=== PATIENT | male | born 1950 | race Caucasian/White ===

== ENCOUNTER 2016-05-30 04:03 | Emergency (ER) | payer MEDICARE, MEDICAID ==
--- NOTE | 2016-05-30 05:46 | ER Document Report ---
ED General - General Chief Complaint: Fall Injury Stated Complaint: FALL/HEAD PAIN Notes: Patient is a 65-year-old male who presents ER frequently. He presents because he is trying to change his shower curtain and fell. He has poor balance at baseline. He does head. He says he has severe headaches and siblings head. Denies any neck pain. He denies any pain anywhere else in his body. He is unsure if he had loss of consciousness when he hit his head. He remembers most the fall. He says he thinks he is not on blood thinners anymore but is not sure.. He has no other complaints at this time. TRAVEL OUTSIDE OF THE [place] IN LAST 30 DAYS: No - Related Data Allergies/Adverse Reactions: aspirin [Aspirin] Adverse Reaction (Mild, Verified 05/04/16 21:22) "Hurts stomach" Past Medical History - Social History Smoking Status: Never Smoker Frequency of alcohol use: None Drug Abuse: None Family History: Reviewed & Not Pertinent, CAD, Hypertension - Past Medical History Cardiac Medical History: Reports: Hx Congestive Heart Failure, Hx Coronary Artery Disease, Hx Heart Attack - stents, Hx Hypercholesterolemia, Hx Hypertension Pulmonary Medical History: Reports: Hx Bronchitis, Hx Pneumonia Neurological Medical History: Denies: Hx Cerebrovascular Accident Endocrine Medical History: Reports: Hx Diabetes Mellitus Type 2 Renal/ Medical History: Reports: Hx Benign Prostatic Hyperplasia, Hx Kidney Stones GI Medical History: Reports: Hx Gastritis, Hx Gastroesophageal Reflux Disease, Hx Ulcer Musculoskeltal Medical History: Reports Hx Arthritis Psychiatric Medical History: Reports: Hx Anxiety, Hx Dementia, Hx Depression Traumatic Medical History: Reports: Hx Fractures, Hx Traumatic Brain Injury Past Surgical History: Reports: Hx Appendectomy, Hx Bowel Surgery - 17 inches removed due to necrosis, Hx Cardiac Catheterization, Hx Cardiac Surgery - cath, stent placement, Hx Coronary Stent, Hx Orthopedic Surgery - right wrist, right hip - Immunizations Immunizations up to date: Yes Hx Diphtheria, Pertussis, Tetanus Vaccination: Yes Hx Pneumococcal Vaccination: 11/28/11 Review of Systems - Review of Systems Notes: My Normal Review Basic REVIEW OF SYSTEMS: CONSTITUTIONAL : Denies fever, chills, or sweats. Denies recent illness. CARDIOVASCULAR: Denies chest pain. RESPIRATORY: Denies cough, cold, or chest congestion. Denies shortness of breath, difficulty breathing, or wheezing. MUSCULOSKELETAL: Denies neck or back pain or joint pain or swelling. SKIN: Denies rash or skin lesions. NEUROLOGICAL: Headache ALL OTHER SYSTEMS REVIEWED AND NEGATIVE. Physical Exam - Vital signs Vitals: Temp Pulse Resp BP Pulse Ox 97.7 F 93 16 125/74 96 05/30/16 04:12 05/30/16 04:12 05/30/16 04:12 05/30/16 04:12 05/30/16 04:12 - Notes Notes: General Appearance: Well nourished, alert, cooperative, no acute distress, no obvious discomfort. Vitals: reviewed, See vital signs table. Head: no swelling or tenderness to the head Eyes: PERRL, EOMI, Conjuctiva clear Mouth: No decreasd moisture Neck: Supple, no neck tenderness, No thyromegaly. No obvious step-offs or deformities. Back: No tenderness to palpation of thoracic or lumbar spine. No step-offs or deformities. Lungs: No wheezing, No rales, No rhonci, No accessory muscle use, good air exchange bilaterally. Heart: Normal rate, Regular rythm, No murmur, no rub Abdomen: Normal BS, soft, No rigidity, No abdominal tenderness, No guarding, no rebound, no abdominal masses, no organomegaly Extremities: strength 5/5 in all extremities, good pulses in all extremities, no swelling or tenderness in the extremities, no edema. Skin: warm, dry, appropriate color, no rash Neuro: speech clear, oriented x 3, normal affect, responds appropriately to questions. cranial nerves II through XII are intact. Distal sensation intact. Patient moves EXTREMITIES without difficulty. Course - Vital Signs Vital signs: Temp Pulse Resp BP Pulse Ox 97.7 F 93 16 125/74 96 05/30/16 04:12 05/30/16 04:12 05/30/16 04:12 05/30/16 04:12 05/30/16 04:12 - Transfer of Care Notes: 05/30/16 05:[address] scan was negative. CT scan was obtained patient was complaining of a bad headache after hitting his head and is unsure if he is on blood thinners or not. Also patient is unsure if he had lost consciousness. CT scan is negative. Remainder of patient's exam is normal. Patient is discharged home. I informed him that extremities poor that he ask for help before performing tasks that require good balance as the patient has poor balance at baseline. Patient agrees with plan will be discharged home. Patient agrees to return to the ER immediately if has worsening headache, vomiting, or feels unwell. Patient's headache is currently gone. Dictation of this chart was performed using voice recognition software; therefore, there may be some unintended grammatical errors. Discharge - Discharge Clinical Impression: Minor head injury Qualifiers: Encounter type: initial encounter Qualified Code(s): S00.90XA - Unspecified superficial injury of unspecified part of head, initial encounter Condition: Good Disposition: HOME, SELF-CARE Additional Instructions: Please return to ER immediately if you have severe headache, vomiting, or feel unwell. Please wait for assistance before doing things such as changing a shower curtain or other tasks that require good balance
[2016-05-30 08:00] VITALS: BP 149/79
== END 2016-05-30 07:24 | disposition home or self-care (01) ==
LOC: ER 04:03
DX: S09.90XA Unspecified injury of head, initial encounter (principal); W18.30XA Fall on same level, unspecified, initial encounter; Y92.002 Bathroom of unspecified non-institutional (private) residence as the place of occurrence of the external cause; I50.9 Heart failure, unspecified; I25.10 Atherosclerotic heart disease of native coronary artery without angina pectoris; I10 Essential (primary) hypertension; E11.9 Type 2 diabetes mellitus without complications; Z88.6 Allergy status to analgesic agent; Z87.442 Personal history of urinary calculi; I25.2 Old myocardial infarction
CPT/HCPCS: 70450; 99284

== ENCOUNTER 2016-06-07 10:58 | Emergency (ER) | payer MEDICARE, MEDICAID ==
--- NOTE | 2016-06-07 11:17 | ER Document Report ---
ED General - General Chief Complaint: Rash Stated Complaint: WEAKNESS Time seen by provider: 11:00 Mode of Arrival: Medic Information source: Patient Notes: Patient presents from [facility] with report by personnel there of altered mental status at 8:30 this morning. EMS personnel reported that he did not know the year. The patient at this time says he has no complaints and doesn't know why he is here. He reports at baseline he ambulates some mainly uses a wheelchair and says that has not changed recently and denies any recent fall. Review of records shows that he was seen earlier this month with a fall and had a head CT that was negative. On detailed questioning the patient does say that he has some red spots on his legs and that one of them in particular on the left thigh is hurting but he doesn't home how long they have been there. He denies fever, chills, nausea, vomiting, cough, shortness of breath. He says he' s had good appetite recently. Physical Exam: General: Alert, appears well. HEENT: Normocephalic. Atraumatic. PERRLA. Extraocular movements intact. Oropharynx clear. Neck: Supple. Non-tender. No JVD Respiratory: No respiratory distress. Clear and equal breath sounds bilaterally. Cardiovascular: Regular rate and rhythm. PMI not displaced Abdominal: Normal Inspection. Soft, non-tender. No distension. Normal Bowel Sounds. exam is normal male testes ongoing no masses or hernias. He has bright erythema in between the thighs and scrotum bilaterally with a few satellite lesions suggesting Sonya. Back: Non-tender. No deformity or step off. Extremities: Moves all four extremities. Upper extremities: Normal inspection. Non-tender. Normal color. Normal ROM. Normal temperature. Lower extremities: Normal inspection. Non-tender. No edema. Normal color. Normal ROM. Normal temperature. Neurological: Speech clear mentation normal answers questions appropriately. Biometry Teacher strength 4-5 and equal both upper extremity motor function 4-5 equal both lower extremities. Patient is oriented 3 Psychological: Normal affect. Normal Mood. Skin: Warm. Dry. Patient has multiple erythematous papules over her lower abdomen and thighs bilaterally consistent with a folliculitis. There is a 1 x 1 cm area of bright erythema to the lower right thigh medially more consistent with a cellulitis but there is no crepitance or fluctuance or expressible purulence. There is a 2 x 2 centimeter area of erythema to the left thigh medially and inferiorly with no crepitance or fluctuance. This area is mildly tender and has an eschar in the middle proximal 5 mm across.. TRAVEL OUTSIDE OF THE [place] IN LAST 30 DAYS: No - Related Data Allergies/Adverse Reactions: aspirin [Aspirin] Adverse Reaction (Mild, Verified 05/04/16 21:22) "Hurts stomach" Past Medical History - Social History Smoking Status: Former Smoker Family History: Reviewed & Not Pertinent, CAD, Hypertension - Past Medical History Cardiac Medical History: Reports: Hx Congestive Heart Failure, Hx Coronary Artery Disease, Hx Heart Attack - stents, Hx Hypercholesterolemia, Hx Hypertension Pulmonary Medical History: Reports: Hx Bronchitis, Hx Pneumonia Neurological Medical History: Denies: Hx Cerebrovascular Accident Endocrine Medical History: Reports: Hx Diabetes Mellitus Type 2 Renal/ Medical History: Reports: Hx Benign Prostatic Hyperplasia, Hx Kidney Stones GI Medical History: Reports: Hx Gastritis, Hx Gastroesophageal Reflux Disease, Hx Ulcer Musculoskeltal Medical History: Reports Hx Arthritis Psychiatric Medical History: Reports: Hx Anxiety, Hx Dementia, Hx Depression Traumatic Medical History: Reports: Hx Fractures, Hx Traumatic Brain Injury Past Surgical History: Reports: Hx Appendectomy, Hx Bowel Surgery - 17 inches removed due to necrosis, Hx Cardiac Catheterization, Hx Cardiac Surgery - cath, stent placement, Hx Coronary Stent, Hx Orthopedic Surgery - right wrist, right hip - Immunizations Immunizations up to date: Yes Hx Diphtheria, Pertussis, Tetanus Vaccination: Yes Hx Pneumococcal Vaccination: 11/28/11 Review of Systems - Review of Systems Constitutional: denies: Chills, Fever EENT: denies: Ear pain, Throat pain Cardiovascular: denies: Chest pain, Syncope, Dizziness, Lightheaded Respiratory: denies: Cough, Short of breath Gastrointestinal: denies: Abdominal pain, Diarrhea, Nausea, Vomiting Genitourinary: denies: Burning, Dysuria Musculoskeletal: denies: Back pain Skin: Rash Hematologic/Lymphatic: denies: Swollen glands Neurological/Psychological: Weakness - Baseline. denies: Numbness Physical Exam - Vital signs Vitals: Temp 97.9 F 06/07/16 11:05 Course - Re-evaluation Re-evalutation: 06/07/16 12:36 As the patient had a temperature 97.8 and is not tachycardic hypotensive or hypoxic had no specific complaints on arrival and no physical findings except for mild cellulitis rather than pursuing septic workup of chosen to keep the patient here for observation to ensure that he did not have any altered mental status such as that reported by staff at his residence or new symptoms. The patient has eaten lunch without difficulty and remained afebrile with a normal glucose and normal vital signs. I believe we can safely treat the patient with oral antibiotics for cellulitis and have him follow with his physician next week. He also be placed on Lotrimin cream for candidal infection in groin. He will be in an observed setting and should he show signs of failing outpatient therapy can certainly return for reevaluation - Vital Signs Vital signs: Temp Pulse Resp BP Pulse Ox 97.9 F 12 95 06/07/16 11:05 06/07/16 11:14 06/07/16 11:14 Discharge - Discharge Clinical Impression: Cellulitis Qualifiers: Site of cellulitis: extremity Site of cellulitis of extremity: lower extremity Laterality: unspecified laterality Qualified Code(s): L03.119 - Cellulitis of unspecified part of limb Condition: Stable Disposition: HOME-ASSISTED LIVING Additional Instructions: Cellulitis You have an infection of your skin and underlying soft tissues called cellulitis. This is due to bacteria, which can enter through any break in the skin, or even through an irritated hair follicle. Untreated, cellulitis will usually worsen. Antibiotics are required. Usually, warm packs or warm soaks, and elevation of the infected area are recommended. You should start getting better within 24 to 36 hours. Most infections respond quickly to the right medication. Follow-up care is important, however, to check for abscess (boil) formation, unsuspected foreign body, or resistant infection. If you develop fever, chills, or if the area of infection is becoming rapidly more swollen or painful, call the doctor at once. Prescriptions: Cephalexin Monohydrate [Keflex 500 mg Capsule] 500 mg PO QID #40 capsule Sulfamethoxazole/Trimethoprim [Bactrim Ds Tablet] 1 each PO BID #20 tablet Referrals: LARRY DEVINE PA-C [NO LOCAL MD] - Follow up in 1 week
[2016-06-07 14:08] VITALS: BP 133/87
== END 2016-06-07 14:15 | disposition home health service (06) ==
LOC: ER 10:58
DX: L03.119 Cellulitis of unspecified part of limb (principal); R53.1 Weakness; R41.82 Altered mental status, unspecified; I50.9 Heart failure, unspecified; I25.10 Atherosclerotic heart disease of native coronary artery without angina pectoris; E78.00 Pure hypercholesterolemia, unspecified; I10 Essential (primary) hypertension; E11.9 Type 2 diabetes mellitus without complications; Z87.442 Personal history of urinary calculi; Z88.6 Allergy status to analgesic agent; I25.2 Old myocardial infarction
CPT/HCPCS: 82962; 99284

== ENCOUNTER 2016-06-10 01:23 | Emergency (ER) | payer MEDICARE, MEDICAID ==
[2016-06-10 02:20] VITALS: BP 147/81
[2016-06-10 02:23] LABS: ABSOLUTE EOSINOPHILS # (AUTO) 0.2 10^3/uL (0.0-0.6); ABSOLUTE LYMPHOCYTES (AUTO) 1.2 10^3/uL (0.5-4.7); ABSOLUTE MONOCYTES (AUTO) 0.4 10^3/uL (0.1-1.4); ABSOLUTE NEUT (AUTO) 3.1 10^3/uL (1.7-8.2); BASOPHILS % (AUTO) 0.5 % (0-2); EOSINOPHILS % (AUTO) 4.7 % (0-6); HEMATOCRIT 35.9 % (37.9-51.0); HGB HCT DIFFERENCE 0.1; LYMPHOCYTES % (AUTO) 24.4 % (13-45); MEAN CORPUSCULAR HEMOGLOBIN 27.9 pg (27.0-33.4); MEAN CORPUSCULAR HGB CONC 33.5 g/dL (32.0-36.0); MEAN CORPUSCULAR VOLUME 83 fl (80-97); MONOCYTES % (AUTO) 7.4 % (3-13); RED BLOOD COUNT 4.31 10^6/uL (4.35-5.55); RED CELL DISTRIBUTION WIDTH 14.7 % (11.5-14.0); WHITE BLOOD COUNT 4.9 10^3/uL (4.0-10.5)
[2016-06-10 02:40] LABS: ALANINE AMINOTRANSFERASE 20 U/L (21-72); ALKALINE PHOSPHATASE 189 U/L (38-126); ANION GAP 10 (5-19); ASPARTATE AMINO TRANSFERASE 16 U/L (17-59); BILIRUBIN,TOTAL 0.2 mg/dL (0.2-1.3); BLOOD UREA NITROGEN 18 mg/dL (7-20); CALCIUM 9.2 mg/dL (8.4-10.2); CARBON DIOXIDE 30 mmol/L (22-30); CHLORIDE 99 mmol/L (98-107); GLUCOSE 146 mg/dL (75-110); POTASSIUM 3.9 mmol/L (3.6-5.0); TOTAL PROTEIN 5.8 g/dL (6.3-8.2)
[2016-06-10] MEDS ORDERED: DOXYCYCLINE HYCLATE 100 MG TABLET PO ONE (03:02)
--- NOTE | 2016-06-10 03:11 | ER Document Report ---
ED Fall - General Time seen by provider: 03:05 Mode of Arrival: Medic Information source: Patient TRAVEL OUTSIDE OF THE [place] IN LAST 30 DAYS: No - HPI Occurred: This evening [facility] Context: Slipped, Fell from standing Associated symptoms: denies: Lost consciousness Location of injury/pain: Head <ZOYA MANUEL - Last Filed: 06/10/16 05:38> - General TRAVEL OUTSIDE OF THE [place] IN LAST 30 DAYS: No <PAUL GONZALEZ - Last Filed: 06/10/16 05:47> - General Chief Complaint: Fall Stated Complaint: FALL,HEAD PAIN Notes: Patient is a 65 year old male presenting to the emergency department complaining of a fall. Patient resides at [facility] and denies taking any blood thinners. Patient states he falls a lot and that he was in the bathroom when he fell tonight. Patient was turning around to dry his hands when he ended up on the floor. Patient complains of some head pain and also has an infected area to the left leg. Patient did not lose consciousness or abdominal pain. Patient is allergic to aspirin. (ZOYA MANUEL) - Related data Allergies/Adverse Reactions: aspirin [Aspirin] Adverse Reaction (Mild, Verified 06/10/16 02:18) "Hurts stomach" Past Medical History - General Information source: Patient - Social History Smoking Status: Unknown if Ever Smoked Family History: None, CAD, Hypertension - Past Medical History Cardiac Medical History: Reports: Hx Congestive Heart Failure, Hx Coronary Artery Disease, Hx Heart Attack, Hx Hypercholesterolemia, Hx Hypertension Pulmonary Medical History: Reports: Hx Bronchitis, Hx Pneumonia Endocrine Medical History: Reports: Hx Diabetes Mellitus Type 2 Renal/ Medical History: Reports: Hx Benign Prostatic Hyperplasia, Hx Kidney Stones GI Medical History: Reports: Hx Gastritis, Hx Gastroesophageal Reflux Disease, Hx Ulcer Musculoskeltal Medical History: Reports Hx Arthritis Psychiatric Medical History: Reports: Hx Anxiety, Hx Dementia, Hx Depression Traumatic Medical History: Reports: Hx Fractures, Hx Traumatic Brain Injury Past Surgical History: Reports: Hx Appendectomy, Hx Bowel Surgery, Hx Cardiac Catheterization, Hx Cardiac Surgery, Hx Coronary Stent, Hx Orthopedic Surgery - Immunizations Immunizations up to date: Yes Hx Diphtheria, Pertussis, Tetanus Vaccination: Yes <ZOYA MANUEL - Last Filed: 06/10/16 05:38> - Social History Family History: Reviewed & Not Pertinent, CAD, Hypertension - Past Medical History Cardiac Medical History: Reports: Hx Congestive Heart Failure, Hx Coronary Artery Disease, Hx Heart Attack - stents, Hx Hypercholesterolemia, Hx Hypertension Pulmonary Medical History: Reports: Hx Bronchitis, Hx Pneumonia Neurological Medical History: Denies: Hx Cerebrovascular Accident Endocrine Medical History: Reports: Hx Diabetes Mellitus Type 2 Renal/ Medical History: Reports: Hx Benign Prostatic Hyperplasia, Hx Kidney Stones GI Medical History: Reports: Hx Gastritis, Hx Gastroesophageal Reflux Disease, Hx Ulcer Musculoskeltal Medical History: Reports Hx Arthritis Psychiatric Medical History: Reports: Hx Anxiety, Hx Dementia, Hx Depression Traumatic Medical History: Reports: Hx Fractures, Hx Traumatic Brain Injury Past Surgical History: Reports: Hx Appendectomy, Hx Bowel Surgery - 17 inches removed due to necrosis, Hx Cardiac Catheterization, Hx Cardiac Surgery - cath, stent placement, Hx Coronary Stent, Hx Orthopedic Surgery - right wrist, right hip - Immunizations Immunizations up to date: Yes Hx Diphtheria, Pertussis, Tetanus Vaccination: Yes Hx Pneumococcal Vaccination: 11/28/11 <PAUL GONZALEZ - Last Filed: 06/10/16 05:47> Review of Systems - Review of Systems Constitutional: No symptoms reported EENT: See HPI Cardiovascular: No symptoms reported Respiratory: No symptoms reported Gastrointestinal: No symptoms reported Genitourinary: No symptoms reported Male Genitourinary: No symptoms reported Musculoskeletal: No symptoms reported Skin: No symptoms reported Hematologic/Lymphatic: No symptoms reported Neurological/Psychological: No symptoms reported -: Yes All other systems reviewed and negative <ZOYA MANUEL - Last Filed: 06/10/16 05:38> Physical Exam - Vital signs Interpretation: Normal - General General appearance: Appears well, Alert - HEENT Head: Normocephalic, Atraumatic Eyes: Normal Pupils: PERRL - Respiratory Respiratory status: No respiratory distress Chest status: Nontender Breath sounds: Normal Chest palpation: Normal - Cardiovascular Rhythm: Regular Murmur: No - Abdominal Inspection: Other - Midline incision that is well-healed. Distension: No distension Bowel sounds: Normal Tenderness: Nontender - Back Back: Normal - Extremities General upper extremity: Normal inspection, Normal ROM, Normal strength General lower extremity: Normal ROM, Normal strength, Other - Patient with areas of excoriation to his bilateral lower extremities. 2+ pulses dorsalis pedis bilaterally. Patient has an area on his upper left thigh where he has scratched and has a wound. Area is also indurated with some surrounding erythema <PAUL GONZALEZ - Last Filed: 06/10/16 05:47> - Vital signs Vitals: Temp 97.8 F 06/10/16 01:35 (ZOYA MANUEL) (PAUL GONZALEZ) Course - Laboratory Result Diagrams: 06/10/16 02:10 06/10/16 02:10 <ZOYA MANUEL - Last Filed: 06/10/16 05:38> - Laboratory Result Diagrams: 06/10/16 02:10 06/10/16 02:10 - Diagnostic Test Radiology reviewed: Image reviewed, Reports reviewed <PAUL GONZALEZ - Last Filed: 06/10/16 05:47> - Re-evaluation Re-evalutation: 06/10/16 05:46 Patient no acute findings on head CT. Patient does appear to have the beginnings of a cellulitis on his left lower extremity. He'll be started on doxycycline here and given a prescription. No injuries from fall this evening have been found. (PAUL GONZALEZ) - Vital Signs Vital signs: Temp Pulse Resp BP Pulse Ox 97.6 F 21 H 147/81 H 90 L 06/10/16 03:45 06/10/16 03:00 06/10/16 02:01 06/10/16 03:00 (ZOYA MANUEL) (PAUL GONZALEZ) - Laboratory Laboratory results interpreted by me: 06/10/16 06/10/16 02:10 02:10 RBC 4.31 L Hgb 12.0 L Hct 35.9 L RDW 14.7 H Glucose 146 H AST 16 L ALT 20 L Alkaline Phosphatase 189 H Total Protein 5.8 L Albumin 3.0 L (ZOYA MANUEL) (PAUL GONZALEZ) Discharge <ZOYA MANUEL - Last Filed: 06/10/16 05:38> <PAUL GONZALEZ - Last Filed: 06/10/16 05:47> - Discharge Clinical Impression: Head injury Qualifiers: Encounter type: initial encounter Qualified Code(s): S09.90XA - Unspecified injury of head, initial encounter Cellulitis Qualifiers: Site of cellulitis: extremity Site of cellulitis of extremity: lower extremity Laterality: left Qualified Code(s): L03.116 - Cellulitis of left lower limb Condition: Stable Disposition: HOME, SELF-CARE Instructions: Head Injury Precautions ([facility]), Cellulitis ([facility]) Prescriptions: Doxycycline Hyclate 100 mg PO BID #30 capsule Scribe Attestation: 06/10/16 05:47 I personally performed the services described in the documentation, reviewed and edited the documentation which was dictated to the scribe in my presence, and it accurately records my words and actions. (PAUL GONZALEZ) Scribe Documentation <ZOYA MANUEL - Last Filed: 06/10/16 05:38> <PAUL GONZALEZ - Last Filed: 06/10/16 05:47> - Scribe Written by Scribe:: Dr. Gonzalez (ZOYA MANUEL)
== END 2016-06-10 04:38 | disposition home or self-care (01) ==
LOC: ER 01:23
DX: S09.90XA Unspecified injury of head, initial encounter (principal); L03.116 Cellulitis of left lower limb; R51 Headache; W19.XXXA Unspecified fall, initial encounter; I50.9 Heart failure, unspecified; I25.10 Atherosclerotic heart disease of native coronary artery without angina pectoris; I25.2 Old myocardial infarction; E78.00 Pure hypercholesterolemia, unspecified; I10 Essential (primary) hypertension
CPT/HCPCS: 99285; 36415; 85025; 80053; 70450; A9270

== ENCOUNTER 2016-06-14 10:20 | Emergency (ER) | payer MEDICARE, MEDICAID ==
[2016-06-14 11:13] LABS: ABSOLUTE EOSINOPHILS # (AUTO) 0.2 10^3/uL (0.0-0.6); ABSOLUTE LYMPHOCYTES (AUTO) 1.5 10^3/uL (0.5-4.7); ABSOLUTE MONOCYTES (AUTO) 0.4 10^3/uL (0.1-1.4); ABSOLUTE NEUT (AUTO) 3.6 10^3/uL (1.7-8.2); BASOPHILS % (AUTO) 0.4 % (0-2); EOSINOPHILS % (AUTO) 2.8 % (0-6); HEMATOCRIT 38.3 % (37.9-51.0); HEMOGLOBIN 12.5 g/dL (13.5-17.0); HGB HCT DIFFERENCE -0.8; LYMPHOCYTES % (AUTO) 26.9 % (13-45); MEAN CORPUSCULAR HGB CONC 32.8 g/dL (32.0-36.0); MEAN CORPUSCULAR VOLUME 85 fl (80-97); MONOCYTES % (AUTO) 6.8 % (3-13); RED BLOOD COUNT 4.49 10^6/uL (4.35-5.55); RED CELL DISTRIBUTION WIDTH 15.5 % (11.5-14.0); SEGMENTED NEUTROPHILS % (AUTO) 63.1 % (42-78); WHITE BLOOD COUNT 5.6 10^3/uL (4.0-10.5)
[2016-06-14 11:26] LABS: ALANINE AMINOTRANSFERASE 29 U/L (21-72); ALBUMIN 3.4 g/dL (3.5-5.0); ALKALINE PHOSPHATASE 182 U/L (38-126); ANION GAP 13 (5-19); ASPARTATE AMINO TRANSFERASE 22 U/L (17-59); BILIRUBIN,TOTAL 0.3 mg/dL (0.2-1.3); BLOOD UREA NITROGEN 18 mg/dL (7-20); CALCIUM 9.2 mg/dL (8.4-10.2); CARBON DIOXIDE 26 mmol/L (22-30); CHLORIDE 100 mmol/L (98-107); CREATININE RESULT 0.97 mg/dL (0.52-1.25); GLUCOSE 109 mg/dL (75-110); POTASSIUM 4.5 mmol/L (3.6-5.0); SODIUM 138.9 mmol/L (137-145); TOTAL PROTEIN 6.3 g/dL (6.3-8.2)
--- NOTE | 2016-06-14 11:44 | ER Document Report ---
ED General - General Chief Complaint: Hip Pain Stated Complaint: FALL HIP PAIN Mode of Arrival: Medic Information source: Patient, [facility] Records Notes: 65-year-old gentleman who presents here multiple times a month for complaints of falls presents with complaints of left hip pain. Patient notes that he may have fallen yet again. Patient has never actually been seen to fall on his previous visits always noted to be lying down. She gets tired and does not wish to stay at the current care facility that he is at. Patient denies any other injuries at this time TRAVEL OUTSIDE OF THE [place] IN LAST 30 DAYS: No - HPI Onset: Just prior to arrival Onset/Duration: Sudden Quality of pain: Achy Severity: Mild Pain Level: 1 Associated symptoms: Other Exacerbated by: Movement Relieved by: Denies Similar symptoms previously: Yes Recently seen / treated by doctor: Yes - Related Data Allergies/Adverse Reactions: aspirin [Aspirin] Adverse Reaction (Mild, Verified 06/10/16 02:18) "Hurts stomach" Past Medical History - Social History Smoking Status: Never Smoker Cigarette use (# per day): No Chew tobacco use (# tins/day): No Smoking Education Provided: No Frequency of alcohol use: None Drug Abuse: None Family History: Reviewed & Not Pertinent, CAD, Hypertension Patient has suicidal ideation: No Patient has homicidal ideation: No - Past Medical History Cardiac Medical History: Reports: Hx Congestive Heart Failure, Hx Coronary Artery Disease, Hx Heart Attack - stents, Hx Hypercholesterolemia, Hx Hypertension Pulmonary Medical History: Reports: Hx Bronchitis, Hx Pneumonia Neurological Medical History: Denies: Hx Cerebrovascular Accident Endocrine Medical History: Reports: Hx Diabetes Mellitus Type 2 Renal/ Medical History: Reports: Hx Benign Prostatic Hyperplasia, Hx Kidney Stones. Denies: Hx Peritoneal Dialysis GI Medical History: Reports: Hx Gastritis, Hx Gastroesophageal Reflux Disease, Hx Ulcer Musculoskeltal Medical History: Reports Hx Arthritis Psychiatric Medical History: Reports: Hx Anxiety, Hx Dementia, Hx Depression Traumatic Medical History: Reports: Hx Fractures, Hx Traumatic Brain Injury Past Surgical History: Reports: Hx Appendectomy, Hx Bowel Surgery - 17 inches removed due to necrosis, Hx Cardiac Catheterization, Hx Cardiac Surgery - cath, stent placement, Hx Coronary Stent, Hx Orthopedic Surgery - right wrist, right hip - Immunizations Immunizations up to date: Yes Hx Diphtheria, Pertussis, Tetanus Vaccination: Yes Hx Pneumococcal Vaccination: 11/28/11 Review of Systems - Review of Systems Notes: REVIEW OF SYSTEMS: CONSTITUTIONAL : Denies fever, chills, or sweats. Denies recent illness. EENT: Denies eye, ear, throat, or mouth pain or symptoms. Denies nasal or sinus congestion or discharge. Denies throat, tongue, or mouth swelling or difficulty swallowing. CARDIOVASCULAR: Denies chest pain. Denies palpitations or racing or irregular heart beat. Denies ankle edema. RESPIRATORY: Denies cough, cold, or chest congestion. Denies shortness of breath, difficulty breathing, or wheezing. GASTROINTESTINAL: Denies abdominal pain or distention. Denies nausea, vomiting , or diarrhea. Denies blood in vomitus, stools, or per rectum. Denies black, tarry stools. Denies constipation. GENITOURINARY: Denies difficulty urinating, painful urination, burning, frequency, blood in urine, or discharge. MUSCULOSKELETAL: Admits to hip pain SKIN: Denies rash, lesions or sores. HEMATOLOGIC : Denies easy bruising or bleeding. LYMPHATIC: Denies swollen, enlarged glands. NEUROLOGICAL: Denies confusion or altered mental status. Denies passing out or loss of consciousness. Denies dizziness or lightheadedness. Denies headache. Denies weakness or paralysis or loss of use of either side. Denies problems with gait or speech. Denies sensory loss, numbness, or tingling. Denies seizures. PSYCHIATRIC: Denies anxiety or stress. Denies depression, suicidal ideation, or homicidal ideation. ALL OTHER SYSTEMS REVIEWED AND NEGATIVE. Dictation was performed using [employer] voice recognition software PHYSICAL EXAMINATION: GENERAL: Well-appearing, well-nourished and in no acute distress. HEAD: Atraumatic, normocephalic. EYES: Pupils equal round and reactive to light, extraocular movements intact, sclera anicteric, conjunctiva are normal. ENT: Nares patent, oropharynx clear without exudates. Moist mucous membranes. NECK: Normal range of motion, supple without lymphadenopathy LUNGS: Breath sounds clear to auscultation bilaterally and equal. No wheezes rales or rhonchi. HEART: Regular rate and rhythm without murmurs ABDOMEN: Soft, nontender, nondistended abdomen. No guarding, no rebound. No masses appreciated. Musculoskeletal: Normal range of motion, no pitting or edema. No cyanosis. NEUROLOGICAL: Cranial nerves grossly intact. Normal speech, normal gait. Normal sensory, motor exams PSYCH: Normal mood, normal affect. SKIN: Warm, Dry, normal turgor, no rashes or lesions noted. Physical Exam - Vital signs Vitals: Temp Pulse Resp BP Pulse Ox 97.7 F 74 16 132/77 H 93 06/14/16 10:29 06/14/16 10:29 06/14/16 10:29 06/14/16 10:29 06/14/16 10:29 Course - Re-evaluation Re-evalutation: 06/14/16 11:43 pt noted to have ambulated to the bathroom with no diffiucilty 06/14/16 12:20 Referring x-ray results, appears patient has already put on his shoes and is prepared to go home 06/14/16 13:43 X-ray notes no acute abnormality, patient will be discharged home After performing a Medical Screening Examination, I estimate there is LOW risk for INTRACRANIAL HEMORRHAGE, UNSTABLE SPINE FRACTURE, CENTRAL CORD SYNDROME, CAUDA EQUINA, THORACIC AORTIC DISSECTION, PNEUMOTHORAX, PERFORATED BOWEL, RUPTURED ABDOMINAL AORTIC ANEURYSM, ACUTE TENDON RUPTURE, COMPARTMENT SYNDROME, or OPEN FRACTURE, thus I consider the discharge disposition reasonable. Also, there is no evidence or peritonitis, sepsis, or toxicity. The patient and I have discussed the diagnosis and risks, and we agree with discharging home to follow-up with their primary doctor with the understanding that symptoms and presentations can change. We also discussed returning to the Emergency Department immediately if new or worsening symptoms occur. We have discussed the symptoms which are most concerning (e.g., bloody stool, fever, changing or worsening pain, vomiting) that necessitate immediate return. - Vital Signs Vital signs: Temp Pulse Resp BP Pulse Ox 97.7 F 74 16 132/77 H 93 06/14/16 10:29 06/14/16 10:29 06/14/16 10:29 06/14/16 10:29 06/14/16 10:29 - Laboratory Result Diagrams: 06/14/16 10:40 06/14/16 10:40 Laboratory results interpreted by me: 06/14/16 06/14/16 10:40 10:40 Hgb 12.5 L RDW 15.5 H Alkaline Phosphatase 182 H Albumin 3.4 L - Diagnostic Test Radiology reviewed: Image reviewed, Reports reviewed Discharge - Discharge Clinical Impression: Left hip pain Fall Qualifiers: Encounter type: initial encounter Qualified Code(s): W19.XXXA - Unspecified fall, initial encounter Disposition: HOME, SELF-CARE Additional Instructions: Follow up with your physician tomorrow for further care or return to the ED IMMEDIATELY if symptoms worsen or new concerns occur
[2016-06-14 14:20] VITALS: BP 119/72
== END 2016-06-14 14:15 ==
LOC: ER 10:20
DX: M25.552 Pain in left hip (principal); W19.XXXA Unspecified fall, initial encounter; I25.10 Atherosclerotic heart disease of native coronary artery without angina pectoris; I25.2 Old myocardial infarction; I10 Essential (primary) hypertension; E11.9 Type 2 diabetes mellitus without complications; Z98.61 Coronary angioplasty status
CPT/HCPCS: 36415; 80053; 85025; 99283

== ENCOUNTER 2016-06-23 01:38 | Emergency (ER) | payer MEDICARE, MEDICAID ==
--- NOTE | 2016-06-23 02:18 | ER Document Report ---
ED General - General Mode of Arrival: Medic Information source: Patient TRAVEL OUTSIDE OF THE [place] IN LAST 30 DAYS: No - HPI Patient complains to provider of: Hypoglycemia Onset: Just prior to arrival Associated symptoms: Other - see above <CHARLES OLIVAS - Last Filed: 06/23/16 03:40> <LISAPAUL ANN - Last Filed: 06/23/16 03:54> - General Chief Complaint: Low Blood Sugar Stated Complaint: BLOOD SUGAR PROBLEMS Notes: 65 year old male with history of type II diabetes presents to the ED via EMS complaining of hypoglycemia that started earlier this afternoon. Patient is a resident of [facility] and sat up beside his bed and felt dizzy. Patient began to experience a headache so he called one of the nurses over. Patient states that the nurse didn't help him so he called 911. Patient states that he has been having intermittent headache, nausea, and chest pain for the past few days. Patient states that he has had these symptoms in the past, but not for a long time. Patient is also complaining of some abdominal pain, but states that it might be due to his hunger. Patient had a normal bowel movement yesterday. Patient is also complaining of an itchy sensation to the left foot. (CHARLES OLIVAS) - Related Data Allergies/Adverse Reactions: aspirin [Aspirin] Adverse Reaction (Mild, Verified 06/23/16 02:07) "Hurts stomach" Past Medical History - General Information source: Patient - Social History Smoking Status: Unknown if Ever Smoked Family History: Reviewed & Not Pertinent, CAD, Hypertension - Past Medical History Cardiac Medical History: Reports: Hx Congestive Heart Failure, Hx Coronary Artery Disease, Hx Heart Attack - stents, Hx Hypercholesterolemia, Hx Hypertension Pulmonary Medical History: Reports: Hx Bronchitis, Hx Pneumonia Neurological Medical History: Endocrine Medical History: Reports: Hx Diabetes Mellitus Type 2 Renal/ Medical History: Reports: Hx Benign Prostatic Hyperplasia, Hx Kidney Stones GI Medical History: Reports: Hx Gastritis, Hx Gastroesophageal Reflux Disease, Hx Ulcer Musculoskeltal Medical History: Reports Hx Arthritis Psychiatric Medical History: Reports: Hx Anxiety, Hx Dementia, Hx Depression Traumatic Medical History: Reports: Hx Fractures, Hx Traumatic Brain Injury Past Surgical History: Reports: Hx Appendectomy, Hx Bowel Surgery - 17 inches removed due to necrosis, Hx Cardiac Catheterization, Hx Cardiac Surgery - cath, stent placement, Hx Coronary Stent, Hx Orthopedic Surgery - right wrist, right hip - Immunizations Immunizations up to date: Yes Hx Diphtheria, Pertussis, Tetanus Vaccination: Yes Hx Pneumococcal Vaccination: 11/28/11 <CHARLES OLIVAS - Last Filed: 06/23/16 03:40> Review of Systems - Review of Systems Constitutional: No symptoms reported EENT: No symptoms reported Cardiovascular: See HPI, Chest pain Respiratory: No symptoms reported Gastrointestinal: See HPI, Abdominal pain, Nausea. denies: Diarrhea, Vomiting Genitourinary: No symptoms reported Male Genitourinary: No symptoms reported Musculoskeletal: No symptoms reported Skin: See HPI, Rash - left foot Hematologic/Lymphatic: No symptoms reported Neurological/Psychological: See HPI, Headaches -: Yes All other systems reviewed and negative <CHARLES OLIVAS - Last Filed: 06/23/16 03:40> Physical Exam - General General appearance: Alert In distress: None - HEENT Head: Normocephalic, Atraumatic Eyes: Normal Extraocular movements intact: Yes Pupils: PERRL - Respiratory Respiratory status: No respiratory distress Breath sounds: Normal - Cardiovascular Rhythm: Regular Heart sounds: Normal auscultation - Abdominal Inspection: Other - healed midline incision Distension: No distension Tenderness: Nontender - Back Back: Normal - Extremities General upper extremity: Normal inspection, Normal ROM General lower extremity: Normal inspection, Normal ROM - Neurological Neuro grossly intact: Yes Cognition: Normal - at baseline Orientation: AAOx4 [place] Coma Scale Eye Opening: Spontaneous Jakub Coma Scale Verbal: Oriented Jakub Coma Scale Motor: Obeys Commands [place] Coma Scale Total: 15 Speech: Normal - Psychological Associated symptoms: Normal affect, Normal mood - Skin Skin Temperature: Warm Skin Moisture: Dry Skin Color: Normal Skin irregularity: Rash - to the distal left foot with no sign of induration, erythema, or fluctuance <CHARLES OLIVAS - Last Filed: 06/23/16 03:40> Course - Laboratory Result Diagrams: 06/23/16 01:50 06/23/16 01:50 <CHARLES OLIVAS - Last Filed: 06/23/16 03:40> - Laboratory Result Diagrams: 06/23/16 01:50 06/23/16 01:50 <PAUL GONZALEZ - Last Filed: 06/23/16 03:54> - Re-evaluation Re-evalutation: 06/23/16 03:35 Patient feels better. No acute findings on blood work or urine or chest x-ray. Patient states that he is comfortable going back to his residence. Stable for discharge home. (PAUL GONZALEZ) - Vital Signs Vital signs: Temp Pulse Resp BP Pulse Ox 97.8 F 12 149/96 H 93 06/23/16 02:02 06/23/16 02:01 06/23/16 02:01 06/23/16 02:01 (CHARLES OLIVAS) (PAUL GONZALEZ) - Laboratory Laboratory results interpreted by me: 06/23/16 06/23/16 06/23/16 01:50 01:50 02:30 Hgb 12.7 L RDW 15.4 H Glucose 115 H AST 16 L Alkaline Phosphatase 143 H Total Protein 6.1 L Albumin 3.2 L Ur Leukocyte Esterase TRACE H (PAUL GONZALEZ) Discharge <CHARLES OLIVAS - Last Filed: 06/23/16 03:40> <PAUL GONZALEZ - Last Filed: 06/23/16 03:54> - Discharge Clinical Impression: Hypoglycemia Condition: Stable Disposition: HOME, SELF-CARE Instructions: Hypoglycemia ([facility]), Hypoglycemia Diet ([facility]) Referrals: SHAHEED ROBERTSON MD [Primary Care Provider] - Follow up as needed Scribe Attestation: 06/23/16 03:36 I personally performed the services described in the documentation, reviewed and edited the documentation which was dictated to the scribe in my presence, and it accurately records my words and actions. (PAUL GONZALEZ) Scribe Documentation - Scribe Written by Scribe:: Kendra Hill, 06/23/2016 3:25 acting as scribe for :: Lisa <CHARLES OLIVAS - Last Filed: 06/23/16 03:40>
[2016-06-23 02:27] LABS: ABSOLUTE EOSINOPHILS # (AUTO) 0.1 10^3/uL (0.0-0.6); ABSOLUTE LYMPHOCYTES (AUTO) 1.3 10^3/uL (0.5-4.7); ABSOLUTE MONOCYTES (AUTO) 0.5 10^3/uL (0.1-1.4); ABSOLUTE NEUT (AUTO) 3.8 10^3/uL (1.7-8.2); BASOPHILS % (AUTO) 0.4 % (0-2); HEMATOCRIT 39.5 % (37.9-51.0); HEMOGLOBIN 12.7 g/dL (13.5-17.0); HGB HCT DIFFERENCE -1.4; LYMPHOCYTES % (AUTO) 22.1 % (13-45); MEAN CORPUSCULAR HEMOGLOBIN 27.6 pg (27.0-33.4); MEAN CORPUSCULAR HGB CONC 32.1 g/dL (32.0-36.0); MEAN CORPUSCULAR VOLUME 86 fl (80-97); MONOCYTES % (AUTO) 9.4 % (3-13); RED BLOOD COUNT 4.59 10^6/uL (4.35-5.55); RED CELL DISTRIBUTION WIDTH 15.4 % (11.5-14.0); SEGMENTED NEUTROPHILS % (AUTO) 66.1 % (42-78); WHITE BLOOD COUNT 5.8 10^3/uL (4.0-10.5)
[2016-06-23 02:29] LABS: PROTHROMBIN TIME 13.1 SEC (11.4-15.4)
[2016-06-23 02:32] LABS: ALANINE AMINOTRANSFERASE 26 U/L (21-72); ALBUMIN 3.2 g/dL (3.5-5.0); ALKALINE PHOSPHATASE 143 U/L (38-126); ANION GAP 11 (5-19); ASPARTATE AMINO TRANSFERASE 16 U/L (17-59); BILIRUBIN,TOTAL 0.3 mg/dL (0.2-1.3); BLOOD UREA NITROGEN 19 mg/dL (7-20); CALCIUM 9.3 mg/dL (8.4-10.2); CARBON DIOXIDE 26 mmol/L (22-30); CHLORIDE 102 mmol/L (98-107); CREATININE RESULT 1.01 mg/dL (0.52-1.25); GLUCOSE 115 mg/dL (75-110); SODIUM 139.3 mmol/L (137-145); TOTAL PROTEIN 6.1 g/dL (6.3-8.2)
[2016-06-23 02:47] LABS: APPEARANCE,URINE CLEAR; BILIRUBIN,URINE NEGATIVE (NEGATIVE); GLUCOSE, URINE NEGATIVE (NEGATIVE); KETONES,URINE NEGATIVE (NEGATIVE); LEUKOCYTE ESTERASE,URINE TRACE (NEGATIVE); NITRITE,URINE NEGATIVE (NEGATIVE); PROTEIN,URINE NEGATIVE (NEGATIVE); URINE SPECIFIC GRAVITY 1.008; UROBILINOGEN,URINE NEGATIVE mg/dL (<2.0)
[2016-06-23 05:22] VITALS: BP 164/97
== END 2016-06-23 05:22 | disposition home or self-care (01) ==
LOC: ER 01:38
DX: E11.649 Type 2 diabetes mellitus with hypoglycemia without coma (principal); R51 Headache; R11.0 Nausea; R07.9 Chest pain, unspecified; R10.9 Unspecified abdominal pain; R21 Rash and other nonspecific skin eruption; L29.8 Other pruritus; I25.10 Atherosclerotic heart disease of native coronary artery without angina pectoris; I25.2 Old myocardial infarction; I10 Essential (primary) hypertension; Z87.19 Personal history of other diseases of the digestive system; Z90.49 Acquired absence of other specified parts of digestive tract; Z98.61 Coronary angioplasty status
CPT/HCPCS: 36415; 71010; 80053; 81001; 82962; 83605; 85025; 85610; 99285

== ENCOUNTER 2016-07-03 23:32 | Emergency (ER) | payer MEDICARE, MEDICAID ==
[2016-07-04] MEDS ORDERED: CEPHALEXIN 500 MG CAPSULE PO ONE (00:42)
[2016-07-04] MEDS ORDERED: ACETAMINOPHEN 325 MG TABLET PO ONE (00:43)
--- NOTE | 2016-07-04 00:50 | ER Document Report ---
ED Extremity Problem, Lower - General Chief Complaint: Foot Pain Stated Complaint: LEFT FOOT PAIN Time seen by provider: 00:45 Mode of Arrival: Medic Information source: Patient, [facility] Personnel Notes: 65-year-old male presents to ED for pain in his left fifth toe. States sometime yesterday he stubbed his toe and now the little toe and foot are sore and bruising with dried blood nail bed patient is a diabetic with a history of heart attack. He has had a heart catheter with stents in the past TRAVEL OUTSIDE OF THE [place] IN LAST 30 DAYS: No - HPI Patient complains to provider of: Injury, Pain, Swelling Location: 5th Toe Occurred: Yesterday Where: [facility] Onset/Duration: Gradual Quality of pain: Achy Severity: Moderate Pain Level: 3 Context: Other - Stubbed his toe Recent injury: Yes Associated symptoms: Painful ambulation Exacerbated by: Movement, Walking Relieved by: Nothing - Related Data Allergies/Adverse Reactions: aspirin [Aspirin] Adverse Reaction (Mild, Verified 06/23/16 02:07) "Hurts stomach" Past Medical History - General Information source: Patient, [facility] Personnel - Social History Smoking Status: Never Smoker Cigarette use (# per day): No Chew tobacco use (# tins/day): No Smoking Education Provided: No Frequency of alcohol use: None Drug Abuse: None Lives with: [facility] Family History: CAD, Hypertension - Past Medical History Cardiac Medical History: Reports: Hx Congestive Heart Failure, Hx Coronary Artery Disease, Hx Heart Attack - stents, Hx Hypercholesterolemia, Hx Hypertension Pulmonary Medical History: Reports: Hx Bronchitis, Hx Pneumonia EENT Medical History: Reports: None Neurological Medical History: Reports: None Endocrine Medical History: Reports: Hx Diabetes Mellitus Type 2 Renal/ Medical History: Reports: Hx Benign Prostatic Hyperplasia, Hx Kidney Stones Malignancy Medical History: Reports None GI Medical History: Reports: Hx Gastritis, Hx Gastroesophageal Reflux Disease, Hx Ulcer Musculoskeltal Medical History: Reports Hx Arthritis, Reports Hx Musculoskeletal Deformity, Reports Hx Musculoskeletal Trauma Skin Medical History: Reports None Psychiatric Medical History: Reports: Hx Anxiety, Hx Dementia, Hx Depression Traumatic Medical History: Reports: Hx Fractures, Hx Traumatic Brain Injury Infectious Medical History: Reports: None Past Surgical History: Reports: Hx Abdominal Surgery - History: Had 18 inches of his colon removed, Hx Appendectomy, Hx Bowel Surgery - 17 inches removed due to necrosis, Hx Cardiac Catheterization, Hx Cardiac Surgery - cath, stent placement, Hx Coronary Stent, Hx Orthopedic Surgery - right wrist, right hip - Immunizations Immunizations up to date: Yes Hx Diphtheria, Pertussis, Tetanus Vaccination: Yes Hx Pneumococcal Vaccination: 11/28/11 Review of Systems - Review of Systems Constitutional: No symptoms reported EENT: No symptoms reported Cardiovascular: No symptoms reported Respiratory: No symptoms reported Gastrointestinal: No symptoms reported Genitourinary: No symptoms reported Male Genitourinary: No symptoms reported Musculoskeletal: Other - Pain and swelling to the fifth toe on left foot Skin: Other - Dry blood around the nail of the fifth toe on the left foot minimal swelling and ecchymosis to the toe. Hematologic/Lymphatic: No symptoms reported Neurological/Psychological: No symptoms reported -: Yes All other systems reviewed and negative Physical Exam - Vital signs Vitals: Temp Pulse Resp BP Pulse Ox 99 F 78 16 133/79 H 96 07/03/16 23:43 07/03/16 23:43 07/03/16 23:43 07/03/16 23:43 07/03/16 23:43 Interpretation: Normal - General General appearance: Appears well, Alert - HEENT Head: Normocephalic, Atraumatic Eyes: Normal Pupils: PERRL - Respiratory Respiratory status: No respiratory distress Chest status: Nontender Breath sounds: Normal Chest palpation: Normal - Cardiovascular Rhythm: Regular Heart sounds: Normal auscultation Murmur: No - Abdominal Inspection: Normal Distension: No distension Bowel sounds: Normal Tenderness: Nontender Organomegaly: No organomegaly - Back Back: Normal, Nontender - Extremities General upper extremity: Normal inspection, Nontender, Normal color, Normal ROM , Normal temperature General lower extremity: Normal color, Normal ROM, Normal temperature, Normal weight bearing. No: Sam's sign Foot: Tender - Fifth toe left foot, Ecchymosis - Fifth toe left foot, Nail injury, No evidence of FB. No: Normal, Nontender, Abrasion, Deformity, Edema, Instability, Laceration, Metatarsal compress. pain, Navicular tenderness, Puncture wound, Unable to bear weight, Tender 5th metatarsal, Other - Neurological Neuro grossly intact: Yes Cognition: Normal Orientation: AAOx4 [place] Coma Scale Eye Opening: Spontaneous Jakub Coma Scale Verbal: Oriented [place] Coma Scale Motor: Obeys Commands [place] Coma Scale Total: 15 Speech: Normal Motor strength normal: LUE, RUE, LLE, RLE Sensory: Normal - Psychological Associated symptoms: Normal affect, Normal mood - Skin Skin Temperature: Warm Skin Moisture: Dry Skin Color: Normal, Ecchymosis Location of irregularity: Extremities - Dry blood around the nail of the fifth toe on the left foot mineral bruising and swelling to the stone Irregularity with: Swelling, Tenderness Course - Re-evaluation Re-evalutation: 07/04/16 02:32 Discussed x-ray results with patient. Patient has broken his fifth toe on his left foot. Toe will be gila taped to the next toe after being cleaned with some soap and water and bacitracin applied. Patient was treated in ER with Keflex and will be discharged home with a prescription for Keflex due to him having diabetes with a small cut on his foot. - Vital Signs Vital signs: Temp Pulse Resp BP Pulse Ox 98.6 F 73 16 147/80 H 96 07/04/16 03:02 07/04/16 03:02 07/04/16 03:02 07/04/16 03:02 07/04/16 03:02 - Laboratory Laboratory results interpreted by me: 07/04/16 00:46 POC Glucose 279 H - Diagnostic Test Radiology reviewed: Image reviewed, Reports reviewed Discharge - Discharge Clinical Impression: Fracture of fifth toe, left, closed, small abrasion and fifth toe Condition: Stable Disposition: HOME-SNF (ED ONLY) Additional Instructions: Fractured Toe You have fractured your toe. Although this fracture doesn't need a cast or splint, emergency evaluation was needed to assess the straightness of the bones and joints. Reduction ("setting") is necessary for toe fractures which are crooked or twisted. A toe fracture will heal in about three weeks. Usually, the fractured toe is taped to the next toe. The second toe acts as a moving splint to protect the broken one. Ice and elevation help during the first 48 hours. You may need crutches at first if walking is painful. When you begin walking, be careful NOT to do things that hurt. If weight bearing is not comfortable within a few days, you may require a special shoe, walking boot, or cast. Call the doctor or return at once if severe swelling, severe pain, or numbness develop in the toe, or if you suspect you may have re-injured it. Acetaminophen Acetaminophen may be taken for pain relief or fever control. It's much safer than aspirin, offering a wider range of "safe" dosages. It is safe during . Some brand names are Tylenol, Panadol, Datril, Anacin 3, Tempra, and Liquiprin. Acetaminophen can be repeated every four hours. The following are maximum recommended dosages: WEIGHT Dose Drops Elixir Chewable( 80mg) (LBS.) drprs=droppers tsp=teaspoon 6 40 mg .4 ml (1/2) 6-11 80 mg .8 ml (full) 1/2 tsp 1 tab 12-16 120 mg 1 1/2 drprs 3/4 tsp 1 1/2 tabs 17-23 160 mg 2 drprs 1 tsp 2 tabs 24-30 240 mg 3 drprs 1 1/2 tsp 3 tabs 30-35 320 mg 2 tsp 4 tabs 36-41 360 mg 2 1/4 tsp 4 1 /2 tabs 42-47 400 mg 2 1/2 tsp 5 tabs 48-53 480 mg 3 tsp 6 tabs 54-59 520 mg 3 1/4 tsp 6 1 /2 tabs 60-64 560 mg 3 1/2 tsp 7 tabs 65-70 600 mg 3 3/4 tsp 7 1 /2 tabs 71-76 640 mg 4 tsp 8 tabs 77-82 720 mg 4 1/2 tsp 9 tabs 83-88 800 mg 5 tsp 10 tabs >89 pounds or adults 650 mg to 900 mg Acetaminophen can be repeated every four hours. Maximum daily dose not to exceed 4000 mg. These maximum recommended dosages are slightly higher than the dosages written on the product container, but these dosages are very safe and well below the toxic dosage for acetaminophen. Gila Taping Your toes have been taped together -- called "gila taping." The good toe can act as a moving splint to protect the injured toe. You will probably need to keep the tape in place (replacing it when needed) for about three weeks. A firm shoe over the injured toes is usually a good idea. As a general rule, you shouldn't do anything which causes pain to your taped toes. Taping isn't absolute protection, so match your activity to your degree of healing. If you ever suspect that you have re-injured the toe, return for re-examination. Keep the tape dry. Constant wetness harms the skin. Some cotton between the toes may help if perspiration is a problem. Replace the tape as needed when it becomes loose, weak, or dirty. Replace the tape daily if you are sweating. If the toes swell, discolor, or become numb, loosen the tape. Return here if there are problems. SOAP CLEANSING: Gently wash the wound daily using a mild soap (like Ivory, Phisoderm, Neutrogena). Use warm water, rubbing gently until all debris, ooze, and crusting have been washed from the wound. Allow to dry briefly (about 10 minutes) after cleaning. Repeat this cleansing at least three times a day for the first two days and then once or twice a day. ANTIBIOTIC OINTMENT PROTECTION: Your wounds are such that dressing them is not practical or optional. After cleansing, you should apply a thin coating of antibiotic ointment ( Bacitracin, not Neosporin) to the wounds at least three times daily. This lessens infection risk, and may decrease the amount of scarring. Use a q-tip or dull butter knife, not your finger, to apply this ointment. Any debris or ooze which builds up in the ointment should be gently rubbed off with a sterile gauze pad. Harder crusting may need to be gently scrubbed off with a clean wash cloth with soap and warm water, perhaps applying a warm, wet wash cloth to the wound for ten minutes first. Development of redness, severe itching, or blistering may mean allergy to the ointment. See the doctor. FOLLOW-UP CARE: If you have been referred to a physician for follow-up care, call the physician s office for an appointment as you were instructed or within the next two days. If you experience worsening or a significant change in your symptoms, notify the physician immediately or return to the Emergency Department at any time for re-evaluation. Prescriptions: Cephalexin Monohydrate [Keflex 500 mg Capsule] 500 mg PO QID #20 capsule Forms: Elevated Blood Pressure Referrals: AMANDA GUZMÁN MD [ACTIVE STAFF] - Follow up as needed
[2016-07-04 03:07] VITALS: BP 147/80
== END 2016-07-04 03:08 ==
LOC: ER 23:32
DX: S92.512A Displaced fracture of proximal phalanx of left lesser toe(s), initial encounter for closed fracture (principal); W22.8XXA Striking against or struck by other objects, initial encounter; Y92.129 Unspecified place in nursing home as the place of occurrence of the external cause; E11.9 Type 2 diabetes mellitus without complications; I25.10 Atherosclerotic heart disease of native coronary artery without angina pectoris; I25.2 Old myocardial infarction; I10 Essential (primary) hypertension; Z98.61 Coronary angioplasty status
CPT/HCPCS: 99284; 82962; 73630; A9270 ×2

== ENCOUNTER 2016-07-04 22:56 | Emergency (ER) | payer MEDICARE, MEDICAID ==
--- NOTE | 2016-07-04 23:39 | ER Document Report ---
ED Fall - General Stated Complaint: POSSIBLE SYNCOPE Time seen by provider: 23:39 Mode of Arrival: Stretcher Information source: Patient TRAVEL OUTSIDE OF THE [place] IN LAST 30 DAYS: No - HPI Patient complains to provider of: fall, possible syncope, chest wall pain Occurred: Just prior to arrival Where: [facility]irement Context: Fell from sitting Associated symptoms: None Location of injury/pain: Chest Quality of pain: Achy Severity: Mild Pain Level: 2 Notes: Patient is a 65-year-old male who presents to the emergency room from local half-way for complaints of fall from his wheelchair, states he slipped out, denies any injury but complains of chest wall pain, and states he possibly passed out during the fall, patient denies a headache, no vision changes, no nausea or vomiting, he denies a head injury, patient has been seen in this emergency room on several occasions recently for similar symptoms - Related data Allergies/Adverse Reactions: aspirin [Aspirin] Adverse Reaction (Mild, Verified 06/23/16 02:07) "Hurts stomach" Past Medical History - General Information source: Patient - Social History Smoking Status: Unknown if Ever Smoked Family History: CAD, Hypertension - Past Medical History Cardiac Medical History: Reports: Hx Congestive Heart Failure, Hx Coronary Artery Disease, Hx Heart Attack - stents, Hx Hypercholesterolemia, Hx Hypertension Pulmonary Medical History: Reports: Hx Bronchitis, Hx Pneumonia Neurological Medical History: Endocrine Medical History: Reports: Hx Diabetes Mellitus Type 2 Renal/ Medical History: Reports: Hx Benign Prostatic Hyperplasia, Hx Kidney Stones GI Medical History: Reports: Hx Gastritis, Hx Gastroesophageal Reflux Disease, Hx Ulcer Musculoskeltal Medical History: Reports Hx Arthritis, Reports Hx Musculoskeletal Deformity, Reports Hx Musculoskeletal Trauma Psychiatric Medical History: Reports: Hx Anxiety, Hx Dementia, Hx Depression Traumatic Medical History: Reports: Hx Fractures, Hx Traumatic Brain Injury Past Surgical History: Reports: Hx Abdominal Surgery - History: Had 18 inches of his colon removed, Hx Appendectomy, Hx Bowel Surgery - 17 inches removed due to necrosis, Hx Cardiac Catheterization, Hx Cardiac Surgery - cath, stent placement, Hx Coronary Stent, Hx Orthopedic Surgery - right wrist, right hip - Immunizations Immunizations up to date: Yes Hx Diphtheria, Pertussis, Tetanus Vaccination: Yes Hx Pneumococcal Vaccination: 11/28/11 Review of Systems - Review of Systems Constitutional: No symptoms reported EENT: No symptoms reported Cardiovascular: See HPI Respiratory: No symptoms reported Gastrointestinal: No symptoms reported Genitourinary: No symptoms reported Male Genitourinary: No symptoms reported Musculoskeletal: No symptoms reported Skin: No symptoms reported Hematologic/Lymphatic: No symptoms reported Neurological/Psychological: No symptoms reported -: Yes All other systems reviewed and negative Physical Exam - Vital signs Vitals: Temp Pulse Resp BP Pulse Ox 97.9 F 88 15 150/81 H 94 07/04/16 23:28 07/04/16 23:28 07/04/16 23:28 07/04/16 23:28 07/04/16 23:28 Interpretation: Normal - General General appearance: Appears well, Alert - HEENT Head: Normocephalic, Atraumatic Eyes: Normal Pupils: PERRL - Respiratory Respiratory status: No respiratory distress Chest status: Tender - Tenderness to palpate in left anterior chest wall Breath sounds: Normal Chest palpation: Normal - Cardiovascular Rhythm: Regular Heart sounds: Normal auscultation Murmur: No - Abdominal Inspection: Normal Distension: No distension Bowel sounds: Normal Tenderness: Nontender Organomegaly: No organomegaly - Back Back: Normal, Nontender - Extremities General upper extremity: Normal inspection, Nontender, Normal color, Normal ROM , Normal temperature General lower extremity: Normal inspection, Nontender, Normal color, Normal ROM , Normal temperature, Normal weight bearing. No: Sam's sign - Neurological Neuro grossly intact: Yes Cognition: Normal Orientation: AAOx4 Jakub Coma Scale Eye Opening: Spontaneous Jakub Coma Scale Verbal: Oriented Jakub Coma Scale Motor: Obeys Commands Jakub Coma Scale Total: 15 Speech: Normal Motor strength normal: LUE, RUE, LLE, RLE Sensory: Normal - Psychological Associated symptoms: Normal affect, Normal mood - Skin Skin Temperature: Warm Skin Moisture: Dry Skin Color: Normal Course - Re-evaluation Re-evalutation: 07/05/16 03:09 Lab and imaging findings fairly unremarkable, on physical exam patient has tenderness to palpate in the left anterior chest wall, he is able to move all extremities and bear weight without difficulty, denies pain or injury elsewhere , patient was discharged with instructions for follow-up and advised to return if symptoms worsen, patient acknowledges understanding and agreement with this plan - Vital Signs Vital signs: Temp Pulse Resp BP Pulse Ox 97.9 F 81 16 155/70 H 97 07/04/16 23:28 07/05/16 02:29 07/05/16 02:29 07/05/16 02:29 07/05/16 02:29 - Laboratory Result Diagrams: 07/05/16 00:01 07/05/16 00:01 Laboratory results interpreted by me: 07/05/16 07/05/16 07/05/16 00:01 00:01 00:01 Hgb 12.4 L Hct 37.1 L RDW 15.2 H Glucose 287 H AST 15 L Alkaline Phosphatase 157 H Creatine Kinase 50 L Urine Glucose (UA) >=500 H Ur Leukocyte Esterase LARGE H - Diagnostic Test Radiology reviewed: Image reviewed, Reports reviewed - EKG Interpretation by Me EKG shows normal: Sinus rhythm Rate: Normal Rhythm: NSR Discharge - Discharge Clinical Impression: Chest wall pain Fall Qualifiers: Encounter type: initial encounter Qualified Code(s): W19.XXXA - Unspecified fall, initial encounter Syncope Qualifiers: Syncope type: unspecified Qualified Code(s): R55 - Syncope and collapse Condition: Stable Disposition: HOME, SELF-CARE Instructions: Chest Wall Pain ([facility]), Urinary Tract Infection ([facility]), Syncopal Episode ([facility]) Additional Instructions: Follow up with your primary care provider in one to 2 days. Return to the emergency room immediately if symptoms worsen or any additional concerns. Prescriptions: Ciprofloxacin HCl [Cipro 500 mg Tablet] 500 mg PO BID #20 tablet
[2016-07-05 00:12] LABS: ABSOLUTE EOSINOPHILS # (AUTO) 0.2 10^3/uL (0.0-0.6); ABSOLUTE LYMPHOCYTES (AUTO) 1.3 10^3/uL (0.5-4.7); ABSOLUTE MONOCYTES (AUTO) 0.5 10^3/uL (0.1-1.4); BASOPHILS % (AUTO) 0.3 % (0-2); EOSINOPHILS % (AUTO) 2.9 % (0-6); HEMATOCRIT 37.1 % (37.9-51.0); HEMOGLOBIN 12.4 g/dL (13.5-17.0); HGB HCT DIFFERENCE 0.1; LYMPHOCYTES % (AUTO) 19.1 % (13-45); MEAN CORPUSCULAR HEMOGLOBIN 28.3 pg (27.0-33.4); MEAN CORPUSCULAR HGB CONC 33.4 g/dL (32.0-36.0); MEAN CORPUSCULAR VOLUME 85 fl (80-97); MONOCYTES % (AUTO) 6.5 % (3-13); RED BLOOD COUNT 4.38 10^6/uL (4.35-5.55); RED CELL DISTRIBUTION WIDTH 15.2 % (11.5-14.0); SEGMENTED NEUTROPHILS % (AUTO) 71.2 % (42-78)
[2016-07-05 00:19] LABS: APPEARANCE,URINE CLOUDY; BILIRUBIN,URINE NEGATIVE (NEGATIVE); GLUCOSE, URINE >=500 mg/dL (NEGATIVE); KETONES,URINE NEGATIVE (NEGATIVE); LEUKOCYTE ESTERASE,URINE LARGE (NEGATIVE); NITRITE,URINE NEGATIVE (NEGATIVE); PROTEIN,URINE NEGATIVE (NEGATIVE); URINE SPECIFIC GRAVITY 1.016; UROBILINOGEN,URINE NEGATIVE mg/dL (<2.0)
[2016-07-05 00:33] LABS: ALANINE AMINOTRANSFERASE 22 U/L (21-72); ALBUMIN 3.5 g/dL (3.5-5.0); ALKALINE PHOSPHATASE 157 U/L (38-126); ANION GAP 9 (5-19); ASPARTATE AMINO TRANSFERASE 15 U/L (17-59); BILIRUBIN,TOTAL 0.4 mg/dL (0.2-1.3); BLOOD UREA NITROGEN 15 mg/dL (7-20); CALCIUM 9.5 mg/dL (8.4-10.2); CARBON DIOXIDE 30 mmol/L (22-30); CHLORIDE 101 mmol/L (98-107); CREATINE KINASE 50 U/L (55-170); CREATININE RESULT 1.04 mg/dL (0.52-1.25); GLUCOSE 287 mg/dL (75-110); POTASSIUM 4.2 mmol/L (3.6-5.0); TOTAL PROTEIN 6.4 g/dL (6.3-8.2)
[2016-07-05 00:45] LABS: CREATINE KINASE MB 1.62 ng/mL (<4.55)
[2016-07-05 00:46] LABS: TROPONIN I < 0.012 ng/mL
[2016-07-05] MEDS ORDERED: CIPROFLOXACIN HCL 500 MG TABLET PO ONE (00:49)
[2016-07-05 02:33] VITALS: BP 155/70
--- NOTE | 2016-07-05 08:21 | EKG REPORT ---
SEVERITY:- BORDERLINE ECG - SINUS RHYTHM BORDERLINE LEFT AXIS DEVIATION NONSPECIFIC LATERAL ST-T INVERSIONS. : Confirmed by: Haroon Erickson MD 05-Jul-2016 08:20:27
== END 2016-07-05 02:38 | disposition home or self-care (01) ==
LOC: ER 22:56
DX: R07.89 Other chest pain (principal); R55 Syncope and collapse; W05.0XXA Fall from non-moving wheelchair, initial encounter; Y92.129 Unspecified place in nursing home as the place of occurrence of the external cause; I50.9 Heart failure, unspecified; I25.10 Atherosclerotic heart disease of native coronary artery without angina pectoris; E78.00 Pure hypercholesterolemia, unspecified; I11.0 Hypertensive heart disease with heart failure; E11.9 Type 2 diabetes mellitus without complications; Z87.442 Personal history of urinary calculi; Z88.6 Allergy status to analgesic agent; I25.2 Old myocardial infarction
CPT/HCPCS: 93005; 99285; 36415; 82553; 82550; 85025; 80053; 81001; 84484; 93010; A9270

== ENCOUNTER 2016-07-07 00:56 | Emergency (ER) | payer MEDICARE, MEDICAID ==
--- NOTE | 2016-07-07 03:46 | ER Document Report ---
ED Fall - General Chief Complaint: Fall Stated Complaint: FALL/NECK PAIN Time seen by provider: 03:46 Mode of Arrival: Medic Information source: Emergency Med Personnel TRAVEL OUTSIDE OF THE [place] IN LAST 30 DAYS: No - HPI Patient complains to provider of: fall Occurred: Just prior to arrival Where: Care Home Context: Slipped Associated symptoms: None Location of injury/pain: Head, Hip, Neck Quality of pain: Achy Severity: Mild Pain Level: 2 Prehospital interventions: C-collar Notes: Patient is a 65-year-old male sent from local longterm for slip and fall from his wheelchair onto the floor, this is patient's eighth visit this year for similar complaints, today he complains of a head injury with head pain, neck pain and left hip pain, he is moving all extremities without difficulty, denies loss of consciousness - Related data Allergies/Adverse Reactions: aspirin [Aspirin] Adverse Reaction (Mild, Verified 06/23/16 02:07) "Hurts stomach" Past Medical History - General Information source: Patient - Social History Smoking Status: Unknown if Ever Smoked Chew tobacco use (# tins/day): No Frequency of alcohol use: None Drug Abuse: None Family History: CAD, Hypertension Patient has suicidal ideation: No Patient has homicidal ideation: No - Past Medical History Cardiac Medical History: Reports: Hx Congestive Heart Failure, Hx Coronary Artery Disease, Hx Heart Attack - stents, Hx Hypercholesterolemia, Hx Hypertension Pulmonary Medical History: Reports: Hx Bronchitis, Hx Pneumonia Neurological Medical History: Endocrine Medical History: Reports: Hx Diabetes Mellitus Type 2 Renal/ Medical History: Reports: Hx Benign Prostatic Hyperplasia, Hx Kidney Stones. Denies: Hx Peritoneal Dialysis GI Medical History: Reports: Hx Gastritis, Hx Gastroesophageal Reflux Disease, Hx Ulcer Musculoskeltal Medical History: Reports Hx Arthritis, Reports Hx Musculoskeletal Deformity, Reports Hx Musculoskeletal Trauma Psychiatric Medical History: Reports: Hx Anxiety, Hx Dementia, Hx Depression Traumatic Medical History: Reports: Hx Fractures, Hx Traumatic Brain Injury Past Surgical History: Reports: Hx Abdominal Surgery - History: Had 18 inches of his colon removed, Hx Appendectomy, Hx Bowel Surgery - 17 inches removed due to necrosis, Hx Cardiac Catheterization, Hx Cardiac Surgery - cath, stent placement, Hx Coronary Stent, Hx Orthopedic Surgery - right wrist, right hip - Immunizations Immunizations up to date: Yes Hx Diphtheria, Pertussis, Tetanus Vaccination: Yes Hx Pneumococcal Vaccination: 11/28/11 Review of Systems - Review of Systems Constitutional: No symptoms reported EENT: No symptoms reported Cardiovascular: No symptoms reported Respiratory: No symptoms reported Gastrointestinal: No symptoms reported Genitourinary: No symptoms reported Male Genitourinary: No symptoms reported Musculoskeletal: See HPI Skin: No symptoms reported Hematologic/Lymphatic: No symptoms reported Neurological/Psychological: No symptoms reported -: Yes All other systems reviewed and negative Physical Exam - Vital signs Vitals: Temp Pulse Resp BP Pulse Ox 97.8 F 78 16 159/89 H 96 07/07/16 01:12 07/07/16 01:12 07/07/16 01:12 07/07/16 01:12 07/07/16 01:12 Interpretation: Normal - General General appearance: Appears well, Alert - HEENT Head: Normocephalic, Atraumatic Eyes: Normal Pupils: PERRL - Respiratory Respiratory status: No respiratory distress Chest status: Nontender Breath sounds: Normal Chest palpation: Normal - Cardiovascular Rhythm: Regular Heart sounds: Normal auscultation Murmur: No - Abdominal Inspection: Normal Distension: No distension Bowel sounds: Normal Tenderness: Nontender Organomegaly: No organomegaly - Back Back: Normal, Nontender - Extremities General upper extremity: Normal inspection, Nontender, Normal color, Normal ROM , Normal temperature General lower extremity: Normal inspection, Nontender, Normal color, Normal ROM , Normal temperature, Normal weight bearing. No: Sam's sign - Neurological Neuro grossly intact: Yes Cognition: Normal Orientation: AAOx4 Leakey Coma Scale Eye Opening: Spontaneous Leakey Coma Scale Verbal: Oriented Jakub Coma Scale Motor: Obeys Commands Jakub Coma Scale Total: 15 Speech: Normal Motor strength normal: LUE, RUE, LLE, RLE Sensory: Normal - Psychological Associated symptoms: Normal affect, Normal mood - Skin Skin Temperature: Warm Skin Moisture: Dry Skin Color: Normal Course - Re-evaluation Re-evalutation: 07/07/16 05:23 Patient keeps trying to get out of the stretcher, he is a fall risk, being seen in the emergency room once again today for a fall and I'm worried that he will once again fall, therefore soft limb restraints have been initiated 07/07/16 06:26 Patient is resting comfortably, he is much less restless now that he was able to urinate, imaging findings are unremarkable and patient will be discharged back to the longterm with instructions for follow-up - Vital Signs Vital signs: Temp Pulse Resp BP Pulse Ox 97.4 F 78 20 176/98 H 95 07/07/16 06:03 07/07/16 06:03 07/07/16 06:03 07/07/16 06:03 07/07/16 06:03 - Diagnostic Test Radiology reviewed: Image reviewed, Reports reviewed Discharge - Discharge Clinical Impression: Fall Qualifiers: Encounter type: initial encounter Qualified Code(s): W19.XXXA - Unspecified fall, initial encounter Contusion, hip Qualifiers: Encounter type: initial encounter Laterality: left Qualified Code(s): S70.02XA - Contusion of left hip, initial encounter Head injury Qualifiers: Encounter type: initial encounter Qualified Code(s): S09.90XA - Unspecified injury of head, initial encounter Condition: Stable Disposition: HOME, SELF-CARE Instructions: Head Injury Precautions ([facility]), Contusion ([facility]), Ice Packs ([facility]) Additional Instructions: Follow up with your primary care provider in one to 2 days. Return to the emergency room immediately if symptoms worsen or any additional concerns.
[2016-07-07 08:51] VITALS: BP 172/93
== END 2016-07-07 08:50 | disposition home or self-care (01) ==
LOC: ER 00:56
DX: S70.02XA Contusion of left hip, initial encounter (principal); S09.90XA Unspecified injury of head, initial encounter; W05.0XXA Fall from non-moving wheelchair, initial encounter; Y93.89 Activity, other specified; Y92.129 Unspecified place in nursing home as the place of occurrence of the external cause; R51 Headache; M54.2 Cervicalgia; M25.552 Pain in left hip; I25.10 Atherosclerotic heart disease of native coronary artery without angina pectoris; I25.2 Old myocardial infarction; I10 Essential (primary) hypertension; E11.9 Type 2 diabetes mellitus without complications; Z87.820 Personal history of traumatic brain injury; Z98.61 Coronary angioplasty status
CPT/HCPCS: 70450; 72125; 99285

== ENCOUNTER 2016-07-14 00:33 | Emergency (ER) | payer MEDICARE, MEDICAID ==
[2016-07-14] MEDS ORDERED: PROPOFOL INJ 200 MG/20 ML VIAL IV ONE (01:34)
--- NOTE | 2016-07-14 01:34 | ER Document Report ---
ED General - General Chief Complaint: Fall Stated Complaint: FALL Information source: Emergency Med Personnel Cannot obtain history due to: Dementia Notes: Patient presents with pain to the right wrist and forehead after a fall. [facility] worsening right wrist pain. Patient is unable to provide any meaningful history. TRAVEL OUTSIDE OF THE [place] IN LAST 30 DAYS: No - Related Data Allergies/Adverse Reactions: aspirin [Aspirin] Adverse Reaction (Mild, Verified 06/23/16 02:07) "Hurts stomach" Past Medical History - General Information source: Emergency Med Personnel Cannot obtain history due to: Dementia - Social History Smoking Status: Unknown if Ever Smoked Frequency of alcohol use: None Drug Abuse: None Lives with: Residential Family History: CAD, Hypertension - Past Medical History Cardiac Medical History: Reports: Hx Congestive Heart Failure, Hx Coronary Artery Disease, Hx Heart Attack - stents, Hx Hypercholesterolemia, Hx Hypertension Pulmonary Medical History: Reports: Hx Bronchitis, Hx Pneumonia Neurological Medical History: Endocrine Medical History: Reports: Hx Diabetes Mellitus Type 2 Renal/ Medical History: Reports: Hx Benign Prostatic Hyperplasia, Hx Kidney Stones. Denies: Hx Peritoneal Dialysis GI Medical History: Reports: Hx Gastritis, Hx Gastroesophageal Reflux Disease, Hx Ulcer Musculoskeltal Medical History: Reports Hx Arthritis, Reports Hx Musculoskeletal Deformity, Reports Hx Musculoskeletal Trauma Psychiatric Medical History: Reports: Hx Anxiety, Hx Dementia, Hx Depression Traumatic Medical History: Reports: Hx Fractures, Hx Traumatic Brain Injury Past Surgical History: Reports: Hx Abdominal Surgery - History: Had 18 inches of his colon removed, Hx Appendectomy, Hx Bowel Surgery - 17 inches removed due to necrosis, Hx Cardiac Catheterization, Hx Cardiac Surgery - cath, stent placement, Hx Coronary Stent, Hx Orthopedic Surgery - right wrist, right hip - Immunizations Immunizations up to date: Yes Hx Diphtheria, Pertussis, Tetanus Vaccination: Yes Hx Pneumococcal Vaccination: 11/28/11 Review of Systems - Review of Systems Notes: Constitutional: Negative for fever. Eyes: Negative for visual changes. ENT: Negative for facial injury Cardiovascular: Negative for chest injury. Respiratory: Negative for shortness of breath. Gastrointestinal: Negative for abdominal injury. Genitourinary: Negative for genital injury Musculoskeletal: Negative for back injury. Positive for right wrist deformity and severe right wrist pain Skin: Negative for laceration/abrasions. Neurological: Positive for head injury. Physical Exam - Vital signs Vitals: Temp Pulse Resp BP Pulse Ox 97.5 F 78 18 160/85 H 97 07/14/16 00:41 07/14/16 00:41 07/14/16 00:41 07/14/16 00:41 07/14/16 00:41 Interpretation: Hypertensive Notes: PHYSICAL EXAMINATION: GENERAL: Well-appearing, no acute distress. HEAD: Bruising of the right forehead, normocephalic. EYES: Pupils equal round and reactive to light, extraocular movements intact, sclera anicteric, conjunctiva are normal. ENT: nares patent, no oral pharyngeal trauma. No hemotympanum, no Castillo's sign , no raccoon eyes. NECK: No midline cervical spine tenderness. Patient able to move their head to 45 bilaterally without any discomfort. LUNGS: Breath sounds clear to auscultation bilaterally and equal. No wheezes rales or rhonchi. HEART: Regular rate and rhythm without murmurs. CHEST WALL: No ecchymosis over the chest wall. ABDOMEN: Soft, nontender, normoactive bowel sounds. No guarding, no rebound. No seatbelt sign. EXTREMITIES: There is swelling and an obvious deformity of the right wrist. Otherwise, normal ROM throughout. BACK: No midline spinal tenderness, step-offs, or deformities. NEUROLOGICAL: Face symmetric. Tongue protrudes midline. Extraocular motions intact. Pupils are 2 mm and equally reactive. Normal speech 5 out of 5 strength in both the distal and proximal upper and lower extremities bilaterally. Sensation is grossly intact throughout. PSYCH: Demented, oriented to himself only SKIN: Warm, Dry, normal turgor, no rashes or lesions noted. Course - Re-evaluation Re-evalutation: 07/14/16 01:33 Presentation of a well appearing elderly patient in no acute distress, vitals within normal limits after a mechanical mechanical fall. Patient and staff at the facility deny a syncopal episode as the cause for today's fall. No focal neurologic deficits on exam, no evidence of basilar skull fracture on exam without evidence of hemotympanum, raccoon eyes, or periauricular hematoma. No papilledema. Patient is not on anticoagulation. GCS is 15. No loss of consciousness. No episodes of vomiting. However, based on patient's age and demented status, a CT of the head has been obtained which is negative for any acute intracranial bleed.. Likewise, patient was unable to be clinically cleared due to age by [place] cervical spine criteria. A CT of the cervical spine was also obtained and likewise is negative for any acute fracture. No indication for further imaging of the cervical spine. Patient did have swelling and pain of the right wrist so an xray was obtained. Although patient is known to have chronic distal radius fracture, he did have significant pain to the affected area and there was obvious swelling that appeared to be an acute injury. The x-ray was noted to be chronic changes although his clinical presentation is more consistent with a likely refracture of the distal radius. He did have significant pain on palpation of this area. Therefore, I elected to perform a procedural sedation and reduce what I suspect to be an acute worsening of the distal radius fracture. This was completed without difficulty. Post reduction x-ray does show a moderately improved alignment of the distal radius. Chest and abdominal exam are benign without any focal tenderness, shortness of breath, or bruising over the chest or abdominal wall. Patient has no flank tenderness. There is no obvious findings on trauma exam today and therefore no further imaging or evaluation will be obtained at this time. At this time will discharge with return precautions and follow-up recommendations. Orthopedic surgery follow-up has been recommended in the next 1 week. - Vital Signs Vital signs: Temp Pulse Resp BP Pulse Ox 97.5 F 80 22 H 175/106 H 100 07/14/16 00:41 07/14/16 02:13 07/14/16 02:34 07/14/16 02:34 07/14/16 02:34 - Diagnostic Test Radiology reviewed: Image reviewed, Reports reviewed Radiology results interpreted by me: 07/14/16 02:39 Right wrist: Acute on chronic distal radius fracture and ulnar shaft fracture Procedures - Conscious Sedation Conscious sedation Time started: 02:10 Time completed: 02:20 Indication: splint placement, reduction Prior complications: Procedural sedation Pt with a mild systemic disease.: P2. - ASA Classification. Airway Evaluation: Normal anatomy Mallampati Classification: Class 2 Used during procedure: Suction available, IV access obtained, Pulse ox on pt., nerve specialist on pt. Medications administered: Diprivan Reversal agents: None I personally performed/intraservice time: Sedation, Procedure, 30 min or less Complications: No - Immobilization Right Wrist Pre-Proc Neuro Vasc Exam: Normal Immobilizer type: Sugar tong Performed by: Provider assisted Post-Proc Neuro Vasc Exam: Normal Alignment checked and good: Yes - Joint Reduction/Fracture Care Right Wrist Time completed: 02:20 Consent obtained: Yes Conscious sedation: Yes Pre-procedure NV exam: Yes Fracture: Closed Manipulation comment: direct traction and hyperextension Post-procedure NV exam: Yes Post-reduction x-ray: Joint not reduced Reduction attempts: 2 Complications: No Notes: 07/14/16 02:44 X-rays show a likely old fractures although patient's degree of swelling and pain as well as an obvious deformity suggested a possible acute component to his known chronic fractures. Postreduction x-rays effectively unchanged. Discharge - Discharge Clinical Impression: Fall Qualifiers: Encounter type: initial encounter Qualified Code(s): W19.XXXA - Unspecified fall, initial encounter Head injury Qualifiers: Encounter type: initial encounter Qualified Code(s): S09.90XA - Unspecified injury of head, initial encounter Right wrist fracture Qualifiers: Encounter type: initial encounter Fracture type: closed Qualified Code(s): S62.101A - Fracture of unspecified carpal bone, right wrist, initial encounter for closed fracture Condition: Good Disposition: HOME, SELF-CARE Additional Instructions: The patient should follow-up with an orthopedic surgeon in the next 1 week as he does have chronic wrist fractures may also had an acute comminuted fracture tonight has been placed in a splint. The splint can come off once he is cleared by orthopedic surgery. CTs of the head and cervical spine are normal. Please seen the patient back for any new or worsening concerns including pain in the hand, redness, swelling, or any other symptoms that are worrisome to you.
[2016-07-14 04:29] VITALS: BP 165/86
== END 2016-07-14 04:20 | disposition home or self-care (01) ==
LOC: ER 00:33
PROC: 0PSMXZZ Reposition Right Carpal, External Approach (ICD-10-PCS; principal; 2016-07-14)
DX: S62.101A Fracture of unspecified carpal bone, right wrist, initial encounter for closed fracture (principal); S09.90XA Unspecified injury of head, initial encounter; M25.531 Pain in right wrist; W19.XXXA Unspecified fall, initial encounter; I50.9 Heart failure, unspecified; I25.10 Atherosclerotic heart disease of native coronary artery without angina pectoris; E78.00 Pure hypercholesterolemia, unspecified; I11.0 Hypertensive heart disease with heart failure; E11.9 Type 2 diabetes mellitus without complications; Z87.442 Personal history of urinary calculi; Z88.6 Allergy status to analgesic agent; Z87.820 Personal history of traumatic brain injury; I25.2 Old myocardial infarction
CPT/HCPCS: 99284; 73100; 73110; 70450; 72125; 25635; J2704

== ENCOUNTER 2016-07-19 15:23 | Emergency (ER) | payer MEDICARE, MEDICAID ==
--- NOTE | 2016-07-19 18:15 | ER Document Report ---
ED General - General Chief Complaint: Head Injury Stated Complaint: FALL Cannot obtain history due to: Dementia Notes: Patient is 65-year-old male history of dementia, [facility] in a [facility] presents after a fall today outside of [facility]. States that he tripped and fell hitting his head. Since that time he is a dull throbbing pain to the back of his head. Also complains of some mild neck discomfort that is worsened by range of motion with the neck. Patient has been seen repeatedly in the emergency department for the exact same presentation. He states that he is supposed to use a walker but does not. He has not seen his primary care doctor regarding today's concerns. Since the fall he has not had any vomiting, weakness, numbness, altered mental status. TRAVEL OUTSIDE OF THE [place] IN LAST 30 DAYS: No - Related Data Allergies/Adverse Reactions: aspirin [Aspirin] Adverse Reaction (Mild, Verified 06/23/16 02:07) "Hurts stomach" Past Medical History - General Information source: Patient - Social History Smoking Status: Never Smoker Frequency of alcohol use: None Drug Abuse: None Lives with: Shelter Family History: CAD, Hypertension - Past Medical History Cardiac Medical History: Reports: Hx Congestive Heart Failure, Hx Coronary Artery Disease, Hx Heart Attack - stents, Hx Hypercholesterolemia, Hx Hypertension Pulmonary Medical History: Reports: Hx Bronchitis, Hx Pneumonia Neurological Medical History: Endocrine Medical History: Reports: Hx Diabetes Mellitus Type 2 Renal/ Medical History: Reports: Hx Benign Prostatic Hyperplasia, Hx Kidney Stones. Denies: Hx Peritoneal Dialysis GI Medical History: Reports: Hx Gastritis, Hx Gastroesophageal Reflux Disease, Hx Ulcer Musculoskeltal Medical History: Reports Hx Arthritis, Reports Hx Musculoskeletal Deformity, Reports Hx Musculoskeletal Trauma Psychiatric Medical History: Reports: Hx Anxiety, Hx Dementia, Hx Depression Traumatic Medical History: Reports: Hx Fractures, Hx Traumatic Brain Injury Past Surgical History: Reports: Hx Abdominal Surgery - History: Had 18 inches of his colon removed, Hx Appendectomy, Hx Bowel Surgery - 17 inches removed due to necrosis, Hx Cardiac Catheterization, Hx Cardiac Surgery - cath, stent placement, Hx Coronary Stent, Hx Orthopedic Surgery - right wrist, right hip - Immunizations Immunizations up to date: Yes Hx Diphtheria, Pertussis, Tetanus Vaccination: Yes Hx Pneumococcal Vaccination: 11/28/11 Review of Systems - Review of Systems Notes: Constitutional: Negative for fever. Eyes: Negative for visual changes. ENT: Negative for facial injury Cardiovascular: Negative for chest injury. Respiratory: Negative for shortness of breath. Gastrointestinal: Negative for abdominal injury. Genitourinary: Negative for genital injury Musculoskeletal: Negative for back injury. Skin: Negative for laceration/abrasions. Neurological: Positive for head injury. Physical Exam - Vital signs Vitals: Pulse BP Pulse Ox 62 148/92 H 88 L 07/19/16 15:48 07/19/16 15:48 07/19/16 15:48 Interpretation: Normal Notes: PHYSICAL EXAMINATION: GENERAL: Well-appearing, no acute distress. HEAD: Atraumatic, normocephalic. EYES: Pupils equal round and reactive to light, extraocular movements intact, sclera anicteric, conjunctiva are normal. ENT: nares patent, no oral pharyngeal trauma. No hemotympanum, no Castillo's sign , no raccoon eyes. NECK: No midline cervical spine tenderness. Patient able to move their head to 45 bilaterally without any discomfort. LUNGS: Breath sounds clear to auscultation bilaterally and equal. No wheezes rales or rhonchi. HEART: Regular rate and rhythm without murmurs. CHEST WALL: No ecchymosis over the chest wall. ABDOMEN: Soft, nontender, normoactive bowel sounds. No guarding, no rebound. No abdominal bruising EXTREMITIES: Normal range of motion, no pitting or edema. No long bone deformities. BACK: No midline spinal tenderness, step-offs, or deformities. NEUROLOGICAL: Face symmetric. Tongue protrudes midline. Extraocular motions intact. Pupils are 2 mm and equally reactive. Normal speech, normal gait. 5 out of 5 strength in both the distal and proximal upper and lower extremities bilaterally. Sensation is grossly intact throughout. Finger to nose testing normal. Pronator drift normal. PSYCH: Normal mood, normal affect. SKIN: Warm, Dry, normal turgor, no rashes or lesions noted. Course - Re-evaluation Re-evalutation: 07/19/16 18:11 Please note that this patient has had 8 CTs of the head and/or cervical spine since the start 2016. This is a very unsafe level of radiation. The CT scans were ordered prior to my assessment of the patient. I believe that although he is unable to be clinically cleared, if we continue to CT him every time he presents for a fall he stands a very elevated risk for harm secondary to medical radiation. Presentation of a well appearing elderly patient in no acute distress, vitals within normal limits after a mechanical mechanical fall. Patient denies a syncopal episode as the cause for today's fall. No focal neurologic deficits on exam, no evidence of basilar skull fracture on exam without evidence of hemotympanum, raccoon eyes, or periauricular hematoma. No papilledema. Patient is not on anticoagulation. GCS is 15. No loss of consciousness. No episodes of vomiting. However, based on patient's age a CT of the head has been obtained which is negative for any acute intracranial bleed.. Likewise, patient was unable to be clinically cleared due to age by [place] cervical spine criteria. A CT of the cervical spine was also obtained and likewise is negative for any acute fracture. No indication for further imaging of the cervical spine. Patient has no focal deformities or limited range of motion in any joint space. Chest and abdominal exam are benign without any focal tenderness, shortness of breath, or bruising over the chest or abdominal wall. Patient has no flank tenderness. There is no obvious findings on trauma exam today and therefore no further imaging or evaluation will be obtained at this time. At this time will discharge with return precautions and follow-up recommendations. Verbal discharge instructions given a the bedside and opportunity for questions given. Medication warnings reviewed. Patient is in agreement with this plan and has verbalized understanding of return precautions and the need for primary care follow-up in the next 24-72 hours. - Vital Signs Vital signs: Temp Pulse Resp BP Pulse Ox 97.6 F 88 19 167/87 H 99 07/19/16 19:22 07/19/16 19:22 07/19/16 15:50 07/19/16 19:22 07/19/16 19:22 - Diagnostic Test Radiology reviewed: Image reviewed, Reports reviewed Discharge - Discharge Clinical Impression: Fall Qualifiers: Encounter type: initial encounter Qualified Code(s): W19.XXXA - Unspecified fall, initial encounter Condition: Good Disposition: HOME, SELF-CARE Additional Instructions: You have been seen in the Emergency Department (ED) today following a fall. You need to stop getting up and walking around on you own as you fallen required a visit to the emergency department 9 times this year. Your workup today did not reveal any injuries that require you to stay in the hospital. You can expect, though, to be stiff and sore for the next several days. You can take ibuprofen 600 mg every 6 hours as needed for pain. You can apply a hot pack or electric heating pad to the sore areas. You can also use topical "Aspercreme with lidocaine" to sore areas as needed. Please follow up with your primary care doctor as soon as possible regarding today's ED visit and your recent accident. Call your doctor or return to the ED if you develop a sudden or severe headache , confusion, slurred speech, facial droop, weakness or numbness in any arm or leg, extreme fatigue, vomiting more than two times, severe abdominal pain, or other symptoms that concern you.
[2016-07-19 19:24] VITALS: BP 167/87
== END 2016-07-19 19:24 | disposition home or self-care (01) ==
LOC: ER 15:23
DX: S09.90XA Unspecified injury of head, initial encounter (principal); W19.XXXA Unspecified fall, initial encounter; M54.2 Cervicalgia
CPT/HCPCS: 70450; 72125; 99285

== ENCOUNTER 2016-07-23 10:18 | Emergency (ER) | payer MEDICARE, MEDICAID ==
[2016-07-23 10:28] VITALS: BP 161/75
[2016-07-23] MEDS ORDERED: ACETAMINOPHEN 325 MG TABLET PO ONE (10:32)
--- NOTE | 2016-07-23 10:34 | ER Document Report ---
ED Medical Screen (RME) - General Stated Complaint: FALL/LEFT HAND PAIN, SWELLING Mode of Arrival: Wheelchair Information source: Patient Notes: Patient states that he fell one week ago while getting up to go to the bathroom. Patient states that he was seen after this initial fall. Patient reports that he did fall again 2 days ago. Patient complains of left hand pain. Patient denies any headache. Patient denies any chest pain. Patient states he was given a pain pill at his assisted living facility today. hx: Patient does report a history of hypertension and diabetes. I have greeted and performed a rapid initial assessment of this patient. A comprehensive ED assessment and evaluation of the patient, analysis of test results and completion of the medical decision making process will be conducted by additional ED providers. TRAVEL OUTSIDE OF THE [place] IN LAST 30 DAYS: No - Related Data Allergies/Adverse Reactions: No Known Allergies Allergy (Unverified 07/23/16 10:28) Past Medical History - Past Medical History Cardiac Medical History: Reports: Hx Congestive Heart Failure, Hx Coronary Artery Disease, Hx Heart Attack - stents, Hx Hypercholesterolemia, Hx Hypertension Pulmonary Medical History: Reports: Hx Bronchitis, Hx Pneumonia Neurological Medical History: Endocrine Medical History: Reports: Hx Diabetes Mellitus Type 2 Renal/ Medical History: Reports: Hx Benign Prostatic Hyperplasia, Hx Kidney Stones. Denies: Hx Peritoneal Dialysis GI Medical History: Reports: Hx Gastritis, Hx Gastroesophageal Reflux Disease, Hx Ulcer Musculoskeltal Medical History: Reports Hx Arthritis, Reports Hx Musculoskeletal Deformity, Reports Hx Musculoskeletal Trauma Psychiatric Medical History: Reports: Hx Anxiety, Hx Dementia, Hx Depression Traumatic Medical History: Reports: Hx Fractures, Hx Traumatic Brain Injury Past Surgical History: Reports: Hx Abdominal Surgery - History: Had 18 inches of his colon removed, Hx Appendectomy, Hx Bowel Surgery - 17 inches removed due to necrosis, Hx Cardiac Catheterization, Hx Cardiac Surgery - cath, stent placement, Hx Coronary Stent, Hx Orthopedic Surgery - right wrist, right hip - Immunizations Immunizations up to date: Yes Hx Diphtheria, Pertussis, Tetanus Vaccination: Yes Physical Exam - Vital signs Vitals: Temp Pulse Resp BP Pulse Ox 97.9 F 92 16 161/75 H 90 L 07/23/16 10:26 07/23/16 10:26 07/23/16 10:26 07/23/16 10:07/23/16 10:26 - Extremities General upper extremity: Tender - Left wrist pain with edema Course - Vital Signs Vital signs: Temp Pulse Resp BP Pulse Ox 97.9 F 92 16 161/75 H 90 L 07/23/16 10:07/23/16 10:07/23/16 10:07/23/16 10:07/23/16 10:26
[2016-07-23 11:11] LABS: ABSOLUTE EOSINOPHILS # (AUTO) 0.3 10^3/uL (0.0-0.6); ABSOLUTE LYMPHOCYTES (AUTO) 1.2 10^3/uL (0.5-4.7); ABSOLUTE MONOCYTES (AUTO) 0.4 10^3/uL (0.1-1.4); ABSOLUTE NEUT (AUTO) 3.8 10^3/uL (1.7-8.2); BASOPHILS % (AUTO) 0.3 % (0-2); EOSINOPHILS % (AUTO) 4.6 % (0-6); HEMATOCRIT 35.1 % (37.9-51.0); HEMOGLOBIN 11.8 g/dL (13.5-17.0); HGB HCT DIFFERENCE 0.3; LYMPHOCYTES % (AUTO) 20.8 % (13-45); MEAN CORPUSCULAR HEMOGLOBIN 28.7 pg (27.0-33.4); MEAN CORPUSCULAR HGB CONC 33.6 g/dL (32.0-36.0); MEAN CORPUSCULAR VOLUME 86 fl (80-97); MONOCYTES % (AUTO) 7.2 % (3-13); RED CELL DISTRIBUTION WIDTH 15.5 % (11.5-14.0); SEGMENTED NEUTROPHILS % (AUTO) 67.1 % (42-78); WHITE BLOOD COUNT 5.7 10^3/uL (4.0-10.5)
[2016-07-23 11:35] LABS: ALANINE AMINOTRANSFERASE 26 U/L (21-72); ALBUMIN 3.3 g/dL (3.5-5.0); ALKALINE PHOSPHATASE 213 U/L (38-126); ANION GAP 9 (5-19); ASPARTATE AMINO TRANSFERASE 19 U/L (17-59); BILIRUBIN,TOTAL 0.3 mg/dL (0.2-1.3); BLOOD UREA NITROGEN 24 mg/dL (7-20); CALCIUM 8.9 mg/dL (8.4-10.2); CARBON DIOXIDE 28 mmol/L (22-30); CHLORIDE 98 mmol/L (98-107); CREATINE KINASE 111 U/L (55-170); CREATININE RESULT 0.98 mg/dL (0.52-1.25); GLUCOSE 284 mg/dL (75-110); MAGNESIUM 1.6 mg/dL (1.6-2.3); POTASSIUM 4.3 mmol/L (3.6-5.0); SODIUM 135.3 mmol/L (137-145); TOTAL PROTEIN 6.1 g/dL (6.3-8.2)
[2016-07-23 11:45] LABS: CREATINE KINASE MB 1.96 ng/mL (<4.55); TROPONIN I < 0.012 ng/mL
--- NOTE | 2016-07-23 12:22 | ER Document Report ---
ED General - General Chief Complaint: Wrist Injury Stated Complaint: FALL/LEFT HAND PAIN, SWELLING Mode of Arrival: Wheelchair Information source: Patient, Emergency Med Personnel Notes: 65-year-old male history of dementia who lives at a care facility presents after a mechanical fall. Patient notes that he was in the bathroom in the dark tried to find the light and tripped, patient landed on his left arm. Admits to pain and swelling of the left forearm TRAVEL OUTSIDE OF THE [place] IN LAST 30 DAYS: No - HPI Onset: Just prior to arrival Onset/Duration: Sudden Quality of pain: Sharp Severity: Moderate Pain Level: 3 Associated symptoms: Body/muscle aches Exacerbated by: Movement Relieved by: Denies Similar symptoms previously: Yes Recently seen / treated by doctor: Yes - Related Data Allergies/Adverse Reactions: No Known Allergies Allergy (Unverified 07/23/16 10:28) Past Medical History - General Information source: Patient - Social History Smoking Status: Current Every Day Smoker Cigarette use (# per day): Yes Chew tobacco use (# tins/day): No Smoking Education Provided: No Frequency of alcohol use: None Lives with: Senior Living Family History: CAD, Hypertension Patient has suicidal ideation: No Patient has homicidal ideation: No - Past Medical History Cardiac Medical History: Reports: Hx Congestive Heart Failure, Hx Coronary Artery Disease, Hx Heart Attack - stents, Hx Hypercholesterolemia, Hx Hypertension Pulmonary Medical History: Reports: Hx Bronchitis, Hx Pneumonia Neurological Medical History: Endocrine Medical History: Reports: Hx Diabetes Mellitus Type 2 Renal/ Medical History: Reports: Hx Benign Prostatic Hyperplasia, Hx Kidney Stones. Denies: Hx Peritoneal Dialysis GI Medical History: Reports: Hx Gastritis, Hx Gastroesophageal Reflux Disease, Hx Ulcer Musculoskeltal Medical History: Reports Hx Arthritis, Reports Hx Musculoskeletal Deformity, Reports Hx Musculoskeletal Trauma Psychiatric Medical History: Reports: Hx Anxiety, Hx Dementia, Hx Depression Traumatic Medical History: Reports: Hx Fractures, Hx Traumatic Brain Injury Past Surgical History: Reports: Hx Abdominal Surgery - History: Had 18 inches of his colon removed, Hx Appendectomy, Hx Bowel Surgery - 17 inches removed due to necrosis, Hx Cardiac Catheterization, Hx Cardiac Surgery - cath, stent placement, Hx Coronary Stent, Hx Orthopedic Surgery - right wrist, right hip - Immunizations Immunizations up to date: Yes Hx Diphtheria, Pertussis, Tetanus Vaccination: Yes Hx Pneumococcal Vaccination: 11/28/11 Review of Systems - Review of Systems Notes: REVIEW OF SYSTEMS: CONSTITUTIONAL : Denies fever, chills, or sweats. Denies recent illness. EENT: Denies eye, ear, throat, or mouth pain or symptoms. Denies nasal or sinus congestion or discharge. Denies throat, tongue, or mouth swelling or difficulty swallowing. CARDIOVASCULAR: Denies chest pain. Denies palpitations or racing or irregular heart beat. Denies ankle edema. RESPIRATORY: Denies cough, cold, or chest congestion. Denies shortness of breath, difficulty breathing, or wheezing. GASTROINTESTINAL: Denies abdominal pain or distention. Denies nausea, vomiting , or diarrhea. Denies blood in vomitus, stools, or per rectum. Denies black, tarry stools. Denies constipation. GENITOURINARY: Denies difficulty urinating, painful urination, burning, frequency, blood in urine, or discharge. MUSCULOSKELETAL: Admits to left wrist pain from pain SKIN: Denies rash, lesions or sores. HEMATOLOGIC : Denies easy bruising or bleeding. LYMPHATIC: Denies swollen, enlarged glands. NEUROLOGICAL: Admits to weakness and fall PSYCHIATRIC: Denies anxiety or stress. Denies depression, suicidal ideation, or homicidal ideation. ALL OTHER SYSTEMS REVIEWED AND NEGATIVE. Dictation was performed using [employer] voice recognition software Physical Exam - Vital signs Vitals: Temp Pulse Resp BP Pulse Ox 97.9 F 92 16 161/75 H 90 L 07/23/16 10:26 07/23/16 10:26 07/23/16 10:26 07/23/16 10:26 07/23/16 10:26 Interpretation: Normal - General General appearance: Appears well, Alert - HEENT Head: Normocephalic, Atraumatic Eyes: Normal Pupils: PERRL - Respiratory Respiratory status: No respiratory distress Chest status: Nontender Breath sounds: Normal Chest palpation: Normal - Cardiovascular Rhythm: Regular Heart sounds: Normal auscultation Murmur: No - Abdominal Inspection: Normal Distension: No distension Bowel sounds: Normal Tenderness: Nontender Organomegaly: No organomegaly - Back Back: Normal, Nontender - Extremities General upper extremity: Normal inspection, Tender, Normal color, Normal ROM, Normal temperature General lower extremity: Normal inspection, Nontender, Normal color, Normal ROM , Normal temperature, Normal weight bearing. No: Sam's sign Forearm: Deformity - Left forearm - Neurological Neuro grossly intact: Yes Cognition: Normal Orientation: AAOx4 Jakub Coma Scale Eye Opening: Spontaneous Jakub Coma Scale Verbal: Oriented Jakub Coma Scale Motor: Obeys Commands Jakub Coma Scale Total: 15 Speech: Normal Motor strength normal: LUE, RUE, LLE, RLE Sensory: Normal - Psychological Associated symptoms: Normal affect, Normal mood - Skin Skin Temperature: Warm Skin Moisture: Dry Skin Color: Normal Course - Re-evaluation Re-evalutation: 07/23/16 13:15 65-year-old male who presents often due to falls today complains of left forearm pain x-rays consistent with an ulnar shaft fracture. Patient was splinted and will be discharged home to follow-up with orthopedics. Patient was given pain control on arrival After performing a Medical Screening Examination, I estimate there is LOW risk for INTRACRANIAL HEMORRHAGE, UNSTABLE SPINE FRACTURE, CENTRAL CORD SYNDROME, CAUDA EQUINA, THORACIC AORTIC DISSECTION, PNEUMOTHORAX, PERFORATED BOWEL, RUPTURED ABDOMINAL AORTIC ANEURYSM, ACUTE TENDON RUPTURE, COMPARTMENT SYNDROME, or OPEN FRACTURE, thus I consider the discharge disposition reasonable. Also, there is no evidence or peritonitis, sepsis, or toxicity. The patient and I have discussed the diagnosis and risks, and we agree with discharging home to follow-up with their primary doctor with the understanding that symptoms and presentations can change. We also discussed returning to the Emergency Department immediately if new or worsening symptoms occur. We have discussed the symptoms which are most concerning (e.g., bloody stool, fever, changing or worsening pain, vomiting) that necessitate immediate return. - Vital Signs Vital signs: Temp Pulse Resp BP Pulse Ox 97.9 F 92 16 161/75 H 90 L 07/23/16 10:26 07/23/16 10:26 07/23/16 10:26 07/23/16 10:26 07/23/16 10:26 - Laboratory Result Diagrams: 07/23/16 10:50 07/23/16 10:50 Laboratory results interpreted by me: 07/23/16 07/23/16 10:50 10:50 RBC 4.10 L Hgb 11.8 L Hct 35.1 L RDW 15.5 H Sodium 135.3 L BUN 24 H Glucose 284 H Alkaline Phosphatase 213 H Total Protein 6.1 L Albumin 3.3 L - Diagnostic Test Radiology reviewed: Image reviewed, Reports reviewed Discharge - Discharge Clinical Impression: Ulnar fracture Qualifiers: Encounter type: initial encounter Ulna location: shaft Fracture type: closed Fracture morphology: unspecified fracture morphology Laterality: left Qualified Code(s): S52.202A - Unspecified fracture of shaft of left ulna, initial encounter for closed fracture Fall Qualifiers: Encounter type: initial encounter Qualified Code(s): W19.XXXA - Unspecified fall, initial encounter Condition: Stable Disposition: HOME, SELF-CARE Instructions: Fractured Radius and Ulna ([facility]) Prescriptions: Oxycodone HCl/Acetaminophen [Percocet 5-325 mg Tablet] 1 - 2 tab PO Q4H PRN #15 tablet PRN Reason: Referrals: AMANDA GUZMÁN MD [ACTIVE STAFF] - Follow up in 1 week
--- NOTE | 2016-07-23 18:04 | EKG REPORT ---
SEVERITY:- OTHERWISE NORMAL ECG - SINUS RHYTHM BORDERLINE LEFT AXIS DEVIATION : Confirmed by: Eduarda Thomas MD 23-Jul-2016 18:03:21
== END 2016-07-23 13:21 | disposition home or self-care (01) ==
LOC: ER 10:18
PROC: 2W39X1Z Immobilization of Left Upper Extremity using Splint (ICD-10-PCS; principal; 2016-07-23)
DX: S52.692A Other fracture of lower end of left ulna, initial encounter for closed fracture (principal); W19.XXXA Unspecified fall, initial encounter; Y93.89 Activity, other specified; Y92.10 Unspecified residential institution as the place of occurrence of the external cause; M79.1 Myalgia; F17.210 Nicotine dependence, cigarettes, uncomplicated; I25.10 Atherosclerotic heart disease of native coronary artery without angina pectoris; I25.2 Old myocardial infarction; I10 Essential (primary) hypertension; E11.9 Type 2 diabetes mellitus without complications; Z98.61 Coronary angioplasty status
CPT/HCPCS: 93005; 99284; 36415; 82553; 82550; 83735; 85025; 80053; 84484; 71020; 73090; 73130; 93010; 29105; A9270

== ENCOUNTER 2016-09-05 00:10 | Emergency (ER) | payer MEDICARE, MEDICAID ==
--- NOTE | 2016-09-05 00:30 | ER Document Report ---
ED General - General Chief Complaint: Fall Stated Complaint: FALL/HEAD AND NECK PAIN Notes: Patient is a 65-year-old male who is well-known to the ER who comes here for light for falls. He does state the detention. 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 Patient says he was seen at 6 that she's unsteady and then lost his balance and fell backwards in the back of his head. He has pain in the back is had in his neck. He does take Plavix. He denies any other injuries. On examination I did no see has sunburn on his arms and legs. Patient says he was sitting outside and did not apply sunscreen. No other complaints at this time. No chest pain. No shortness of breath. No vomiting. He did not pass out. TRAVEL OUTSIDE OF THE [place] IN LAST 30 DAYS: No - Related Data Allergies/Adverse Reactions: No Known Allergies Allergy (Verified 09/05/16 01:08) Past Medical History - Social History Smoking Status: Unknown if Ever Smoked Frequency of alcohol use: None Drug Abuse: None Family History: CAD, Hypertension - Past Medical History Cardiac Medical History: Reports: Hx Congestive Heart Failure, Hx Coronary Artery Disease, Hx Heart Attack - stents, Hx Hypercholesterolemia, Hx Hypertension Pulmonary Medical History: Reports: Hx Bronchitis, Hx Pneumonia Neurological Medical History: Endocrine Medical History: Reports: Hx Diabetes Mellitus Type 2 Renal/ Medical History: Reports: Hx Benign Prostatic Hyperplasia, Hx Kidney Stones. Denies: Hx Peritoneal Dialysis GI Medical History: Reports: Hx Gastritis, Hx Gastroesophageal Reflux Disease, Hx Ulcer Musculoskeltal Medical History: Reports Hx Arthritis, Reports Hx Musculoskeletal Deformity, Reports Hx Musculoskeletal Trauma Psychiatric Medical History: Reports: Hx Anxiety, Hx Dementia, Hx Depression Traumatic Medical History: Reports: Hx Fractures, Hx Traumatic Brain Injury Past Surgical History: Reports: Hx Abdominal Surgery - History: Had 18 inches of his colon removed, Hx Appendectomy, Hx Bowel Surgery - 17 inches removed due to necrosis, Hx Cardiac Catheterization, Hx Cardiac Surgery - cath, stent placement, Hx Coronary Stent, Hx Orthopedic Surgery - right wrist, right hip - Immunizations Immunizations up to date: Yes Hx Diphtheria, Pertussis, Tetanus Vaccination: Yes Hx Pneumococcal Vaccination: 11/28/11 Review of Systems - Review of Systems Notes: My Normal Review Basic REVIEW OF SYSTEMS: CONSTITUTIONAL : Denies fever, chills, or sweats. Denies recent illness. RESPIRATORY: Denies cough, cold, or chest congestion. Denies shortness of breath, difficulty breathing, or wheezing. GASTROINTESTINAL: Denies abdominal pain. Denies nausea, vomiting, or diarrhea. Denies constipation. Last BM: : MUSCULOSKELETAL: Denies neck or back pain or joint pain or swelling. SKIN: Denies rash or skin lesions. HEMATOLOGIC : On Plavix. NEUROLOGICAL: Denies altered mental status or loss of consciousness. Has a headache. Denies weakness or paralysis or loss of use of either side. Denies problems with gait or speech. Denies sensory or motor loss.. ALL OTHER SYSTEMS REVIEWED AND NEGATIVE. Physical Exam - Vital signs Vitals: Temp Pulse Resp BP Pulse Ox 97.3 F 76 16 174/88 H 100 09/05/16 00:20 09/05/16 00:20 09/05/16 00:20 09/05/16 00:20 09/05/16 00:20 - Notes Notes: General Appearance: Well nourished, alert, cooperative, no acute distress, mild obvious discomfort. Well-appearing Vitals: reviewed, See vital signs table. Head: no swelling or tenderness to the head Eyes: PERRL, EOMI, Conjuctiva clear Mouth: No decreasd moisture Neck: Supple, moderate midline cervical spine tenderness palpation. Lungs: No wheezing, No rales, No rhonci, No accessory muscle use, good air exchange bilaterally. Heart: Normal rate, Regular rythm, No murmur, no rub Back: No midline thoracic or lumbar spine pain to palpation. Mild paraspinal musculature tenderness to palpation over low back. No step-offs or deformities. Abdomen: Normal BS, soft, No rigidity, No abdominal tenderness, No guarding, no rebound, no abdominal masses, no organomegaly Extremities: strength 5/5 in all extremities, good pulses in all extremities, no swelling or tenderness in the extremities, no edema. Skin: warm, dry, patient has first-degree sunburn to arms and legs. No blistering. Neuro: speech clear, oriented x 3, normal affect, responds appropriately to questions. Cranial nerves II through XII are intact. Distal sensation intact. Patient moves all extremities without difficulty. No focal neurologic deficits on exam. Course - Vital Signs Vital signs: Temp Pulse Resp BP Pulse Ox 97.3 F 76 16 174/88 H 100 09/05/16 00:20 09/05/16 00:20 09/05/16 00:20 09/05/16 00:20 09/05/16 00:20 - Transfer of Care Notes: 09/05/16 01:14 CT scans are negative. CT scans were obtained because the patient fell and hit his head and is on Plavix. He also had neck pain. All scans are negative. Patient will be discharged home. I encouraged him to stay out of the sun BECAUSE OF HIS SUNBURN. I ENCOURAGED him RETURN TO the ER IF HE HAS SEVERE HEADACHE, VOMITING, OR FEELS UNWELL. PATIENT AGREES WITH PLAN AND WILL BE DISCHARGED HOME. Dictation of this chart was performed using voice recognition software; therefore, there may be some unintended grammatical errors. Discharge - Discharge Clinical Impression: Ambulatory dysfunction, Burn from the sun Fall Qualifiers: Encounter type: initial encounter Qualified Code(s): W19.XXXA - Unspecified fall, initial encounter Minor head injury Qualifiers: Encounter type: initial encounter Qualified Code(s): S00.90XA - Unspecified superficial injury of unspecified part of head, initial encounter Condition: Good Disposition: HOME, SELF-CARE Additional Instructions: Head Injury Precautions At this point, there is no evidence that your head injury is serious. Observation is necessary, however. Take only clear liquids for the first few hours, unless told otherwise by the doctor. If no pain medication was prescribed, you may take acetaminophen according to the directions on the bottle. Do not take any medication that may alter your level of alertness (unless you've discussed it with the doctor first) . Limit activity for the first 24 hours. Bed rest is best. During the first 24 hours, check to see approximately every two to three hours that the patient is easily arousable, responds normally, and can perform common tasks such as walking without difficulty. Contact your doctor or go to the hospital if any of the following things occur: Persistent vomiting, difficulty in arousing the patient, worsening or continued headache, or failure to improve as expected. Head injuries can cause symptoms that persist for a few days or even a few weeks. Please stay out of the sun to help make sure you don't develop worsening sunburn. Please return to ER immediately if you have fevers, or blistering of your skin, severe headache, vomiting, or feel unwell. Please do not attempt to ambulate without assistance.
[2016-09-05 02:12] VITALS: BP 158/84
== END 2016-09-05 02:15 | disposition home or self-care (01) ==
LOC: ER 00:10
DX: S09.90XA Unspecified injury of head, initial encounter (principal); R51 Headache; M54.2 Cervicalgia; W19.XXXA Unspecified fall, initial encounter; Y93.89 Activity, other specified; R27.0 Ataxia, unspecified; L55.9 Sunburn, unspecified; I25.10 Atherosclerotic heart disease of native coronary artery without angina pectoris; I10 Essential (primary) hypertension; E11.9 Type 2 diabetes mellitus without complications; Z79.01 Long term (current) use of anticoagulants; Z98.61 Coronary angioplasty status; Z87.820 Personal history of traumatic brain injury
CPT/HCPCS: 99284; 70450; 72125; L0120

== ENCOUNTER 2016-09-17 23:53 | Emergency (ER) | payer MEDICARE, MEDICAID ==
[2016-09-18 00:07] VITALS: BP 124/72
--- NOTE | 2016-09-18 00:09 | ER Document Report ---
ED General - General Stated Complaint: FALL,HIP PAIN Notes: Patient is a 65-year-old male who has been to this emergency department 13 times this year for injuries related to falls. He again presents today after falling total of 5 times today getting up and trying to walk on his own. He arrives complaining of some dull, mild, constant, throbbing pain to his left thigh that admits that he has been able to walk since these falls. He denies hitting his head or neck. He has not had any vomiting, focal weakness, numbness , or altered mental status and any of these falls have occurred. He has not seen her primary doctor regarding today's concerns. He is unable to explain to me why he continues to get up and walk without assistance. TRAVEL OUTSIDE OF THE [place] IN LAST 30 DAYS: No - Related Data Allergies/Adverse Reactions: No Known Allergies Allergy (Verified 09/05/16 01:08) Past Medical History - General Information source: Patient - Social History Smoking Status: Never Smoker Frequency of alcohol use: None Drug Abuse: None Lives with: [facility] Family History: CAD, Hypertension - Past Medical History Cardiac Medical History: Reports: Hx Congestive Heart Failure, Hx Coronary Artery Disease, Hx Heart Attack - stents, Hx Hypercholesterolemia, Hx Hypertension Pulmonary Medical History: Reports: Hx Bronchitis, Hx Pneumonia Neurological Medical History: Endocrine Medical History: Reports: Hx Diabetes Mellitus Type 2 Renal/ Medical History: Reports: Hx Benign Prostatic Hyperplasia, Hx Kidney Stones. Denies: Hx Peritoneal Dialysis GI Medical History: Reports: Hx Gastritis, Hx Gastroesophageal Reflux Disease, Hx Ulcer Musculoskeltal Medical History: Reports Hx Arthritis, Reports Hx Musculoskeletal Deformity, Reports Hx Musculoskeletal Trauma Psychiatric Medical History: Reports: Hx Anxiety, Hx Dementia, Hx Depression Traumatic Medical History: Reports: Hx Fractures, Hx Traumatic Brain Injury Past Surgical History: Reports: Hx Abdominal Surgery - History: Had 18 inches of his colon removed, Hx Appendectomy, Hx Bowel Surgery - 17 inches removed due to necrosis, Hx Cardiac Catheterization, Hx Cardiac Surgery - cath, stent placement, Hx Coronary Stent, Hx Orthopedic Surgery - right wrist, right hip - Immunizations Immunizations up to date: Yes Hx Diphtheria, Pertussis, Tetanus Vaccination: Yes Hx Pneumococcal Vaccination: 11/28/11 Review of Systems - Review of Systems Notes: Constitutional: Negative for fever. Eyes: Negative for visual changes. ENT: Negative for facial injury Cardiovascular: Negative for chest injury. Respiratory: Negative for shortness of breath. Gastrointestinal: Negative for abdominal injury. Genitourinary: Negative for genital injury Musculoskeletal: Negative for back injury. Skin: Negative for laceration/abrasions. Neurological: Negative for head injury. Physical Exam - Vital signs Vitals: Temp Pulse Resp BP Pulse Ox 97.6 F 82 16 124/72 95 09/18/16 00:00 09/18/16 00:00 09/18/16 00:00 09/18/16 00:00 09/18/16 00:00 Interpretation: Normal Notes: PHYSICAL EXAMINATION: GENERAL: Well-appearing, no acute distress. HEAD: Atraumatic, normocephalic. EYES: Pupils equal round and reactive to light, extraocular movements intact, sclera anicteric, conjunctiva are normal. ENT: nares patent, no oral pharyngeal trauma. No hemotympanum, no Castillo's sign , no raccoon eyes. NECK: No midline cervical spine tenderness. Patient able to move their head to 45 bilaterally without any discomfort. LUNGS: Breath sounds clear to auscultation bilaterally and equal. No wheezes rales or rhonchi. HEART: Regular rate and rhythm without murmurs. CHEST WALL: No ecchymosis over the chest wall. ABDOMEN: Soft, nontender, normoactive bowel sounds. No guarding, no rebound. No abdominal bruising EXTREMITIES: Normal range of motion, no pitting or edema. No long bone deformities. BACK: No midline spinal tenderness, step-offs, or deformities. NEUROLOGICAL: Face symmetric. Tongue protrudes midline. Extraocular motions intact. Pupils are 2 mm and equally reactive. Normal gait. 5 out of 5 strength in both the distal and proximal upper and lower extremities bilaterally. Sensation is grossly intact throughout. Finger to nose testing normal. Pronator drift normal. PSYCH: Normal mood, normal affect. SKIN: Warm, Dry, normal turgor, no rashes or lesions noted. Course - Re-evaluation Re-evalutation: 09/18/16 00:05 Presentation of a well appearing elderly patient in no acute distress, vitals within normal limits after a mechanical mechanical fall. Patient denies a syncopal episode as the cause for today's fall. No focal neurologic deficits on exam, no evidence of basilar skull fracture on exam without evidence of hemotympanum, raccoon eyes, or periauricular hematoma. No papilledema. Patient is not on anticoagulation. GCS is 15. No loss of consciousness. No episodes of vomiting. However, patient is 65 so cannot be truly exclude a Sandoval cervical spine or Sandoval head CT criteria. However, patient has had 22 CT scans of his head and cervical spine in the past 16 months. Patient is falling nearly every day because he refuses to contact staff at his facility prior to getting up and walking. I believe the risks of ongoing imaging at this rate far outweigh the likelihood of him having an acute cervical spine fracture or intracranial bleed based on his exam and history today. I have reviewed this at length with the patient and informed him that we are placing her at a significantly elevated risk for medical imaging induced malignancy. I encouraged patient providers to likewise be judicious in the use of further advanced diagnostic imaging. He has no deformity to any extremity. No chest or abdominal wall tenderness or bruising. Will be discharged back to his facility with instructions to not get up at any point without staff assistance or use a wheelchair at all times. - Vital Signs Vital signs: Temp Pulse Resp BP Pulse Ox 97.6 F 82 16 124/72 95 09/18/16 00:00 09/18/16 00:00 09/18/16 00:00 09/18/16 00:00 09/18/16 00:00 Discharge - Discharge Clinical Impression: Fall Qualifiers: Encounter type: initial encounter Qualified Code(s): W19.XXXA - Unspecified fall, initial encounter Condition: Good Disposition: HOME, SELF-CARE Additional Instructions: You have been seen in the Emergency Department (ED) today following a fall. Your workup today did not reveal any injuries that require you to stay in the hospital. You can expect, though, to be stiff and sore for the next several days. You can take ibuprofen 600 mg every 6 hours as needed for pain. You can apply a hot pack or electric heating pad to the sore areas. You can also use topical "Aspercreme with lidocaine" to sore areas as needed. Please be aware that this patient has had over 20 CT scans done in the past 16 months due to frequent falls. This is a very unsafe rate of imaging and needs to stop. Please be very cautious with this patient as it appears he has significant difficulty asking for help to get up. Today is his 13th visit this year.
== END 2016-09-18 01:42 | disposition home or self-care (01) ==
LOC: ER 23:53
DX: M79.652 Pain in left thigh (principal); W18.30XA Fall on same level, unspecified, initial encounter; Z91.81 History of falling; I50.9 Heart failure, unspecified; I11.0 Hypertensive heart disease with heart failure; I25.10 Atherosclerotic heart disease of native coronary artery without angina pectoris; E78.00 Pure hypercholesterolemia, unspecified; E11.9 Type 2 diabetes mellitus without complications; K21.9 Gastro-esophageal reflux disease without esophagitis; Z87.442 Personal history of urinary calculi
CPT/HCPCS: 99284

== ENCOUNTER 2016-09-30 00:35 | Inpatient (IN) | payer MEDICARE, MEDICAID ==
[2016-09-30] MEDS ORDERED: ASPIRIN 81 MG TABLET, CHEWABLE PO ONE (00:49)
[2016-09-30 01:32] LABS: ABSOLUTE EOSINOPHILS # (AUTO) 0.2 10^3/uL (0.0-0.6); ABSOLUTE LYMPHOCYTES (AUTO) 1.4 10^3/uL (0.5-4.7); ABSOLUTE MONOCYTES (AUTO) 0.5 10^3/uL (0.1-1.4); ABSOLUTE NEUT (AUTO) 2.9 10^3/uL (1.7-8.2); BASOPHILS % (AUTO) 0.7 % (0-2); EOSINOPHILS % (AUTO) 3.3 % (0-6); HEMATOCRIT 33.4 % (37.9-51.0); HEMOGLOBIN 11.5 g/dL (13.5-17.0); HGB HCT DIFFERENCE 1.1; LYMPHOCYTES % (AUTO) 28.5 % (13-45); MEAN CORPUSCULAR HEMOGLOBIN 28.4 pg (27.0-33.4); MEAN CORPUSCULAR HGB CONC 34.4 g/dL (32.0-36.0); MEAN CORPUSCULAR VOLUME 83 fl (80-97); MONOCYTES % (AUTO) 9.9 % (3-13); RED BLOOD COUNT 4.04 10^6/uL (4.35-5.55); RED CELL DISTRIBUTION WIDTH 14.8 % (11.5-14.0); SEGMENTED NEUTROPHILS % (AUTO) 57.6 % (42-78)
--- NOTE | 2016-09-30 01:33 | ER Document Report ---
ED General - General Chief Complaint: Chest Pain Stated Complaint: CHEST PAIN Mode of Arrival: Medic Information source: Patient, Emergency Med Personnel, H Records Notes: This is a 65 year old male who lives at [facility] who presents with left sided chest discomfort this evening, radiating to L shoulder and associated with shortness of breath and nausea. He received 2 SL NTG at [facility] and 1 SL NTG enroute per EMS and states that this has improved his pain. TRAVEL OUTSIDE OF THE [place] IN LAST 30 DAYS: No - Related Data Allergies/Adverse Reactions: aspirin Allergy (Verified 09/30/16 03:47) Home Medications: Current Home Medications Acetaminophen [Tylenol 325 mg Tablet] 650 mg PO Q6HP PRN 09/30/16 [History] Alprazolam [Xanax] 1 mg PO BID 09/30/16 [History] Bupropion HCl [Wellbutrin Xl 300mg 24hr Tablet] 300 mg PO DAILY 09/30/16 [ History] Clopidogrel Bisulfate [Plavix 75 mg Tablet] 75 mg PO DAILY 09/30/16 [History] Dexlansoprazole [Dexilant 30 mg Capsule] 30 mg PO DAILY 09/30/16 [History] Divalproex Sodium [Depakote Sprinkle 125 mg Capsule] 125 mg PO QHS 09/30/16 [ History] Duloxetine HCl [Cymbalta 20 mg Capsule.dr] 40 mg PO DAILY 09/30/16 [History] Gabapentin [Neurontin 400 mg Capsule] 400 mg PO BID 09/30/16 [History] Guaifenesin [Robitussin Syrup 200 mg/10 ml Ud Cup] 10 ml PO Q6HP PRN 09/30/16 [ History] Hydralazine HCl [Apresoline 50 mg Tablet] 50 mg PO Q8HP PRN 09/30/16 [History] Hydrocodone/Acetaminophen [Castleton 5-325 mg Tablet] 1 tab PO Q4HP PRN 09/30/16 [ History] Insulin Aspart [Novolog Insulin (Aspart) 100 unit/mL] 0 units SQ .PERSLIDINGSCALE 09/30/16 [History] Insulin Glargine,Hum.rec.anlog [Lantus Insulin 100 Unit/1 ml 10 ml] 40 units SQ QHS 09/30/16 [History] Loperamide HCl [Imodium 2 mg Capsule] 2 mg PO .ASDIR PRN 09/30/16 [History] Losartan Potassium [Cozaar 50 mg Tablet] 50 mg PO DAILY 09/30/16 [History] Magnesium Hydroxide [Milk of Magnesia] 30 ml PO Q6 09/30/16 [History] Melatonin/Pyridoxine [Melatonin 3 mg Tablet] 1 tab PO QHS 09/30/16 [History] Metformin HCl [Glucophage XR 500 mg Tablet] 500 mg PO DAILY 09/30/16 [History] Metoprolol Succinate [Toprol Xl 50 mg Tab.sr] 50 mg PO DAILY 09/30/16 [History] Mintox 30 ml PO .ASDIR PRN 09/30/16 [History] Neomycin Wei/Bacitrac Zn/Poly [Triple Antibiotic Ointment] 1 applic TOP .ASDIR PRN 09/30/16 [History] Nitroglycerin [Nitrostat 0.4 mg (1/150 Gr) Tabs 25/Bottle] 0.4 mg SL Q5MP PRN [History] Tolterodine Tartrate [Detrol LA] 2 mg PO QAM 09/30/16 [History] Tramadol HCl [Ultram 50 mg Tablet] 50 mg PO BIDP PRN 09/30/16 [History] Triamcinolone Acetonide [Aristocort 0.1% Cream] 1 applic TOP BID 09/30/16 [ History] Zolpidem Tartrate [Ambien] 10 mg PO QHS 09/30/16 [History] Past Medical History - General Information source: Patient, [facility] Records - Social History Smoking Status: Unknown if Ever Smoked Family History: CAD, Hypertension - Past Medical History Cardiac Medical History: Reports: Hx Congestive Heart Failure, Hx Coronary Artery Disease, Hx Heart Attack - stents, Hx Hypercholesterolemia, Hx Hypertension Pulmonary Medical History: Reports: Hx Bronchitis, Hx Pneumonia Neurological Medical History: Endocrine Medical History: Reports: Hx Diabetes Mellitus Type 2 Renal/ Medical History: Reports: Hx Benign Prostatic Hyperplasia, Hx Kidney Stones. Denies: Hx Peritoneal Dialysis GI Medical History: Reports: Hx Gastritis, Hx Gastroesophageal Reflux Disease, Hx Ulcer Musculoskeltal Medical History: Reports Hx Arthritis, Reports Hx Musculoskeletal Deformity, Reports Hx Musculoskeletal Trauma Psychiatric Medical History: Reports: Hx Anxiety, Hx Dementia, Hx Depression Traumatic Medical History: Reports: Hx Fractures, Hx Traumatic Brain Injury Past Surgical History: Reports: Hx Abdominal Surgery - History: Had 18 inches of his colon removed, Hx Appendectomy, Hx Bowel Surgery - 17 inches removed due to necrosis, Hx Cardiac Catheterization, Hx Cardiac Surgery - cath, stent placement, Hx Coronary Stent, Hx Orthopedic Surgery - right wrist, right hip - Immunizations Immunizations up to date: Yes Hx Diphtheria, Pertussis, Tetanus Vaccination: Yes Hx Pneumococcal Vaccination: 11/28/11 Review of Systems - Review of Systems Constitutional: No symptoms reported. denies: Chills, Fever EENT: No symptoms reported Cardiovascular: See HPI Respiratory: No symptoms reported Gastrointestinal: No symptoms reported Genitourinary: No symptoms reported Musculoskeletal: No symptoms reported Skin: No symptoms reported Neurological/Psychological: No symptoms reported Physical Exam - Vital signs Vitals: Pulse Ox 98 09/30/16 00:49 - Notes Notes: PHYSICAL EXAMINATION: GENERAL: Well-appearing, well-nourished and in no acute distress. Pleasant and conversant HEAD: Atraumatic, normocephalic. EYES: Pupils equal round and reactive to light, extraocular movements intact, sclera anicteric, conjunctiva are normal. ENT: nares patent, oropharynx clear without exudates. Moist mucous membranes. NECK: Normal range of motion, supple without lymphadenopathy LUNGS: Breath sounds clear to auscultation bilaterally and equal. No wheezes rales or rhonchi. HEART: Regular rate and rhythm without murmurs ABDOMEN: Soft, nontender, normoactive bowel sounds. No guarding, no rebound. No masses appreciated. EXTREMITIES: Normal range of motion NEUROLOGICAL: Cranial nerves grossly intact. No gross focal motor or sensory deficits appreciated. PSYCH: Normal mood, normal affect. Course - Re-evaluation Re-evalutation: 09/30/16 03:01 Patient is reassessed. He is noted to be sleeping comfortably. When I awaken him he states that he is feeling much better. Given his multiple cardiac risk factors and the fact that his last stress test was over a year ago, will admit to observation for cardiac rule out and stress test. Discussed with Dr. Lucia. Patient is agreeable and comfortable with this plan. - Vital Signs Vital signs: Temp Pulse Resp BP Pulse Ox 98.0 F 77 16 145/76 H 97 10/01/16 03:12 10/01/16 03:12 10/01/16 03:12 10/01/16 03:12 10/01/16 03:12 - Laboratory Result Diagrams: 09/30/16 01:14 09/30/16 01:14 Laboratory results interpreted by me: 09/30/16 09/30/16 09/30/16 01:14 01:14 05:07 RBC 4.04 L Hgb 11.5 L Hct 33.4 L RDW 14.8 H BUN 23 H Glucose 211 H POC Glucose AST 14 L Alkaline Phosphatase 151 H Creatine Kinase 52 L Total Protein 6.1 L Albumin 3.3 L Triglycerides 304 H VLDL Cholesterol 60.8 H HDL Cholesterol 25 L 09/30/16 06:57 RBC Hgb Hct RDW BUN Glucose POC Glucose 297 H AST Alkaline Phosphatase Creatine Kinase Total Protein Albumin Triglycerides VLDL Cholesterol HDL Cholesterol - Diagnostic Test Radiology reviewed: Reports reviewed - CXR: no acute cardiopulmonary process - EKG Interpretation by Me EKG shows normal: Sinus rhythm Rate: Normal Rhythm: NSR When compared to previous EKG there are: No significant change Additional EKG results interpreted by me: 09/30/16 03:04 EKG at 0053 demonstrates normal sinus rhythm with a rate of 76. There is a PVC noted. No ST segment elevation or depression. Discharge - Discharge Clinical Impression: Chest pain Qualifiers: Chest pain type: unspecified Qualified Code(s): R07.9 - Chest pain, unspecified Type 2 diabetes mellitus with hyperglycemia Qualifiers: Diabetes mellitus snf insulin use: unspecified snf insulin use status Qualified Code(s): E11.65 - Type 2 diabetes mellitus with hyperglycemia Condition: Stable Disposition: ADMITTED OBSERVATION Admitting Provider: Hospitalist - Dr. Lucia Unit Admitted: Telemetry
[2016-09-30 01:42] LABS: ALANINE AMINOTRANSFERASE 25 U/L (21-72); ALBUMIN 3.3 g/dL (3.5-5.0); ALKALINE PHOSPHATASE 151 U/L (38-126); ANION GAP 11 (5-19); ASPARTATE AMINO TRANSFERASE 14 U/L (17-59); BILIRUBIN,DIRECT 0.3 mg/dL (0.0-0.4); BILIRUBIN,TOTAL 0.4 mg/dL (0.2-1.3); BLOOD UREA NITROGEN 23 mg/dL (7-20); CALCIUM 9.4 mg/dL (8.4-10.2); CARBON DIOXIDE 26 mmol/L (22-30); CHLORIDE 106 mmol/L (98-107); CREATINE KINASE 52 U/L (55-170); CREATININE RESULT 1.17 mg/dL (0.52-1.25); GLUCOSE 211 mg/dL (75-110); POTASSIUM 4.2 mmol/L (3.6-5.0); PROTHROMBIN TIME 13.2 SEC (11.4-15.4); SODIUM 143.1 mmol/L (137-145); TOTAL PROTEIN 6.1 g/dL (6.3-8.2)
[2016-09-30 01:55] LABS: CREATINE KINASE MB 1.82 ng/mL (<4.55)
[2016-09-30 01:56] LABS: TROPONIN I < 0.012 ng/mL
[2016-09-30] MEDS ORDERED: NITROGLYCERIN 2% OINTMENT 1 GM PACKET TP ONE (02:59)
[2016-09-30] MEDS ORDERED: GLUCAGON,HUMAN RECOMB 1 MG INJ IM PRN (05:54)
[2016-09-30] MEDS ORDERED: DEXTROSE 40% GEL 15 GM TUBE PO PRN ×2 (05:54)
[2016-09-30] MEDS ORDERED: DEXTROSE 50%-WATER 25 GM/50 ML DISP.SYRIN IV PRN ×2 (05:54)
[2016-09-30] MEDS ORDERED: ACETAMINOPHEN 325 MG TABLET PO PRN ×2 (05:54→09:15)
[2016-09-30] MEDS ORDERED: VANCOMYCIN HCL 0 MG in DEXTROSE 5%-WATER 250 ML IV NR (06:00)
[2016-09-30 06:19] LABS: ADD ON TESTING BLD IN LAB ACKNOWLEDGE
[2016-09-30 06:29] LABS: Direct HDL 25 mg/dL (>40); TRIGLYCERIDES 304 mg/dL (<150)
[2016-09-30 06:39] LABS: DIRECT LDL 66 mg/dL (<100)
[2016-09-30 06:40] LABS: VLDL CHOLESTEROL 60.8 mg/dL (10-31)
[2016-09-30] MEDS: CEFAZOLIN 1 GM/D5W RTU 1 GM/50 ML RTUPB IV SCH ×3 (06:48→21:29)
[2016-09-30] MEDS ORDERED: VANCOMYCIN HCL INJ 1000 MG VIAL IV ONE (07:00)
[2016-09-30] MEDS ORDERED: NITROGLYCERIN 0.4 MG/TAB 25 TAB/BOTTLE SL PRN (08:24)
[2016-09-30] MEDS ORDERED: MAGNESIUM HYDROXIDE SUSP 30 ML UDCUP PO PRN (08:24)
--- NOTE | 2016-09-30 08:27 | EKG REPORT ---
SEVERITY:- ABNORMAL ECG - SINUS RHYTHM VENTRICULAR PREMATURE COMPLEX NONSPECIFIC ST-T CHANGES LATERAL LEADS : Confirmed by: Haroon Erickson MD 30-Sep-2016 08:27:17
--- NOTE | 2016-09-30 08:43 | PDOC H&P ---
History of Present Illness Admission Date/PCP: 09/30/16 03:17 Marjorie Chahal Patient complains of: chest pain History of Present Illness: RADHA BORGES is a 65 year old insulin-dependent diabetic male, with underlying known coronary artery disease, having undergone stent implant 1 in 2012 at [facility], who presents to the emergency room for evaluation of above complaint. Patient has been discussed with emergency room physician who evaluated the patient. Describes the onset of moderate intensity left-sided pressure discomfort, radiating to his left shoulder, with associated shortness of breath, sweating, and nausea. Onset of pain at rest. Increased discomfort with stress. Has had a number of prior such episodes of pain. No cough, vomiting, fever or chills. Currently resting quietly, chest pain-free.. Admitted to our service 09/23/2014, with admission diagnoses including right hip fracture, status post fall. History and physical has been reviewed. Laboratory results are listed in [facility] and are reviewed. X-ray summary results are listed below, with full report(s) reviewed. . EKG reviewed. Social history/personal habits: Single. Resident of [facility]. No use of tobacco or illicit drugs. No current use of alcohol, but previous history of alcohol abuse. Allergies/adverse reactions are listed in [employer] and are reviewed. Home medications Home medications initially autopopulated into [employer] may not accurately reflect patient's true medications, dosages, and/or frequencies. exhibit technician to reconcile medications. Unfortunately, patient uncertain of medications/dosages/frequencies. REVIEW OF SYSTEMS: Constitutional: No fever or chills. Eyes: Wears glasses. ENT: No swallowing problems or complaints. Partial hearing loss., Left ear. Pulmonary: See history and present illness. Cardiovascular: See history and present illness. Gastrointestinal: See history and present illness. Skin: Occasional fungal skin rash, including current rash on the instep of each foot, which itches on occasion. Hematologic: Easy bruising. Neurologic: Nonambulatory for "some time now." Musculoskeletal: Joint pain from arthritis. Psychiatric: Mild depression; denies suicidal or homicidal ideation. Endocrine: No current complaints, including polyuria. Genitourinary: No current complaints, including dysuria. PHYSICAL EXAMINATION: 5 feet 7 inches tall. 110.9 kg. BMI 38.3 kg/m.Temperature 97.4. Blood pressure 144/75. Pulse 72 and regular. Respirations are 19 and unlabored. 98 percent saturation on room air. Obese somewhat chronically ill-appearing male who appears a bit older than his stated age. Slightly fatigued. Otherwise, pleasant awake alert and cooperative. Mildly anxious, without agitation. Skin is warm and dry. No subcutaneous nodules palpated. Has dark pink, combination macular and punctate rash on the instep of each foot. No vesicles. No weeping. No evidence of secondary infection. Dry. ENT: Hearing grossly normal to normal conversation. Tongue midline on protrusion pink and slightly tacky. Eyes: No scleral icterus. Pupils equal and reactive to light at 4 mm. [place] conjunctivae. Neck is supple and nontender to gentle active range of motion and palpation. Midline trachea. No palpable thyroid nodule mass enlargement or tenderness. Lymphatic: No palpable cervical or clavicular nodes. Neck and lymphatic exams limited by patient body habitus. Psychiatric: Reasonable insight into acute and chronic medical issues. Oriented to time location and why here. Lungs: Auscultation reveals clear and equal breath sounds bilaterally. No use of accessory respiratory muscles. Cardiovascular: Heart regular rate and rhythm, without gallop murmur or rub. No carotid or abdominal aortic bruits. Mild bilateral symmetric slightly pitting calf, ankle and pedal edema. Faintly palpable dorsalis pedis pulses. Abdomen: soft, obese, nontender with positive bowel sounds. Unable to adequately evaluate abdomen for masses or organomegaly due to body habitus. Compression of upper abdomen and sternum both seem to reproduce previously noted chest discomfort. Extremities: Feet are warm and dry. No calf tenderness to compression. Gentle manipulation of lower extremities fails to reveal any obvious evidence of injury or instability to knees hips or ankles, although range of motion is restricted symmetrically bilaterally, likely due to his chronic nonambulatory status. Small area of slight erythema, warmth, and tenderness on the mid anterior aspect of his left cha. No crepitus fluctuance or expressible discharge. Neurologic: Moves upper extremities grossly normally. Patellar reflexes absent. Absent Babinski. Light touch minimal at his feet, a chronic finding according to patient.. Scant bilateral symmetric movement of feet on attempted dorsiflexion or plantar flexion. A chronic condition, according to patient.. Past Medical History Cardiac Medical History: Reports: Congestive Heart Failure - Diastolic, Coronary Artery Disease - Stent 2012, [facility]., Myocardial Infarction, Hyperlipidema, Hypertension Denies: DVT, Pulmonary Embolism Pulmonary Medical History: Reports: Bronchitis, Pneumonia, Sleep Apnea - History of; patient not on CPAP. Denies: Asthma, Chronic Obstructive Pulmonary Disease (COPD) EENT Medical History: Reports: Eyes - Glasses, Ears - Partial hearing loss, left ear Neurological Medical History: Reports: Seizures - Distant history posttraumatic. Never on antiepileptic. No recurrence. Endocrine Medical History: Reports: Diabetes Mellitus Type 1 Denies: Diabetes Mellitus Type 2, Hyperthyroidism, Hypothyroidism Renal/ Medical History: Reports: Other - Occasional urinary tract infection. GI Medical History: Reports: Gastroesophageal Reflux Disease Denies: Cirrhosis, Hepatitis, Peptic Ulcer Disease Musculoskeltal Medical History: Reports: Arthritis Skin Medical History: Reports: Other - Occasional fungal skin rash Psychiatric Medical History: Reports: Alcohol Dependency - History of alcohol abuse., Dementia, Depression Denies: General Anxiety Disorder, Substance Abuse, Tobacco Dependency Traumatic Medical History: Reports: Traumatic Brain Injury Hematology: Reports: Anemia, Other - Easy bruising Denies: Bleeding Tendencies Infectious Medical History: Denies: Hepatitis B, Hepatitis C Past Surgical History Past Surgical History: Reports: Appendectomy, Cardiac Catheterization, Coronary Stent, Orthopedic Surgery - right wrist, right hip Social History Information Source: Patient, Emergency Med Personnel, [facility] Records Lives with: Care Home Smoking Status: Unknown if Ever Smoked Frequency of Alcohol Use: None - History of alcohol abuse. Hx Recreational Drug Use: No Drugs: None Hx Prescription Drug Abuse: No - Advance Directive Resuscitation Status: Full Code Surrogate healthcare decision maker:: Uncertain at this point in time. Family History Family History: CAD, CVA, Hypertension Parental Family History Reviewed: Yes - mother of stroke; father of myocardial infarction. Children Family History Reviewed: NA Sibling(s) Family History Reviewed.: Yes - Brother diabetic and with heart trouble. Medication/Allergy Home Medications: Acetaminophen [Tylenol] 325 mg PO Q6H PRN 10/17/14 Amlodipine Besylate [Norvasc 10 mg Tablet] 10 mg PO DAILY 10/17/14 Bupropion HCl [Wellbutrin] 100 mg PO DAILY 10/17/14 Clopidogrel Bisulfate [Plavix 75 mg Tablet] 75 mg PO DAILY 10/17/14 Duloxetine HCl [Cymbalta] 30 mg PO Q12H 10/17/14 Escitalopram Oxalate [Lexapro] 20 mg PO QHS 10/17/14 Ferrous Sulfate [Iron Supplement] 325 ng PO BID 10/17/14 Gabapentin [Neurontin 400 mg Capsule] 100 mg PO Q8H 10/17/14 Hydralazine HCl 50 mg PO Q8H 10/17/14 Insulin Aspart [Novolog Flexpen] 1 dose SQ ASDIR 10/17/14 Insulin Glargine,Hum.rec.anlog [Lantus Insulin 100 Unit/1 ml 10 ml] 20 units SQ QHS 10/17/14 Lorazepam [Ativan] 0.5 mg PO Q12H 10/17/14 Metoprolol Succinate [Toprol Xl 25 mg Tab.sr] 25 mg PO Q12H 10/17/14 Zolpidem Tartrate [Ambien 5 mg Tablet] 5 mg PO HSP PRN 10/17/14 Dexlansoprazole [Dexilant 30 mg Capsule] 30 mg PO DAILY #0 10/18/14 Oxycodone HCl/Acetaminophen [Percocet 5-325 mg Tablet] 1 tab PO Q6H 01/14/15 Cephalexin Monohydrate [Keflex 500 mg Capsule] 1 tab PO BID 01/23/15 Phenazopyridine HCl [Pyridium 200 mg Tablet] 1 tab PO TID 01/23/15 Acetaminophen [Tylenol 325 mg Tablet] 650 mg PO Q6HP PRN 09/30/16 Alprazolam [Xanax] 1 mg PO BID 09/30/16 Bupropion HCl [Wellbutrin Xl 300mg 24hr Tablet] 300 mg PO DAILY 09/30/16 Clopidogrel Bisulfate [Plavix 75 mg Tablet] 75 mg PO DAILY 09/30/16 Dexlansoprazole [Dexilant 30 mg Capsule] 30 mg PO DAILY 09/30/16 Divalproex Sodium [Depakote Sprinkle 125 mg Capsule] 125 mg PO QHS 09/30/16 Duloxetine HCl [Cymbalta 20 mg ] 40 mg PO DAILY 09/30/16 Gabapentin [Neurontin 400 mg Capsule] 400 mg PO BID 09/30/16 Guaifenesin [Robitussin Syrup 200 mg/10 ml Ud Cup] 10 ml PO Q6HP PRN 09/30/16 Hydralazine HCl [Apresoline 50 mg Tablet] 50 mg PO Q8HP PRN 09/30/16 Hydrocodone/Acetaminophen [[place] 5-325 mg Tablet] 1 tab PO Q4HP PRN 09/30/16 Insulin Aspart [Novolog Insulin (Aspart) 100 unit/mL] 0 units SQ .PERSLIDINGSCALE 09/30/16 Insulin Glargine,Hum.rec.anlog [Lantus Insulin 100 Unit/1 ml 10 ml] 40 units SQ QHS 09/30/16 Loperamide HCl [Imodium 2 mg Capsule] 2 mg PO .ASDIR PRN 09/30/16 Losartan Potassium [Cozaar 50 mg Tablet] 50 mg PO DAILY 09/30/16 Magnesium Hydroxide [Milk of Magnesia] 30 ml PO Q6 09/30/16 Melatonin/Pyridoxine [Melatonin 3 mg Tablet] 1 tab PO QHS 09/30/16 Metformin HCl [Glucophage XR 500 mg Tablet] 500 mg PO DAILY 09/30/16 Metoprolol Succinate [Toprol Xl 50 mg Tab.sr] 50 mg PO DAILY 09/30/16 Mintox 30 ml PO .ASDIR PRN 09/30/16 Neomycin Wei/Bacitrac Zn/Poly [Triple Antibiotic Ointment] 1 applic TOP .ASDIR PRN 09/30/16 Nitroglycerin [Nitrostat 0.4 mg (1/150 Gr) Tabs 25/Bottle] 0.4 mg SL Q5MP PRN Tolterodine Tartrate [Detrol LA] 2 mg PO QAM 09/30/16 Tramadol HCl [Ultram 50 mg Tablet] 50 mg PO BIDP PRN 09/30/16 Triamcinolone Acetonide [Aristocort 0.1% Cream] 1 applic TOP BID 09/30/16 Zolpidem Tartrate [Ambien] 10 mg PO QHS 09/30/16 Allergies/Adverse Reactions: aspirin Allergy (Verified 09/30/16 03:47) Physical Exam Vital Signs: Temp Pulse Resp BP Pulse Ox 98.4 F 72 12 132/75 H 92 09/30/16 00:59 09/30/16 05:32 09/30/16 04:31 09/30/16 04:31 09/30/16 04:31 Intake & Output 09/29/16 09/30/16 10/01/16 00:59 00:59 00:59 Weight 108.4 kg Results Impressions: Chest X-Ray 09/30/16 00:49 IMPRESSION: NO ACUTE RADIOGRAPHIC FINDING IN THE CHEST. Assessment & Plan - Diagnosis (1) Rash Is this a current diagnosis for this admission?: YesPlan: Topical nystatin twice a day to affected areas. (2) Cellulitis of left leg Is this a current diagnosis for this admission?: YesPlan: Ancef and intravenous vancomycin. Pharmacy to assist with dosing. (3) Stented coronary artery Is this a current diagnosis for this admission?: Yes (4) IDDM (insulin dependent diabetes mellitus) Is this a current diagnosis for this admission?: YesPlan: Diabetic cardiac diet. Accu-Cheks with appropriate sliding scale coverage.Resume home medications as appropriate once these have been determined and reviewed. (5) Hypertension Qualifiers: Hypertension type: essential hypertension Qualified Code(s): I10 - Essential (primary) hypertension Is this a current diagnosis for this admission?: YesPlan: Resume home medications as appropriate once these have been determined and reviewed. (6) Precordial chest pain Is this a current diagnosis for this admission?: YesPlan: Likely musculoskeletal in origin, given physical findings, but with known coronary artery disease, Patient will be placed in observation bed under chest pain protocol. Patient understands to notify staff should chest pain recur. Serial troponin's . Repeat EKG. lipid panel. Knee high SCDs for DVT prophylaxis. Along with subcutaneous Lovenox . Impression and plans were discussed with patient, who concurs. Time spent in evaluation and management of patient: 64 minutes
[2016-09-30] MEDS ORDERED: FLUCONAZOLE 100 MG TABLET PO ONE (08:44)
[2016-09-30] MEDS ORDERED: IVERMECTIN 3 MG TABLET PO SCH (08:45)
[2016-09-30] MEDS ORDERED: ALPRAZOLAM 0.5 MG TABLET PO PRN (09:30)
[2016-09-30] MEDS: ENOXAPARIN SODIUM INJ 40 MG/0.4 ML DISP.SYRIN SUBCUT SCH (09:36)
[2016-09-30] MEDS: NYSTATIN CREAM 15 GM TP SCH ×2 (09:37→17:20)
[2016-09-30] MEDS ORDERED: HYDROCODONE/ACETAMINOPHEN 5-325 MG TABLET PO PRN (09:45)
[2016-09-30] MEDS ORDERED: METOPROLOL SUCCINATE 25 MG TAB.SR.24H PO SCH (10:00)
[2016-09-30] MEDS ORDERED: TOLTERODINE TARTRATE 1 MG TABLET PO SCH (10:00)
[2016-09-30] MEDS ORDERED: CLOPIDOGREL BISULFATE 75 MG TABLET PO SCH (10:00)
[2016-09-30] MEDS ORDERED: LOSARTAN POTASSIUM 50 MG TABLET PO SCH (10:00)
[2016-09-30] MEDS ORDERED: DULOXETINE HCL 20 MG CAPSULE.DR PO SCH (10:00)
[2016-09-30] MEDS: GABAPENTIN 400 MG CAPSULE PO SCH ×2 (10:45→17:18)
[2016-09-30] MEDS: METFORMIN HCL 500 MG TABLET PO SCH (10:46)
[2016-09-30] MEDS ORDERED: LACTOBACILLUS ACIDOPHILUS 250 MG TAB PO ONE (11:30)
[2016-09-30] MEDS: INSULIN LISPRO 100 UNIT/ML 3 ML VIAL SUBCUT PRN ×2 (12:40→21:29)
--- NOTE | 2016-09-30 14:25 | PDOC PROGRESS REPORT ---
Subjective Progress Note for:: 09/30/16 Subjective:: The patient was seen earlier today on rounds. The patient has had multiple bowel movements this morning. She has multiple areas throughout his body of bumps. Yeast appearing areas as well as bedbugs versus scabies. The patient denies any nausea, vomiting, shortness of breath, dizziness, chest pain, heart palpitations, fevers, or chills. The patient has remained afebrile. Blood pressures have been in a good range. When prompted the patient voices no other concerns at this time. Review of systems: The rest of the review of systems is negative. Physical Exam Vital Signs: Temp Pulse Resp BP Pulse Ox 97.4 F 67 16 154/78 H 99 09/30/16 08:11 09/30/16 08:11 09/30/16 08:11 09/30/16 08:11 09/30/16 08:11 General appearance: PRESENT: no acute distress, cooperative, well-developed, well-nourished Head exam: PRESENT: atraumatic, normocephalic Eye exam: PRESENT: conjunctiva pink, EOMI, PERRLA. ABSENT: scleral icterus Ear exam: PRESENT: normal external ear exam Mouth exam: PRESENT: moist, tongue midline Neck exam: ABSENT: carotid bruit, JVD, lymphadenopathy, thyromegaly Respiratory exam: PRESENT: clear to auscultation hattie, symmetrical, unlabored. ABSENT: rales, rhonchi, tachypnea, wheezes Cardiovascular exam: PRESENT: RRR. ABSENT: diastolic murmur, rubs, systolic murmur Pulses: PRESENT: normal dorsalis pedis pul Vascular exam: PRESENT: normal capillary refill GI/Abdominal exam: PRESENT: normal bowel sounds, soft. ABSENT: distended, guarding, mass, organolmegaly, rebound, tenderness Rectal exam: PRESENT: deferred Extremities exam: PRESENT: full ROM. ABSENT: calf tenderness, clubbing, pedal edema Neurological exam: PRESENT: alert, awake, oriented to person, oriented to place , oriented to time, oriented to situation, CN II-XII grossly intact. ABSENT: motor sensory deficit Psychiatric exam: PRESENT: appropriate affect, normal mood. ABSENT: homicidal ideation, suicidal ideation Skin exam: PRESENT: dry, erythema, intact, mottled, pallor, petechiae, warm. ABSENT: cyanosis, rash Results Laboratory Results: 09/30/16 11:00 Stool for White Cells NO WBCs SEEN 09/30/16 11:41 Troponin I < 0.012 Labs- Last Values WBC 5.0 10^3/uL (4.0-10.5) 09/30/16 01:14 RBC 4.04 10^6/uL (4.35-5.55) L 09/30/16 01:14 Hgb 11.5 g/dL (13.5-17.0) L 09/30/16 01:14 Hct 33.4 % (37.9-51.0) L 09/30/16 01:14 MCV 83 fl (80-97) 09/30/16 01:14 MCH 28.4 pg (27.0-33.4) 09/30/16 01:14 MCHC 34.4 g/dL (32.0-36.0) 09/30/16 01:14 RDW 14.8 % (11.5-14.0) H 09/30/16 01:14 Plt Count 220 10^3/uL (150-450) 09/30/16 01:14 Seg Neutrophils % 57.6 % (42-78) 09/30/16 01:14 Lymphocytes % 28.5 % (13-45) 09/30/16 01:14 Monocytes % 9.9 % (3-13) 09/30/16 01:14 Eosinophils % 3.3 % (0-6) 09/30/16 01:14 Basophils % 0.7 % (0-2) 09/30/16 01:14 Absolute Neutrophils 2.9 10^3/uL (1.7-8.2) 09/30/16 01:14 Absolute Lymphocytes 1.4 10^3/uL (0.5-4.7) 09/30/16 01:14 Absolute Monocytes 0.5 10^3/uL (0.1-1.4) 09/30/16 01:14 Absolute Eosinophils 0.2 10^3/uL (0.0-0.6) 09/30/16 01:14 Absolute Basophils 0.0 10^3/uL (0.0-0.2) 09/30/16 01:14 PT 13.2 SEC (11.4-15.4) 09/30/16 01:14 INR 0.97 09/30/16 01:14 Sodium 143.1 mmol/L (137-145) 09/30/16 01:14 Potassium 4.2 mmol/L (3.6-5.0) 09/30/16 01:14 Chloride 106 mmol/L (98-107) 09/30/16 01:14 Carbon Dioxide 26 mmol/L (22-30) 09/30/16 01:14 Anion Gap 11 (5-19) 09/30/16 01:14 BUN 23 mg/dL (7-20) H 09/30/16 01:14 Creatinine 1.17 mg/dL (0.52-1.25) 09/30/16 01:14 Est GFR ( Amer) > 60 (>60) 09/30/16 01:14 Est GFR (Non-Af Amer) > 60 (>60) 09/30/16 01:14 Glucose 211 mg/dL (75-110) H 09/30/16 01:14 POC Glucose 248 mg/dL (70-110) H 09/30/16 12:38 Calcium 9.4 mg/dL (8.4-10.2) 09/30/16 01:14 Total Bilirubin 0.4 mg/dL (0.2-1.3) 09/30/16 01:14 Direct Bilirubin 0.3 mg/dL (0.0-0.4) 09/30/16 01:14 Indirect Bilirubin Not Reportable 09/30/16 01:14 Neonat Total Bilirubin Not Reportable 09/30/16 01:14 AST 14 U/L (17-59) L 09/30/16 01:14 ALT 25 U/L (21-72) 09/30/16 01:14 Alkaline Phosphatase 151 U/L (38-126) H 09/30/16 01:14 Creatine Kinase 52 U/L (55-170) L 09/30/16 01:14 CK-MB (CK-2) 1.82 ng/mL (<4.55) 09/30/16 01:14 Troponin I < 0.012 ng/mL 09/30/16 11:41 Total Protein 6.1 g/dL (6.3-8.2) L 09/30/16 01:14 Albumin 3.3 g/dL (3.5-5.0) L 09/30/16 01:14 Triglycerides 304 mg/dL (<150) H 09/30/16 05:07 Cholesterol 143.80 mg/dL (0-200) 09/30/16 05:07 LDL Cholesterol Direct 66 mg/dL (<100) 09/30/16 05:07 VLDL Cholesterol 60.8 mg/dL (10-31) H 09/30/16 05:07 HDL Cholesterol 25 mg/dL (>40) L 09/30/16 05:07 Stool for White Cells NO WBCs SEEN 09/30/16 11:00 C. difficile Tox (PCR) NEGATIVE (NEGATIVE) 09/30/16 11:00 Impressions: Chest X-Ray 09/30/16 00:49 IMPRESSION: NO ACUTE RADIOGRAPHIC FINDING IN THE CHEST. Assessment & Plan - Diagnosis (1) Cellulitis of left leg Is this a current diagnosis for this admission?: YesPlan: The patient has areas of redness, irritation and drainage at multiple locations. Most likely secondary cellulitis from insect bites and/or scabies. Continue IV antibiotics given the diffuseness of this and follow. Will treat with ivermectin given suspicion for scabies. Will also treat areas of the with oral dosage. (2) Diarrhea Qualifiers: Diarrhea type: unspecified type Qualified Code(s): R19.7 - Diarrhea , unspecified Is this a current diagnosis for this admission?: YesPlan: Will obtain stool studies and add probiotic therapy. (3) Stented coronary artery Is this a current diagnosis for this admission?: YesPlan: Will continue home medications. (4) Anxiety and depression Is this a current diagnosis for this admission?: Yes (5) BPH (benign prostatic hyperplasia) Qualifiers: Prostatic enlargement morphology: unspecified morphology Lower urinary tract symptom presence: presence of symptoms unspecified Qualified Code(s ): N40.0 - Benign prostatic hyperplasia without lower urinary tract symptoms Is this a current diagnosis for this admission?: YesPlan: Will continue home medications. (6) CAD (coronary artery disease) Qualifiers: Coronary Disease-Associated Artery/Lesion type: [place] artery [place] vs. transplanted heart: [place] heart Associated angina: without angina Qualified Code(s): I25.10 - Atherosclerotic heart disease of [place] coronary artery without angina pectoris Is this a current diagnosis for this admission?: YesPlan: Will continue home medications. (7) Hypertension Qualifiers: Hypertension type: essential hypertension Qualified Code(s): I10 - Essential (primary) hypertension Is this a current diagnosis for this admission?: YesPlan: Will continue home medications. (8) Diabetes mellitus type 2 in obese Is this a current diagnosis for this admission?: YesPlan: Will continue sliding scale coverage and resume the patient's home medications. (9) Personal history of traumatic brain injury Is this a current diagnosis for this admission?: Yes (10) Chest pain Qualifiers: Chest pain type: unspecified Qualified Code(s): R07.9 - Chest pain, unspecified Is this a current diagnosis for this admission?: YesPlan: serial cardiac enzymes were obtained which were nonsuggestive. The patient's EKG revealed no acute changes and the patient had no events on residential monitor. Patient had no further replication of symptoms. - Time Time Spent with patient: on this visit including assessment, plan, physical examination, family meeting, and specialty collaboration, and patient education is 60 minutes. Time Spent with patient: 35 or more minutes Medications reviewed and adjusted accordingly: Yes Anticipated discharge: [facility] Within: within 48 hours
[2016-09-30] MEDS: BUPROPION HCL 100 MG TABLET PO SCH ×2 (14:31→21:29)
[2016-09-30] MEDS ORDERED: ONDANSETRON 4 MG TAB.RAPDIS PO PRN (15:39)
[2016-09-30] MEDS: LACTOBACILLUS ACIDOPHILUS 250 MG TAB PO SCH (17:18)
[2016-09-30] MEDS ORDERED: (PENDING PHARMACY ID) (Melatonin/Pyridoxine [Melatonin 3 Mg Tablet] 1 EACH) PO SCH (22:00)
[2016-09-30] MEDS ORDERED: INSULIN GLARGINE,HUM.REC.ANLOG 1,000 UNIT/10 ML UNIT SUBCUT SCH (22:00)
[2016-09-30] MEDS ORDERED: DIVALPROEX SODIUM 125 MG CAP.SPRINK PO SCH (22:00)
[2016-10-01] MEDS ORDERED: ENALAPRILAT DIHYDRATE INJ/PF 1.25 MG/1 ML SDV IV PRN (02:07)
[2016-10-01] MEDS ORDERED: ENALAPRILAT DIHYDRATE INJ/PF 1.25 MG/1 ML SDV IV ONE (03:03)
[2016-10-01] MEDS: BUPROPION HCL 100 MG TABLET PO SCH ×3 (05:42→21:32)
[2016-10-01] MEDS: CEFAZOLIN 1 GM/D5W RTU 1 GM/50 ML RTUPB IV SCH ×3 (05:44→23:15)
[2016-10-01] MEDS ORDERED: LANSOPRAZOLE 30 MG TAB.RAP.DR PO SCH (06:00)
[2016-10-01 06:16] LABS: HEMATOCRIT 38.1 % (37.9-51.0); HEMOGLOBIN 12.5 g/dL (13.5-17.0); HGB HCT DIFFERENCE -0.6; MEAN CORPUSCULAR HGB CONC 32.9 g/dL (32.0-36.0); MEAN CORPUSCULAR VOLUME 82 fl (80-97); RED BLOOD COUNT 4.64 10^6/uL (4.35-5.55); WHITE BLOOD COUNT 4.5 10^3/uL (4.0-10.5)
[2016-10-01 06:31] LABS: ANION GAP 10 (5-19); BLOOD UREA NITROGEN 18 mg/dL (7-20); CALCIUM 9.2 mg/dL (8.4-10.2); CARBON DIOXIDE 29 mmol/L (22-30); CHLORIDE 104 mmol/L (98-107); CREATININE RESULT 1.02 mg/dL (0.52-1.25); GLUCOSE 114 mg/dL (75-110); MAGNESIUM 1.7 mg/dL (1.6-2.3); POTASSIUM 3.9 mmol/L (3.6-5.0); SODIUM 142.5 mmol/L (137-145)
--- NOTE | 2016-10-01 08:14 | EKG REPORT ---
SEVERITY:- ABNORMAL ECG - SINUS RHYTHM LEFT VENTRICULAR HYPERTROPHY : Confirmed by: Haroon Erickson MD 01-Oct-2016 08:13:19
[2016-10-01] MEDS ORDERED: HYDROCODONE/ACETAMINOPHEN 5-325 MG TABLET PO PRN (08:52)
[2016-10-01] MEDS ORDERED: NITROGLYCERIN 0.4 MG/TAB 25 TAB/BOTTLE SL PRN (08:52)
[2016-10-01] MEDS ORDERED: TRAMADOL HCL 50 MG TABLET PO PRN (08:52)
[2016-10-01] MEDS ORDERED: HYDRALAZINE HCL 50 MG TABLET PO PRN (08:52)
[2016-10-01] MEDS ORDERED: (PENDING PHARMACY ID) (Metformin Hcl [Glucophage Xr 500 Mg Tablet] 500 MG) PO SCH (10:00)
[2016-10-01] MEDS ORDERED: (PENDING PHARMACY ID) (Dexlansoprazole [Dexilant 30 Mg Capsule] 30 MG) PO SCH (10:00)
[2016-10-01] MEDS: TOLTERODINE TARTRATE 1 MG TABLET PO SCH ×2 (10:14→21:32)
[2016-10-01] MEDS: GABAPENTIN 400 MG CAPSULE PO SCH ×2 (10:15→18:42)
[2016-10-01] MEDS: LOSARTAN POTASSIUM 50 MG TABLET PO SCH (10:15)
[2016-10-01] MEDS: METFORMIN HCL 500 MG TABLET PO SCH ×2 (10:15→18:41)
[2016-10-01] MEDS: ALPRAZOLAM 0.5 MG TABLET PO SCH ×2 (10:15→21:32)
[2016-10-01] MEDS: METOPROLOL SUCCINATE 50 MG TAB.SR.24H PO SCH (10:15)
[2016-10-01] MEDS: CLOPIDOGREL BISULFATE 75 MG TABLET PO SCH (10:15)
[2016-10-01] MEDS: LACTOBACILLUS ACIDOPHILUS 250 MG TAB PO SCH ×2 (10:15→18:42)
[2016-10-01] MEDS: ENOXAPARIN SODIUM INJ 40 MG/0.4 ML DISP.SYRIN SUBCUT SCH (10:16)
[2016-10-01] MEDS ORDERED: LANSOPRAZOLE 30 MG TAB.RAP.DR PO ONE (10:30)
[2016-10-01] MEDS: DULOXETINE HCL 20 MG CAPSULE.DR PO SCH (10:50)
[2016-10-01] MEDS: NYSTATIN CREAM 15 GM TP SCH (10:50)
--- NOTE | 2016-10-01 10:51 | PDOC PROGRESS REPORT ---
Subjective Progress Note for:: 10/01/16 Subjective:: The patient was seen earlier today on rounds. The patient has had multiple bowel movements this morning. She has multiple areas throughout his body of bumps. Apparently the patient had been given a course of antibiotics prior to admission. Yeast appearing areas as well as bedbugs versus scabies. The patient denies any nausea, vomiting, shortness of breath, dizziness, chest pain , heart palpitations, fevers, or chills. The patient has remained afebrile. Blood pressures have been in a good range. When prompted the patient voices no other concerns at this time. Review of systems: The rest of the review of systems is negative. Physical Exam Vital Signs: Temp Pulse Resp BP Pulse Ox 98.0 F 77 16 145/76 H 97 10/01/16 03:12 10/01/16 03:12 10/01/16 03:12 10/01/16 03:12 10/01/16 03:12 Intake & Output 09/29/16 09/30/16 10/01/16 23:59 23:59 23:59 Intake Total 1065 285 Output Total 250 100 Balance 815 185 General appearance: PRESENT: no acute distress, cooperative, well-developed, well-nourished Head exam: PRESENT: atraumatic, normocephalic Eye exam: PRESENT: conjunctiva pink, EOMI, PERRLA. ABSENT: scleral icterus Ear exam: PRESENT: normal external ear exam Mouth exam: PRESENT: moist, tongue midline Neck exam: ABSENT: carotid bruit, JVD, lymphadenopathy, thyromegaly Respiratory exam: PRESENT: clear to auscultation hattie, symmetrical, unlabored. ABSENT: rales, rhonchi, tachypnea, wheezes Cardiovascular exam: PRESENT: RRR. ABSENT: diastolic murmur, rubs, systolic murmur Pulses: PRESENT: normal dorsalis pedis pul Vascular exam: PRESENT: normal capillary refill GI/Abdominal exam: PRESENT: normal bowel sounds, soft. ABSENT: distended, guarding, mass, organolmegaly, rebound, tenderness Rectal exam: PRESENT: deferred Extremities exam: PRESENT: full ROM. ABSENT: calf tenderness, clubbing, pedal edema Neurological exam: PRESENT: alert, awake, oriented to person, oriented to place , oriented to time, oriented to situation, CN II-XII grossly intact. ABSENT: motor sensory deficit Psychiatric exam: PRESENT: appropriate affect, normal mood. ABSENT: homicidal ideation, suicidal ideation Skin exam: PRESENT: dry, erythema, intact, mottled, pallor, petechiae, warm. ABSENT: cyanosis, rash Results Laboratory Results: 10/01/16 05:52 10/01/16 05:52 09/30/16 10/01/16 10/01/16 11:00 05:52 05:52 WBC 4.5 RBC 4.64 Hgb 12.5 L Hct 38.1 MCV 82 MCH 27.0 MCHC 32.9 RDW 15.0 H Plt Count 230 Sodium 142.5 Potassium 3.9 Chloride 104 Carbon Dioxide 29 Anion Gap 10 BUN 18 Creatinine 1.02 Est GFR ( Amer) > 60 Est GFR (Non-Af Amer) > 60 Glucose 114 H Calcium 9.2 Magnesium 1.7 Stool for White Cells NO WBCs SEEN 09/30/16 11:41 Troponin I < 0.012 Impressions: Chest X-Ray 09/30/16 00:49 IMPRESSION: NO ACUTE RADIOGRAPHIC FINDING IN THE CHEST. Assessment & Plan - Diagnosis (1) Cellulitis of left leg Is this a current diagnosis for this admission?: YesPlan: The patient has areas of redness, erythema as noted in is physical examination, irritation and drainage at multiple locations. Most likely secondary cellulitis from insect bites and/or scabies. Continue IV antibiotics given the diffuseness of this and follow. Will treat with ivermectin given suspicion for scabies. Will also treat areas of the with oral dosage. Patient has failed outpatient management of this. (2) Diarrhea Qualifiers: Diarrhea type: unspecified type Qualified Code(s): R19.7 - Diarrhea , unspecified Is this a current diagnosis for this admission?: YesPlan: Total studies have been unremarkable. Will continue probiotic therapy. (3) Stented coronary artery Is this a current diagnosis for this admission?: YesPlan: Will continue home medications. (4) Anxiety and depression Is this a current diagnosis for this admission?: Yes (5) BPH (benign prostatic hyperplasia) Qualifiers: Prostatic enlargement morphology: unspecified morphology Lower urinary tract symptom presence: presence of symptoms unspecified Qualified Code(s ): N40.0 - Benign prostatic hyperplasia without lower urinary tract symptoms Is this a current diagnosis for this admission?: YesPlan: Will continue home medications. (6) CAD (coronary artery disease) Qualifiers: Coronary Disease-Associated Artery/Lesion type: [place] artery [place] vs. transplanted heart: [place] heart Associated angina: without angina Qualified Code(s): I25.10 - Atherosclerotic heart disease of [place] coronary artery without angina pectoris Is this a current diagnosis for this admission?: YesPlan: Will continue home medications. (7) Hypertension Qualifiers: Hypertension type: essential hypertension Qualified Code(s): I10 - Essential (primary) hypertension Is this a current diagnosis for this admission?: YesPlan: Will continue home medications. (8) Diabetes mellitus type 2 in obese Is this a current diagnosis for this admission?: YesPlan: Will continue sliding scale coverage and resume the patient's home medications. (9) Personal history of traumatic brain injury Is this a current diagnosis for this admission?: Yes (10) Chest pain Qualifiers: Chest pain type: unspecified Qualified Code(s): R07.9 - Chest pain, unspecified Is this a current diagnosis for this admission?: YesPlan: serial cardiac enzymes were obtained which were nonsuggestive. The patient's EKG revealed no acute changes and the patient had no events on teletypesetter monitor. Patient had no further replication of symptoms. - Time Time Spent with patient: 25-34 minutes Medications reviewed and adjusted accordingly: Yes Anticipated discharge: Home Within: within 24 hours, within 48 hours
[2016-10-01] MEDS ORDERED: HYDROCORTISONE 1% CREAM 28.35 GM TP PRN (11:02)
[2016-10-01] MEDS: MAGNESIUM HYDROXIDE SUSP 30 ML UDCUP PO PRN ×3 (15:05→23:32)
[2016-10-01] MEDS: DIVALPROEX SODIUM 125 MG CAP.SPRINK PO SCH (21:33)
[2016-10-01] MEDS: INSULIN LISPRO 100 UNIT/ML 3 ML VIAL SUBCUT PRN (21:33)
[2016-10-01] MEDS ORDERED: INSULIN GLARGINE,HUM.REC.ANLOG 1,000 UNIT/10 ML UNIT SUBCUT SCH (22:00)
[2016-10-01] MEDS: ACETAMINOPHEN 325 MG TABLET PO PRN (23:41)
[2016-10-02] MEDS: CEFAZOLIN 1 GM/D5W RTU 1 GM/50 ML RTUPB IV SCH ×3 (07:14→23:03)
[2016-10-02] MEDS: LANSOPRAZOLE 30 MG TAB.RAP.DR PO SCH (07:14)
[2016-10-02] MEDS ORDERED: (PENDING PHARMACY ID) (Tolterodine Tartrate [Detrol La] 2 MG) PO SCH (08:00)
[2016-10-02] MEDS: METFORMIN HCL 500 MG TABLET PO SCH ×2 (08:31→17:19)
[2016-10-02] MEDS: MAGNESIUM HYDROXIDE SUSP 30 ML UDCUP PO PRN ×4 (08:31→23:15)
[2016-10-02] MEDS: CLOPIDOGREL BISULFATE 75 MG TABLET PO SCH (09:25)
[2016-10-02] MEDS: LACTOBACILLUS ACIDOPHILUS 250 MG TAB PO SCH ×2 (09:25→17:20)
[2016-10-02] MEDS: LOSARTAN POTASSIUM 50 MG TABLET PO SCH (09:25)
[2016-10-02] MEDS: BUPROPION HCL 100 MG TABLET PO SCH ×2 (09:26→23:03)
[2016-10-02] MEDS: ENOXAPARIN SODIUM INJ 40 MG/0.4 ML DISP.SYRIN SUBCUT SCH (09:27)
[2016-10-02] MEDS: GABAPENTIN 400 MG CAPSULE PO SCH ×2 (09:27→17:19)
[2016-10-02] MEDS: TOLTERODINE TARTRATE 1 MG TABLET PO SCH ×2 (09:27→23:02)
[2016-10-02] MEDS: ALPRAZOLAM 0.5 MG TABLET PO SCH ×2 (09:27→23:02)
[2016-10-02] MEDS: METOPROLOL SUCCINATE 50 MG TAB.SR.24H PO SCH (09:27)
[2016-10-02] MEDS: DULOXETINE HCL 20 MG CAPSULE.DR PO SCH (10:49)
[2016-10-02] MEDS: HYDRALAZINE HCL 50 MG TABLET PO SCH ×2 (15:02→23:02)
--- NOTE | 2016-10-02 15:21 | PDOC PROGRESS REPORT ---
Subjective Progress Note for:: 10/02/16 Subjective:: The patient was seen earlier today on rounds. The patient's diarrhea has resolved. Multiple areas throughout the body have improved. Yeast appearing areas as well as bedbugs versus scabies. The patient denies any nausea, vomiting, shortness of breath, dizziness, chest pain, heart palpitations, fevers , or chills. The patient has remained afebrile. Blood pressures have been in a good range. When prompted the patient voices no other concerns at this time. Review of systems: The rest of the review of systems is negative. Physical Exam Vital Signs: Temp Pulse Resp BP Pulse Ox 97.7 F 67 20 150/94 H 100 10/02/16 13:52 10/02/16 13:52 10/02/16 13:52 10/02/16 13:52 10/02/16 13:52 Intake & Output 09/30/16 10/01/16 10/02/16 23:59 23:59 23:59 Intake Total 1065 1095 30 Output Total 250 900 Balance 815 195 30 General appearance: PRESENT: no acute distress, cooperative, well-developed, well-nourished Head exam: PRESENT: atraumatic, normocephalic Eye exam: PRESENT: conjunctiva pink, EOMI, PERRLA. ABSENT: scleral icterus Ear exam: PRESENT: normal external ear exam Mouth exam: PRESENT: moist, tongue midline Neck exam: ABSENT: carotid bruit, JVD, lymphadenopathy, thyromegaly Respiratory exam: PRESENT: clear to auscultation hattie, symmetrical, unlabored. ABSENT: rales, rhonchi, tachypnea, wheezes Cardiovascular exam: PRESENT: RRR. ABSENT: diastolic murmur, rubs, systolic murmur Pulses: PRESENT: normal dorsalis pedis pul Vascular exam: PRESENT: normal capillary refill GI/Abdominal exam: PRESENT: normal bowel sounds, soft. ABSENT: distended, guarding, mass, organolmegaly, rebound, tenderness Rectal exam: PRESENT: deferred Extremities exam: PRESENT: full ROM. ABSENT: calf tenderness, clubbing, pedal edema Neurological exam: PRESENT: alert, awake, oriented to person, oriented to place , oriented to time, oriented to situation, CN II-XII grossly intact. ABSENT: motor sensory deficit Psychiatric exam: PRESENT: appropriate affect, normal mood. ABSENT: homicidal ideation, suicidal ideation Skin exam: PRESENT: dry, erythema, intact, mottled, pallor, petechiae, warm. ABSENT: cyanosis, rash Results Laboratory Results: 10/01/16 05:52 10/01/16 05:52 09/30/16 11:41 Troponin I < 0.012 Impressions: Chest X-Ray 09/30/16 00:49 IMPRESSION: NO ACUTE RADIOGRAPHIC FINDING IN THE CHEST. Assessment & Plan - Diagnosis (1) Cellulitis of left leg Is this a current diagnosis for this admission?: YesPlan: The patient has areas of redness, erythema as noted in is physical examination, irritation and drainage at multiple locations. Most likely secondary cellulitis from insect bites and/or scabies. Continue IV antibiotics given the diffuseness of this and follow. Appears improved. Will treat with ivermectin given suspicion for scabies. Will also treat areas of the with oral dosage. Patient has failed outpatient management of this. (2) Diarrhea Qualifiers: Diarrhea type: unspecified type Qualified Code(s): R19.7 - Diarrhea , unspecified Is this a current diagnosis for this admission?: YesPlan: Total studies have been unremarkable. Will continue probiotic therapy. (3) Stented coronary artery Is this a current diagnosis for this admission?: YesPlan: Will continue home medications. (4) Anxiety and depression Is this a current diagnosis for this admission?: Yes (5) BPH (benign prostatic hyperplasia) Qualifiers: Prostatic enlargement morphology: unspecified morphology Lower urinary tract symptom presence: presence of symptoms unspecified Qualified Code(s ): N40.0 - Benign prostatic hyperplasia without lower urinary tract symptoms Is this a current diagnosis for this admission?: YesPlan: Will continue home medications. (6) CAD (coronary artery disease) Qualifiers: Coronary Disease-Associated Artery/Lesion type: [place] artery [place] vs. transplanted heart: [place] heart Associated angina: without angina Qualified Code(s): I25.10 - Atherosclerotic heart disease of [place] coronary artery without angina pectoris Is this a current diagnosis for this admission?: YesPlan: Will continue home medications. (7) Hypertension Qualifiers: Hypertension type: essential hypertension Qualified Code(s): I10 - Essential (primary) hypertension Is this a current diagnosis for this admission?: YesPlan: Will continue home medications. (8) Diabetes mellitus type 2 in obese Is this a current diagnosis for this admission?: YesPlan: Will continue sliding scale coverage and resume the patient's home medications. (9) Personal history of traumatic brain injury Is this a current diagnosis for this admission?: Yes (10) Chest pain Qualifiers: Chest pain type: unspecified Qualified Code(s): R07.9 - Chest pain, unspecified Is this a current diagnosis for this admission?: YesPlan: serial cardiac enzymes were obtained which were nonsuggestive. The patient's EKG revealed no acute changes and the patient had no events on lunchroom monitor. Patient had no further replication of symptoms. - Time Time Spent with patient: 25-34 minutes Medications reviewed and adjusted accordingly: Yes Anticipated discharge: Other Within: within 24 hours
[2016-10-02] MEDS: ACETAMINOPHEN 325 MG TABLET PO PRN (19:39)
[2016-10-02] MEDS ORDERED: INSULIN GLARGINE,HUM.REC.ANLOG 1,000 UNIT/10 ML UNIT SUBCUT ONE (22:38)
[2016-10-02] MEDS: INSULIN GLARGINE,HUM.REC.ANLOG 300 UNIT/3 ML INSULN.PEN SUBCUT SCH (22:55)
[2016-10-02] MEDS: DIVALPROEX SODIUM 125 MG CAP.SPRINK PO SCH (23:03)
[2016-10-02] MEDS: INSULIN LISPRO 100 UNIT/ML 3 ML VIAL SUBCUT PRN (23:03)
[2016-10-03] MEDS: MAGNESIUM HYDROXIDE SUSP 30 ML UDCUP PO PRN ×3 (06:30→17:01)
[2016-10-03] MEDS: CEFAZOLIN 1 GM/D5W RTU 1 GM/50 ML RTUPB IV SCH (06:30)
[2016-10-03] MEDS: HYDRALAZINE HCL 50 MG TABLET PO SCH ×3 (06:30→21:28)
[2016-10-03] MEDS: LANSOPRAZOLE 30 MG TAB.RAP.DR PO SCH (06:30)
[2016-10-03] MEDS: METFORMIN HCL 500 MG TABLET PO SCH ×2 (07:24→17:00)
[2016-10-03] MEDS: METOPROLOL SUCCINATE 50 MG TAB.SR.24H PO SCH (09:40)
[2016-10-03] MEDS: DULOXETINE HCL 20 MG CAPSULE.DR PO SCH (09:41)
[2016-10-03] MEDS: TOLTERODINE TARTRATE 1 MG TABLET PO SCH ×2 (09:41→21:28)
[2016-10-03] MEDS: BUPROPION HCL 100 MG TABLET PO SCH ×2 (09:41→21:28)
[2016-10-03] MEDS: LOSARTAN POTASSIUM 50 MG TABLET PO SCH (09:41)
[2016-10-03] MEDS: LACTOBACILLUS ACIDOPHILUS 250 MG TAB PO SCH ×2 (09:41→17:00)
[2016-10-03] MEDS: CLOPIDOGREL BISULFATE 75 MG TABLET PO SCH (09:41)
[2016-10-03] MEDS: ENOXAPARIN SODIUM INJ 40 MG/0.4 ML DISP.SYRIN SUBCUT SCH (09:42)
[2016-10-03] MEDS: GABAPENTIN 400 MG CAPSULE PO SCH ×2 (09:42→17:00)
[2016-10-03] MEDS: ALPRAZOLAM 0.5 MG TABLET PO SCH ×2 (09:42→21:28)
[2016-10-03] MEDS ORDERED: FUROSEMIDE INJ/PF 40 MG/4 ML SDV IV ONE (10:00)
[2016-10-03] MEDS: INSULIN LISPRO 100 UNIT/ML 3 ML VIAL SUBCUT PRN ×3 (12:38→21:29)
[2016-10-03] MEDS: CEPHALEXIN 500 MG CAPSULE PO SCH ×2 (13:07→21:28)
--- NOTE | 2016-10-03 13:23 | PDOC PROGRESS REPORT ---
Subjective Progress Note for:: 10/03/16 Subjective:: The patient was seen earlier today on rounds. The patient's diarrhea has resolved. Multiple areas throughout the body have improved. Yeast appearing areas as well as bedbugs versus scabies. The patient denies any nausea, vomiting, shortness of breath, dizziness, chest pain, heart palpitations, fevers , or chills. The patient has remained afebrile. Blood pressures have been in a good range. When prompted the patient voices no other concerns at this time. Review of systems: The rest of the review of systems is negative. Discussed CODE STATUS with the patient has elected to proceed with DNR/DNI. Physical Exam Vital Signs: Temp Pulse Resp BP Pulse Ox 98.4 F 79 16 165/85 H 92 10/03/16 12:08 10/03/16 12:08 10/03/16 12:08 10/03/16 12:08 10/03/16 12:08 Intake & Output 10/01/16 10/02/16 10/03/16 23:59 23:59 23:59 Intake Total 1095 870 390 Output Total 900 750 400 Balance 195 120 -10 General appearance: PRESENT: no acute distress, cooperative, well-developed, well-nourished Head exam: PRESENT: atraumatic, normocephalic Eye exam: PRESENT: conjunctiva pink, EOMI, PERRLA. ABSENT: scleral icterus Ear exam: PRESENT: normal external ear exam Mouth exam: PRESENT: moist, tongue midline Neck exam: ABSENT: carotid bruit, JVD, lymphadenopathy, thyromegaly Respiratory exam: PRESENT: clear to auscultation hattie, symmetrical, unlabored. ABSENT: rales, rhonchi, tachypnea, wheezes Cardiovascular exam: PRESENT: RRR. ABSENT: diastolic murmur, rubs, systolic murmur Pulses: PRESENT: normal dorsalis pedis pul Vascular exam: PRESENT: normal capillary refill GI/Abdominal exam: PRESENT: normal bowel sounds, soft. ABSENT: distended, guarding, mass, organolmegaly, rebound, tenderness Rectal exam: PRESENT: deferred Extremities exam: PRESENT: full ROM. ABSENT: calf tenderness, clubbing, pedal edema Neurological exam: PRESENT: alert, awake, oriented to person, oriented to place , oriented to time, oriented to situation, CN II-XII grossly intact. ABSENT: motor sensory deficit Psychiatric exam: PRESENT: appropriate affect, normal mood. ABSENT: homicidal ideation, suicidal ideation Skin exam: PRESENT: dry, erythema, intact, mottled, pallor, petechiae, warm. ABSENT: cyanosis, rash Results Laboratory Results: 10/01/16 05:52 10/01/16 05:52 09/30/16 11:00 Stool - Stool - Final 09/30/16 11:00 Stool - Stool Stool Culture - Final NO SALMONELLA, SHIGELLA, CAMPYLOBACTER, OR E.COLI 0157 RECOVERED. NEGATIVE FOR SHIGA TOXINS 1&2. 09/30/16 11:41 Troponin I < 0.012 Impressions: Chest X-Ray 09/30/16 00:49 IMPRESSION: NO ACUTE RADIOGRAPHIC FINDING IN THE CHEST. Assessment & Plan - Diagnosis (1) Cellulitis of left leg Is this a current diagnosis for this admission?: YesPlan: The patient has areas of redness, erythema as noted in is physical examination, irritation and drainage at multiple locations. Most likely secondary cellulitis from insect bites and/or scabies. Appears improved. Will treat with ivermectin given suspicion for scabies. Will also treat areas of the with oral dosage. Patient has failed outpatient management of this. (2) Diarrhea Qualifiers: Diarrhea type: unspecified type Qualified Code(s): R19.7 - Diarrhea , unspecified Is this a current diagnosis for this admission?: YesPlan: Total studies have been unremarkable. Will continue probiotic therapy. (3) Stented coronary artery Is this a current diagnosis for this admission?: YesPlan: Will continue home medications. (4) Anxiety and depression Is this a current diagnosis for this admission?: Yes (5) BPH (benign prostatic hyperplasia) Qualifiers: Prostatic enlargement morphology: unspecified morphology Lower urinary tract symptom presence: presence of symptoms unspecified Qualified Code(s ): N40.0 - Benign prostatic hyperplasia without lower urinary tract symptoms Is this a current diagnosis for this admission?: YesPlan: Will continue home medications. (6) CAD (coronary artery disease) Qualifiers: Coronary Disease-Associated Artery/Lesion type: [place] artery [place] vs. transplanted heart: [place] heart Associated angina: without angina Qualified Code(s): I25.10 - Atherosclerotic heart disease of [place] coronary artery without angina pectoris Is this a current diagnosis for this admission?: YesPlan: Will continue home medications. (7) Hypertension Qualifiers: Hypertension type: essential hypertension Qualified Code(s): I10 - Essential (primary) hypertension Is this a current diagnosis for this admission?: YesPlan: Will continue home medications. Schedule hydralazine versus when necessary (8) Diabetes mellitus type 2 in obese Is this a current diagnosis for this admission?: YesPlan: Will continue sliding scale coverage and resume the patient's home medications. (9) Personal history of traumatic brain injury Is this a current diagnosis for this admission?: Yes (10) Chest pain Qualifiers: Chest pain type: unspecified Qualified Code(s): R07.9 - Chest pain, unspecified Is this a current diagnosis for this admission?: YesPlan: serial cardiac enzymes were obtained which were nonsuggestive. The patient's EKG revealed no acute changes and the patient had no events on station operator. Patient had no further replication of symptoms. - Time Time Spent with patient: 25-34 minutes Medications reviewed and adjusted accordingly: Yes Anticipated discharge: SNF Within: within 24 hours, when bed available Disposition: The patient is a DO NOT RESUSCITATE DO NOT INTUBATE. Pending patient's symptomatology and diagnostic findings will reevaluate as needed.
[2016-10-03] MEDS ORDERED: MAG HYDROX/AL HYDROX/SIMETH SUSP 30 ML UDCUP PO PRN (16:39)
[2016-10-03] MEDS ORDERED: INSULIN GLARGINE,HUM.REC.ANLOG 1,000 UNIT/10 ML UNIT SUBCUT ONE (21:12)
[2016-10-03] MEDS: INSULIN GLARGINE,HUM.REC.ANLOG 300 UNIT/3 ML INSULN.PEN SUBCUT SCH (21:20)
[2016-10-03] MEDS: DIVALPROEX SODIUM 125 MG CAP.SPRINK PO SCH (21:28)
[2016-10-04] MEDS: MAGNESIUM HYDROXIDE SUSP 30 ML UDCUP PO PRN ×4 (00:34→17:47)
[2016-10-04 05:37] LABS: HEMOGLOBIN 12.2 g/dL (13.5-17.0); HGB HCT DIFFERENCE 0.6; MEAN CORPUSCULAR HEMOGLOBIN 27.3 pg (27.0-33.4); MEAN CORPUSCULAR HGB CONC 33.8 g/dL (32.0-36.0); MEAN CORPUSCULAR VOLUME 81 fl (80-97); RED BLOOD COUNT 4.46 10^6/uL (4.35-5.55); RED CELL DISTRIBUTION WIDTH 14.6 % (11.5-14.0); WHITE BLOOD COUNT 4.7 10^3/uL (4.0-10.5)
[2016-10-04] MEDS: CEPHALEXIN 500 MG CAPSULE PO SCH ×2 (05:48→13:29)
[2016-10-04] MEDS: LANSOPRAZOLE 30 MG TAB.RAP.DR PO SCH (05:49)
[2016-10-04] MEDS: HYDRALAZINE HCL 50 MG TABLET PO SCH (05:49)
[2016-10-04 05:56] LABS: ANION GAP 11 (5-19); BLOOD UREA NITROGEN 23 mg/dL (7-20); CALCIUM 9.4 mg/dL (8.4-10.2); CARBON DIOXIDE 28 mmol/L (22-30); CHLORIDE 98 mmol/L (98-107); CREATININE RESULT 1.12 mg/dL (0.52-1.25); GLUCOSE 194 mg/dL (75-110); MAGNESIUM 2.3 mg/dL (1.6-2.3); SODIUM 136.5 mmol/L (137-145)
[2016-10-04] MEDS: METFORMIN HCL 500 MG TABLET PO SCH ×2 (07:33→17:50)
--- NOTE | 2016-10-04 07:51 | PDOC TRANSFER SUMMARY ---
General - Admit/Disc Date/PCP Admission Date/Primary Care Provider: 09/30/16 08:44 Marcos Lacy Discharge Date: 10/04/16 - Discharge Diagnosis (1) Cellulitis of left leg Is this a current diagnosis for this admission?: YesSummary: Secondary to bed bug and/or possible scabies. Much improved. (2) Diarrhea Is this a current diagnosis for this admission?: YesSummary: Resolved (3) Anxiety and depression Is this a current diagnosis for this admission?: Yes (4) BPH (benign prostatic hyperplasia) Is this a current diagnosis for this admission?: Yes (5) CAD (coronary artery disease) Is this a current diagnosis for this admission?: Yes (6) Hypertension Is this a current diagnosis for this admission?: Yes (7) Diabetes mellitus type 2 in obese Is this a current diagnosis for this admission?: Yes (8) Personal history of traumatic brain injury Is this a current diagnosis for this admission?: Yes (9) Chest pain Is this a current diagnosis for this admission?: YesSummary: Resolved (10) Stented coronary artery Is this a current diagnosis for this admission?: Yes - Additional Information Resuscitation Status: Do Not Resuscitate - Portable DO NOT RESUSCITATE DO NOT INTUBATE Discharge Diet: As Tolerated, Diabetic Discharge Activity: Activity As Tolerated, Supervised Activity Home Medications: Acetaminophen [Tylenol] 325 mg PO Q6H PRN 10/17/14 Amlodipine Besylate [Norvasc 10 mg Tablet] 10 mg PO DAILY 10/17/14 Bupropion HCl [Wellbutrin] 100 mg PO DAILY 10/17/14 Clopidogrel Bisulfate [Plavix 75 mg Tablet] 75 mg PO DAILY 10/17/14 Duloxetine HCl [Cymbalta] 30 mg PO Q12H 10/17/14 Escitalopram Oxalate [Lexapro] 20 mg PO QHS 10/17/14 Ferrous Sulfate [Iron Supplement] 325 ng PO BID 10/17/14 Gabapentin [Neurontin 400 mg Capsule] 100 mg PO Q8H 10/17/14 Hydralazine HCl 50 mg PO Q8H 10/17/14 Insulin Aspart [Novolog Flexpen] 1 dose SQ ASDIR 10/17/14 Insulin Glargine,Hum.rec.anlog [Lantus Insulin 100 Unit/1 ml 10 ml] 20 units SQ QHS 10/17/14 Lorazepam [Ativan] 0.5 mg PO Q12H 10/17/14 Metoprolol Succinate [Toprol Xl 25 mg Tab.sr] 25 mg PO Q12H 10/17/14 Zolpidem Tartrate [Ambien 5 mg Tablet] 5 mg PO HSP PRN 10/17/14 Dexlansoprazole [Dexilant 30 mg Capsule] 30 mg PO DAILY #0 10/18/14 Oxycodone HCl/Acetaminophen [Percocet 5-325 mg Tablet] 1 tab PO Q6H 01/14/15 Cephalexin Monohydrate [Keflex 500 mg Capsule] 1 tab PO BID 01/23/15 Phenazopyridine HCl [Pyridium 200 mg Tablet] 1 tab PO TID 01/23/15 Acetaminophen [Tylenol 325 mg Tablet] 650 mg PO Q6HP PRN 09/30/16 Bupropion HCl [Wellbutrin Xl 300mg 24hr Tablet] 300 mg PO DAILY 09/30/16 Clopidogrel Bisulfate [Plavix 75 mg Tablet] 75 mg PO DAILY 09/30/16 Dexlansoprazole [Dexilant 30 mg Capsule] 30 mg PO DAILY 09/30/16 Divalproex Sodium [Depakote Sprinkle 125 mg Capsule] 125 mg PO QHS 09/30/16 Duloxetine HCl [Cymbalta 20 mg ] 40 mg PO DAILY 09/30/16 Gabapentin [Neurontin 400 mg Capsule] 400 mg PO BID 09/30/16 Guaifenesin [Robitussin Syrup 200 mg/10 ml Ud Cup] 10 ml PO Q6HP PRN 09/30/16 Insulin Aspart [Novolog Insulin (Aspart) 100 unit/mL] 0 units SQ .PERSLIDINGSCALE 09/30/16 Insulin Glargine,Hum.rec.anlog [Lantus Insulin 100 Unit/1 ml 10 ml] 40 units SQ QHS 09/30/16 Losartan Potassium [Cozaar 50 mg Tablet] 50 mg PO DAILY 09/30/16 Melatonin/Pyridoxine [Melatonin 3 mg Tablet] 1 tab PO QHS 09/30/16 Metformin HCl [Glucophage XR 500 mg Tablet] 500 mg PO DAILY 09/30/16 Metoprolol Succinate [Toprol Xl 50 mg Tab.sr] 50 mg PO DAILY 09/30/16 Mintox 30 ml PO .ASDIR PRN 09/30/16 Nitroglycerin [Nitrostat 0.4 mg (1/150 Gr) Tabs 25/Bottle] 0.4 mg SL Q5MP PRN Tolterodine Tartrate [Detrol LA] 2 mg PO QAM 09/30/16 Tramadol HCl [Ultram 50 mg Tablet] 50 mg PO BIDP PRN 09/30/16 Zolpidem Tartrate [Ambien] 10 mg PO QHS 09/30/16 Alprazolam [Xanax] 1 mg PO BID #10 tablet 10/04/16 Bifidobacterium Infantis [Align 4 mg Capsule] 1 cap PO BID #60 cap 10/04/16 Cephalexin Monohydrate [Keflex 500 mg Capsule] 500 mg PO Q8 #15 capsule Hydralazine HCl [Apresoline 50 mg Tablet] 100 mg PO Q8 tablet 10/04/16 Hydrocodone/Acetaminophen [[place] 5-325 mg Tablet] 1 tab PO Q4HP PRN #10 tablet 10/04/16 Ivermectin [Stromectol 3 mg Tablet] 21 mg PO Q14D #7 tablet 10/04/16 Magnesium Hydroxide [Milk of Magnesia] 30 ml PO Q6HP PRN #0 10/04/16 Nystatin [Mycostatin Cream 15 gm] 1 applic TP BID #1 tube 10/04/16 Additional Information: One time dose of IVERMECTIN on 10/14/16 History of Present Illness Admission Date/PCP: 09/30/16 08:44 Patient complains of: Chest pain History of Present Illness: RADHA BORGES is a 65 year old very pleasant male with a past medical history of insulin-dependent diabetes mellitus, with underlying known coronary artery disease, having undergone stent implant 1 in 2012 at [facility], who presents to the emergency room for evaluation of chest pain. . Describes the onset of moderate intensity left-sided pressure discomfort, radiating to his left shoulder, with associated shortness of breath, sweating, and nausea. Onset of pain at rest. Increased discomfort with stress. Has had a number of prior such episodes of pain. No cough, vomiting, fever or chills. The patient also noted at this area of cellulitis of his bilateral feet as well as areas of what he describes as bug bites on his back and legs. With areas of diffuse red with erythema. Patient has failed outpatient treatment for this. The patient was referred to the hospitalist remission and management. Hospital Course Hospital Course: The patient was observed in a continues telemetry unit, serial cardiac enzymes were obtained which were nonsuggestive. The patient's EKG revealed no acute changes and the patient had no events on python consultant. Patient had no further replication of chest pain symptoms. The patient's numerous areas of bug bites secondary cellulitis were treated with IV antibiotic therapy as well as chlorhexidine washes. The patient was treated for scabies prophylactically given the raised nature of these areas. Do have a high suspicion for bedbug bites as the patient states that the symptoms and bites occur only at night. The patient also appears to have attentional fungal infection of his feet. Patient has gotten relief of this with nystatin ointment. The patient also has difficult to control hypertension which is known to him. During the patient's stay his when necessary hydralazine was switched to scheduled given that the patient is very sensitive to rebounding. The patient was also noted to have diarrhea. Stool studies have been obtained all of which have been unremarkable. Ovum parasite is still pending. However this has resolved nicely with probiotic therapy and yogurt. Physical Exam Vital Signs: Temp Pulse Resp BP Pulse Ox 97.3 F 67 20 187/89 H 100 10/04/16 04:06 10/04/16 04:06 10/04/16 04:06 10/04/16 04:06 10/04/16 04:06 Intake & Output 10/02/16 10/03/16 10/04/16 23:59 23:59 23:59 Intake Total 870 1460 610 Output Total 750 800 300 Balance 120 660 310 General appearance: PRESENT: no acute distress, cooperative, well-developed, well-nourished Head exam: PRESENT: atraumatic, normocephalic Eye exam: PRESENT: conjunctiva pink, EOMI, PERRLA. ABSENT: scleral icterus Ear exam: PRESENT: normal external ear exam Mouth exam: PRESENT: moist, tongue midline Neck exam: ABSENT: carotid bruit, JVD, lymphadenopathy, thyromegaly Respiratory exam: PRESENT: clear to auscultation hattie, symmetrical, unlabored. ABSENT: rales, rhonchi, tachypnea, wheezes Cardiovascular exam: PRESENT: RRR. ABSENT: diastolic murmur, rubs, systolic murmur Pulses: PRESENT: normal dorsalis pedis pul Vascular exam: PRESENT: normal capillary refill GI/Abdominal exam: PRESENT: normal bowel sounds, soft. ABSENT: distended, guarding, mass, organolmegaly, rebound, tenderness Rectal exam: PRESENT: deferred Extremities exam: PRESENT: full ROM. ABSENT: calf tenderness, clubbing, pedal edema Neurological exam: PRESENT: alert, awake, oriented to person, oriented to place , oriented to time, oriented to situation, CN II-XII grossly intact. ABSENT: motor sensory deficit Psychiatric exam: PRESENT: appropriate affect, normal mood. ABSENT: homicidal ideation, suicidal ideation Skin exam: PRESENT: dry, erythema, intact, mottled, pallor, petechiae, warm but overall much improved. ABSENT: cyanosis, rash Results Laboratory Results: Labs- Last Values WBC 4.7 10^3/uL (4.0-10.5) 10/04/16 05:12 RBC 4.46 10^6/uL (4.35-5.55) 10/04/16 05:12 Hgb 12.2 g/dL (13.5-17.0) L 10/04/16 05:12 Hct 36.0 % (37.9-51.0) L 10/04/16 05:12 MCV 81 fl (80-97) 10/04/16 05:12 MCH 27.3 pg (27.0-33.4) 10/04/16 05:12 MCHC 33.8 g/dL (32.0-36.0) 10/04/16 05:12 RDW 14.6 % (11.5-14.0) H 10/04/16 05:12 Plt Count 217 10^3/uL (150-450) 10/04/16 05:12 Seg Neutrophils % 57.6 % (42-78) 09/30/16 01:14 Lymphocytes % 28.5 % (13-45) 09/30/16 01:14 Monocytes % 9.9 % (3-13) 09/30/16 01:14 Eosinophils % 3.3 % (0-6) 09/30/16 01:14 Basophils % 0.7 % (0-2) 09/30/16 01:14 Absolute Neutrophils 2.9 10^3/uL (1.7-8.2) 09/30/16 01:14 Absolute Lymphocytes 1.4 10^3/uL (0.5-4.7) 09/30/16 01:14 Absolute Monocytes 0.5 10^3/uL (0.1-1.4) 09/30/16 01:14 Absolute Eosinophils 0.2 10^3/uL (0.0-0.6) 09/30/16 01:14 Absolute Basophils 0.0 10^3/uL (0.0-0.2) 09/30/16 01:14 PT 13.2 SEC (11.4-15.4) 09/30/16 01:14 INR 0.97 09/30/16 01:14 Sodium 136.5 mmol/L (137-145) L 10/04/16 05:12 Potassium 4.0 mmol/L (3.6-5.0) 10/04/16 05:12 Chloride 98 mmol/L (98-107) 10/04/16 05:12 Carbon Dioxide 28 mmol/L (22-30) 10/04/16 05:12 Anion Gap 11 (5-19) 10/04/16 05:12 BUN 23 mg/dL (7-20) H 10/04/16 05:12 Creatinine 1.12 mg/dL (0.52-1.25) 10/04/16 05:12 Est GFR ( Amer) > 60 (>60) 10/04/16 05:12 Est GFR (Non-Af Amer) > 60 (>60) 10/04/16 05:12 Glucose 194 mg/dL (75-110) H 10/04/16 05:12 POC Glucose 139 mg/dL (70-110) H 10/04/16 07:04 Calcium 9.4 mg/dL (8.4-10.2) 10/04/16 05:12 Magnesium 2.3 mg/dL (1.6-2.3) 10/04/16 05:12 Total Bilirubin 0.4 mg/dL (0.2-1.3) 09/30/16 01:14 Direct Bilirubin 0.3 mg/dL (0.0-0.4) 09/30/16 01:14 Indirect Bilirubin Not Reportable 09/30/16 01:14 Neonat Total Bilirubin Not Reportable 09/30/16 01:14 AST 14 U/L (17-59) L 09/30/16 01:14 ALT 25 U/L (21-72) 09/30/16 01:14 Alkaline Phosphatase 151 U/L (38-126) H 09/30/16 01:14 Creatine Kinase 52 U/L (55-170) L 09/30/16 01:14 CK-MB (CK-2) 1.82 ng/mL (<4.55) 09/30/16 01:14 Troponin I < 0.012 ng/mL 09/30/16 11:41 Total Protein 6.1 g/dL (6.3-8.2) L 09/30/16 01:14 Albumin 3.3 g/dL (3.5-5.0) L 09/30/16 01:14 Triglycerides 304 mg/dL (<150) H 09/30/16 05:07 Cholesterol 143.80 mg/dL (0-200) 09/30/16 05:07 LDL Cholesterol Direct 66 mg/dL (<100) 09/30/16 05:07 VLDL Cholesterol 60.8 mg/dL (10-31) H 09/30/16 05:07 HDL Cholesterol 25 mg/dL (>40) L 09/30/16 05:07 Stool for White Cells NO WBCs SEEN 09/30/16 11:00 C. difficile Tox (PCR) NEGATIVE (NEGATIVE) 09/30/16 11:00 09/30/16 11:00 Ova and Parasite Concentrate Exam - Pending Stool - Stool 09/30/16 11:00 - Final Stool - Stool Stool Culture - Final NO SALMONELLA, SHIGELLA, CAMPYLOBACTER, OR E.COLI 0157 RECOVERED. NEGATIVE FOR SHIGA TOXINS 1&2. Impressions: Chest X-Ray 09/30/16 00:49 IMPRESSION: NO ACUTE RADIOGRAPHIC FINDING IN THE CHEST. Transfer Plan - Disposition Transfer Plan: The patient in follow-up primary care provider within one week hospital follow- up. - Time Spent with Patient Time spent with patient: Greater than 30 Minutes Qualifiers PATEINT BEING DISCHARGED WITH ANY OF THE FOLLOWING DIAGNOSIS?: No
[2016-10-04] MEDS ORDERED: HYDRALAZINE HCL 50 MG TABLET PO ONE (08:00)
[2016-10-04 09:23] VITALS: BP 161/82
[2016-10-04] MEDS: ENOXAPARIN SODIUM INJ 40 MG/0.4 ML DISP.SYRIN SUBCUT SCH (10:20)
[2016-10-04] MEDS: LACTOBACILLUS ACIDOPHILUS 250 MG TAB PO SCH ×2 (10:21→17:48)
[2016-10-04] MEDS: METOPROLOL SUCCINATE 50 MG TAB.SR.24H PO SCH (10:21)
[2016-10-04] MEDS: TOLTERODINE TARTRATE 1 MG TABLET PO SCH (10:22)
[2016-10-04] MEDS: LOSARTAN POTASSIUM 50 MG TABLET PO SCH (10:22)
[2016-10-04] MEDS: BUPROPION HCL 100 MG TABLET PO SCH (10:22)
[2016-10-04] MEDS: GABAPENTIN 400 MG CAPSULE PO SCH ×2 (10:22→17:48)
[2016-10-04] MEDS: DULOXETINE HCL 20 MG CAPSULE.DR PO SCH (10:23)
[2016-10-04] MEDS: CLOPIDOGREL BISULFATE 75 MG TABLET PO SCH (10:23)
[2016-10-04] MEDS: ALPRAZOLAM 0.5 MG TABLET PO SCH (10:23)
[2016-10-04] MEDS ORDERED: HYDRALAZINE HCL 50 MG TABLET PO SCH (14:00)
[2016-10-04] MEDS: INSULIN LISPRO 100 UNIT/ML 3 ML VIAL SUBCUT PRN (17:50)
[2016-10-04] MEDS ORDERED: BUPROPION HCL 75 MG TABLET PO SCH (22:00)
== END 2016-10-04 17:50 | DRG 603 ==
LOC: ER 00:35 → EH 03:17 → UNDOADMOB 03:17 → 4S 05:28 → EH 05:28 → 4S 05:56 → EH 05:56 → OBSVTOIN 08:44
PROVIDERS: ADMIT Family Medicine; ATTEND Family Medicine
DX: L03.116 Cellulitis of left lower limb (principal); I50.32 Chronic diastolic (congestive) heart failure; L03.115 Cellulitis of right lower limb; L08.9 Local infection of the skin and subcutaneous tissue, unspecified; I25.10 Atherosclerotic heart disease of native coronary artery without angina pectoris; B86 Scabies; B35.3 Tinea pedis; W57.XXXA Bitten or stung by nonvenomous insect and other nonvenomous arthropods, initial encounter; R07.89 Other chest pain; N40.0 Benign prostatic hyperplasia without lower urinary tract symptoms; F41.9 Anxiety disorder, unspecified; I11.0 Hypertensive heart disease with heart failure; F32.9 Major depressive disorder, single episode, unspecified; R19.7 Diarrhea, unspecified; E11.9 Type 2 diabetes mellitus without complications; Z66 Do not resuscitate; E78.5 Hyperlipidemia, unspecified; Z87.820 Personal history of traumatic brain injury; Z95.5 Presence of coronary angioplasty implant and graft; E66.9 Obesity, unspecified; Z68.38 Body mass index [BMI] 38.0-38.9, adult; Z88.6 Allergy status to analgesic agent; Z79.4 Long term (current) use of insulin; Z79.899 Other long term (current) drug therapy; Z90.49 Acquired absence of other specified parts of digestive tract; Z82.49 Family history of ischemic heart disease and other diseases of the circulatory system
CPT/HCPCS: 36415; 71010; 80048; 80053; 80061; 80076; 80164; 82306; 82550; 82553; 82607; 82962; 83036; 83735; 84484; 85025; 85027; 85610; 87045; 87177; 87205; 87493; 89055; 93005; 93010; 99285; G0378; J0690; J1650; J1815; J1940; J3490; S0119

== ENCOUNTER 2017-03-06 01:20 | Emergency (ER) | payer MEDICARE, MEDICAID ==
[2017-03-06] MEDS ORDERED: NITROGLYCERIN 0.4 MG/TAB 25 TAB/BOTTLE SL PRN (02:39)
[2017-03-06 02:50] LABS: ABSOLUTE EOSINOPHILS # (AUTO) 0.1 10^3/uL (0.0-0.6); ABSOLUTE LYMPHOCYTES (AUTO) 1.8 10^3/uL (0.5-4.7); ABSOLUTE MONOCYTES (AUTO) 0.4 10^3/uL (0.1-1.4); ABSOLUTE NEUT (AUTO) 2.7 10^3/uL (1.7-8.2); BASOPHILS % (AUTO) 0.6 % (0-2); EOSINOPHILS % (AUTO) 2.3 % (0-6); HEMATOCRIT 35.3 % (37.9-51.0); HEMOGLOBIN 11.7 g/dL (13.5-17.0); HGB HCT DIFFERENCE -0.2; LYMPHOCYTES % (AUTO) 35.3 % (13-45); MEAN CORPUSCULAR HEMOGLOBIN 26.8 pg (27.0-33.4); MEAN CORPUSCULAR HGB CONC 33.1 g/dL (32.0-36.0); MEAN CORPUSCULAR VOLUME 81 fl (80-97); MONOCYTES % (AUTO) 8.7 % (3-13); RED BLOOD COUNT 4.37 10^6/uL (4.35-5.55); RED CELL DISTRIBUTION WIDTH 15.6 % (11.5-14.0); SEGMENTED NEUTROPHILS % (AUTO) 53.1 % (42-78); WHITE BLOOD COUNT 5.1 10^3/uL (4.0-10.5)
[2017-03-06 02:55] LABS: ANION GAP 11 (5-19); BLOOD UREA NITROGEN 18 mg/dL (7-20); CALCIUM 9.4 mg/dL (8.4-10.2); CARBON DIOXIDE 28 mmol/L (22-30); CHLORIDE 101 mmol/L (98-107); CREATINE KINASE 69 U/L (55-170); CREATININE RESULT 1.05 mg/dL (0.52-1.25); GLUCOSE 219 mg/dL (75-110); POTASSIUM 4.2 mmol/L (3.6-5.0)
[2017-03-06 03:07] LABS: CREATINE KINASE MB 1.44 ng/mL (<4.55)
[2017-03-06 03:08] LABS: TROPONIN I < 0.012 ng/mL
--- NOTE | 2017-03-06 04:11 | ER Document Report ---
ED General - General Chief Complaint: Chest Pain Stated Complaint: CHEST PAIN Time Seen by Provider: 03/06/17 01:34 Notes: Patient is a 66-year-old male with a past medical history of coronary artery disease, hypertension, hyperlipidemia, who presents with 3 days of pain over the left chest wall. He describes it as a stabbing, constant, throbbing pain. Touching area worsens the pain. He states he received Maalox at the group home and this may have improved the pain. He has a history of chronic chest wall pain to this region. He denies any associated diaphoresis, nausea, vomiting or shortness of breath. Denies any focal abdominal pain. TRAVEL OUTSIDE OF THE [place] IN LAST 30 DAYS: No - Related Data Allergies/Adverse Reactions: aspirin Allergy (Verified 09/30/16 03:47) Past Medical History - General Information source: Patient - Social History Smoking Status: Former Smoker Chew tobacco use (# tins/day): No Frequency of alcohol use: None Drug Abuse: None Lives with: Spouse/Significant other Family History: CAD, Hypertension - Past Medical History Cardiac Medical History: Reports: Hx Congestive Heart Failure, Hx Coronary Artery Disease, Hx Heart Attack - stents, Hx Hypercholesterolemia, Hx Hypertension Denies: Hx DVT, Hx Pulmonary Embolism Pulmonary Medical History: Reports: Hx Bronchitis, Hx Pneumonia, Hx Sleep Apnea - History of; patient not on CPAP. Neurological Medical History: Endocrine Medical History: Reports: Hx Diabetes Mellitus Type 2. Denies: Hx Hyperthyroidism, Hx Hypothyroidism Renal/ Medical History: Reports: Hx Benign Prostatic Hyperplasia, Hx Kidney Stones. Denies: Hx Peritoneal Dialysis GI Medical History: Reports: Hx Gastritis, Hx Gastroesophageal Reflux Disease, Hx Ulcer. Denies: Hx Cirrhosis, Hx Hepatitis Musculoskeltal Medical History: Reports Hx Arthritis, Reports Hx Musculoskeletal Deformity, Reports Hx Musculoskeletal Trauma Psychiatric Medical History: Reports: Hx Anxiety, Hx Dementia, Hx Depression Traumatic Medical History: Reports: Hx Fractures, Hx Traumatic Brain Injury Infectious Medical History: Denies: Hx Hepatitis Past Surgical History: Reports: Hx Abdominal Surgery - History: Had 18 inches of his colon removed, Hx Appendectomy, Hx Bowel Surgery - 17 inches removed due to necrosis, Hx Cardiac Catheterization, Hx Cardiac Surgery - cath, stent placement, Hx Coronary Stent, Hx Orthopedic Surgery - right wrist, right hip - Immunizations Immunizations up to date: Yes Hx Diphtheria, Pertussis, Tetanus Vaccination: Yes Hx Pneumococcal Vaccination: 11/28/11 Review of Systems - Review of Systems Notes: Constitutional: Negative for fever. HENT: Negative for sore throat. Eyes: Negative for visual changes. Cardiovascular: Positive for chest pain. Respiratory: Negative for shortness of breath. Gastrointestinal: Negative for abdominal pain, vomiting or diarrhea. Genitourinary: Negative for dysuria. Musculoskeletal: Negative for back pain. Skin: Negative for rash. Neurological: Negative for headaches, weakness or numbness. 10 point ROS negative except as marked above and in HPI. Physical Exam - Vital signs Vitals: Resp Pulse Ox 14 93 03/06/17 01:36 03/06/17 01:36 Interpretation: Normal Notes: PHYSICAL EXAMINATION: GENERAL: Well-appearing, well-nourished and in no acute distress. HEAD: Atraumatic, normocephalic. EYES: Pupils equal round and reactive to light, extraocular movements intact, sclera anicteric, conjunctiva are normal. ENT: nares patent, oropharynx clear without exudates. Moist mucous membranes. NECK: Normal range of motion, supple without lymphadenopathy LUNGS: Breath sounds clear to auscultation bilaterally and equal. No wheezes rales or rhonchi. HEART: Regular rate and rhythm without murmurs Chest wall: Reproduction of pain on palpation of the left lower chest wall ABDOMEN: Soft, nontender, normoactive bowel sounds. No guarding, no rebound. No masses appreciated. EXTREMITIES: Normal range of motion, no pitting or edema. No cyanosis. NEUROLOGICAL: No focal neurological deficits. Moves all extremities spontaneously and on command. PSYCH: Normal mood, normal affect. SKIN: Warm, Dry, normal turgor, no rashes or lesions noted. Course - Re-evaluation Re-evalutation: 03/06/17 04:07 Patient presents with left-sided chest pain that is been present for the past 3 days, unchanged at this time. It is reproducible on examination with palpation of the left lower chest. The patient is been seen in the emergency department on several prior occasions for similar complaint with reassuring evaluations at those times. He is pain-free at the time of my assessment. No clinical history to suggest an acute pulmonary embolus or aortic dissection. EKG without any ischemic changes. Initial troponin is normal. Will repeat a delta troponin if this remains normal plan for discharge home as I do not at this time suspect an acute pulmonary embolus, aortic dissection, ACS, spontaneous pneumothorax, or esophageal perforation. 03/06/17 05:20 Second troponin remains normal. Patient remains chest pain-free. At this time will discharge with return precautions and follow-up recommendations. Verbal discharge instructions given a the bedside and opportunity for questions given. Medication warnings reviewed. Patient is in agreement with this plan and has verbalized understanding of return precautions and the need for primary care follow-up in the next 24-72 hours. - Vital Signs Vital signs: Temp Pulse Resp BP Pulse Ox 97.3 F 66 13 167/94 H 96 03/06/17 01:56 03/06/17 01:56 03/06/17 04:01 03/06/17 04:01 03/06/17 04:01 - Laboratory Result Diagrams: 03/06/17 01:40 03/06/17 01:40 Laboratory results interpreted by me: 03/06/17 03/06/17 01:40 01:40 Hgb 11.7 L Hct 35.3 L MCH 26.8 L RDW 15.6 H Glucose 219 H - Diagnostic Test Radiology reviewed: Image reviewed - EKG Interpretation by Me Additional EKG results interpreted by me: 03/06/17 04:08 Sinus rhythm. Rate 66. No ST elevations or depressions. QTC is 445. Discharge - Discharge Clinical Impression: Chest pain Qualifiers: Chest pain type: unspecified Qualified Code(s): R07.9 - Chest pain, unspecified Condition: Good Disposition: HOME, SELF-CARE Additional Instructions: You were seen today for chest pain. The exact cause of your pain is unclear. However, based on your cardiac enzyme testing, chest x-ray, and EKG it does not appear that it is from an immediately life-threatening cause at this time. Although your testing here is normal is critical that you follow-up with your primary care physician for continued evaluation of this chest pain and possible stress testing. I recommended you see your physician within the next 24-48 hours to be evaluated for consideration of a stress test. Please return to emergency department immediately if you have worsening of your chest pain, shortness of breath, vomiting, become unable to exert yourself due to pain or difficulty breathing, you pass out, or have any pain that radiates into your arms, jaw, or back. Please also return if you have any additional symptoms that are concerning to you.
--- NOTE | 2017-03-06 04:55 | RADIOLOGY REPORT (SQ) ---
EXAM DESCRIPTION: CHEST SINGLE VIEW CLINICAL HISTORY: 66 years, Male, chest pain COMPARISON: None. NUMBER OF VIEWS: 1 TECHNIQUE: Routine radiographic technique. LIMITATIONS: No hilar or mediastinal lymphadenopathy on this single view. Bones are grossly normal. None. FINDINGS: Cardiac size and pulmonary vasculature are normal. Lungs are clear. No pleural effusions or pneumothorax. No hilar or mediastinal lymphadenopathy on this single view. Bones are grossly normal. IMPRESSION: Normal portable AP chest radiograph. 2010 [employer]- All Rights Reserved
[2017-03-06 06:07] VITALS: BP 141/87
--- NOTE | 2017-03-07 06:26 | EKG REPORT ---
SEVERITY:- OTHERWISE NORMAL ECG - SINUS RHYTHM BORDERLINE LEFT AXIS DEVIATION : Confirmed by: Eduarda Thomas MD 07-Mar-2017 06:25:29
== END 2017-03-06 06:21 | disposition home or self-care (01) ==
LOC: ER 01:20
DX: R07.9 Chest pain, unspecified (principal); I25.10 Atherosclerotic heart disease of native coronary artery without angina pectoris; I50.9 Heart failure, unspecified; E78.00 Pure hypercholesterolemia, unspecified; I11.0 Hypertensive heart disease with heart failure; Z88.6 Allergy status to analgesic agent; E11.9 Type 2 diabetes mellitus without complications; Z87.891 Personal history of nicotine dependence; I25.2 Old myocardial infarction
CPT/HCPCS: 36415; 71010; 80048; 82550; 82553; 84484; 85025; 93005; 93010; 99285

== ENCOUNTER 2017-05-26 17:54 | Emergency (ER) | payer MEDICARE, MEDICAID ==
--- NOTE | 2017-05-26 18:43 | RADIOLOGY REPORT (SQ) ---
EXAM DESCRIPTION: CT HEAD WITHOUT COMPLETED DATE/TIME: 05/26/2017 6:30 pm REASON FOR STUDY: GARCIA syncope r/o SAH COMPARISON: August 2016 TECHNIQUE: Axial images acquired through the brain without intravenous contrast. Images reviewed wi th bone, brain and subdural windows. Images stored on PACS. All CT scanners at this facility use dose modulation, iterative reconstruction, and/or weight based d osing when appropriate to reduce radiation dose to as low as reasonably achievable (ALARA). [facility]: Dose Right [facility]: CareDose [facility]: Dose Right [facility]: Teradose 4D [facility]: [employer] RADIATION DOSE: CT Rad equipment meets quality standard of care and radiation dose reduction techniq ues were employed. CTDIvol: 64.6 mGy. DLP: 1163 mGy-cm. mGy. LIMITATIONS: None. FINDINGS: VENTRICLES: Prominent. CEREBRUM: No masses. No hemorrhage. No midline shift. Areas of low density in the white matter mos t likely due to chronic micro-vascular ischemic change. No evidence for acute infarction. CEREBELLUM: No masses. No hemorrhage. No alteration of density. No evidence for acute infarction. EXTRAAXIAL SPACES: Mild age-related involutional change. No fluid collections. No masses. ORBITS AND GLOBE: No intra- or extraconal masses. Normal contour of globe without masses. CALVARIUM: No fracture. PARANASAL SINUSES: Mucosal thickening is identified in the right maxillary antra and a couple of the ethmoidal air cells. SOFT TISSUES: No mass or hematoma. OTHER: No other significant finding. IMPRESSION: MILD CHRONIC CHANGES OF ATROPHY AND MICROVASCULAR ISCHEMIA. NO ACUTE PROCESS. EVIDENCE OF ACUTE STROKE: NO. TECHNICAL DOCUMENTATION: JOB ID: [id number] Quality ID # [id number]: Final reports with documentation of one or more dose reduction techniques (e.g., Au tomated exposure control, adjustment of the mA and/or kV according to patient size, use of iterative reconstruction technique) 2010 [employer]- All Rights Reserved
--- NOTE | 2017-05-26 19:01 | ER Document Report ---
ED General - General Chief Complaint: Syncope Stated Complaint: SYNCOPE Time Seen by Provider: 05/26/17 18:11 Notes: Patient is a 66-year-old male who presents after an episode of syncope shortly prior to arrival. Patient is a poor historian but states that apparently he was sitting in his wheelchair when he passed out. He states that he developed a headache prior to passing out. He states he has had episodes very similar to this presentation "many times" and did not want to come to the hospital today but the staff "made him". He denies any ongoing headache at time of my assessment. He denies any weakness, numbness, shortness of breath or feelings of ongoing lightheadedness. He states that he has chronic chest wall pain that is been present at least since 2012 and is unchanged currently. Nothing improves or worsens his symptoms. TRAVEL OUTSIDE OF THE [place] IN LAST 30 DAYS: No - Related Data Allergies/Adverse Reactions: aspirin Allergy (Verified 05/26/17 18:26) Past Medical History - General Information source: Patient - Social History Smoking Status: Never Smoker Frequency of alcohol use: None Drug Abuse: None Lives with: [facility] Family History: CAD, Hypertension - Past Medical History Cardiac Medical History: Reports: Hx Congestive Heart Failure, Hx Coronary Artery Disease, Hx Heart Attack - stents, Hx Hypercholesterolemia, Hx Hypertension Denies: Hx DVT, Hx Pulmonary Embolism Pulmonary Medical History: Reports: Hx Bronchitis, Hx Pneumonia, Hx Sleep Apnea - History of; patient not on CPAP. Neurological Medical History: Endocrine Medical History: Reports: Hx Diabetes Mellitus Type 2. Denies: Hx Hyperthyroidism, Hx Hypothyroidism Renal/ Medical History: Reports: Hx Benign Prostatic Hyperplasia, Hx Kidney Stones. Denies: Hx Peritoneal Dialysis GI Medical History: Reports: Hx Gastritis, Hx Gastroesophageal Reflux Disease, Hx Ulcer. Denies: Hx Cirrhosis, Hx Hepatitis Musculoskeltal Medical History: Reports Hx Arthritis, Reports Hx Musculoskeletal Deformity, Reports Hx Musculoskeletal Trauma Psychiatric Medical History: Reports: Hx Anxiety, Hx Dementia, Hx Depression Traumatic Medical History: Reports: Hx Fractures, Hx Traumatic Brain Injury Infectious Medical History: Denies: Hx Hepatitis Past Surgical History: Reports: Hx Abdominal Surgery - History: Had 18 inches of his colon removed, Hx Appendectomy, Hx Bowel Surgery - 17 inches removed due to necrosis, Hx Cardiac Catheterization, Hx Cardiac Surgery - cath, stent placement, Hx Coronary Stent, Hx Orthopedic Surgery - right wrist, right hip - Immunizations Immunizations up to date: Yes Hx Diphtheria, Pertussis, Tetanus Vaccination: Yes Hx Pneumococcal Vaccination: 11/28/11 Review of Systems - Review of Systems Notes: Constitutional: Negative for fever. HENT: Negative for sore throat. Eyes: Negative for visual changes. Cardiovascular: Negative for chest pain. Respiratory: Negative for shortness of breath. Gastrointestinal: Negative for abdominal pain, vomiting or diarrhea. Genitourinary: Negative for dysuria. Musculoskeletal: Positive for chronic chest wall discomfort Skin: Negative for rash. Neurological: positive for headache now resolved 10 point ROS negative except as marked above and in HPI. Physical Exam - Vital signs Vitals: Temp Pulse Resp BP Pulse Ox 98.1 F 82 14 142/83 H 95 05/26/17 18:10 05/26/17 18:10 05/26/17 18:10 05/26/17 18:10 05/26/17 18:10 Interpretation: Normal Notes: PHYSICAL EXAMINATION: GENERAL: Well-appearing, well-nourished and in no acute distress. HEAD: Atraumatic, normocephalic. EYES: Pupils equal round and reactive to light, extraocular movements intact, sclera anicteric, conjunctiva are normal. ENT: nares patent, oropharynx clear without exudates. Moist mucous membranes. NECK: Normal range of motion, supple without lymphadenopathy LUNGS: Breath sounds clear to auscultation bilaterally and equal. No wheezes rales or rhonchi. HEART: Regular rate and rhythm without murmurs ABDOMEN: Soft, nontender, normoactive bowel sounds. No guarding, no rebound. No masses appreciated. EXTREMITIES: Normal range of motion, no pitting or edema. No cyanosis. NEUROLOGICAL: No focal neurological deficits. Moves all extremities spontaneously and on command. PSYCH: Normal mood, normal affect. SKIN: Warm, Dry, normal turgor, no rashes or lesions noted. Course - Re-evaluation Re-evalutation: 05/26/17 19:00 Presentation of syncope of unclear etiology. Patient is a very poor historian but states that he believes he developed a headache prior to the episode of syncope. A CT of the head does not show any evidence evidence of acute intracranial bleed and patient reports "had this many times before and I did not even want to come today but they made me". Patient normotensive, alert, without focal neurologic deficits at time of arrival. Denies syncope was during exertion. No preceding symptoms of palpitations, chest pain, or shortness of breath. Patient does have a comment that he has a history of chronic left- sided chest discomfort that has been present for the past 5 years at a minimum and is unchanged currently. Patient asymptomatic at time of arrival. EKG is without evidence of HCOM, right heart strain, ST changes to suggest ischemia, prolong QTc, delta wave, epsilon wave, or Brugada syndrome. Patient denies any family history of sudden cardiac , personal history of of structural heart disease. Patient denies any symptoms to suggest an acute PE, AR, TAD, SAH, seizure, or acute GI bleed as the etiology of their syncope today. On exam, no murmurs to suggest critical aortic stenosis as possible etiology. Based on overall clinical history, exam findings, vitals, and patients appearance, I feel it is safe for patient to be discharged home at this time with close outpatient follow-up and strict return precautions. Patient is in agreement with this plan, has verbalized indications for return to ED, and questions have been answered. - Vital Signs Vital signs: Temp Pulse Resp BP Pulse Ox 98.1 F 82 15 142/83 H 99 05/26/17 18:10 05/26/17 18:10 05/26/17 18:48 05/26/17 18:10 05/26/17 18:48 - Laboratory Result Diagrams: 05/26/17 19:00 05/26/17 19:00 Laboratory results interpreted by me: 05/26/17 05/26/17 19:00 19:00 Hgb 11.8 L Hct 36.4 L MCH 26.0 L RDW 15.6 H Carbon Dioxide 31 H Glucose 119 H - Diagnostic Test Radiology reviewed: Image reviewed, Reports reviewed Radiology results interpreted by me: 05/26/17 19:59 CT head: No acute intracranial bleed - EKG Interpretation by Me Additional EKG results interpreted by me: 05/26/17 20:00 Normal sinus rhythm. Rate 77. No ST elevations or depressions. QTC is 444. Discharge - Discharge Clinical Impression: Chronic chest pain Syncope Qualifiers: Syncope type: unspecified Qualified Code(s): R55 - Syncope and collapse Condition: Good Disposition: HOME, SELF-CARE Additional Instructions: You were seen today after an episode of passing out. Your EKG here is normal. At this time, we do not feel that your episode of passing out was from any life- threatening cause. Please drink plenty of fluids over the next several days. Return to emergency department if you have any further episodes of syncope, headache, weakness, numbness, chest pain, or shortness of breath. Please follow up closely with your primary care physician.
[2017-05-26 19:26] LABS: ABSOLUTE EOSINOPHILS # (AUTO) 0.1 10^3/uL (0.0-0.6); ABSOLUTE LYMPHOCYTES (AUTO) 1.3 10^3/uL (0.5-4.7); ABSOLUTE MONOCYTES (AUTO) 0.4 10^3/uL (0.1-1.4); ABSOLUTE NEUT (AUTO) 3.1 10^3/uL (1.7-8.2); BASOPHILS % (AUTO) 0.4 % (0-2); EOSINOPHILS % (AUTO) 1.7 % (0-6); HEMATOCRIT 36.4 % (37.9-51.0); HEMOGLOBIN 11.8 g/dL (13.5-17.0); MEAN CORPUSCULAR HGB CONC 32.3 g/dL (32.0-36.0); MEAN CORPUSCULAR VOLUME 81 fl (80-97); MONOCYTES % (AUTO) 8.3 % (3-13); PLATELET COUNT 269 10^3/uL (150-450); RED BLOOD COUNT 4.52 10^6/uL (4.35-5.55); RED CELL DISTRIBUTION WIDTH 15.6 % (11.5-14.0); SEGMENTED NEUTROPHILS % (AUTO) 63.6 % (42-78); TOTAL CELLS COUNTED % (AUTO) 100 %; WHITE BLOOD COUNT 4.9 10^3/uL (4.0-10.5)
[2017-05-26 19:36] LABS: ANION GAP 9 (5-19); BLOOD UREA NITROGEN 15 mg/dL (7-20); CALCIUM 9.9 mg/dL (8.4-10.2); CARBON DIOXIDE 31 mmol/L (22-30); CHLORIDE 99 mmol/L (98-107); GLUCOSE 119 mg/dL (75-110); POTASSIUM 4.6 mmol/L (3.6-5.0); SODIUM 139.1 mmol/L (137-145)
[2017-05-27 03:02] VITALS: BP 176/93
--- NOTE | 2017-05-29 12:42 | EKG REPORT ---
SEVERITY:- OTHERWISE NORMAL ECG - SINUS RHYTHM BORDERLINE LEFT AXIS DEVIATION : Confirmed by: Eduarda Thomas MD 29-May-2017 12:40:27
== END 2017-05-27 03:00 | disposition home or self-care (01) ==
LOC: ER 17:54
DX: R07.9 Chest pain, unspecified (principal); R55 Syncope and collapse; R51 Headache
CPT/HCPCS: 36415; 70450; 80048; 84484; 85025; 93005; 93010; 99284

== ENCOUNTER 2017-07-13 10:44 | Emergency (ER) | payer MEDICARE, MEDICAID ==
--- NOTE | 2017-07-13 11:47 | ER Document Report ---
ED General - General Chief Complaint: Fall Stated Complaint: FALL/BACK PAIN Time Seen by Provider: 07/13/17 11:34 Mode of Arrival: Medic Information source: Patient, Emergency Med Personnel, Outside Facility Records Notes: This is a 66-year-old man brought into the emergency room by EMS after a [facility]. The patient does have a complicated medical history including TBI with dementia, chronic back pain (wheelchair-bound), coronary artery disease (stent), insulin requiring diabetes, obstructive sleep apnea. The patient states that he was trying to make the bed and that he had the wheelchair behind him and as he got up to make the bed, the wheelchair was pushed further out and then he fell to the floor hitting his head. The patient denies loss of consciousness but he complains of pain to the right occipital scalp area. Patient denies any chest pain, shortness of breath or abdominal pain. Patient has chronic back pain, lower extremity arthritis. TRAVEL OUTSIDE OF THE [place] IN LAST 30 DAYS: No - HPI Onset: Just prior to arrival Onset/Duration: Sudden Quality of pain: Dull Severity: Mild Pain Level: 1 Associated symptoms: denies: Chest pain, Fever, Shortness of breath Exacerbated by: Denies Relieved by: Denies Similar symptoms previously: Yes Recently seen / treated by doctor: Yes - Related Data Allergies/Adverse Reactions: aspirin Allergy (Verified 07/13/17 10:46) Past Medical History - General Information source: Patient, Transfer Record, Outside Facility Records - Social History Smoking Status: Unknown if Ever Smoked Cigarette use (# per day): No Chew tobacco use (# tins/day): No Frequency of alcohol use: None Drug Abuse: None Lives with: [facility] Family History: CAD, Hypertension Patient has suicidal ideation: No Patient has homicidal ideation: No - Past Medical History Cardiac Medical History: Reports: Hx Congestive Heart Failure, Hx Coronary Artery Disease, Hx Heart Attack - stents, Hx Hypercholesterolemia, Hx Hypertension Denies: Hx DVT, Hx Pulmonary Embolism Pulmonary Medical History: Reports: Hx Bronchitis, Hx Pneumonia, Hx Sleep Apnea - History of; patient not on CPAP. Neurological Medical History: Endocrine Medical History: Reports: Hx Diabetes Mellitus Type 2. Denies: Hx Hyperthyroidism, Hx Hypothyroidism Renal/ Medical History: Reports: Hx Benign Prostatic Hyperplasia, Hx Kidney Stones. Denies: Hx Peritoneal Dialysis GI Medical History: Reports: Hx Gastritis, Hx Gastroesophageal Reflux Disease, Hx Ulcer. Denies: Hx Cirrhosis, Hx Hepatitis Musculoskeltal Medical History: Reports Hx Arthritis, Reports Hx Musculoskeletal Deformity, Reports Hx Musculoskeletal Trauma Psychiatric Medical History: Reports: Hx Anxiety, Hx Dementia, Hx Depression - and anxiety Traumatic Medical History: Reports: Hx Fractures, Hx Traumatic Brain Injury Infectious Medical History: Denies: Hx Hepatitis Past Surgical History: Reports: Hx Abdominal Surgery - History: Had 18 inches of his colon removed, Hx Appendectomy, Hx Bowel Surgery - 17 inches removed due to necrosis, Hx Cardiac Catheterization, Hx Cardiac Surgery - cath, stent placement, Hx Coronary Stent, Hx Orthopedic Surgery - right wrist, right hip - Immunizations Immunizations up to date: Yes Hx Diphtheria, Pertussis, Tetanus Vaccination: Yes Hx Pneumococcal Vaccination: 11/28/11 Review of Systems - Review of Systems Notes: Review of systems: Constitutional: Denies fever, chills. EENT: Soft cervical collar in place. denies ear pain, sinus tenderness, throat pain, throat swelling. Cardiovascular: Denies chest pain, palpitations, dyspnea or edema. Respiratory: Denies wheezing, cough, hemoptysis. Abdomen: Denies abdominal pain, nausea, vomiting, diarrhea. Denies BRBPR or melena. Genitourinary: Denies dysuria, pyuria, hematuria, flank pain. Musculoskeletal: See H&P Neurologic: See H&P Skin: Denies rash, lesions. Physical Exam - Vital signs Vitals: Temp Pulse Resp BP Pulse Ox 98.8 F 88 18 167/75 H 96 07/13/17 10:52 07/13/17 10:52 07/13/17 10:52 07/13/17 10:52 07/13/17 10:52 Notes: Physical exam: GENERAL: 66-year-old man, alert, answering questions, knows he is in the emergency room, no acute distress. HEAD: Normocephalic. He does have tenderness over the right occipital scalp without any obvious lacerations, ecchymoses or swelling. EYES: Pupils equal round and reactive to light, extraocular movements intact, sclera anicteric, conjunctiva are normal. ENT: Cervical collar in place. Oropharynx clear without exudates. Moist mucous membranes. NECK: Cervical collar in place. LUNGS: Breath sounds clear to auscultation bilaterally and equal. No wheezes rales or rhonchi. HEART: Regular rate and rhythm without murmurs, rubs or gallops. ABDOMEN: Soft, normoactive bowel sounds. No tenderness to palpation. No guarding, no rebound. No masses appreciated. EXTREMITIES: Normal range of motion, no pitting or edema. No clubbing or cyanosis. NEUROLOGICAL: Cranial nerves II through XII grossly intact. Normal speech, moving all extremities. Patient is essentially wheelchair bound so gait was not assessed. Patient has good ironmolder bilaterally and has no lateralizing signs. PSYCH: See above. Patient has eyes open, answering questions, no distress SKIN: Warm, Dry, normal turgor, no rashes or lesions noted. Course - Vital Signs Vital signs: Temp Pulse Resp BP Pulse Ox 99.4 F 86 18 183/79 H 92 07/13/17 19:29 07/13/17 19:29 07/13/17 10:52 07/13/17 19:29 07/13/17 19:29 - Diagnostic Test Radiology reviewed: Image reviewed, Reports reviewed - CT of the head and cervical spine show no acute fractures. Pelvis is clear Discharge - Discharge Clinical Impression: Contusion head, Status post fall Condition: Stable Disposition: HOME, SELF-CARE Additional Instructions: Mr. Morales had CT of the head and cervical spine which look good. X-rays of the pelvis including the hips look good. Recommendations: Continue current medicines, Observe as he is a fall risk, Follow up with Dr. Jameson, Return to the emergency room for worsening pain, or any concerns that Mr. Morales is acting strangely.
--- NOTE | 2017-07-13 12:37 | RADIOLOGY REPORT (SQ) ---
EXAM DESCRIPTION: CT HEAD WITHOUT COMPLETED DATE/TIME: 07/13/2017 12:29 pm REASON FOR STUDY: fall, head injury COMPARISON: None. TECHNIQUE: Axial images acquired through the brain without intravenous contrast. Images reviewed wi th bone, brain and subdural windows. Images stored on PACS. All CT scanners at this facility use dose modulation, iterative reconstruction, and/or weight based d osing when appropriate to reduce radiation dose to as low as reasonably achievable (ALARA). [facility]: Dose Right [facility]: CareDose [facility]: Dose Right [facility]: Teradose 4D [facility]: Smart [employer] RADIATION DOSE: CT Rad equipment meets quality standard of care and radiation dose reduction techniq ues were employed. CTDIvol: 64.6 mGy. DLP: 1163 mGy-cm.mGy. LIMITATIONS: Motion. FINDINGS: VENTRICLES: Prominent. CEREBRUM: No masses. No hemorrhage. No midline shift. Areas of low density in the white matter mos t likely due to chronic micro-vascular ischemic change. No evidence for acute infarction. CEREBELLUM: No masses. No hemorrhage. No alteration of density. No evidence for acute infarction. EXTRAAXIAL SPACES: Age-related involutional change. No fluid collections. No masses. ORBITS AND GLOBE: No intra- or extraconal masses. Normal contour of globe without masses. CALVARIUM: No fracture. PARANASAL SINUSES: No fluid or mucosal thickening. SOFT TISSUES: No mass or hematoma. OTHER: No other significant finding. IMPRESSION: CHRONIC CHANGES OF ATROPHY AND MICROVASCULAR ISCHEMIA. NO ACUTE PROCESS. EVIDENCE OF ACUTE STROKE: NO. TECHNICAL DOCUMENTATION: JOB ID: [id number] Quality ID # [id number]: Final reports with documentation of one or more dose reduction techniques (e.g., Au tomated exposure control, adjustment of the mA and/or kV according to patient size, use of iterative reconstruction technique) 2010 [employer]- All Rights Reserved
--- NOTE | 2017-07-13 12:52 | RADIOLOGY REPORT (SQ) ---
EXAM DESCRIPTION: CT CERVICAL SPINE WITHOUT COMPLETED DATE/TIME: 07/13/2017 12:29 pm REASON FOR STUDY: fall, head injury COMPARISON: None. TECHNIQUE: Axial images acquired through the cervical spine without intravenous contrast. Images re viewed with lung, soft tissue and bone windows. Reconstructed coronal and sagittal MPR images review ed. Images stored on PACS. All CT scanners at this facility use dose modulation, iterative reconstruction, and/or weight based d osing when appropriate to reduce radiation dose to as low as reasonably achievable (ALARA). [facility]: Dose Right [facility]: CareDose [facility]: Dose Right [facility]: Teradose 4D [facility]: [employer] RADIATION DOSE: CT Rad equipment meets quality standard of care and radiation dose reduction techniq ues were employed. CTDIvol: 24.2 mGy. DLP: 496 mGy-cm. mGy. LIMITATIONS: None. FINDINGS: ALIGNMENT: Anatomic. MINERALIZATION: Normal. VERTEBRAL BODIES: No fractures or dislocation. DISCS: No significant disc disease. FACETS, LATERAL MASSES, POSTERIOR ELEMENTS: No fractures. No dislocation. No acute findings. HARDWARE: None in the spine. VISUALIZED RIBS: No fractures. LUNG APICES AND SOFT TISSUES: No significant or acute findings. OTHER: No other significant finding. IMPRESSION: NO ACUTE OR SIGNIFICANT FINDINGS IN THE CERVICAL SPINE. TECHNICAL DOCUMENTATION: JOB ID: [id number] Quality ID # 436: Final reports with documentation of one or more dose reduction techniques (e.g., Au tomated exposure control, adjustment of the mA and/or kV according to patient size, use of iterative reconstruction technique) 2010 [employer]- All Rights Reserved
--- NOTE | 2017-07-13 13:04 | RADIOLOGY REPORT (SQ) ---
EXAM DESCRIPTION: PELVIS AP COMPLETED DATE/TIME: 07/13/2017 12:46 pm REASON FOR STUDY: fall COMPARISON: 09/12/2014 NUMBER OF VIEWS: One view TECHNIQUE: AP Pelvis LIMITATIONS: None. FINDINGS: MINERALIZATION: Normal. HIPS: Orthopedic screws in the right femoral neck. No acute fracture. PELVIS AND SACRUM: No acute fracture or dislocation. No worrisome bone lesions. PUBIS AND ISCHIUM: No acute fracture. LOWER LUMBAR SPINE: No significant findings as visualized. SOFT TISSUES: No findings. OTHER: No other significant finding. IMPRESSION: No acute findings. TECHNICAL DOCUMENTATION: JOB ID: [id number]- All Rights Reserved
[2017-07-13 19:33] VITALS: BP 183/79
== END 2017-07-13 20:00 | disposition home or self-care (01) ==
LOC: ER 10:44
DX: S00.93XA Contusion of unspecified part of head, initial encounter (principal); M54.9 Dorsalgia, unspecified; W01.10XA Fall on same level from slipping, tripping and stumbling with subsequent striking against unspecified object, initial encounter; Y93.E9 Activity, other interior property and clothing maintenance; Y92.128 Other place in nursing home as the place of occurrence of the external cause; Z88.6 Allergy status to analgesic agent; I50.9 Heart failure, unspecified; I25.10 Atherosclerotic heart disease of native coronary artery without angina pectoris; E11.9 Type 2 diabetes mellitus without complications; I25.2 Old myocardial infarction
CPT/HCPCS: 99284; 72170; 70450; 72125; L0120

== ENCOUNTER → 2017-08-05 | Outpatient (CLI) | payer MEDICARE, MEDICAID ==
[2017-08-05 14:42] LABS: AMORPHOUS SEDIMENT,URINE TRACE /HPF; APPEARANCE,URINE CLOUDY; BILIRUBIN,URINE NEGATIVE (NEGATIVE); COLOR,URINE YELLOW; GLUCOSE, URINE >=500 mg/dL (NEGATIVE); KETONES,URINE NEGATIVE (NEGATIVE); LEUKOCYTE ESTERASE,URINE NEGATIVE (NEGATIVE); NITRITE,URINE NEGATIVE (NEGATIVE); PROTEIN,URINE NEGATIVE (NEGATIVE); URINE SPECIFIC GRAVITY 1.009; UROBILINOGEN,URINE NEGATIVE mg/dL (<2.0)
== END ==
LOC: PNR 11:48
PROVIDERS: ATTEND Internal Medicine
DX: N39.0 Urinary tract infection, site not specified (principal)
CPT/HCPCS: 81001; 87086; 87088; 87186

== ENCOUNTER 2017-10-13 12:50 | Emergency (ER) | payer MEDICARE, MEDICAID ==
--- NOTE | 2017-10-13 14:56 | RADIOLOGY REPORT (SQ) ---
EXAM DESCRIPTION: CHEST SINGLE VIEW COMPLETED DATE/TIME: 10/13/2017 2:43 pm REASON FOR STUDY: Unresponsive COMPARISON: February 2017 EXAM PARAMETERS: NUMBER OF VIEWS: One view. TECHNIQUE: Single frontal radiographic view of the chest acquired. RADIATION DOSE: NA LIMITATIONS: None. FINDINGS: LUNGS AND PLEURA: No opacities, masses or pneumothorax. No pleural effusion. MEDIASTINUM AND HILAR STRUCTURES: No masses. Contour normal. HEART AND VASCULAR STRUCTURES: Heart normal in size. Normal vasculature. BONES: No acute findings. HARDWARE: None in the chest. OTHER: No other significant finding. IMPRESSION: NO ACUTE RADIOGRAPHIC FINDING IN THE CHEST. TECHNICAL DOCUMENTATION: JOB ID: [id number] [employer]- All Rights Reserved Reading location - IP/workstation name: [email or web address]
--- NOTE | 2017-10-13 15:02 | RADIOLOGY REPORT (SQ) ---
EXAM DESCRIPTION: CT HEAD WITHOUT COMPLETED DATE/TIME: 10/13/2017 2:41 pm REASON FOR STUDY: Altered mental status and unresponsive. COMPARISON: [address] brain exams 05/30/2012, most recently 07/13/2017. MRI brain 11/23/2015 TECHNIQUE: Axial images acquired through the brain without intravenous contrast. Images reviewed wi th bone, brain and subdural windows. Additional sagittal and coronal reconstructions were generated. Images stored on PACS. All CT scanners at this facility use dose modulation, iterative reconstruction, and/or weight based d osing when appropriate to reduce radiation dose to as low as reasonably achievable (ALARA). [facility]: Dose Right [facility]: CareDose [facility]: Dose Right [facility]: Teradose 4D [facility]: [employer] RADIATION DOSE: CT Rad equipment meets quality standard of care and radiation dose reduction techniq ues were employed. CTDIvol: 53.2 mGy. DLP: 1097 mGy-cm. mGy. LIMITATIONS: None. FINDINGS: VENTRICLES: Normal size and contour. CEREBRUM: No masses. No hemorrhage. No midline shift. No evidence for acute infarction. Few scatte red areas of low density in the white matter most likely chronic small vessel ischemic changes. CEREBELLUM: No masses. No hemorrhage. No alteration of density. No evidence for acute infarction. EXTRAAXIAL SPACES: No fluid collections. No masses. ORBITS AND GLOBE: No intra- or extraconal masses. Normal contour of globe without masses. CALVARIUM: No fracture. PARANASAL SINUSES: No fluid or mucosal thickening. SOFT TISSUES: No mass or hematoma. OTHER: No other significant finding. IMPRESSION: No acute findings. Minimal age-appropriate white matter disease in the cerebral hemisph eres. EVIDENCE OF ACUTE STROKE: NO. COMMENT: Quality ID # 436: Final reports with documentation of one or more dose reduction techniques (e.g., Automated exposure control, adjustment of the mA and/or kV according to patient size, use of iterative reconstruction technique) TECHNICAL DOCUMENTATION: JOB ID: [id number]- All Rights Reserved Reading location - IP/workstation name: [email or web address]
[2017-10-13 15:14] LABS: ABSOLUTE EOSINOPHILS # (AUTO) 0.1 10^3/uL (0.0-0.6); ABSOLUTE LYMPHOCYTES (AUTO) 1.7 10^3/uL (0.5-4.7); ABSOLUTE MONOCYTES (AUTO) 0.4 10^3/uL (0.1-1.4); ABSOLUTE NEUT (AUTO) 2.6 10^3/uL (1.7-8.2); BASOPHILS % (AUTO) 0.7 % (0-2); EOSINOPHILS % (AUTO) 1.3 % (0-6); HEMATOCRIT 35.3 % (37.9-51.0); HEMOGLOBIN 11.3 g/dL (13.5-17.0); MEAN CORPUSCULAR HEMOGLOBIN 25.7 pg (27.0-33.4); MEAN CORPUSCULAR VOLUME 80 fl (80-97); MONOCYTES % (AUTO) 8.9 % (3-13); PLATELET COUNT 302 10^3/uL (150-450); RED CELL DISTRIBUTION WIDTH 16.9 % (11.5-14.0); SEGMENTED NEUTROPHILS % (AUTO) 54.1 % (42-78); TOTAL CELLS COUNTED % (AUTO) 100 %; WHITE BLOOD COUNT 4.7 10^3/uL (4.0-10.5)
[2017-10-13 15:28] LABS: ALANINE AMINOTRANSFERASE 28 U/L (21-72); ALBUMIN 3.8 g/dL (3.5-5.0); ALKALINE PHOSPHATASE 89 U/L (38-126); ANION GAP 11 (5-19); ASPARTATE AMINO TRANSFERASE 22 U/L (17-59); BILIRUBIN,DIRECT 0.2 mg/dL (0.0-0.4); BILIRUBIN,TOTAL 0.2 mg/dL (0.2-1.3); BLOOD UREA NITROGEN 20 mg/dL (7-20); CALCIUM 10.2 mg/dL (8.4-10.2); CARBON DIOXIDE 28 mmol/L (22-30); CHLORIDE 100 mmol/L (98-107); GLUCOSE 107 mg/dL (75-110); POTASSIUM 4.5 mmol/L (3.6-5.0); SODIUM 138.6 mmol/L (137-145); TOTAL PROTEIN 6.6 g/dL (6.3-8.2)
[2017-10-13 15:35] LABS: APPEARANCE,URINE CLEAR; BILIRUBIN,URINE NEGATIVE (NEGATIVE); COLOR,URINE YELLOW; GLUCOSE, URINE NEGATIVE (NEGATIVE); KETONES,URINE NEGATIVE (NEGATIVE); LEUKOCYTE ESTERASE,URINE NEGATIVE (NEGATIVE); NITRITE,URINE NEGATIVE (NEGATIVE); PROTEIN,URINE NEGATIVE (NEGATIVE); URINE SPECIFIC GRAVITY 1.006; UROBILINOGEN,URINE NEGATIVE mg/dL (<2.0)
[2017-10-13 17:19] VITALS: BP 159/80
--- NOTE | 2017-10-13 17:22 | ER Document Report ---
ED General - General Chief Complaint: Altered Mental Status Stated Complaint: ALTERED MENTAL STATUS Time Seen by Provider: 10/13/17 13:44 Notes: Patient was transferred here from his residence at a local senior living, [place] , where he has lived for the past year. He was sent here because he is unresponsive. Patient is laying very still on his stretcher and does not move or respond to voice command or painful, tactile stimulation. When his arm is lifted above his head and I let go, he keeps his arm above his head, not dropping it into his head. I ordered a workup on the patient including a Mack catheter and soon after this, the patient awakened and was talking normally. He says that he remembers eating lunch and he kept falling out of the chair. Patient was sent here with the note that he tends to enjoy the attention of being evaluated in the emergency department. Patient denies any headache. History is limited as this patient is a poor historian. He actually indicated that he would like to have his bladder catheterized. We got 700 mL of urine when he was catheterized. TRAVEL OUTSIDE OF THE [place] IN LAST 30 DAYS: No - Related Data Allergies/Adverse Reactions: aspirin Allergy (Verified 07/13/17 10:46) Past Medical History - Social History Smoking Status: Never Smoker Chew tobacco use (# tins/day): No Drug Abuse: None Family History: Reviewed & Not Pertinent, CAD, Hypertension Patient has suicidal ideation: No Patient has homicidal ideation: No - Past Medical History Cardiac Medical History: Reports: Hx Congestive Heart Failure, Hx Coronary Artery Disease - Stents placed, Hx Heart Attack - stents, Hx Hypercholesterolemia, Hx Hypertension Denies: Hx DVT, Hx Pulmonary Embolism Pulmonary Medical History: Reports: Hx Bronchitis, Hx Pneumonia, Hx Sleep Apnea - History of; patient not on CPAP. Neurological Medical History: Endocrine Medical History: Reports: Hx Diabetes Mellitus Type 2 Renal/ Medical History: Reports: Hx Benign Prostatic Hyperplasia, Hx Kidney Stones GI Medical History: Reports: Hx Gastritis, Hx Gastroesophageal Reflux Disease, Hx Ulcer Musculoskeltal Medical History: Reports Hx Arthritis, Reports Hx Musculoskeletal Deformity, Reports Hx Musculoskeletal Trauma Psychiatric Medical History: Reports: Hx Anxiety, Hx Bipolar Disorder, Hx Dementia, Hx Depression - and anxiety Traumatic Medical History: Reports: Hx Fractures, Hx Traumatic Brain Injury Past Surgical History: Reports: Hx Abdominal Surgery - History: Had 18 inches of his colon removed, Hx Appendectomy, Hx Bowel Surgery - 17 inches removed due to necrosis, Hx Cardiac Catheterization, Hx Cardiac Surgery - cath, stent placement, Hx Coronary Stent, Hx Orthopedic Surgery - right wrist, right hip - Immunizations Immunizations up to date: Yes Hx Diphtheria, Pertussis, Tetanus Vaccination: Yes Hx Pneumococcal Vaccination: 11/28/11 Review of Systems - Review of Systems -: Yes ROS unobtainable due to patient's medical condition - Patient is not following commands, nor answering questions Physical Exam - Vital signs Vitals: Temp Pulse Resp BP Pulse Ox 99.2 F 72 20 148/76 H 98 10/13/17 12:59 10/13/17 12:59 10/13/17 12:59 10/13/17 12:59 10/13/17 12:59 Interpretation: Normal - Notes Notes: PHYSICAL EXAMINATION: GENERAL: Well-appearing, in no acute distress. Patient appears to be asleep, but will not arouse or even move slightly any part of his body to vocal command or painful, tactile stimulation. HEAD: Atraumatic, normocephalic. EYES: Pupils equal round and reactive to light, but extraocular movements were not able to be checked because the patient does not cooperate, squinting his eyes very hard to keep from allowing them to be opened.. ENT: oropharynx clear without exudates. Moist mucous membranes. NECK: Normal range of motion, supple. No bruits heard. LUNGS: Breath sounds clear and equal bilaterally. HEART: Regular rate and rhythm without murmurs. ABDOMEN: Soft, nontender. No guarding or rebound. No masses. Midline vertical abdominal scar from umbilicus to suprapubic area, patient later informed me was due to removal of a part of his colon. BACK: No tenderness throughout entire back. EXTREMITIES: Normal range of motion without pain. NEUROLOGICAL: Upon initial presentation, patient is laying on the stretcher without moving. Does not withdraw from pain. When I lift his hand over his head and let go of his hand, his arm moves his hand away from hitting on his head. He does this with both arms. In fact, at times when I lift his hand above his head and the goal of his hand, he just holds it there while I go about finishing my exam elsewhere. Later, when patient decided to awaken and talk and answer questions, he followed commands and moves all 4 extremities without any difficulty. And, at that time, patient exhibited normal speech. Patient says he is unable to walk and has not been able to for a year or more. Says his legs just will not go and keep up with the rest of his body any falls. Normal sensory, motor, and reflex exams. Awake, alert, and oriented x3. No lateralizing neurologic signs or deficits. PSYCH: Normal mood, normal affect. SKIN: Warm, dry, no rashes. Course - Re-evaluation Re-evalutation: 10/13/17 17:33 Patient's labs have all returned normal. Patient's CT scan of his brain is his 25th such study in the past 5 years at this hospital. He also had an MRI of his brain done in the recent past. No acute abnormalities found. - Vital Signs Vital signs: Temp Pulse Resp BP Pulse Ox 97.3 F 70 20 159/80 H 99 10/13/17 17:23 10/13/17 17:23 10/13/17 17:23 10/13/17 17:23 10/13/17 17:23 - Laboratory Result Diagrams: 10/13/17 13:30 10/13/17 13:30 Laboratory results interpreted by me: 10/13/17 13:30 Hgb 11.3 L Hct 35.3 L MCH 25.7 L RDW 16.9 H - Diagnostic Test Radiology reviewed: Image reviewed, Reports reviewed - CT scan of the brain is without any acute findings and no evidence of stroke. - EKG Interpretation by [place] EKG shows normal: Sinus rhythm Rate: Normal Rhythm: NSR Additional EKG results interpreted by me: 10/13/17 17:43 EKG is essentially normal with no evidence of any acute changes. Discharge - Discharge Clinical Impression: Altered mental status Condition: Stable Disposition: HOME, SELF-CARE Additional Instructions: Altered Mental Status An altered mental status is a change in the normal functioning of the brain. This alteration of function can range from minor decreased brain function with some forgetfulness and confusion to complete loss of consciousness and coma. There are many possible causes of an altered mental status and include brain injuries such as trauma or strokes, problems with oxygen supply to the brain, fever and infections of the brain and/or elsewhere in the body, metabolic abnormalities such as low or high blood sugar, overdoses or excessive medication ingestion, and mental and psychiatric illnesses. Sometimes the altered mental status resolves and a definite cause is not determined. If a cause for your altered mental status was found, it has likely been corrected. Your evaluation has not shown any condition that requires that you be admitted to the hospital. It is believed that you are safe to leave and return to your home. If you have a return of your symptoms, you should return for re-evaluation. NORMAL EXAM AND WORKUP: At this time, your examination and workup show no significant abnormality. No significant abnormal physical findings were noted. All laboratory, EKG, and imaging (x-ray, CT scans, ultrasound) studies that were ordered show no significant abnormality. Although your examination and all studies that were ordered showed no significant abnormal finding, there are no examinations and no studies that are 100% accurate. There is always the possibility that some abnormality could exist and not be detected with physical examination or within the limits and capabilities of laboratory and other studies. You should return or follow up as you were instructed on your visit today for further evaluation if your symptoms do not resolve. FOLLOW-UP CARE: If you have been referred to a physician for follow-up care, call the physician s office for an appointment as you were instructed or within the next two days. If you experience worsening or a significant change in your symptoms, notify the physician immediately or return to the Emergency Department at any time for re-evaluation. Referrals: SHAHEED ROBERTSON MD [Primary Care Provider] - Follow up as needed
--- NOTE | 2017-10-13 19:27 | EKG REPORT ---
SEVERITY:- OTHERWISE NORMAL ECG - SINUS RHYTHM BORDERLINE LEFT AXIS DEVIATION : Confirmed by: Basil Sanders 13-Oct-2017 19:26:27
== END 2017-10-13 17:55 | disposition home or self-care (01) ==
LOC: ER 12:50
DX: R41.82 Altered mental status, unspecified (principal); I25.10 Atherosclerotic heart disease of native coronary artery without angina pectoris; I10 Essential (primary) hypertension; I25.2 Old myocardial infarction; E11.9 Type 2 diabetes mellitus without complications; Z88.6 Allergy status to analgesic agent
CPT/HCPCS: 36415; 51702; 70450; 71045; 80053; 81001; 85025; 93005; 93010; 99285

== ENCOUNTER 2017-12-10 09:00 | Emergency (ER) | payer MEDICARE, MEDICAID ==
[2017-12-10 09:53] LABS: ABSOLUTE EOSINOPHILS # (AUTO) 0.1 10^3/uL (0.0-0.6); ABSOLUTE LYMPHOCYTES (AUTO) 1.3 10^3/uL (0.5-4.7); ABSOLUTE MONOCYTES (AUTO) 0.4 10^3/uL (0.1-1.4); ABSOLUTE NEUT (AUTO) 2.4 10^3/uL (1.7-8.2); BASOPHILS % (AUTO) 0.6 % (0-2); EOSINOPHILS % (AUTO) 1.6 % (0-6); HEMOGLOBIN 11.8 g/dL (13.5-17.0); LYMPHOCYTES % (AUTO) 30.8 % (13-45); MEAN CORPUSCULAR HGB CONC 32.8 g/dL (32.0-36.0); MEAN CORPUSCULAR VOLUME 79 fl (80-97); PLATELET COUNT 318 10^3/uL (150-450); RED BLOOD COUNT 4.54 10^6/uL (4.35-5.55); RED CELL DISTRIBUTION WIDTH 16.6 % (11.5-14.0); TOTAL CELLS COUNTED % (AUTO) 100 %; WHITE BLOOD COUNT 4.2 10^3/uL (4.0-10.5)
[2017-12-10 09:58] LABS: ALANINE AMINOTRANSFERASE 22 U/L (21-72); ALKALINE PHOSPHATASE 106 U/L (38-126); ANION GAP 15 (5-19); ASPARTATE AMINO TRANSFERASE 21 U/L (17-59); BILIRUBIN,DIRECT 0.3 mg/dL (0.0-0.4); BILIRUBIN,TOTAL 0.4 mg/dL (0.2-1.3); BLOOD UREA NITROGEN 14 mg/dL (7-20); CALCIUM 9.8 mg/dL (8.4-10.2); CARBON DIOXIDE 28 mmol/L (22-30); CHLORIDE 100 mmol/L (98-107); GLUCOSE 182 mg/dL (75-110); POTASSIUM 4.4 mmol/L (3.6-5.0); SODIUM 143.2 mmol/L (137-145); TOTAL PROTEIN 7.2 g/dL (6.3-8.2)
[2017-12-10 09:59] LABS: ACETAMINOPHEN < 10 ug/mL (10-30); ALCOHOL < 10 mg/dL (NONE DETECTED); SALICYLATE < 1.0 mg/dL (2.0-20.0)
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
[2017-12-10 11:46] LABS: APPEARANCE,URINE CLEAR; BILIRUBIN,URINE NEGATIVE (NEGATIVE); COLOR,URINE YELLOW; GLUCOSE, URINE 50 mg/dL (NEGATIVE); KETONES,URINE NEGATIVE (NEGATIVE); LEUKOCYTE ESTERASE,URINE NEGATIVE (NEGATIVE); NITRITE,URINE NEGATIVE (NEGATIVE); PROTEIN,URINE NEGATIVE (NEGATIVE); URINE SPECIFIC GRAVITY 1.008; UROBILINOGEN,URINE NEGATIVE mg/dL (<2.0)
[2017-12-10 11:56] LABS: URINE AMPHETAMINES SCREEN NEGATIVE; URINE BARBITURATES SCREEN NEGATIVE; URINE BENZODIAZEPINES SCREEN NEGATIVE; URINE COCAINE SCREEN NEGATIVE; URINE MARIJUANA (THC) SCREEN NEGATIVE; URINE METHADONE SCREEN NEGATIVE; URINE PHENCYCLIDINE SCREEN NEGATIVE
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
[2017-12-10 14:12] VITALS: BP 138/72
--- NOTE | 2017-12-10 21:51 | EKG REPORT ---
SEVERITY:- BORDERLINE ECG - SINUS RHYTHM PROBABLE LEFT ATRIAL ABNORMALITY BORDERLINE LEFT AXIS DEVIATION : Confirmed by: Eduarda Thomas MD 10-Dec-2017 21:50:52
== END 2017-12-10 14:12 | disposition home or self-care (01) ==
LOC: ER 09:00
DX: F43.29 Adjustment disorder with other symptoms (principal); M25.50 Pain in unspecified joint; I25.10 Atherosclerotic heart disease of native coronary artery without angina pectoris; I25.2 Old myocardial infarction; I10 Essential (primary) hypertension; E11.9 Type 2 diabetes mellitus without complications; Z88.6 Allergy status to analgesic agent
CPT/HCPCS: 36415; 80053; 80307; 81001; 85025; 93005; 93010; 99285

== ENCOUNTER 2017-12-10 22:33 | Inpatient (IN) | payer MEDICARE, MEDICAID ==
--- NOTE | 2017-12-10 22:49 | ER Document Report ---
ED General - General Stated Complaint: CHEST PAIN Time Seen by Provider: 12/10/17 22:48 Notes: Patient is a 67-year-old male presents with complaint of chest pain. Chest pain is mostly substernal over the lower sternum. This is been ongoing yesterday. He has stent placed 2012. Denies any difficulty breathing. No recent fevers or infections. No recent trauma to his chest. TRAVEL OUTSIDE OF THE [place] IN LAST 30 DAYS: No - Related Data Allergies/Adverse Reactions: aspirin Allergy (Verified 12/10/17 23:52) Past Medical History - Social History Smoking Status: Unknown if Ever Smoked Frequency of alcohol use: None Drug Abuse: None Family History: Reviewed & Not Pertinent, CAD, Hypertension - Past Medical History Cardiac Medical History: Reports: Hx Congestive Heart Failure, Hx Coronary Artery Disease, Hx Heart Attack, Hx Hypercholesterolemia, Hx Hypertension Pulmonary Medical History: Reports: Hx Bronchitis, Hx Pneumonia, Hx Sleep Apnea - History of; patient not on CPAP. Neurological Medical History: Endocrine Medical History: Reports: Hx Diabetes Mellitus Type 2 Renal/ Medical History: Reports: Hx Benign Prostatic Hyperplasia, Hx Kidney Stones. Denies: Hx Peritoneal Dialysis GI Medical History: Reports: Hx Gastritis, Hx Gastroesophageal Reflux Disease, Hx Ulcer Musculoskeletal Medical History: Reports Hx Arthritis, Reports Hx Musculoskeletal Deformity, Reports Hx Musculoskeletal Trauma Psychiatric Medical History: Reports: Hx Anxiety, Hx Bipolar Disorder, Hx Dementia, Hx Depression Traumatic Medical History: Reports: Hx Fractures, Hx Traumatic Brain Injury Past Surgical History: Reports: Hx Abdominal Surgery - History: Had 18 inches of his colon removed, Hx Appendectomy, Hx Bowel Surgery - 17 inches removed due to necrosis, Hx Cardiac Catheterization, Hx Cardiac Surgery - cath, stent placement, Hx Coronary Stent, Hx Orthopedic Surgery - right wrist, right hip - Immunizations Immunizations up to date: Yes Hx Diphtheria, Pertussis, Tetanus Vaccination: Yes Hx Pneumococcal Vaccination: 11/28/11 Physical Exam - Vital signs Vitals: Temp Resp Pulse Ox 98 F 23 H 94 12/10/17 22:46 12/10/17 22:46 12/10/17 22:46 - Notes Notes: General Appearance: Well nourished, alert, cooperative, no acute distress, no obvious discomfort. Well-appearing. Vitals: reviewed, See vital signs table. Head: no swelling or tenderness to the head Eyes: PERRL, EOMI, Conjuctiva clear Mouth: No decreasd moisture Chest wall: Some reproducible pain to palpation over lower chest wall. Lungs: No wheezing, No rales, No rhonci, No accessory muscle use, good air exchange bilaterally. Heart: Normal rate, Regular rythm, No murmur, no rub Abdomen: Normal BS, soft, No rigidity, No abdominal tenderness, No guarding, no rebound, no abdominal masses, no organomegaly Extremities: strength 5/5 in all extremities, good pulses in all extremities, no swelling or tenderness in the extremities, no edema. Skin: warm, dry, appropriate color, no rash Neuro: speech clear, oriented x 3, normal affect, responds appropriately to questions. Course - Re-evaluation Re-evalutation: 12/11/17 00:25 Patient's chest pain is improved with nitro and aspirin given by the paramedics. Pain has a history of a stent 2013, chest pain today and no cardiac stress test in the last year; therefore, I referred for admission. Spoke with the hospitalist Dr. Smith, hospitalist, who said he would evaluate the patient and determine whether or not he wants to admit the patient or just do a repeat troponin and discharge back to [facility]. - Vital Signs Vital signs: Temp Pulse Resp BP Pulse Ox 98 F 15 142/77 H 97 12/10/17 22:46 12/10/17 23:01 12/10/17 23:01 12/10/17 23:01 - Laboratory Result Diagrams: 12/10/17 23:13 12/10/17 23:13 Laboratory results interpreted by me: 12/10/17 12/10/17 23:13 23:13 RBC 4.30 L Hgb 10.9 L Hct 33.7 L MCV 78 L MCH 25.4 L RDW 16.6 H Glucose 169 H - EKG Interpretation by Me Additional EKG results interpreted by me: 12/10/17 22:48 EKG is reviewed and interpreted by me. EKG shows sinus rhythm with a rate of [address] segment elevation or depression. No ischemic T-wave inversions. PA interval, QRS duration, QTc intervals are within normal range. No old EKG available at this time. Discharge - Discharge Referrals: SHAHEED ROBERTSON MD [Primary Care Provider] - Follow up as needed
[2017-12-10 23:26] LABS: ABSOLUTE LYMPHOCYTES (AUTO) 1.7 10^3/uL (0.5-4.7); ABSOLUTE MONOCYTES (AUTO) 0.6 10^3/uL (0.1-1.4); ABSOLUTE NEUT (AUTO) 3.9 10^3/uL (1.7-8.2); BASOPHILS % (AUTO) 0.4 % (0-2); EOSINOPHILS % (AUTO) 0.7 % (0-6); HEMATOCRIT 33.7 % (37.9-51.0); HEMOGLOBIN 10.9 g/dL (13.5-17.0); LYMPHOCYTES % (AUTO) 27.9 % (13-45); MEAN CORPUSCULAR HEMOGLOBIN 25.4 pg (27.0-33.4); MEAN CORPUSCULAR HGB CONC 32.4 g/dL (32.0-36.0); MEAN CORPUSCULAR VOLUME 78 fl (80-97); PLATELET COUNT 319 10^3/uL (150-450); RED CELL DISTRIBUTION WIDTH 16.6 % (11.5-14.0); TOTAL CELLS COUNTED % (AUTO) 100 %; WHITE BLOOD COUNT 6.2 10^3/uL (4.0-10.5)
[2017-12-10 23:50] LABS: ALANINE AMINOTRANSFERASE 23 U/L (21-72); ALBUMIN 3.6 g/dL (3.5-5.0); ALKALINE PHOSPHATASE 82 U/L (38-126); ANION GAP 13 (5-19); ASPARTATE AMINO TRANSFERASE 19 U/L (17-59); BILIRUBIN,DIRECT 0.3 mg/dL (0.0-0.4); BILIRUBIN,TOTAL 0.4 mg/dL (0.2-1.3); BLOOD UREA NITROGEN 17 mg/dL (7-20); CALCIUM 9.7 mg/dL (8.4-10.2); CARBON DIOXIDE 26 mmol/L (22-30); CHLORIDE 103 mmol/L (98-107); GLUCOSE 169 mg/dL (75-110); POTASSIUM 4.1 mmol/L (3.6-5.0); SODIUM 141.8 mmol/L (137-145); TOTAL PROTEIN 6.4 g/dL (6.3-8.2)
--- NOTE | 2017-12-11 00:30 | RADIOLOGY REPORT (SQ) ---
CXR- 1 VIEW Clinical history: 67-year-old male with chest pain. Comparison: 13 Oct 2017 Technique: 1 view of the chest submitted for review. Findings: The lungs are adequately expanded without evidence of infiltrate and/or effusion. The cardiac silhouette measures within normal. Pulmonary vascularity is unremarkable. Osseous structures are within normal limits for age. Impression: No plain film evidence for acute cardiopulmonary disease.
[2017-12-11] MEDS ORDERED: LACTULOSE SYRUP 20 GM/30 ML UDCUP PO ONE (00:54)
[2017-12-11] MEDS ORDERED: HALOPERIDOL LACTATE INJ 5 MG/1 ML VIAL IV PRN (00:54)
[2017-12-11] MEDS ORDERED: DEXTROSE 50%-WATER 25 GM/50 ML DISP.SYRIN IV PRN ×2 (00:55)
[2017-12-11] MEDS ORDERED: GLUCAGON,HUMAN RECOMB 1 MG INJ IM PRN (00:55)
[2017-12-11] MEDS ORDERED: MAG HYDROX/AL HYDROX/SIMETH SUSP 30 ML UDCUP PO PRN (00:55)
[2017-12-11] MEDS ORDERED: DEXTROSE 40% GEL 15 GM TUBE PO PRN ×2 (00:55)
[2017-12-11] MEDS ORDERED: MAGNESIUM HYDROXIDE SUSP 30 ML UDCUP PO PRN (04:52)
--- NOTE | 2017-12-11 05:00 | PDOC H&P ---
History of Present Illness Admission Date/PCP: 12/11/17 02:09 SHAHEED ROBERTSON Patient complains of: Chest pain History of Present Illness: RADHA BORGES is a 67 [facility] resident with a past medical history of traumatic brain injury, dementia, coronary artery disease, diabetes, chronic pain, depression, anxiety and chronic constipation. Patient presents with 6 hours of intermittent left-sided chest pain described as sharp, nonradiating, 3 out of 5 intensity, unable to identify alleviating or exacerbating factors. In fact the patient is an extremely poor and inconsistent historian. In the emergency room he has an unremarkable workup but given his risk factors is referred to the hospitalist for evaluation. Patient is unaware of his current medication regiment. Past Medical History Cardiac Medical History: Reports: Congestive Heart Failure, Coronary Artery Disease, Myocardial Infarction, Hyperlipidema, Hypertension Pulmonary Medical History: Reports: Bronchitis, Pneumonia, Sleep Apnea - History of; patient not on CPAP. Neurological Medical History: Endocrine Medical History: Reports: Diabetes Mellitus Type 2 Renal/ Medical History: GI Medical History: Reports: Gastroesophageal Reflux Disease Musculoskeltal Medical History: Reports: Arthritis Psychiatric Medical History: Reports: Bipolar Disorder, Dementia, Depression Traumatic Medical History: Reports: Traumatic Brain Injury Hematology: Reports: Anemia Denies: Bleeding Tendencies Past Surgical History Past Surgical History: Reports: Appendectomy, Cardiac Catheterization, Coronary Stent, Orthopedic Surgery - right wrist, right hip Social History Information Source: Emergency [facility] Personnel, [facility] Records Lives with: [facility] Smoking Status: Unknown if Ever Smoked Frequency of Alcohol Use: None - History of alcohol abuse. Hx Recreational Drug Use: No Drugs: None Hx Prescription Drug Abuse: Yes - Advance Directive Resuscitation Status: Full Code Family History Family History: Reviewed & Not Pertinent, CAD, Hypertension Parental Family History Reviewed: Yes - Unknown to patient Children Family History Reviewed: Yes - Unknown to patient Sibling(s) Family History Reviewed.: Yes - Unknown to patient Medication/Allergy Home Medications: Acetaminophen [Tylenol 325 mg Tablet] 650 mg PO Q6HP PRN 09/30/16 Bupropion HCl [Wellbutrin Xl 300mg 24hr Tablet] 300 mg PO DAILY 09/30/16 Clopidogrel Bisulfate [Plavix 75 mg Tablet] 75 mg PO DAILY 09/30/16 Dexlansoprazole [Dexilant 30 mg Capsule] 30 mg PO DAILY 09/30/16 Divalproex Sodium [Depakote Sprinkle 125 mg Capsule] 125 mg PO BID 09/30/16 Duloxetine HCl [Cymbalta 20 mg Capsule.dr] 40 mg PO DAILY 09/30/16 Gabapentin [Neurontin 400 mg Capsule] 400 mg PO BID 09/30/16 Insulin Aspart [Novolog Insulin (Aspart) 100 unit/mL] 0 units SQ .PERSLIDINGSCALE 09/30/16 Insulin Glargine,Hum.rec.anlog [Lantus Insulin 100 Unit/1 ml 10 ml] 55 units SQ QHS 09/30/16 Losartan Potassium [Cozaar 50 mg Tablet] 50 mg PO DAILY 09/30/16 Melatonin/Pyridoxine [Melatonin 3 mg Tablet] 3 mg PO QHS 09/30/16 Metformin HCl [Glucophage XR 500 mg Tablet] 1,000 mg PO BID 09/30/16 Metoprolol Succinate [Toprol Xl 50 mg Tab.sr] 50 mg PO DAILY 09/30/16 Nitroglycerin [Nitrostat 0.4 mg (1/150 Gr) Tabs 25/Bottle] 0.4 mg SL Q5MP PRN Tolterodine Tartrate [Detrol LA] 2 mg PO QAM 09/30/16 Hydralazine HCl [Apresoline 50 mg Tablet] 100 mg PO Q8 tablet 10/04/16 Magnesium Hydroxide [Milk of Magnesia] 30 ml PO Q6HP PRN #0 10/04/16 Alprazolam 1 mg PO BID PRN 12/11/17 Alprazolam [Xanax] 0.5 mg PO BID 12/11/17 Atorvastatin Calcium 20 mg PO HSP PRN 12/11/17 Bifidobacterium Infantis [Align 4 mg Capsule] 4 mg PO BID 12/11/17 Calcium Carbonate [Tums Chewable 500 mg Tab.chew] 500 mg PO BID 12/11/17 Guaifenesin [Robitussin Syrup 200 mg/10 ml Ud Cup] 10 ml PO Q6 PRN 12/11/17 Hydrocodone/Acetaminophen [Wheeler 5-325 mg Tablet] 1 tab PO Q6 12/11/17 Hydrocortisone [Hydrocortisone 0.5% Cream 28.35 gm] 1 applic TD PRN PRN Loratadine [Claritin] 10 mg PO DAILY 12/11/17 Allergies/Adverse Reactions: aspirin Allergy (Verified 12/10/17 23:52) Review of Systems ROS unobtainable: Due to mental status - Inconsistent historian felt unreliable Physical Exam Vital Signs: Temp Pulse Resp BP Pulse Ox 97.3 F 78 18 168/80 H 99 12/11/17 04:00 12/11/17 04:00 12/11/17 04:00 12/11/17 04:00 12/11/17 04:00 Intake & Output 12/09/17 12/10/17 12/11/17 11:59 11:59 11:59 Weight 107.8 kg General appearance: PRESENT: mild distress, obese, well-developed, well- nourished Head exam: PRESENT: atraumatic, normocephalic Eye exam: PRESENT: conjunctiva pink, EOMI, PERRLA. ABSENT: scleral icterus Ear exam: PRESENT: normal external ear exam Mouth exam: PRESENT: moist, tongue midline Neck exam: ABSENT: carotid bruit, JVD, lymphadenopathy, thyromegaly Respiratory exam: PRESENT: clear to auscultation hattie. ABSENT: rales, rhonchi, wheezes Cardiovascular exam: PRESENT: RRR. ABSENT: diastolic murmur, rubs, systolic murmur Pulses: PRESENT: normal dorsalis pedis pul, +1 pedal pulses bilateral Vascular exam: PRESENT: normal capillary refill GI/Abdominal exam: PRESENT: normal bowel sounds, soft. ABSENT: distended, guarding, mass, organolmegaly, rebound, tenderness Rectal exam: PRESENT: deferred Extremities exam: PRESENT: full ROM. ABSENT: calf tenderness, clubbing, pedal edema Neurological exam: PRESENT: alert, awake, oriented to person, oriented to place , oriented to time, oriented to situation, CN II-XII grossly intact. ABSENT: motor sensory deficit Psychiatric exam: PRESENT: appropriate affect, normal mood. ABSENT: homicidal ideation, suicidal ideation Skin exam: PRESENT: dry, intact, warm. ABSENT: cyanosis, rash Assessment & Plan - Diagnosis (1) Chest pain Is this a current diagnosis for this admission?: Yes Plan: Atypical chest pain though the patient's pain is atypical there are multiple risk factors for coronary artery disease and subsequently will observe and evaluation of acute coronary syndrome versus coronary artery disease with anginal equivalents. Cardiac monitoring blood pressure Q6 hours ,TSH, lipid profile, serial cardiac enzymes and cardiac stress test (2) Hyperglycemia due to type 2 diabetes mellitus Is this a current diagnosis for this admission?: Yes Plan: Home regiment with Humalog sliding scale (3) Anxiety and depression Is this a current diagnosis for this admission?: Yes Plan: Limit benzodiazepine continue SSRI, Haldol as needed (4) Hypertension Qualifiers: Is this a current diagnosis for this admission?: Yes Plan: Outpatient regiment with IV hydralazine as needed - Time Time Spent: 30 to 50 Minutes - Inpatient Certification Medical Necessity: Need Close Monitoring Due to Risk of Patient Decompensation
[2017-12-11 05:37] LABS: ANION GAP 12 (5-19); BLOOD UREA NITROGEN 19 mg/dL (7-20); CALCIUM 9.7 mg/dL (8.4-10.2); CARBON DIOXIDE 29 mmol/L (22-30); CHLORIDE 103 mmol/L (98-107); GLUCOSE 151 mg/dL (75-110); SODIUM 143.7 mmol/L (137-145); TRIGLYCERIDES 130 mg/dL (<150)
[2017-12-11 05:47] LABS: CREATINE KINASE MB 1.31 ng/mL (<4.55); DIRECT LDL 61 mg/dL (<100); TROPONIN I 0.018 ng/mL
[2017-12-11] MEDS: HEPARIN SOD (PORCINE) 5,000 UNIT/ML 1 ML SYRINGE SUBCUT SCH ×3 (06:55→21:22)
[2017-12-11] MEDS: HYDRALAZINE HCL 50 MG TABLET PO SCH ×3 (06:55→21:21)
--- NOTE | 2017-12-11 08:24 | EKG REPORT ---
SEVERITY:- BORDERLINE ECG - SINUS RHYTHM PROBABLE LEFT ATRIAL ABNORMALITY BORDERLINE LEFT AXIS DEVIATION : Confirmed by: Eduarda Thomas MD 11-Dec-2017 08:23:50
[2017-12-11] MEDS: NITROGLYCERIN 0.4 MG/TAB 25 TAB/BOTTLE SL PRN (09:55)
[2017-12-11] MEDS ORDERED: MORPHINE SULFATE 10 MG/ML INJ ONE (10:05)
[2017-12-11] MEDS: DIVALPROEX SODIUM 125 MG CAP.SPRINK PO SCH ×2 (10:41→17:16)
[2017-12-11] MEDS: CLOPIDOGREL BISULFATE 75 MG TABLET PO SCH (10:41)
[2017-12-11] MEDS: DOCUSATE SODIUM 100 MG CAPSULE PO SCH ×2 (10:41→17:16)
[2017-12-11] MEDS: METOPROLOL SUCCINATE 50 MG TAB.SR.24H PO SCH (10:42)
[2017-12-11] MEDS: DULOXETINE HCL 20 MG CAPSULE.DR PO SCH (10:42)
[2017-12-11] MEDS: LOSARTAN POTASSIUM 50 MG TABLET PO SCH (10:42)
[2017-12-11 12:10] LABS: CREATINE KINASE MB 1.34 ng/mL (<4.55)
[2017-12-11 12:14] LABS: TROPONIN I < 0.012 ng/mL
[2017-12-11 13:38] LABS: APPEARANCE,URINE CLEAR; BILIRUBIN,URINE NEGATIVE (NEGATIVE); COLOR,URINE YELLOW; GLUCOSE, URINE 150 mg/dL (NEGATIVE); KETONES,URINE NEGATIVE (NEGATIVE); LEUKOCYTE ESTERASE,URINE NEGATIVE (NEGATIVE); NITRITE,URINE NEGATIVE (NEGATIVE); PROTEIN,URINE NEGATIVE (NEGATIVE); URINE SPECIFIC GRAVITY 1.011; UROBILINOGEN,URINE NEGATIVE mg/dL (<2.0)
[2017-12-11] MEDS: ALPRAZOLAM 0.5 MG TABLET PO PRN ×2 (14:30→21:22)
[2017-12-11 17:48] LABS: CREATINE KINASE MB 1.41 ng/mL (<4.55)
[2017-12-11 17:58] LABS: TROPONIN I < 0.012 ng/mL
[2017-12-11] MEDS: ATORVASTATIN CALCIUM 20 MG TABLET PO SCH (21:22)
[2017-12-11] MEDS: INSULIN GLARGINE,HUM.REC.ANLOG 1,000 UNIT/10 ML UNIT SUBCUT SCH (21:22)
[2017-12-11] MEDS: INSULIN LISPRO 100 UNIT/ML 3 ML VIAL SUBCUT PRN (21:36)
[2017-12-11] MEDS ORDERED: INSULIN GLARGINE,HUM.REC.ANLOG 1,000 UNIT/10 ML UNIT SUBCUT SCH (22:00)
[2017-12-12] MEDS: HYDRALAZINE HCL INJ/PF 20 MG/1 ML SDV IV PRN (00:33)
[2017-12-12 05:03] LABS: ANION GAP 13 (5-19); BLOOD UREA NITROGEN 19 mg/dL (7-20); CALCIUM 9.8 mg/dL (8.4-10.2); CARBON DIOXIDE 28 mmol/L (22-30); CHLORIDE 104 mmol/L (98-107); CHOLESTEROL 128.22 mg/dL (0-200); CREATINE KINASE 83 U/L (55-170); GLUCOSE 64 mg/dL (75-110); POTASSIUM 3.9 mmol/L (3.6-5.0); SODIUM 144.8 mmol/L (137-145); TRIGLYCERIDES 145 mg/dL (<150)
[2017-12-12 05:14] LABS: DIRECT LDL 63 mg/dL (<100)
[2017-12-12] MEDS: HEPARIN SOD (PORCINE) 5,000 UNIT/ML 1 ML SYRINGE SUBCUT SCH (06:12)
[2017-12-12] MEDS: HYDRALAZINE HCL 50 MG TABLET PO SCH ×3 (06:12→21:02)
[2017-12-12] MEDS: NITROGLYCERIN 0.4 MG/TAB 25 TAB/BOTTLE SL PRN (07:57)
[2017-12-12] MEDS: ALPRAZOLAM 0.5 MG TABLET PO PRN ×2 (07:57→21:02)
[2017-12-12] MEDS ORDERED: (PENDING PHARMACY ID) (Alprazolam [Alprazolam] 1 MG) PO PRN (10:04)
[2017-12-12] MEDS: DOCUSATE SODIUM 100 MG CAPSULE PO SCH ×2 (10:18→17:25)
[2017-12-12] MEDS: CLOPIDOGREL BISULFATE 75 MG TABLET PO SCH (10:18)
[2017-12-12] MEDS: METOPROLOL SUCCINATE 50 MG TAB.SR.24H PO SCH (10:19)
[2017-12-12] MEDS: DULOXETINE HCL 20 MG CAPSULE.DR PO SCH (10:20)
[2017-12-12] MEDS: LOSARTAN POTASSIUM 50 MG TABLET PO SCH (10:20)
[2017-12-12] MEDS: DIVALPROEX SODIUM 125 MG CAP.SPRINK PO SCH ×2 (10:20→17:25)
[2017-12-12] MEDS ORDERED: NITROGLYCERIN/D5W 50 MG/250 ML RTUINJ IV PRN (12:27)
[2017-12-12] MEDS: INSULIN LISPRO 100 UNIT/ML 3 ML VIAL SUBCUT PRN ×2 (12:35→17:24)
[2017-12-12] MEDS ORDERED: ENOXAPARIN SODIUM INJ 100 MG/1 ML DISP.SYRIN SUBCUT ONE (13:30)
--- NOTE | 2017-12-12 14:43 | RADIOLOGY REPORT (SQ) ---
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 Images reviewed with lung, soft tissue and bone windows. Reconstructed coronal and sagittal MPR images reviewed. Additional 3 dimensional post-processing performed to develop Maximal Intensity Projection images (DE P). All images stored on PACS. All CT scanners at this facility use dose modulation, iterative reconstruction, and/or weight based d osing when appropriate to reduce radiation dose to as low as reasonably achievable (ALARA). [facility]: Dose Right [facility]: CareDose [facility]: Dose Right [facility]: Teradose 4D [facility]: [email or web address] CONTRAST TYPE AND DOSE: contrast/concentration: Isovue 370.00 mg/ml; Total Contrast Delivered: 70.0 ml; Total Saline Delivered: 109.0 ml Contrast bolus optimized for the pulmonary arteries and diagnostic for the aorta. RENAL FUNCTION: Creatinine 1.1 RADIATION DOSE: CT Rad equipment meets quality standard of care and radiation dose reduction techniq ues were employed. CTDIvol: 9.4 - 15.5 mGy. DLP: 606 mGy-cm. . LIMITATIONS: None. FINDINGS: LUNGS AND PLEURA: No masses, infiltrates, or pneumothorax. No pleural effusions or pleura l calcifications. AORTA AND GREAT VESSELS: No aneurysm. Contrast bolus not optimized for the aorta. HEART: No pericardial effusion. No significant coronary artery calcifications. PULMONARY ARTERIES: No emboli visualized in the main pulmonary arteries or the segmental branches. HILAR AND MEDIASTINAL STRUCTURES: No identified masses or abnormal nodes. Tiny hiatal hernia. Mild distal esophageal wall thickening. HARDWARE: None in the chest. UPPER ABDOMEN: No significant findings. Limited exam. THYROID AND OTHER SOFT TISSUES: No masses. No adenopathy. BONES: No acute or significant finding. 3D MIPS: Confirm above findings. OTHER: No other significant finding. IMPRESSION: NORMAL CTA OF THE CHEST. NO PULMONARY EMBOLI. NO THORACIC AORTIC DISSECTION SMALL HIATAL HERNIA WITH MILD DISTAL ESOPHAGEAL WALL THICKENING, COULD CORRELATE WITH REFLUX AND MORRISSEY ETT'S ESOPHAGUS. COMMENT: Quality ID # [id number]: Final reports with documentation of one or more dose reduction techniques (e.g., Automated exposure control, adjustment of the mA and/or kV according to patient size, use of iterative reconstruction technique) TECHNICAL DOCUMENTATION: JOB ID: [id number] [employer]- All Rights Reserved Reading location - IP/workstation name: [facility]
--- NOTE | 2017-12-12 16:18 | PDOC PROGRESS REPORT ---
Subjective Progress Note for:: 12/12/17 Subjective:: The patient is a 67-year-old male with a past medical history significant for TBI, dementia, coronary artery disease, diabetes, chronic pain, depression, anxiety, chronic constipation who is a long-term resident at [facility]; pt was admitted for intermittent atypical chest pain. The patient was seen on morning rounds. He was found resting in bed comfortably on room air. Unfortunately, his stress test was placed on hold again this morning secondary to active chest pain relieved by nitroglycerin. He reports that his chest pain was located in the epigastric region, nonradiating, not associated with additional symptoms, and described as sharp/ stabbing pain. He reports that the pain quickly abated following administration of sublingual nitroglycerin tab. Reason For Visit: CHEST PAIN,ANX DEPRESSION Physical Exam Vital Signs: Temp Pulse Resp BP Pulse Ox 98.7 F 75 13 177/79 H 96 12/12/17 14:48 12/12/17 14:48 12/12/17 14:48 12/12/17 14:48 12/12/17 14:48 Intake & Output 12/11/17 12/12/17 12/13/17 06:59 06:59 06:59 Intake Total 100 910 358 Output Total 1500 700 Balance 100 -590 -342 Weight 108.7 kg 105.6 kg General appearance: PRESENT: no acute distress, cooperative, obese, well- developed, well-nourished Head exam: PRESENT: atraumatic, normocephalic Eye exam: PRESENT: conjunctiva pink, EOMI, PERRLA. ABSENT: scleral icterus Ear exam: PRESENT: normal external ear exam Mouth exam: PRESENT: moist, tongue midline Neck exam: ABSENT: carotid bruit, JVD, lymphadenopathy, thyromegaly Respiratory exam: PRESENT: clear to auscultation hattie. ABSENT: rales, rhonchi, wheezes Cardiovascular exam: PRESENT: RRR. ABSENT: diastolic murmur, rubs, systolic murmur Pulses: PRESENT: normal dorsalis pedis pul Vascular exam: PRESENT: normal capillary refill GI/Abdominal exam: PRESENT: normal bowel sounds, soft. ABSENT: distended, guarding, mass, organolmegaly, rebound, tenderness Rectal exam: PRESENT: deferred Extremities exam: PRESENT: full ROM. ABSENT: calf tenderness, clubbing, pedal edema Neurological exam: PRESENT: alert, awake, oriented to person, oriented to place , oriented to time, oriented to situation, CN II-XII grossly intact, other - Slight speech delay/impediment; baseline per patient. ABSENT: motor sensory deficit Psychiatric exam: PRESENT: appropriate affect, normal mood. ABSENT: homicidal ideation, suicidal ideation Skin exam: PRESENT: dry, intact, warm. ABSENT: cyanosis, rash Results Laboratory Results: 12/12/17 04:10 12/12/17 04:10 Sodium 144.8 Potassium 3.9 Chloride 104 Carbon Dioxide 28 Anion Gap 13 BUN 19 Creatinine 1.11 Est GFR ( Amer) > 60 Est GFR (Non-Af Amer) > 60 Glucose 64 L Calcium 9.8 Triglycerides 145 Cholesterol 128.22 LDL Cholesterol Direct 63 VLDL Cholesterol 29.0 HDL Cholesterol 36 L 12/11/17 12/11/17 12/11/17 05:07 08:15 11:15 Creatine Kinase CK-MB (CK-2) 1.31 1.34 Troponin I 0.018 0.016 < 0.012 12/11/17 12/12/17 16:55 04:10 Creatine Kinase 83 CK-MB (CK-2) 1.41 Troponin I < 0.012 Impressions: Chest/Abdomen CTA 12/12/17 00:00 IMPRESSION: NORMAL CTA OF THE CHEST. NO PULMONARY EMBOLI. NO THORACIC AORTIC DISSECTION SMALL HIATAL HERNIA WITH MILD DISTAL ESOPHAGEAL WALL THICKENING, COULD CORRELATE WITH REFLUX AND PIZANO'S ESOPHAGUS. Assessment & Plan - Diagnosis (1) Chest pain Qualifiers: Chest pain type: unspecified Qualified Code(s): R07.9 - Chest pain, unspecified Is this a current diagnosis for this admission?: Yes Plan: Patient was admitted with atypical chest pain and multiple risk factors including obesity, hypertension, coronary artery disease with previous stenting. EKG demonstrates normal sinus rhythm without ST segment elevation or depression. Troponins negative 5 Lipid panel is acceptable. Chest x-ray benign. CTA of the chest revealed small hiatal hernia and mild distal esophageal wall thickening possibly related to esophagitis/Pizano's esophagus. Cardiology was consulted secondary to continued active chest pain relieved with sublingual nitroglycerin. He was upgraded to IMCU on continuous cardiac telemetry and placed on full dose Lovenox and heparin drip per cardiology's orders. Cardiology has consulted the cardiac catheterization team and he is tentatively scheduled for catheterization on Tuesday. N.p.o. after midnight on Tuesday into Tuesday morning in preparation of catheterization. Continue Plavix and statin therapy. Will ask GI to evaluate the patient for potential GI causes of epigastric chest pain; distal esophageal wall thickening noted on CTA. Understandably, endoscopy may be delayed secondary to planned cardiac catheterization. In the interim, patient is placed on Prevacid twice daily with Maalox as needed. (2) Diabetes mellitus type 2 in obese Is this a current diagnosis for this admission?: Yes Plan: The patient is placed on a consistent carb diet. Accu-Cheks before meals and at bedtime with Humalog for sliding scale coverage. Continue the patient's home dose Lantus 55 units subcu nightly. (3) GERD (gastroesophageal reflux disease) Is this a current diagnosis for this admission?: Yes Plan: Patient with a history of GERD; on Dexilant as outpatient. CTA revealed small hiatal hernia and mild distal esophageal wall thickening possibly related to esophagitis versus Pizano's esophagus. Will ask GI to evaluate the patient for potential GI causes of epigastric chest pain. Understandably, endoscopy may be delayed secondary to planned cardiac catheterization. In the interim, patient is placed on Prevacid twice daily with Maalox as needed. (4) Anxiety and depression Is this a current diagnosis for this admission?: Yes Plan: The patient's home medication regimen is continued; Welbutrin, Depakote, Cymbalta, and Xanax twice daily as needed. IV Haldol twice daily as needed for acute agitation. (5) CAD (coronary artery disease) Qualifiers: Coronary Disease-Associated Artery/Lesion type: [place] artery [place] vs. transplanted heart: [place] heart Associated angina: without angina Qualified Code(s): I25.10 - Atherosclerotic heart disease of [place] coronary artery without angina pectoris Is this a current diagnosis for this admission?: Yes Plan: Plan as above. (6) Hypertension Qualifiers: Hypertension type: essential hypertension Is this a current diagnosis for this admission?: Yes Plan: The patient's home medication regimen is continued; hydralazine 100 mg p.o. every 8 hours, losartan 50 mg daily, Toprol-XL 50 mg daily. IV hydralazine as needed for blood pressure control. Of note, the patient was placed on a nitroglycerin drip today for acute chest pain; will need to monitor blood pressure closely. (7) Chronic anemia Is this a current diagnosis for this admission?: Yes Plan: Patient was admitted with a hemoglobin of 10.9; baseline hemoglobin of 11. Likely chronic in nature when considering indices. No active bleeding. We will continue to monitor with daily CBC. - Time Time Spent with patient: 25-34 minutes Medications reviewed and adjusted accordingly: Yes - Inpatient Certification Based on my medical assessment, after consideration of the patient's comorbidities, presenting symptoms, or acuity I expect that the services needed warrant INPATIENT care.: Yes I certify that my determination is in accordance with my understanding of Medicare's requirements for reasonable and necessary INPATIENT services [42 CFR 412.3e].: Yes Medical Necessity: Need Close Monitoring Due to Risk of Patient Decompensation, Need for Nebulizer Therapy and Monitoring of Response, Need for Surgery - Cardiac catheterization scheduled for 12/14/17
[2017-12-12] MEDS: LANSOPRAZOLE 15 MG TAB.RAP.DR PO SCH (17:25)
--- NOTE | 2017-12-12 19:20 | XCELERA REPORT ---
[address] [address] Transthoracic Echocardiogram Report Name: RADHA BORGES Age: 67 yrs Gender: Male : 1950 Patient Status: Inpatient Patient Location: [address] [place], [place] [address] Study Date: 12/12/2017 02:42 PM Height: 67 in Weight: 232 lb BSA: 2.2 m2 Procedure: A two-dimensional transthoracic echocardiogram with color flow and Doppler was performed. Study Quality: Fair. Reason For Study: CP / CAD History: CP / CAD. Ordering Physician: DADA POSADAS Performed By: Tracy Whitlock Interpretation Summary The left ventricle is normal in size. There is normal left ventricular wall thickness. LV EF is > than 60% Left ventricular systolic function is normal. Doppler measurements suggest impaired left ventricular relaxation, which is associated with grade I/IV or mild diastolic dysfunction The left ventricular wall motion is normal. There is no thrombus. There is no ventricular septal defect visualized. The right ventricle is grossly normal size. The right atrium is normal. The left atrial size is normal. The interatrial septum is intact with no evidence for an atrial septal defect. There is no evidence of mitral valve prolapse. There is no mitral valve stenosis. There is no mitral regurgitation noted. There is no aortic valvular vegetation. There is no aortic valve stenosis There is Aortic Sclerosis without Aortic Stenosis. No aortic regurgitation is present. There is no tricuspid stenosis. There is a trace amount of tricuspid regurgitation Unable to calculate RVSP due to insufficient TR jet. The aortic root is normal size. There is no pericardial effusion. MMode/2D Measurements & Calculations RVDd: 3.5 cm LVIDd: 5.2 cm FS: 34.3 % Ao root diam: 3.3 cm IVSd: 1.0 cm LVIDs: 3.4 cm EDV(Teich): 128.4 ml LVPWd: 1.0 cm ESV(Teich): 47.6 ml Ao root area: 8.8 cm2 EF(Teich): 63.0 % Doppler Measurements & Calculations MV E max shad: MV dec slope: Ao V2 max: LV V1 max P.2 cm/sec 137.8 cm/sec 4.6 mmHg MV A max shad: 256.3 cm/sec2 Ao max PG: LV V1 max: 101.9 cm/sec MV dec time: 7.6 mmHg 107.6 cm/sec MV E/A: 0.73 0.29 sec PA V2 max: 83.7 cm/sec PA max P.8 mmHg Left Ventricle The left ventricle is normal in size. There is normal left ventricular wall thickness. LV EF is > than 60%. Left ventricular systolic function is normal. Doppler measurements suggest impaired left ventricular relaxation, which is associated with grade I/IV or mild diastolic dysfunction. The left ventricular wall motion is normal. There is no thrombus. There is no ventricular septal defect visualized. Right Ventricle The right ventricle is grossly normal size. Atria The right atrium is normal. The left atrial size is normal. The interatrial septum is intact with no evidence for an atrial septal defect. Mitral Valve There is no evidence of mitral valve prolapse. There is no vegetation seen on the mitral valve. There is no mitral valve stenosis. There is no mitral regurgitation noted. Aortic Valve There is no aortic valvular vegetation. There is no aortic valve stenosis. There is Aortic Sclerosis without Aortic Stenosis. No aortic regurgitation is present. Tricuspid Valve There is no tricuspid stenosis. There is a trace amount of tricuspid regurgitation. Unable to calculate RVSP due to insufficient TR jet. Pulmonic Valve There is no pulmonic valvular stenosis. There is no pulmonic valvular regurgitation. Great Vessels The aortic root is normal size. Effusions There is no pericardial effusion. : DADA POSADAS > Dada Posadas
--- NOTE | 2017-12-12 19:26 | EKG REPORT ---
SEVERITY:- OTHERWISE NORMAL ECG - SINUS RHYTHM BORDERLINE LEFT AXIS DEVIATION : Confirmed by: Basil Sanders 12-Dec-2017 19:24:16
[2017-12-12] MEDS: INSULIN GLARGINE,HUM.REC.ANLOG 1,000 UNIT/10 ML UNIT SUBCUT SCH (21:01)
[2017-12-12] MEDS: BUPROPION HCL 100 MG TABLET PO SCH (21:01)
[2017-12-12] MEDS: ENOXAPARIN SODIUM INJ 100 MG/1 ML DISP.SYRIN SUBCUT SCH (21:01)
[2017-12-12] MEDS: ATORVASTATIN CALCIUM 20 MG TABLET PO SCH (21:01)
[2017-12-13] MEDS ORDERED: ACETAMINOPHEN 325 MG TABLET ONE (00:56)
[2017-12-13] MEDS ORDERED: ACETAMINOPHEN 325 MG TABLET PO ONE (01:00)
[2017-12-13 02:09] LABS: APPEARANCE,URINE CLEAR; BILIRUBIN,URINE NEGATIVE (NEGATIVE); COLOR,URINE YELLOW; GLUCOSE, URINE 50 mg/dL (NEGATIVE); KETONES,URINE NEGATIVE (NEGATIVE); LEUKOCYTE ESTERASE,URINE NEGATIVE (NEGATIVE); NITRITE,URINE NEGATIVE (NEGATIVE); PROTEIN,URINE NEGATIVE (NEGATIVE); URINE SPECIFIC GRAVITY 1.034
[2017-12-13] MEDS ORDERED: TRAMADOL HCL 50 MG TABLET PO ONE (04:00)
[2017-12-13 05:05] LABS: HEMATOCRIT 32.7 % (37.9-51.0); HEMOGLOBIN 10.9 g/dL (13.5-17.0); MEAN CORPUSCULAR HEMOGLOBIN 26.1 pg (27.0-33.4); MEAN CORPUSCULAR HGB CONC 33.5 g/dL (32.0-36.0); MEAN CORPUSCULAR VOLUME 78 fl (80-97); PLATELET COUNT 297 10^3/uL (150-450); RED BLOOD COUNT 4.19 10^6/uL (4.35-5.55); RED CELL DISTRIBUTION WIDTH 16.2 % (11.5-14.0); WHITE BLOOD COUNT 6.7 10^3/uL (4.0-10.5)
[2017-12-13] MEDS: LANSOPRAZOLE 15 MG TAB.RAP.DR PO SCH (05:14)
[2017-12-13] MEDS: HYDRALAZINE HCL 50 MG TABLET PO SCH ×3 (05:14→21:32)
[2017-12-13 05:21] LABS: ANION GAP 13 (5-19); BLOOD UREA NITROGEN 23 mg/dL (7-20); CALCIUM 9.4 mg/dL (8.4-10.2); CARBON DIOXIDE 23 mmol/L (22-30); CHLORIDE 105 mmol/L (98-107); GLUCOSE 150 mg/dL (75-110); POTASSIUM 3.9 mmol/L (3.6-5.0); SODIUM 141.4 mmol/L (137-145)
[2017-12-13] MEDS ORDERED: LANSOPRAZOLE 30 MG TAB.RAP.DR PO SCH (06:00)
[2017-12-13] MEDS: ENOXAPARIN SODIUM INJ 100 MG/1 ML DISP.SYRIN SUBCUT SCH ×2 (09:02→21:31)
[2017-12-13] MEDS: INSULIN LISPRO 100 UNIT/ML 3 ML VIAL SUBCUT PRN ×3 (09:06→17:53)
[2017-12-13] MEDS: ACETAMINOPHEN 325 MG TABLET PO PRN ×2 (09:12→23:02)
[2017-12-13] MEDS: METOPROLOL SUCCINATE 50 MG TAB.SR.24H PO SCH (09:14)
[2017-12-13] MEDS: BUPROPION HCL 100 MG TABLET PO SCH ×2 (09:15→21:32)
[2017-12-13] MEDS: LOSARTAN POTASSIUM 50 MG TABLET PO SCH (09:16)
[2017-12-13] MEDS: CLOPIDOGREL BISULFATE 75 MG TABLET PO SCH (09:16)
[2017-12-13] MEDS: DOCUSATE SODIUM 100 MG CAPSULE PO SCH ×2 (09:16→17:53)
[2017-12-13] MEDS: DIVALPROEX SODIUM 125 MG CAP.SPRINK PO SCH ×2 (09:23→17:56)
[2017-12-13] MEDS: DULOXETINE HCL 20 MG CAPSULE.DR PO SCH (09:23)
[2017-12-13] MEDS: ALPRAZOLAM 0.5 MG TABLET PO PRN ×2 (09:25→21:31)
[2017-12-13] MEDS ORDERED: (PENDING PHARMACY ID) (Dexlansoprazole [Dexilant 30 Mg Capsule] 30 MG) PO SCH (10:00)
--- NOTE | 2017-12-13 10:07 | EKG REPORT ---
SEVERITY:- BORDERLINE ECG - SINUS RHYTHM BORDERLINE LEFT AXIS DEVIATION BORDERLINE T ABNORMALITIES, LATERAL LEADS : Confirmed by: Basil Sanders 13-Dec-2017 10:06:15
--- NOTE | 2017-12-13 10:21 | CONSULTATION REPORT E ---
Consultation Report NAME: RADHA BORGES : 1950 AGE: 67Y DATE: 12/12/2017 ROOM: 305 A TO: DADA POSADAS M.D. FROM: COLEMAN BARLOW M.D. Requesting Physician Patient was seen at 10:30 a.m. this morning. REASON FOR CONSULTATION: Recurrent bouts of chest pain consistent with angina. HISTORY: The patient is a 67-year-old male with a past medical history of traumatic brain injury, bipolar disorder, depression, and dementia (although he carries a diagnosis of dementia, patient is awake, alert, oriented x3 at present and answers questions appropriately. He is oriented to person and place and has a good understanding of his disease processes that he has and also can give a good history). He also has a history of coronary artery disease, diabetes mellitus, chronic pain, depression and anxiety, and history of chronic constipation. He was admitted with 6 hours of intermittent left-sided chest pain which he also claims 2 types of pain. One is sharp and nonradiating which comes and goes, and also there is heaviness/tightness in the left front of the chest which increases with exertion, and it lasts about 10 to 15 minutes. He has had some episodes at rest and also some episodes when he walks to the bathroom. This he states is relieved with nitroglycerin sublingually. He was supposed to have a stress test, and the stress test could not be done twice in view of the patient having chest pain at the time of him getting injections for the stress test. Clearly the patient does have symptoms suggestive of unstable angina although there are no major or acute EKG changes. He does have a history of coronary artery disease and in 2012 he states he had a myocardial infarction and subsequently had a stent placed in the mid LAD just beyond the origin of the first diagonal branch. He does have shortness of breath with chest pressure but not otherwise. He has no PND, orthopnea, palpitations, leg edema, dizziness, syncope, or near syncope. There is no history of TIA or CVA symptoms. There is no leg edema. PAST MEDICAL HISTORY: Positive for history of traumatic brain injury, history of bipolar disorder, and history of dementia, although he seems to be fairly lucid and understands his disease processes and the management plans. He has a history of hypertension, history of diabetes mellitus, history of myocardial infarction in the past. He has a history of drug-eluting stent in 2012 in the LAD just beyond the origin of the diagonal; hence, technically a mid LAD lesions. He subsequently had a cath in 2013 which showed that the stent was widely patent and there was mild coronary artery disease. He has a history of diabetes mellitus. There is no history of chronic kidney disease. There is no history of TIA or CVA. There is no history of thyroid disease. PAST SURGICAL HISTORY: Positive for appendectomy, cardiac catheterization, and coronary stent placement. He has had right hip surgery and surgery on his right wrist. ADVANCED DIRECTIVES: THE PATIENT IS A FULL CODE. He unfortunately said that he has only 1 younger brother who is alive but they do not get along and the patient does not want him to make the decision for him. In fact, he has no other person to make surrogate healthcare decisions for him in the event that he becomes incapable of making it. At present, in spite of his diagnosis of dementia, the patient seems to be quite cognizant and understands the risks and benefits of his code status. FAMILY HISTORY: Positive for coronary artery disease and hypertension. ALLERGIES: He is ALLERGIC TO ASPIRIN, and hence he is on Plavix. MEDICATIONS: Include: 1. Xanax 1 mg p.o. b.i.d. p.r.n. 2. He is on atorvastatin 20 mg p.o. at bedtime. 3. He is on Wellbutrin 150 mg p.o. every 12 hours. 4. He is on Plavix 75 mg p.o. daily. 5. He is on hypoglycemic precautions and glucose 40% gel 15 grams and 30 grams respectively p.o. 6. He is on Dextrose 50% 12.5 grams and 25 grams IV p.r.n. hypoglycemia. 7. He is on Glucagon 1 mg IM p.r.n. hypoglycemia. 8. He is on Lovenox 40 mg subcutaneously daily. 9. He is on Cymbalta 40 mg p.o. daily. 10. He is on Depakote 125 mg p.o. b.i.d. 11. He is on Colace 100 mg p.o. b.i.d. 12. He is on Adderall 7.5 mg IV every 12 hours p.r.n. 13. He is on hydralazine 10 mg IV every 6 hours p.r.n. 14. He is on hydralazine 100 mg p.o. every 8 hours. 15. He is on Lantus insulin 55 units subcutaneously at bedtime. 16. He is on Accu-Cheks before meals t.i.d. and at bedtime with sliding-scale insulin coverage. 17. He is on Prevacid 15 mg p.o. b.i.d. 18. He is on Cozaar 50 mg p.o. daily. 19. He is on Maalox Plus 30 mL p.o. every 4 hours p.r.n. 20. He is on magnesium hydroxide 30 mL p.o. every 6 hours p.r.n. 21. He is on metoprolol succinate (that is Toprol XL) 50 mg p.o. daily. REVIEW OF SYSTEMS: CONSTITUTIONAL: Denies any fevers, chills, or rigors. Denies any generalized fatigue or weakness. HEAD: History of traumatic brain injury. No dizziness. EYES: No history of amblyopia or diplopia. No history of amaurosis fugax. EARS: The patient is hard of hearing. There is no tinnitus. There is no recurrent ear infections. NOSE: There is no hay fever. There is no rhinitis. There is no nosebleed. MOUTH: No altered taste sensation. No ulcers in the mouth. No bleeding from the gums. THROAT: No odynophagia or dysphagia. No history of recurrent sore throats. SKIN: No pruritus. No yellowish discoloration of the skin. No psoriasis. No skin cancer. LUNGS: No history of asthma or COPD, although the patient in the past has had pneumonia and bronchitis. He does have sleep apnea but does not use CPAP. He has no history of pulmonary embolism. No history of pleuritic chest pain. Although he has chest pains, it is not pleuritic in nature. He has no hemoptysis. History of sleep apnea; does not use CPAP. CENTRAL NERVOUS SYSTEM: No history of TIA or CVA. History of traumatic brain injury. No history of headaches, migraines, or seizures. PSYCHIATRIC: History of anxiety and depression. History of bipolar disorder. History of mild dementia. VASCULAR: No history of calf or buttock claudication. No DVT. HEMATOLOGICAL: No history of bleeding diatheses. No history of clotting disorders. MUSCULOSKELETAL: He has a history of arthritis but no acute arthritic symptoms. No history of collagen-vascular disease. GASTROINTESTINAL: History of GERD present. No history of GI bleed. No history of peptic ulcer disease. No history of fatty food intolerance or altered bowel movements. No abdominal pain. ENDOCRINE: History of diabetes mellitus, type 2, insulin dependent. No history of polydipsia or polyuria. No history of heat or cold intolerance. No history of thyroid disorder. PHYSICAL EXAMINATION: GENERAL: The patient is mildly obese but well groomed, in no acute distress. VITAL SIGNS: He is afebrile with a temperature of 98.5 degrees Fahrenheit. Pulse is 82 beats per minute. Blood pressure 166/95. Respirations are 14 per minute. O2 sats are 97% on room air. HEENT: Head - Atraumatic and normocephalic. Eyes - Pupils are equal, round, regular, reactive to light and accommodation. Extraocular movements are normal. There is no conjunctival pallor. There is no scleral icterus. Ears - Tympanic membranes are intact. External auditory canals are clear. Nose - There is no deviated nasal septum. There is no inflammation of the nasal mucous membranes. Mouth - Mucous membranes of the mouth are moist. Tongue is moist. There are no ulcers. There is no bleeding from the gums. Throat - There is no redness of the oropharynx. There are no exudates. SKIN: There is no skin rashes. There is no skin lesions. There is no petechia or ecchymosis. NECK: Supple. There is no JVD. Carotids are equal. There is no bruit. There is no lymphadenopathy. There is no goiter. Trachea is central. LUNGS: Clear to auscultation and percussion. There are no rhonchi, rales, or wheezes. There is no chest wall tenderness. HEART: S1, S2 is heard. There is no S3 gallop. There is no S4 gallop. There is a systolic murmur at the left sternal border and the apex. There is no rub. ABDOMEN: Soft, nontender. There is no hepatosplenomegaly. Bowel sounds are well heard. There are no tender areas or masses. EXTREMITIES: Femorals are slightly diminished. There are no femoral bruits. Leg pulses are diminished. There is no pedal edema. There is no cyanosis or clubbing. There is no DVT or cellulitis. There is no calf tenderness. CENTRAL NERVOUS SYSTEM: Patient is conscious, awake, alert, oriented x3 with no focal deficits. PSYCHIATRIC: The patient's judgement and insight at present seem to be intact. DIAGNOSTICS: The patient's chest x-ray shows no acute cardiopulmonary process. I have reviewed the chest x-ray myself. The patient's EKG shows sinus rhythm, borderline left axis deviation, probable left atrial abnormality, no acute changes. His repeat EKG done today shows sinus rhythm, borderline left axis deviation, otherwise normal EKG. The patient's echo preliminary findings show the left ventricle is normal size, there is no wall motion abnormality, LV ejection fraction is 60%. He has mild aortic sclerosis without stenosis. There is no aortic regurgitation. There is no mitral regurgitation. There is no mitral valve prolapse or mitral stenosis. There is trace amount of tricuspid regurgitation. Unable to calculate right ventricular systolic pressure. There is no pericardial effusion. The patient's white count is 6200, hemoglobin is 10.9, hematocrit is 33.7, platelet count is 319,000. The patient's sodium is 144.8, potassium 3.9, chloride 104, CO2 is 28. The patient's BUN is 19, creatinine is 1.11. GFR is greater than 60. His glucose is 64. His triglycerides are 145, his HDL is slightly low at 36, his LDL is good at 63. The patient's cardiac enzymes have been negative x3. The patient's liver function tests are within normal limits. His calcium is 9.7. IMPRESSION: 1. Symptoms suggestive of unstable angina, no evidence of NE. 2. Coronary artery disease. 3. History of NE, history of mid LAD stent (drug-eluting stent in 2012, patent by cath in 2013). 4. Hypertension, not well controlled. 5. Diabetes mellitus. 6. Obstructive sleep apnea, not using CPAP. 7. GERD. 8. Bipolar disorder. 9. Depression. 10. Anxiety. 11. Dyslipidemia. 12. History of traumatic brain injury. RECOMMENDATIONS: Since the patient continues to have chest pain intermittently and we are unable to do a stress test, we will transfer the patient to [facility] telemetry and start the patient on IV nitroglycerin. We will increase the patient's Lovenox to 100 mg subcutaneously every 12 hours (1 mg/kg subcutaneously every 12 hours). Patient is ALLERGIC TO ASPIRIN; hence, we will continue the patient on Plavix. We will continue the patient's Lopressor and hydralazine and his beta sanjeev and hydralazine. We will titrate the patient's nitroglycerin drip. If the patient's blood pressure is not very well controlled then I would increase the patient's Losartan to 50 mg p.o. every 12 hours. We will keep the patient for at least 24 hours on full-dose Lovenox and on IV nitroglycerin and would recommend that the patient have a cardiac catheterization since the patient has been having intermittent chest pain and it is difficult to do a stress test. I have discussed and the patient is aware of the procedure of cardiac catheterization and its mechanics. He is also aware of the benefits and risks of the procedure, including NE, congestive heart failure, arrhythmias, vascular injury/damage, need for CPR, and also the risks of conscious sedation discussed with the patient. I have discussed with the patient that he could have a cardiac catheterization here which we will schedule for him on Tuesday, and if a revascularizable lesion is found then the patient will be transferred to [facility] where he would have it done. The patient is totally agreeable with that, he is fully aware that here at [place] the cath will be only a diagnostic cath. I discussed this with the patient. The patient does not want me to discuss this with his brother. I also discussed with the hospitalist taking care of the patient. Final Installer Inspector nurses are aware of this. I will talk to Dr. Parada who will be doing the catheterization on Tuesday. The patient desires to follow up with me after his discharge; hence, I have given him my cell phone number. Even though I am not refinery operator alkylation, Dr. Sanders will follow the patient tomorrow but I will see the patient socially in the evening. Note, 60 minutes was spent on the patient with more than 50% of the time spent in direct patient care. Note that the patient does not want to see the cardiac catheterization since he says he has had it twice and he is aware of the procedure. Note, medications have been reviewed and medications adjusted. Medical decision making is of high complexity. Also, we will see if the patient can see a dentist to see other forms of treatment for his sleep apnea. DICTATING PHYSICIAN: DADA POSADAS M.D. [id number] PHY#: [id number] ID: [id number] JOB#: [id number] ACCT: [id number] cc:DADA POSADAS M.D. >
[2017-12-13] MEDS ORDERED: LANSOPRAZOLE 30 MG TAB.RAP.DR PO ONE (10:51)
--- NOTE | 2017-12-13 11:31 | PDOC PROGRESS REPORT ---
Subjective Progress Note for:: 12/13/17 Subjective:: Patient seems to be doing better. Pt is denying any chest arm or neck discomfort. Patient denying any PND, orthopnea. Patient denied any sustained palpitations, dizziness, syncope, near syncope. Patient denying any fever chills. Patient denying any other significant discomfort. Patient is maintaining sinus rhythm. EKG obtained this morning and cardiac enzymes were all negative. Review of systems: Rest review of systems negative. Medications: Medications have been reviewed. Reason For Visit: UNSTABLE ANGINA Physical Exam Vital Signs: Temp Pulse Resp BP Pulse Ox 98.6 F 99 20 128/70 H 100 12/13/17 07:29 12/13/17 07:29 12/13/17 07:29 12/13/17 06:00 12/13/17 07:29 Intake & Output 12/12/17 12/13/17 12/14/17 06:59 06:59 06:59 Intake Total 768 Balance 768 Weight 103 kg Exam: GENERAL: well-nourished and in no acute distress. Alert and oriented x3 HEAD: Atraumatic, normocephalic. EYES: Pupils equal round and reactive to light, extraocular movements intact, sclera anicteric, conjunctiva are normal. ENT: TMs normal, nares patent, oropharynx clear without exudates. Moist mucous membranes. No oral ulcerations or bleeding gums noted NECK: supple without lymphadenopathy. Trachea is central. No cervical or axillary lymphadenopathy noted. Carotids are 2+, JVD WNL LUNGS: Respiration seems nonlabored, no significant accessory muscle action noted. Breath sounds clear to auscultation bilaterally and equal noted. No wheezes rales or rhonchi noted. No significant dullness noted on percussion. CHEST: Palpation of the chest wall shows no significant chest wall tenderness. 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 ABDOMEN: Soft, no significant tenderness appreciated, normoactive bowel sounds. No guarding, no rebound. No rigidity noted . No masses appreciated. EXTREMITIES: Pedal pulses are 1-2+, no calf tenderness noted. No clubbing or cyanosis. negative pedal edema noted NEUROLOGICAL: Focused neurological exam showed no significant neurologic deficit. Normal speech, no focal weakness appreciated. Parkinsonian tremors noted. PSYCH: Normal mood, normal affect. Judgment and insight not checked SKIN: No significant ecchymosis, skin is noted to be warm. MUSCULOSKELETAL EXAM: No significant acute joint swelling noted. Results Laboratory Results: 12/13/17 04:16 12/13/17 04:16 12/13/17 12/13/17 12/13/17 01:50 04:16 04:16 WBC 6.7 RBC 4.19 L Hgb 10.9 L Hct 32.7 L MCV 78 L MCH 26.1 L MCHC 33.5 RDW 16.2 H Plt Count 297 Sodium 141.4 Potassium 3.9 Chloride 105 Carbon Dioxide 23 Anion Gap 13 BUN 23 H Creatinine 1.07 Est GFR ( Amer) > 60 Est GFR (Non-Af Amer) > 60 Glucose 150 H Calcium 9.4 Urine Color YELLOW Urine Appearance CLEAR Urine pH 5.0 Ur Specific [place] 1.034 Urine Protein NEGATIVE Urine Glucose (UA) 50 H Urine Ketones NEGATIVE Urine Blood NEGATIVE Urine Nitrite NEGATIVE Ur Leukocyte Esterase NEGATIVE Urine WBC (Auto) 2 Urine RBC (Auto) 1 12/12/17 12/13/17 21:10 04:16 Troponin I < 0.012 < 0.012 EKG Comments: Sinus rhythm, no acute ST-T wave changes are noted Impressions: Chest/Abdomen CTA 12/12/17 00:00 IMPRESSION: NORMAL CTA OF THE CHEST. NO PULMONARY EMBOLI. NO THORACIC AORTIC DISSECTION SMALL HIATAL HERNIA WITH MILD DISTAL ESOPHAGEAL WALL THICKENING, COULD CORRELATE WITH REFLUX AND PIZANO'S ESOPHAGUS. Assessment & Plan - Diagnosis (1) Chest pain Qualifiers: Chest pain type: unspecified Qualified Code(s): R07.9 - Chest pain, unspecified Is this a current diagnosis for this admission?: Yes (2) CAD (coronary artery disease) Qualifiers: Coronary Disease-Associated Artery/Lesion type: tribal artery [place] vs. transplanted heart: tribal heart Associated angina: without angina Qualified Code(s): I25.10 - Atherosclerotic heart disease of tribal coronary artery without angina pectoris Is this a current diagnosis for this admission?: Yes (3) Diabetes mellitus type 2 in obese Is this a current diagnosis for this admission?: Yes (4) GERD (gastroesophageal reflux disease) Qualifiers: Esophagitis presence: with esophagitis Qualified Code(s): K21.0 - Gastro- esophageal reflux disease with esophagitis Is this a current diagnosis for this admission?: Yes (5) Hypertension Qualifiers: Hypertension type: essential hypertension Is this a current diagnosis for this admission?: Yes (6) Personal history of traumatic brain injury Is this a current diagnosis for this admission?: Yes - Notes Notes: Chest pain: Resolved. EKGs and enzymes are negative. Feel that best way would be to risk stratify with a nuclear stress test. This was therefore scheduled. Chest pain most likely felt to be from distal esophagitis based on CT scan report. Have placed patient on double dose proton pump inhibitor. CAD: So far cardiac enzymes and EKG are negative. So far no objective signs of ischemia. Currently chest pain-free. Would advise aggressive risk factor modification and medical management. Diabetes: We will leave management to the hospitalist. Currently being well managed. Gastroesophageal reflux with distal esophagitis: Recommend double dose proton pump inhibitor. Patient was placed on this. Hypertension: Currently stable. Personal history of traumatic brain injury: Patient is showing some signs of Parkinson's tremors. Patient will benefit from weight loss, evaluation for sleep apnea etc. if clinically indicated. - Time Time with patient: Greater than 35 minutes - Nuclear stress test scheduled. More than 50% of the time spent coordinating care, discussing management plans with involved caregivers. Management plans discussed with involved personnels. Medical decision making was of moderate to high complexity, patient's has multiple comorbidities. Medications reviewed and adjusted accordingly: Yes
[2017-12-13] MEDS ORDERED: ISOSORBIDE MONONITRATE 60 MG TAB.ER.24H PO ONE (12:00)
--- NOTE | 2017-12-13 13:39 | PDOC CONSULTATION ---
Consultation Consult Date: 12/13/17 Attending physician:: HERNANDO ARIZMENDI Consult reason:: chest pain History of Present Illness Admission Date/PCP: 12/12/17 16:16 SHAHEED ROBERTSON History of Present Illness: RADHA BORGES is a 67 year old male Asked to see this patient to rule out possible GI etiology for his chest pain however has clearly more cardiac relate issues and is currently awaiting cardiac cath and is on a heparin drip chest pain is relieved by Nitro patient does have an epigastric component that is post prandial however GI work up only to proceed if cardiac cath is negative patient can be on a PPI drip if cardiac cath is negative, can schedule for EGD to rule out for peptic ulcer disease no overt signs of bleeding there is no nausea or vomiting denies any early satiety Past Medical History Cardiac Medical History: Reports: Congestive Heart Failure, Coronary Artery Disease, Myocardial Infarction, Hyperlipidema, Hypertension Pulmonary Medical History: Reports: Bronchitis, Pneumonia, Sleep Apnea - History of; patient not on CPAP. Neurological Medical History: Endocrine Medical History: Reports: Diabetes Mellitus Type 2 Renal/ Medical History: GI Medical History: Reports: Gastroesophageal Reflux Disease Musculoskeltal Medical History: Reports: Arthritis Psychiatric Medical History: Reports: Bipolar Disorder, Dementia, Depression Traumatic Medical History: Reports: Traumatic Brain Injury Hematology: Reports: Anemia Denies: Bleeding Tendencies Past Surgical History Past Surgical History: Reports: Appendectomy, Cardiac Catheterization, Coronary Stent, Orthopedic Surgery - right wrist, right hip Social History Lives with: [facility] Smoking Status: Unknown if Ever Smoked Last Time Smoked: unknown Frequency of Alcohol Use: None - History of alcohol abuse. Hx Recreational Drug Use: No Drugs: None Hx Prescription Drug Abuse: Yes - Advance Directive Resuscitation Status: Full Code Family History Family History: Reviewed & Not Pertinent, CAD, Hypertension Parental Family History Reviewed: Yes Children Family History Reviewed: Unknown Sibling(s) Family History Reviewed.: Unknown Medication/Allergy Home Medications: Acetaminophen [Tylenol 325 mg Tablet] 650 mg PO Q6HP PRN 09/30/16 Bupropion HCl [Wellbutrin Xl 300mg 24hr Tablet] 300 mg PO DAILY 09/30/16 Clopidogrel Bisulfate [Plavix 75 mg Tablet] 75 mg PO DAILY 09/30/16 Dexlansoprazole [Dexilant 30 mg Capsule] 30 mg PO DAILY 09/30/16 Divalproex Sodium [Depakote Sprinkle 125 mg Capsule] 125 mg PO BID 09/30/16 Duloxetine HCl [Cymbalta 20 mg Capsule.dr] 40 mg PO DAILY 09/30/16 Gabapentin [Neurontin 400 mg Capsule] 400 mg PO BID 09/30/16 Insulin Aspart [Novolog Insulin (Aspart) 100 unit/mL] 0 units SQ .PERSLIDINGSCALE 09/30/16 Insulin Glargine,Hum.rec.anlog [Lantus Insulin 100 Unit/1 ml 10 ml] 55 units SQ QHS 09/30/16 Losartan Potassium [Cozaar 50 mg Tablet] 50 mg PO DAILY 09/30/16 Melatonin/Pyridoxine [Melatonin 3 mg Tablet] 3 mg PO QHS 09/30/16 Metformin HCl [Glucophage XR 500 mg Tablet] 1,000 mg PO BID 09/30/16 Metoprolol Succinate [Toprol Xl 50 mg Tab.sr] 50 mg PO DAILY 09/30/16 Nitroglycerin [Nitrostat 0.4 mg (1/150 Gr) Tabs 25/Bottle] 0.4 mg SL Q5MP PRN Tolterodine Tartrate [Detrol LA] 2 mg PO QAM 09/30/16 Hydralazine HCl [Apresoline 50 mg Tablet] 100 mg PO Q8 tablet 10/04/16 Alprazolam 1 mg PO BID PRN 12/11/17 Alprazolam [Xanax] 0.5 mg PO BID 12/11/17 Atorvastatin Calcium 20 mg PO QHS 12/11/17 Bifidobacterium Infantis [Align 4 mg Capsule] 4 mg PO BID 12/11/17 Calcium Carbonate [Tums Chewable 500 mg Tab.chew] 500 mg PO BID 12/11/17 Guaifenesin [Robitussin Syrup 200 mg/10 ml Ud Cup] 10 ml PO Q6HP PRN 12/11/17 Hydrocodone/Acetaminophen [[place] 5-325 mg Tablet] 1 tab PO Q6 12/11/17 Hydrocortisone [Hydrocortisone 0.5% Cream 28.35 gm] 1 applic TD PRN PRN Loratadine [Claritin] 10 mg PO DAILY 12/11/17 Magnesium Hydroxide [Milk of Magnesia 30 ml Udcup] 30 ml PO Q6HP PRN 12/11/17 Allergies/Adverse Reactions: aspirin Allergy (Verified 12/10/17 23:52) Review of Systems Constitutional: ABSENT: fever(s), headache(s), night sweats Eyes: ABSENT: visual disturbances Ears: ABSENT: hearing changes Nose, Mouth, and Throat: ABSENT: mouth pain Cardiovascular: ABSENT: edema, orthropnea Respiratory: ABSENT: dyspnea, hemoptysis Gastrointestinal: ABSENT: dysphagia, nausea, vomiting Genitourinary: ABSENT: dysuria, hematuria Musculoskeletal: ABSENT: deformity Integumentary: ABSENT: pruritus Neurological: ABSENT: syncope, tingling, tremor(s), vertigo Endocrine: ABSENT: polydipsia, polyphagia, polyuria Hematologic/Lymphatic: ABSENT: easy bruising Physical Exam Vital Signs: Temp Pulse Resp BP Pulse Ox 97.7 F 75 20 128/70 H 97 12/13/17 11:58 12/13/17 11:58 12/13/17 11:58 12/13/17 06:00 12/13/17 11:58 Intake & Output 12/12/17 12/13/17 12/14/17 06:59 06:59 06:59 Intake Total 768 120 Balance 768 120 Weight 103 kg General appearance: PRESENT: cooperative, well-developed, well-nourished Head exam: PRESENT: atraumatic, normocephalic Eye exam: PRESENT: EOMI, PERRLA. ABSENT: nystagmus, periorbital swelling, scleral icterus Mouth exam: PRESENT: moist, neck supple Throat exam: ABSENT: tonsillar exudate, tonsillogmegaly Neck exam: ABSENT: meningismus, tenderness, thyromegaly Respiratory exam: PRESENT: symmetrical, unlabored. ABSENT: tachypnea, wheezes Cardiovascular exam: PRESENT: RRR, +S1, +S2 GI/Abdominal exam: PRESENT: soft. ABSENT: rebound, rigid, tenderness Extremities exam: ABSENT: joint swelling Musculoskeletal exam: PRESENT: full ROM Neurological exam: PRESENT: alert, awake, oriented to time, oriented to situation, CN II-XII grossly intact Psychiatric exam: PRESENT: appropriate affect Focused psych exam: ABSENT: restlessness Skin exam: PRESENT: normal color. ABSENT: mottled, pallor, petechiae, urticaria , vesicles Results Laboratory Results: 12/13/17 04:16 12/13/17 04:16 12/13/17 12/13/17 12/13/17 01:50 04:16 04:16 WBC 6.7 RBC 4.19 L Hgb 10.9 L Hct 32.7 L MCV 78 L MCH 26.1 L MCHC 33.5 RDW 16.2 H Plt Count 297 Sodium 141.4 Potassium 3.9 Chloride 105 Carbon Dioxide 23 Anion Gap 13 BUN 23 H Creatinine 1.07 Est GFR ( Amer) > 60 Est GFR (Non-Af Amer) > 60 Glucose 150 H Calcium 9.4 Urine Color YELLOW Urine Appearance CLEAR Urine pH 5.0 Ur Specific [place] 1.034 Urine Protein NEGATIVE Urine Glucose (UA) 50 H Urine Ketones NEGATIVE Urine Blood NEGATIVE Urine Nitrite NEGATIVE Ur Leukocyte Esterase NEGATIVE Urine WBC (Auto) 2 Urine RBC (Auto) 1 12/12/17 12/13/17 21:10 04:16 Troponin I < 0.012 < 0.012 Impressions: Chest/Abdomen CTA 12/12/17 00:00 IMPRESSION: NORMAL CTA OF THE CHEST. NO PULMONARY EMBOLI. NO THORACIC AORTIC DISSECTION SMALL HIATAL HERNIA WITH MILD DISTAL ESOPHAGEAL WALL THICKENING, COULD CORRELATE WITH REFLUX AND PIZANO'S ESOPHAGUS. Assessment & Plan - Diagnosis (1) Chest pain Qualifiers: Chest pain type: unspecified Qualified Code(s): R07.9 - Chest pain, unspecified Is this a current diagnosis for this admission?: Yes Plan: awaiting cath on heparin drip if negative, will need EGD rule out peptic ulcer disease Risks, benefits and alternatives are discussed further recommendations to follow continue PPI for now - Time Time Spent: 50 to 70 Minutes
--- NOTE | 2017-12-13 16:54 | PDOC PROGRESS REPORT ---
Subjective Progress Note for:: 12/13/17 Subjective:: The patient is a 67-year-old male with a past medical history significant for TBI, dementia, coronary artery disease, diabetes, chronic pain, depression, anxiety, chronic constipation who is a long-term resident at [facility]; pt was admitted for intermittent atypical chest pain. The patient was seen on afternoon rounds. He was found sitting up to the edge of his bed comfortably on room air, preparing to eat lunch. He reports continued epigastric chest pain, nonradiating, described as "dull" and not associated with additional symptoms. The patient denies fever, chills, headache, dizziness, palpitations, dyspnea, orthopnea, cough, abdominal pain, nausea vomiting and diarrhea. 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 Reason For Visit: UNSTABLE ANGINA Physical Exam Vital Signs: Temp Pulse Resp BP Pulse Ox 97.7 F 75 20 116/73 97 12/13/17 11:58 12/13/17 11:58 12/13/17 11:58 12/13/17 11:00 12/13/17 11:58 Intake & Output 12/12/17 12/13/17 12/14/17 06:59 06:59 06:59 Intake Total 768 120 Balance 768 120 Weight 103 kg General appearance: PRESENT: no acute distress, well-developed, well-nourished Head exam: PRESENT: atraumatic, normocephalic Eye exam: PRESENT: conjunctiva pink, EOMI, PERRLA. ABSENT: scleral icterus Ear exam: PRESENT: normal external ear exam Mouth exam: PRESENT: moist, tongue midline Neck exam: ABSENT: carotid bruit, JVD, lymphadenopathy, thyromegaly Respiratory exam: PRESENT: clear to auscultation hattie, symmetrical, unlabored. ABSENT: rales, rhonchi, wheezes Cardiovascular exam: PRESENT: RRR, +S1, +S2. ABSENT: diastolic murmur, rubs, systolic murmur Pulses: PRESENT: normal dorsalis pedis pul Vascular exam: PRESENT: normal capillary refill GI/Abdominal exam: PRESENT: normal bowel sounds, soft. ABSENT: distended, guarding, mass, organolmegaly, rebound, tenderness Rectal exam: PRESENT: deferred Extremities exam: PRESENT: full ROM. ABSENT: calf tenderness, clubbing, pedal edema Neurological exam: PRESENT: alert, awake, oriented to person, oriented to place , oriented to time, oriented to situation, CN II-XII grossly intact, other - Slight confusion, competent for medicaldecision-making. ABSENT: motor sensory deficit Psychiatric exam: PRESENT: appropriate affect, normal mood. ABSENT: homicidal ideation, suicidal ideation Skin exam: PRESENT: dry, intact, warm. ABSENT: cyanosis, rash Results Laboratory Results: 12/13/17 04:16 12/13/17 04:16 12/13/17 12/13/17 12/13/17 01:50 04:16 04:16 WBC 6.7 RBC 4.19 L Hgb 10.9 L Hct 32.7 L MCV 78 L MCH 26.1 L MCHC 33.5 RDW 16.2 H Plt Count 297 Sodium 141.4 Potassium 3.9 Chloride 105 Carbon Dioxide 23 Anion Gap 13 BUN 23 H Creatinine 1.07 Est GFR ( Amer) > 60 Est GFR (Non-Af Amer) > 60 Glucose 150 H Calcium 9.4 Urine Color YELLOW Urine Appearance CLEAR Urine pH 5.0 Ur Specific [place] 1.034 Urine Protein NEGATIVE Urine Glucose (UA) 50 H Urine Ketones NEGATIVE Urine Blood NEGATIVE Urine Nitrite NEGATIVE Ur Leukocyte Esterase NEGATIVE Urine WBC (Auto) 2 Urine RBC (Auto) 1 12/12/17 12/13/17 21:10 04:16 Troponin I < 0.012 < 0.012 Impressions: Chest/Abdomen CTA 12/12/17 00:00 IMPRESSION: NORMAL CTA OF THE CHEST. NO PULMONARY EMBOLI. NO THORACIC AORTIC DISSECTION SMALL HIATAL HERNIA WITH MILD DISTAL ESOPHAGEAL WALL THICKENING, COULD CORRELATE WITH REFLUX AND PIZAON'S ESOPHAGUS. Assessment & Plan - Diagnosis (1) Chest pain Qualifiers: Chest pain type: unspecified Qualified Code(s): R07.9 - Chest pain, unspecified Is this a current diagnosis for this admission?: Yes Plan: Patient was admitted with atypical chest pain and multiple risk factors including obesity, hypertension, coronary artery disease with previous stenting. EKG demonstrates normal sinus rhythm without ST segment elevation or depression. Troponins negative 7 Lipid panel is acceptable. Chest x-ray benign. CTA of the chest revealed small hiatal hernia and mild distal esophageal wall thickening possibly related to esophagitis/Pizano's esophagus. Cardiology was consulted secondary to continued active chest pain relieved with sublingual nitroglycerin. He was upgraded to IMCU on continuous cardiac telemetry and placed on full dose Lovenox and heparin drip yesterday. Cardiology is now weaning off heparin drip with plan to reattempt stress test tomorrow morning. Per cardiology's orders. N.p.o. after midnight on Tuesday into Tuesday morning in preparation of stress test. Continue Plavix and statin therapy. Plan of care discussed with Dr. Sanders. Will ask GI to evaluate the patient for potential GI causes of epigastric chest pain; distal esophageal wall thickening noted on CTA. Plan for EGD once cleared by cardiology. Continue Prevacid twice daily with Maalox as needed. Plan of care discussed with Dr. Wills. (2) Diabetes mellitus type 2 in obese Is this a current diagnosis for this admission?: Yes Plan: The patient is placed on a consistent carb diet. Accu-Cheks before meals and at bedtime with Humalog for sliding scale coverage. Continue the patient's home dose Lantus 55 units subcu nightly. (3) GERD (gastroesophageal reflux disease) Qualifiers: Esophagitis presence: with esophagitis Qualified Code(s): K21.0 - Gastro- esophageal reflux disease with esophagitis Is this a current diagnosis for this admission?: Yes Plan: Patient with a history of GERD; on Dexilant as outpatient. CTA revealed small hiatal hernia and mild distal esophageal wall thickening possibly related to esophagitis versus Pizano's esophagus. Will ask GI to evaluate the patient for potential GI causes of epigastric chest pain. Plan for EGD once cleared by cardiology. Continue Prevacid twice daily with Maalox as needed. (4) Anxiety and depression Is this a current diagnosis for this admission?: Yes Plan: The patient's home medication regimen is continued; Welbutrin, Depakote, Cymbalta, and Xanax twice daily as needed. IV Haldol twice daily as needed for acute agitation. (5) CAD (coronary artery disease) Qualifiers: Coronary Disease-Associated Artery/Lesion type: [place] artery [place] vs. transplanted heart: [place] heart Associated angina: without angina Qualified Code(s): I25.10 - Atherosclerotic heart disease of [place] coronary artery without angina pectoris Is this a current diagnosis for this admission?: Yes Plan: Plan as above. (6) Hypertension Qualifiers: Hypertension type: essential hypertension Is this a current diagnosis for this admission?: Yes Plan: Normotensive at present. The patient's home medication regimen is continued; hydralazine 100 mg p.o. every 8 hours, losartan 50 mg daily, Toprol-XL 50 mg daily. IV hydralazine as needed for blood pressure control. (7) Chronic anemia Is this a current diagnosis for this admission?: Yes Plan: Patient was admitted with a hemoglobin of 10.9; baseline hemoglobin of 11. Likely chronic in nature when considering indices. No active bleeding. Hgb stable. We will continue to monitor with daily CBC. - Time Time Spent with patient: 25-34 minutes Medications reviewed and adjusted accordingly: Yes
[2017-12-13] MEDS: LANSOPRAZOLE 30 MG TAB.RAP.DR PO SCH (17:53)
[2017-12-13] MEDS: INSULIN GLARGINE,HUM.REC.ANLOG 1,000 UNIT/10 ML UNIT SUBCUT SCH (21:31)
[2017-12-13] MEDS: ATORVASTATIN CALCIUM 20 MG TABLET PO SCH (21:32)
[2017-12-14 04:51] LABS: HEMATOCRIT 33.8 % (37.9-51.0); HEMOGLOBIN 11.3 g/dL (13.5-17.0); MEAN CORPUSCULAR HEMOGLOBIN 25.9 pg (27.0-33.4); MEAN CORPUSCULAR HGB CONC 33.4 g/dL (32.0-36.0); MEAN CORPUSCULAR VOLUME 78 fl (80-97); PLATELET COUNT 310 10^3/uL (150-450); RED BLOOD COUNT 4.36 10^6/uL (4.35-5.55); RED CELL DISTRIBUTION WIDTH 16.2 % (11.5-14.0); WHITE BLOOD COUNT 7.1 10^3/uL (4.0-10.5)
[2017-12-14 05:14] LABS: ANION GAP 15 (5-19); BLOOD UREA NITROGEN 22 mg/dL (7-20); CALCIUM 9.7 mg/dL (8.4-10.2); CARBON DIOXIDE 24 mmol/L (22-30); CHLORIDE 104 mmol/L (98-107); GLUCOSE 52 mg/dL (75-110); POTASSIUM 3.5 mmol/L (3.6-5.0); SODIUM 143.2 mmol/L (137-145)
[2017-12-14] MEDS: LANSOPRAZOLE 30 MG TAB.RAP.DR PO SCH ×2 (05:45→17:38)
[2017-12-14] MEDS: HYDRALAZINE HCL 50 MG TABLET PO SCH ×3 (05:46→21:46)
--- NOTE | 2017-12-14 08:07 | Progress Note ---
Provider Note Provider Note: patient is now scheduled for stress test instead of cath. It appears that there is no consensus among the Cardiology service if negative, can schedule for EGD will wait on results
--- NOTE | 2017-12-14 09:22 | EKG REPORT ---
SEVERITY:- ABNORMAL ECG - SINUS RHYTHM NONSPECIFIC INTRAVENTRICULAR CONDUCTION DELAY PROBABLE LEFT VENTRICULAR HYPERTROPHY : Confirmed by: Basil Sanders 14-Dec-2017 09:21:31
[2017-12-14] MEDS: ENOXAPARIN SODIUM INJ 100 MG/1 ML DISP.SYRIN SUBCUT SCH ×2 (11:01→21:46)
[2017-12-14] MEDS: LOSARTAN POTASSIUM 50 MG TABLET PO SCH (11:02)
[2017-12-14] MEDS: DOCUSATE SODIUM 100 MG CAPSULE PO SCH ×2 (11:03→17:38)
[2017-12-14] MEDS: METOPROLOL SUCCINATE 50 MG TAB.SR.24H PO SCH (11:03)
[2017-12-14] MEDS: BUPROPION HCL 100 MG TABLET PO SCH ×2 (11:03→21:54)
[2017-12-14] MEDS: DIVALPROEX SODIUM 125 MG CAP.SPRINK PO SCH ×2 (11:04→17:38)
[2017-12-14] MEDS: DULOXETINE HCL 20 MG CAPSULE.DR PO SCH (11:04)
[2017-12-14] MEDS: CLOPIDOGREL BISULFATE 75 MG TABLET PO SCH (11:04)
[2017-12-14] MEDS: ALPRAZOLAM 0.5 MG TABLET PO PRN (11:09)
--- NOTE | 2017-12-14 11:50 | PDOC PROGRESS REPORT ---
Subjective Progress Note for:: 12/14/17 Subjective:: The patient is a 67-year-old male with a past medical history significant for TBI, dementia, coronary artery disease, diabetes, chronic pain, depression, anxiety, chronic constipation who is a long-term resident at [facility]; pt was admitted for intermittent atypical chest pain. The patient was seen on morning rounds. He is found resting in bed comfortably on room air. He was able to have the injection for the nuclear stress test this morning. He states that he has not had any chest pain since yesterday afternoon; of note, Dr. Sanders did double his PPI medication yesterday. The patient has no concerns or complaints today and denies fever, headache, chest pain, palpitations, abdominal pain, nausea vomiting and diarrhea. No concerns per nursing. Reason For Visit: UNSTABLE ANGINA Physical Exam Vital Signs: Temp Pulse Resp BP Pulse Ox 98.2 F 84 18 158/71 H 99 12/14/17 07:30 12/14/17 07:30 12/14/17 07:30 12/14/17 07:30 12/14/17 07:30 Intake & Output 12/13/17 12/14/17 12/15/17 06:59 06:59 06:59 Intake Total 768 1508 Output Total 150 Balance 768 1358 Weight 103 kg 104.6 kg General appearance: PRESENT: no acute distress, cooperative, well-developed, well-nourished, other - Overweight Head exam: PRESENT: atraumatic, normocephalic Eye exam: PRESENT: conjunctiva pink, EOMI, PERRLA. ABSENT: scleral icterus Ear exam: PRESENT: normal external ear exam Mouth exam: PRESENT: moist, tongue midline Neck exam: ABSENT: carotid bruit, JVD, lymphadenopathy, thyromegaly Respiratory exam: PRESENT: clear to auscultation hattie. ABSENT: rales, rhonchi, wheezes Cardiovascular exam: PRESENT: RRR, +S1, +S2, systolic murmur. ABSENT: diastolic murmur, rubs Pulses: PRESENT: normal dorsalis pedis pul Vascular exam: PRESENT: normal capillary refill GI/Abdominal exam: PRESENT: normal bowel sounds, soft. ABSENT: distended, guarding, mass, organolmegaly, rebound, tenderness Rectal exam: PRESENT: deferred Extremities exam: PRESENT: full ROM. ABSENT: calf tenderness, clubbing, pedal edema Neurological exam: PRESENT: alert, awake, oriented to person, oriented to place , oriented to time, oriented to situation, CN II-XII grossly intact. ABSENT: motor sensory deficit Psychiatric exam: PRESENT: appropriate affect, normal mood. ABSENT: homicidal ideation, suicidal ideation Skin exam: PRESENT: dry, intact, warm. ABSENT: cyanosis, rash Results Laboratory Results: 12/14/17 04:07 12/14/17 04:07 12/14/17 12/14/17 04:07 04:07 WBC 7.1 RBC 4.36 Hgb 11.3 L Hct 33.8 L MCV 78 L MCH 25.9 L MCHC 33.4 RDW 16.2 H Plt Count 310 Sodium 143.2 Potassium 3.5 L Chloride 104 Carbon Dioxide 24 Anion Gap 15 BUN 22 H Creatinine 1.16 Est GFR ( Amer) > 60 Est GFR (Non-Af Amer) > 60 Glucose 52 L Calcium 9.7 12/12/17 12/13/17 21:10 04:16 Troponin I < 0.012 < 0.012 Impressions: Chest/Abdomen CTA 12/12/17 00:00 IMPRESSION: NORMAL CTA OF THE CHEST. NO PULMONARY EMBOLI. NO THORACIC AORTIC DISSECTION SMALL HIATAL HERNIA WITH MILD DISTAL ESOPHAGEAL WALL THICKENING, COULD CORRELATE WITH REFLUX AND PIZANO'S ESOPHAGUS. Assessment & Plan - Diagnosis (1) Chest pain Qualifiers: Chest pain type: unspecified Qualified Code(s): R07.9 - Chest pain, unspecified Is this a current diagnosis for this admission?: Yes Plan: Patient was admitted with atypical chest pain and multiple risk factors including obesity, hypertension, coronary artery disease with previous stenting. EKG demonstrates normal sinus rhythm without ST segment elevation or depression. Troponins negative 7 Lipid panel is acceptable. Chest x-ray benign. CTA of the chest revealed small hiatal hernia and mild distal esophageal wall thickening possibly related to esophagitis/Pizano's esophagus. Cardiology was consulted; appreciate their evaluation recommendations. The patient has completed the first portion of nuclear stress testing already this morning. No chest pain since yesterday afternoon. Continue Plavix and statin therapy. Remains on full dose Lovenox. Plan of care discussed with Dr. Sanders. Will ask GI to evaluate the patient for potential GI causes of epigastric chest pain; distal esophageal wall thickening noted on CTA. Plan for EGD once cleared by cardiology. Continue Prevacid twice daily with Maalox as needed. Plan of care discussed with Dr. Wills. (2) Diabetes mellitus type 2 in obese Is this a current diagnosis for this admission?: Yes Plan: Hypoglycemia overnight; Glucose 63. However, the patient was fasting in preparation for stress testing. Otherwise, lowest fasting blood sugar is 79 with 150 being the average. The patient is placed on a consistent carb diet. Accu-Cheks before meals and at bedtime with Humalog for sliding scale coverage. Continue the patient's home dose Lantus 55 units subcu nightly. (3) GERD (gastroesophageal reflux disease) Qualifiers: Esophagitis presence: with esophagitis Qualified Code(s): K21.0 - Gastro- esophageal reflux disease with esophagitis Is this a current diagnosis for this admission?: Yes Plan: Patient with a history of GERD; on Dexilant as outpatient. CTA revealed small hiatal hernia and mild distal esophageal wall thickening possibly related to esophagitis versus Pizano's esophagus. Will ask GI to evaluate the patient for potential GI causes of epigastric chest pain. Plan for EGD once cleared by cardiology. Continue Prevacid twice daily with Maalox as needed. (4) Anxiety and depression Is this a current diagnosis for this admission?: Yes Plan: The patient's home medication regimen is continued; Welbutrin, Depakote, Cymbalta, and Xanax twice daily as needed. IV Haldol twice daily as needed for acute agitation. (5) CAD (coronary artery disease) Qualifiers: Coronary Disease-Associated Artery/Lesion type: [place] artery [place] vs. transplanted heart: [place] heart Associated angina: without angina Qualified Code(s): I25.10 - Atherosclerotic heart disease of [place] coronary artery without angina pectoris Is this a current diagnosis for this admission?: Yes Plan: Plan as above. (6) Hypertension Qualifiers: Hypertension type: essential hypertension Is this a current diagnosis for this admission?: Yes Plan: The patient's home medication regimen is continued; hydralazine 100 mg p.o. every 8 hours, losartan 50 mg daily, Toprol-XL 50 mg daily. IV hydralazine as needed for blood pressure control. (7) Chronic anemia Is this a current diagnosis for this admission?: Yes Plan: Likely chronic in nature when considering indices. No active bleeding. Hgb stable. We will continue to monitor with daily CBC. Will check anemia panel with a.m. labs. - Time Time Spent with patient: 15-24 minutes
--- NOTE | 2017-12-14 12:30 | PDOC PROGRESS REPORT ---
Subjective Progress Note for:: 12/14/17 Subjective:: patient undergoing cardiac work up Dr Sanders has increased his PPI does this SHOULD NOT be done as there is no clear evidence that double dosing on a PPI will be any more effective than single daily dosing any way patient is not able to get any GI work up pending the results of his stress test previously scheduled for cath by another scheduler conveyor, however the work up has now changed will defer EGD until tomorrow does have epigastric discomfort Reason For Visit: UNSTABLE ANGINA Physical Exam Vital Signs: Temp Pulse Resp BP Pulse Ox 98.6 F 95 17 166/80 H 96 12/14/17 11:27 12/14/17 11:27 12/14/17 11:27 12/14/17 11:27 12/14/17 11:27 Intake & Output 12/13/17 12/14/17 12/15/17 06:59 06:59 06:59 Intake Total 768 1508 Output Total 150 Balance 768 1358 Weight 103 kg 104.6 kg General appearance: PRESENT: no acute distress, well-developed, well-nourished Head exam: PRESENT: atraumatic, normocephalic Eye exam: PRESENT: EOMI, PERRLA. ABSENT: nystagmus, scleral icterus Mouth exam: PRESENT: moist, neck supple Throat exam: ABSENT: tonsillar exudate, tonsillogmegaly Neck exam: ABSENT: meningismus, tenderness, thyromegaly Respiratory exam: PRESENT: symmetrical, unlabored. ABSENT: tachypnea, wheezes Cardiovascular exam: PRESENT: RRR, +S1, +S2 GI/Abdominal exam: PRESENT: soft. ABSENT: rebound, rigid, tenderness Extremities exam: ABSENT: joint swelling Musculoskeletal exam: PRESENT: full ROM Neurological exam: PRESENT: oriented to time, oriented to situation, CN II-XII grossly intact Focused psych exam: ABSENT: restlessness Skin exam: PRESENT: normal color. ABSENT: mottled, pallor, urticaria, vesicles Results Laboratory Results: 12/14/17 04:07 12/14/17 04:07 12/14/17 12/14/17 04:07 04:07 WBC 7.1 RBC 4.36 Hgb 11.3 L Hct 33.8 L MCV 78 L MCH 25.9 L MCHC 33.4 RDW 16.2 H Plt Count 310 Sodium 143.2 Potassium 3.5 L Chloride 104 Carbon Dioxide 24 Anion Gap 15 BUN 22 H Creatinine 1.16 Est GFR ( Amer) > 60 Est GFR (Non-Af Amer) > 60 Glucose 52 L Calcium 9.7 12/12/17 12/13/17 21:10 04:16 Troponin I < 0.012 < 0.012 Impressions: Chest/Abdomen CTA 12/12/17 00:00 IMPRESSION: NORMAL CTA OF THE CHEST. NO PULMONARY EMBOLI. NO THORACIC AORTIC DISSECTION SMALL HIATAL HERNIA WITH MILD DISTAL ESOPHAGEAL WALL THICKENING, COULD CORRELATE WITH REFLUX AND PIZANO'S ESOPHAGUS. Assessment & Plan - Diagnosis (1) Chest pain Qualifiers: Chest pain type: unspecified Qualified Code(s): R07.9 - Chest pain, unspecified Is this a current diagnosis for this admission?: Yes Plan: once cleared by Cardiology , can proceed with EGD Risks, benefits and alternatives are discussed with the patient in detail further recommendations to follow once daily dosing PPI should be sufficient - Time Time Spent with patient: 15-24 minutes
[2017-12-14] MEDS: INSULIN LISPRO 100 UNIT/ML 3 ML VIAL SUBCUT PRN ×3 (12:42→22:00)
[2017-12-14] MEDS ORDERED: REGADENOSON INJ 0.4 MG/5 ML DISP.SYRIN IV ONE (13:23)
[2017-12-14] MEDS: ACETAMINOPHEN 325 MG TABLET PO PRN (13:23)
[2017-12-14 17:10] LABS: APPEARANCE,URINE CLEAR; BILIRUBIN,URINE NEGATIVE (NEGATIVE); COLOR,URINE YELLOW; GLUCOSE, URINE 150 mg/dL (NEGATIVE); KETONES,URINE NEGATIVE (NEGATIVE); LEUKOCYTE ESTERASE,URINE NEGATIVE (NEGATIVE); NITRITE,URINE NEGATIVE (NEGATIVE); PROTEIN,URINE NEGATIVE (NEGATIVE); URINE SPECIFIC GRAVITY 1.019
--- NOTE | 2017-12-14 18:26 | DRAGON STRESS TEST REPORT ---
INTRAVENOUS LEXISCAN CARDIOLITE STRESS TEST USING SINGLE PHOTON EMMISION COMPUTERIZED TOMOGRAPHIC. DATE OF PROCEDURE: December 14, 2017, INDICATION : Chest pain CARDIAC RISK FACTORS: Diabetes, hypertension, dyslipidemia RESTING EKG: Sinus rhythm without any significant baseline ST-T wave changes STRESS EKG: No significant ST segment changes noted with LexiScan bolus REASON FOR TERMINATION: Protocol. PROCEDURE REPORT: Baseline heart rate 93 beats per minute with blood pressure of 165/85. Patient had no significant complaints. Patient was bolused with Lexiscan 0.4 mg intravenously followed by saline bolus. Heart rate at 2 minutes post bolus 116 with a blood pressure of 150/65. 3 minutes post bolus heart rate 114 with blood pressure of 167/71. No significant EKG changes were noted. Patient had no significant complaints during the procedure or postprocedure. CONCLUSIONS: Normal EKG and hemodynamic response to IV LexiScan. NUCLEAR DATA: At rest the patient was given 14.76 millicuries of technetium 99 sestamibi injected intravenously. As per protocol rest gated SPECT images were obtained. On day of stress test, the patient was given intravenous LexiScan at a dose of 0.4 mg in 5 mL intravenously, followed by flush with normal saline. Subsequently the stress dose of 43.9 millicuries of technetium 99 sestamibi was injected intravenously. As per protocol stress gated images were obtained. NUCLEAR INTERPRETATION: Both raw and processed data were used for interpretation. Visual, qualitative, computer-generated quantitative data was used. There was good myocardial uptake of technetium compound. Motion artifact and soft tissue attenuations were noted. Increased visceral uptake was noted. No definitive areas of transient perfusion defect noted, No definitive areas of fixed perfusion defect or scars noted. EKG gated imaging showed LV EF at 51 %, rest and stress gated EF similar visually. T. I D. ratio was 1.01. Lung heart ratio noted to be within normal limits 0.22. No significant extracardiac and abnormal radiotracer activities were noted. RV free wall uptake was noted to be WNL. IMPRESSION: Also refer to comments under nuclear interpretation. Also test results needs to be interpreted in the context of pretest probability. 1. No definitive areas of transient perfusion defect noted. 2. There is no definitive scintigraphic evidence of myocardial infarction/scar. 3. EKG gated imaging shows left ventricular ejection fraction of approx. 51 %. 4. Clinical correlation requested as occasionally single vessel disease or balanced ischemia could be missed. In approximately 10% of the cases Lexiscan may not cause adequate vasodilatory stress. RECOMMENDATIONS: Aggressive risk factor modification and medical management. Further evaluation may be needed if continued symptoms or other high risk indicators are noted on clinical evaluation. Close cardiology follow-up is also recommended. Clinical correlation with echocardiogram derived ejection fraction. Inability to exercise by itself can lead to increased cardiovascular event risks. Consider cardiology consultation and or follow-up if clinically indicated. I am available for cardiology evaluation and consultation if requested by the gold nib grinder, unless patient already has a telesales representative. Dr. Rajeev Sanders. MRCP Board certified in cardiology and sleep medicine. Board certified in nuclear cardiology, adult echocardiography. OMAR
--- NOTE | 2017-12-14 20:29 | PDOC PROGRESS REPORT ---
Subjective Progress Note for:: 12/14/17 Subjective:: Patient seems to be doing better. Pt is denying any chest arm or neck discomfort. Patient denying any PND, orthopnea. Patient denied any sustained palpitations, dizziness, syncope, near syncope. Patient denying any fever chills. Patient denying any other significant discomfort. Patient is maintaining sinus rhythm. EKG obtained this morning and cardiac enzymes were all negative. Review of systems: Rest review of systems negative. Medications: Medications have been reviewed. Reason For Visit: UNSTABLE ANGINA Physical Exam Vital Signs: Temp Pulse Resp BP Pulse Ox 98.6 F 82 12 167/78 H 98 12/14/17 19:19 12/14/17 19:19 12/14/17 19:19 12/14/17 19:19 12/14/17 19:19 Intake & Output 12/13/17 12/14/17 12/15/17 06:59 06:59 06:59 Intake Total 768 1508 647 Output Total 150 Balance 768 1358 647 Weight 103 kg 104.6 kg Exam: GENERAL: well-nourished and in no acute distress. Alert and oriented x3 HEAD: Atraumatic, normocephalic. EYES: Pupils equal round and reactive to light, extraocular movements intact, sclera anicteric, conjunctiva are normal. ENT: TMs normal, nares patent, oropharynx clear without exudates. Moist mucous membranes. No oral ulcerations or bleeding gums noted NECK: supple without lymphadenopathy. Trachea is central. No cervical or axillary lymphadenopathy noted. Carotids are 2+, JVD WNL LUNGS: Respiration seems nonlabored, no significant accessory muscle action noted. Breath sounds clear to auscultation bilaterally and equal noted. No wheezes rales or rhonchi noted. No significant dullness noted on percussion. CHEST: Palpation of the chest wall shows no significant chest wall tenderness. 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 ABDOMEN: Soft, no significant tenderness appreciated, normoactive bowel sounds. No guarding, no rebound. No rigidity noted . No masses appreciated. EXTREMITIES: Pedal pulses are 1-2+, no calf tenderness noted. No clubbing or cyanosis. negative pedal edema noted NEUROLOGICAL: Focused neurological exam showed no significant neurologic deficit. Normal speech, no focal weakness appreciated. PSYCH: Normal mood, normal affect. Judgment and insight within normal limits. SKIN: No significant ecchymosis, skin is noted to be warm. Skin erosion noted right knee, which is covered up. MUSCULOSKELETAL EXAM: No significant acute joint swelling noted. Results Laboratory Results: 12/14/17 04:07 12/14/17 04:07 12/14/17 12/14/17 12/14/17 04:07 04:07 16:45 WBC 7.1 RBC 4.36 Hgb 11.3 L Hct 33.8 L MCV 78 L MCH 25.9 L MCHC 33.4 RDW 16.2 H Plt Count 310 Sodium 143.2 Potassium 3.5 L Chloride 104 Carbon Dioxide 24 Anion Gap 15 BUN 22 H Creatinine 1.16 Est GFR ( Amer) > 60 Est GFR (Non-Af Amer) > 60 Glucose 52 L Calcium 9.7 Urine Color YELLOW Urine Appearance CLEAR Urine pH 6.0 Ur Specific Bryce 1.019 Urine Protein NEGATIVE Urine Glucose (UA) 150 H Urine Ketones NEGATIVE Urine Blood NEGATIVE Urine Nitrite NEGATIVE Ur Leukocyte Esterase NEGATIVE Urine WBC (Auto) 1 Urine RBC (Auto) 1 12/12/17 12/13/17 21:10 04:16 Troponin I < 0.012 < 0.012 EKG Comments: Telemetry shows sinus rhythm without any sustained tachycardia or bradycardia. Impressions: Chest/Abdomen CTA 12/12/17 00:00 IMPRESSION: NORMAL CTA OF THE CHEST. NO PULMONARY EMBOLI. NO THORACIC AORTIC DISSECTION SMALL HIATAL HERNIA WITH MILD DISTAL ESOPHAGEAL WALL THICKENING, COULD CORRELATE WITH REFLUX AND PIZANO'S ESOPHAGUS. Assessment & Plan - Diagnosis (1) Chest pain Qualifiers: Chest pain type: unspecified Qualified Code(s): R07.9 - Chest pain, unspecified Is this a current diagnosis for this admission?: Yes (2) CAD (coronary artery disease) Qualifiers: Coronary Disease-Associated Artery/Lesion type: [place] artery [place] vs. transplanted heart: [place] heart Associated angina: without angina Qualified Code(s): I25.10 - Atherosclerotic heart disease of [place] coronary artery without angina pectoris Is this a current diagnosis for this admission?: Yes (3) Diabetes mellitus type 2 in obese Is this a current diagnosis for this admission?: Yes (4) GERD (gastroesophageal reflux disease) Qualifiers: Esophagitis presence: with esophagitis Qualified Code(s): K21.0 - Gastro- esophageal reflux disease with esophagitis Is this a current diagnosis for this admission?: Yes (5) Hypertension Qualifiers: Hypertension type: essential hypertension Qualified Code(s): I10 - Essential (primary) hypertension Is this a current diagnosis for this admission?: Yes (6) Personal history of traumatic brain injury Is this a current diagnosis for this admission?: Yes - Notes Notes: Chest pain: Resolved. EKGs and enzymes are negative. Nuclear stress test performed today was negative for pharmacologic stress-induced ischemia. No fixed defect noted. EKG gated EF WNL. Chest pain most likely felt to be from distal esophagitis based on CT scan report. Have placed patient on double dose proton pump inhibitor. CAD: So far cardiac enzymes and EKG are negative. So far no objective signs of ischemia. Currently chest pain-free. Would advise aggressive risk factor modification and medical management. Nuclear stress test and 2D echo suggest low ischemic risk. Diabetes: We will leave management to the hospitalist. Currently being well managed. Gastroesophageal reflux with distal esophagitis: Recommend double dose proton pump inhibitor. Patient was placed on this. Hypertension: Currently stable. Personal history of traumatic brain injury: Patient is showing some signs of Parkinson's tremors. Patient will benefit from weight loss, evaluation for sleep apnea etc. if clinically indicated. I am told that patient may need to undergo endoscopy, dry wall finisher can proceed based on current evaluation from cardiac status point. - Time Time with patient: Greater than 35 minutes - Patient was seen multiple times. Total time exceeds 40 minutes. In the morning nuclear stress test procedure, risks benefits, alternatives were discussed. Patient seen during the stress test. Patient also seen after stress test when results were discussed with the patient in detail. Patient's questions were answered. Nuclear stress test results were discussed with the patient. Patient was informed that no definitive evidence of pharmacologic stress-induced ischemia noted. No definite fixed defects were noted. Patient informed that occasionally significant single vessel disease or balanced ischemia could be missed. However based on the current study results, would recommend aggressive risk factor modification and medical therapy. It may also be worthwhile to consider evaluation or empiric management of other causes of chest pain. Should no other cause be found and if persistent in having chest pain, then cardiac catheterization should be considered. Right now, recommendations are for aggressive risk factor modification and medical management. More than 50% of the time spent coordinating care, discussing management plans with involved caregivers. Management plans discussed with involved personnels. Medical decision making was of moderate to high complexity, patient's has multiple comorbidities.
[2017-12-14] MEDS: ATORVASTATIN CALCIUM 20 MG TABLET PO SCH (21:46)
[2017-12-14] MEDS: INSULIN GLARGINE,HUM.REC.ANLOG 1,000 UNIT/10 ML UNIT SUBCUT SCH (22:01)
[2017-12-15] MEDS: HYDRALAZINE HCL INJ/PF 20 MG/1 ML SDV IV PRN ×3 (01:48→15:05)
[2017-12-15] MEDS ORDERED: LORAZEPAM 1 MG TABLET PO ONE (02:45)
[2017-12-15] MEDS: LANSOPRAZOLE 30 MG TAB.RAP.DR PO SCH ×2 (05:43→16:25)
[2017-12-15] MEDS: HYDRALAZINE HCL 50 MG TABLET PO SCH ×2 (05:43→13:58)
[2017-12-15 05:45] LABS: ABSOLUTE RETICS # 0.079 10^6/uL (0.028-0.122); ANION GAP 13 (5-19); BLOOD UREA NITROGEN 21 mg/dL (7-20); CALCIUM 9.5 mg/dL (8.4-10.2); CARBON DIOXIDE 26 mmol/L (22-30); CHLORIDE 105 mmol/L (98-107); GLUCOSE 70 mg/dL (75-110); HEMATOCRIT 35.5 % (37.9-51.0); HEMOGLOBIN 11.6 g/dL (13.5-17.0); MEAN CORPUSCULAR HEMOGLOBIN 25.7 pg (27.0-33.4); MEAN CORPUSCULAR HGB CONC 32.7 g/dL (32.0-36.0); MEAN CORPUSCULAR VOLUME 79 fl (80-97); PLATELET COUNT 277 10^3/uL (150-450); POTASSIUM 3.9 mmol/L (3.6-5.0); RED BLOOD COUNT 4.52 10^6/uL (4.35-5.55); RED CELL DISTRIBUTION WIDTH 16.3 % (11.5-14.0); RETICULOCYTE COUNT (AUTO) 1.74 % (0.66-2.85); SODIUM 143.6 mmol/L (137-145); WHITE BLOOD COUNT 4.9 10^3/uL (4.0-10.5)
[2017-12-15 06:20] LABS: FERRITIN 9.19 ng/mL (17.9-464.0)
[2017-12-15 06:51] LABS: FOLATE 9.13 ng/mL (>2.76)
[2017-12-15] MEDS ORDERED: FERROUS SULFATE 325 MG TABLET PO SCH (10:00)
[2017-12-15] MEDS ORDERED: ENOXAPARIN SODIUM INJ 30 MG/0.3 ML DISP.SYRIN SUBCUT SCH (10:00)
[2017-12-15 11:06] LABS: HEMATOCRIT 35.1 % (37.9-51.0); HEMOGLOBIN 11.6 g/dL (13.5-17.0); MEAN CORPUSCULAR HEMOGLOBIN 25.9 pg (27.0-33.4); MEAN CORPUSCULAR HGB CONC 32.9 g/dL (32.0-36.0); MEAN CORPUSCULAR VOLUME 79 fl (80-97); PLATELET COUNT 305 10^3/uL (150-450); RED BLOOD COUNT 4.47 10^6/uL (4.35-5.55); RED CELL DISTRIBUTION WIDTH 16.5 % (11.5-14.0); WHITE BLOOD COUNT 4.6 10^3/uL (4.0-10.5)
[2017-12-15 11:08] LABS: INTERNATIONAL RATION (INR) 0.96; PROTHROMBIN TIME 13.2 SEC (11.4-15.4)
[2017-12-15 11:09] LABS: PARTIAL THROMBOPLASTIN TIME 32.6 SEC (23.5-35.8)
[2017-12-15] MEDS ORDERED: NALOXONE HCL INJ/PF 0.4 MG/1 ML SDV ONE (11:14)
[2017-12-15] MEDS ORDERED: ONDANSETRON HCL INJ/PF 4 MG/2 ML SDV ONE (11:14)
[2017-12-15] MEDS ORDERED: DIPHENHYDRAMINE HCL 50 MG/ML VIAL ONE (11:14)
[2017-12-15] MEDS ORDERED: MIDAZOLAM 2 MG/2 ML INJ ONE ×3 (11:15)
[2017-12-15] MEDS ORDERED: FLUMAZENIL INJ 0.5 MG/5 ML VIAL ONE (11:16)
[2017-12-15] MEDS ORDERED: FENTANYL CITRATE INJ/PF 100 MCG/2 ML AMPUL ONE (11:16)
[2017-12-15] MEDS ORDERED: GLUCAGON,HUMAN RECOMB 1 MG INJ ONE (11:16)
[2017-12-15] MEDS ORDERED: EPINEPHRINE INJ 1 MG/10 ML DISP.SYRIN ONE (11:16)
--- NOTE | 2017-12-15 13:12 | PDOC PROGRESS REPORT ---
Subjective Progress Note for:: 12/15/17 Subjective:: Patient seen this morning on rounds. He did not sleep last night therefore was noted to be very drowsy but able to wake up and answer questions. Patient seems to be doing better. Pt is denying any chest arm or neck discomfort. Patient denying any PND, orthopnea. Patient denied any sustained palpitations, dizziness, syncope, near syncope. Patient denying any fever chills. Patient denying any other significant discomfort. Patient is maintaining sinus rhythm. Nuclear stress test results were reviewed with the patient no high-risk features were noted. Review of systems: Rest review of systems negative. Medications: Medications have been reviewed. Reason For Visit: UNSTABLE ANGINA Physical Exam Vital Signs: Temp Pulse Resp BP Pulse Ox 98.5 F 86 14 171/84 H 97 12/15/17 10:50 12/15/17 10:50 12/15/17 10:50 12/15/17 10:50 12/15/17 10:50 Intake & Output 12/14/17 12/15/17 12/16/17 06:59 06:59 06:59 Intake Total 1508 1212 Output Total 150 1100 Balance 1358 112 Weight 104.6 kg 103.9 kg Exam: GENERAL: well-nourished and in no acute distress. Alert and oriented x3 HEAD: Atraumatic, normocephalic. EYES: Pupils equal round and reactive to light, extraocular movements intact, sclera anicteric, conjunctiva are normal. ENT: TMs normal, nares patent, oropharynx clear without exudates. Moist mucous membranes. No oral ulcerations or bleeding gums noted NECK: supple without lymphadenopathy. Trachea is central. No cervical or axillary lymphadenopathy noted. Carotids are 2+, JVD WNL LUNGS: Respiration seems nonlabored, no significant accessory muscle action noted. Breath sounds clear to auscultation bilaterally and equal noted. No wheezes rales or rhonchi noted. No significant dullness noted on percussion. CHEST: Palpation of the chest wall shows no significant chest wall tenderness. 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 ABDOMEN: Soft, no significant tenderness appreciated, normoactive bowel sounds. No guarding, no rebound. No rigidity noted . No masses appreciated. EXTREMITIES: Pedal pulses are 1-2+, no calf tenderness noted. No clubbing or cyanosis. 1+ pedal edema noted NEUROLOGICAL: Focused neurological exam showed no significant neurologic deficit. Normal speech, no focal weakness appreciated. PSYCH: Normal mood, normal affect. Judgment and insight within normal limits. SKIN: No significant ecchymosis, skin is noted to be warm. Erosion noted on top of right knee covered with tape patch MUSCULOSKELETAL EXAM: No significant acute joint swelling noted. Results Laboratory Results: 12/15/17 10:49 12/15/17 10:49 12/14/17 12/15/17 12/15/17 16:45 04:38 04:38 WBC 4.9 RBC 4.52 Hgb 11.6 L Hct 35.5 L MCV 79 L MCH 25.7 L MCHC 32.7 RDW 16.3 H Plt Count 277 Retic Count (auto) 1.74 Absolute Retic 0.079 Sodium 143.6 Potassium 3.9 Chloride 105 Carbon Dioxide 26 Anion Gap 13 BUN 21 H Creatinine 1.00 Est GFR ( Amer) > 60 Est GFR (Non-Af Amer) > 60 Glucose 70 L Calcium 9.5 Iron 13.0 L TIBC 376 % Saturation 3 Ferritin 9.19 L Vitamin B12 344.0 Folate 9.13 Urine Color YELLOW Urine Appearance CLEAR Urine pH 6.0 Ur Specific [place] 1.019 Urine Protein NEGATIVE Urine Glucose (UA) 150 H Urine Ketones NEGATIVE Urine Blood NEGATIVE Urine Nitrite NEGATIVE Ur Leukocyte Esterase NEGATIVE Urine WBC (Auto) 1 Urine RBC (Auto) 1 12/15/17 12/15/17 10:49 10:49 WBC 4.6 RBC 4.47 Hgb 11.6 L Hct 35.1 L MCV 79 L MCH 25.9 L MCHC 32.9 RDW 16.5 H Plt Count 305 Retic Count (auto) Absolute Retic Sodium Potassium Chloride Carbon Dioxide Anion Gap BUN Creatinine 0.92 Est GFR ( Amer) > 60 Est GFR (Non-Af Amer) > 60 Glucose Calcium Iron TIBC % Saturation Ferritin Vitamin B12 Folate Urine Color Urine Appearance Urine pH Ur Specific [place] Urine Protein Urine Glucose (UA) Urine Ketones Urine Blood Urine Nitrite Ur Leukocyte Esterase Urine WBC (Auto) Urine RBC (Auto) 12/12/17 12/13/17 21:10 04:16 Troponin I < 0.012 < 0.012 EKG Comments: Telemetry strip shows sinus rhythm without any sustained tachycardia or bradycardia Impressions: Chest/Abdomen CTA 12/12/17 00:00 IMPRESSION: NORMAL CTA OF THE CHEST. NO PULMONARY EMBOLI. NO THORACIC AORTIC DISSECTION SMALL HIATAL HERNIA WITH MILD DISTAL ESOPHAGEAL WALL THICKENING, COULD CORRELATE WITH REFLUX AND PIZANO'S ESOPHAGUS. Assessment & Plan - Diagnosis (1) Chest pain Qualifiers: Chest pain type: unspecified Qualified Code(s): R07.9 - Chest pain, unspecified Is this a current diagnosis for this admission?: Yes (2) CAD (coronary artery disease) Qualifiers: Coronary Disease-Associated Artery/Lesion type: [place] artery [place] vs. transplanted heart: [place] heart Associated angina: without angina Qualified Code(s): I25.10 - Atherosclerotic heart disease of [place] coronary artery without angina pectoris Is this a current diagnosis for this admission?: Yes (3) Diabetes mellitus type 2 in obese Is this a current diagnosis for this admission?: Yes (4) GERD (gastroesophageal reflux disease) Qualifiers: Esophagitis presence: with esophagitis Qualified Code(s): K21.0 - Gastro- esophageal reflux disease with esophagitis Is this a current diagnosis for this admission?: Yes (5) Hypertension Qualifiers: Hypertension type: essential hypertension Qualified Code(s): I10 - Essential (primary) hypertension Is this a current diagnosis for this admission?: Yes (6) Personal history of traumatic brain injury Is this a current diagnosis for this admission?: Yes - Notes Notes: Patient cleared to undergo upper GI endoscopy and lower GI endoscopy as needed and decided by the roof fitter. He is felt to be an acceptable risk candidate. Chest pain: Resolved. EKGs and enzymes are negative. Nuclear stress test performed today was negative for pharmacologic stress-induced ischemia. No fixed defect noted. EKG gated EF WNL. Chest pain most likely felt to be from distal esophagitis based on CT scan report. Continue patient on double dose proton pump inhibitor. Continue patient on antiplatelet and other therapy for CAD. CAD: So far cardiac enzymes and EKG are negative. So far no objective signs of ischemia. Currently chest pain-free. Would advise aggressive risk factor modification and medical management. Nuclear stress test and 2D echo suggest low ischemic risk. Diabetes: We will leave management to the hospitalist. Currently being well managed. Gastroesophageal reflux with distal esophagitis: Recommend double dose proton pump inhibitor. Patient to have further evaluation with roof fitter. Hypertension: Currently stable. Personal history of traumatic brain injury: Patient is showing some signs of Parkinson's tremors. Patient will benefit from weight loss, evaluation for sleep apnea etc. if clinically indicated. - Time Time with patient: 15-25 minutes - CODE STATUS was discussed, patient remains full code. Surrogate decision-maker unchanged. Multiple medical problems were addressed. More than 50% of the time spent coordinating care, discussing management plans with involved caregivers. Management plans discussed with involved personnels. Medical decision making was of moderate to high complexity , patient's has multiple comorbidities. Medications reviewed and adjusted accordingly: Yes
--- NOTE | 2017-12-15 13:38 | Operative Report ---
Operative Report DATE OF SURGERY: 12/15/17 Operative Report: The risks benefits and alternatives of the procedure explained to the patient in detail and informed consent is obtained.A GIF Olympus video scope was inserted into the patient's mouth and hypopharynx, the esophagus is identified intubated and insufflated, the scope was then advanced through the esophagus stomach and duodenum, retroflexion maneuver is done, the esophagus stomach and first and second portions of the duodenum examined PREOPERATIVE DIAGNOSIS: Noncardiac chest pain POSTOPERATIVE DIAGNOSIS: Mild inflammation, no ulcers OPERATION: EGD with biopsy SURGEON: HERNANDO ARIZMENDI ANESTHESIA: Moderate Sedation - 2 mg of Versed, 50 mcg of fentanyl. Conscious sedation monitoring time 30 minutes. TISSUE REMOVED OR ALTERED: As noted above COMPLICATIONS: None. ESTIMATED BLOOD LOSS: None. INTRAOPERATIVE FINDINGS: As noted above. PROCEDURE: Patient tolerated procedure well. No immediate postprocedure comp occasions are noted. Patient sent back to his room in good condition. Resume normal activity level Resume normal diet Wait on biopsies Follow-up as outpatient
[2017-12-15] MEDS: LOSARTAN POTASSIUM 50 MG TABLET PO SCH (13:47)
[2017-12-15] MEDS: BUPROPION HCL 100 MG TABLET PO SCH (13:47)
[2017-12-15] MEDS: DIVALPROEX SODIUM 125 MG CAP.SPRINK PO SCH ×2 (13:47→17:30)
[2017-12-15] MEDS: DULOXETINE HCL 20 MG CAPSULE.DR PO SCH (13:47)
[2017-12-15] MEDS: METOPROLOL SUCCINATE 50 MG TAB.SR.24H PO SCH (13:47)
[2017-12-15] MEDS: DOCUSATE SODIUM 100 MG CAPSULE PO SCH ×2 (13:47→17:33)
[2017-12-15] MEDS: CLOPIDOGREL BISULFATE 75 MG TABLET PO SCH (13:47)
[2017-12-15] MEDS ORDERED: HYDRALAZINE HCL 50 MG TABLET PO ONE (16:15)
--- NOTE | 2017-12-15 16:23 | PDOC TRANSFER SUMMARY ---
General - Admit/Disc Date/PCP Admission Date/Primary Care Provider: 12/12/17 16:16 SHAHEED ROBERTSON Discharge Date: 12/15/17 - Discharge Diagnosis (1) Chest pain Is this a current diagnosis for this admission?: Yes Summary: The patient's chest discomfort is determined to be noncardiac in nature; most likely related to gastritis and reflux disease. The patient was admitted with atypical chest pain and multiple risk factors including obesity, hypertension, coronary artery disease with previous stenting. EKG demonstrated normal sinus rhythm without ST segment elevation or depression. Troponins negative 7 Lipid panel is acceptable. Chest x-ray benign. CTA of the chest revealed small hiatal hernia and mild distal esophageal wall thickening possibly related to esophagitis/Pizano's esophagus. Cardiology was consulted; the patient underwent nuclear stress testing on . Nuclear stress test revealed a normal EKG and hemodynamic response to Lexiscan. Gastroenterology was consulted; the patient underwent an EGD on 12/15/17. The patient was noted to have mild gastritis. Recommendations are for the patient to continue PPI therapy and follow-up with Dr. Wills as an outpatient in 2-4 weeks. Biopsies were obtained. At time of discharge, the patient is in stable condition, maintaining oxygen saturations, tolerating a regular diet, and chest pain-free. He is discharged to [facility] where he is an established long-term resident. Recommend that he follow-up with his primary care provider within 1 week, with Dr. Wills in 2- 4 weeks to review biopsy results, and with cardiology as needed. He is always welcome to return to the emergency department as needed for concerning symptoms. Recommended aggressive lifestyle modifications to reduce cardiac risk are continued: Continue daily Plavix and statin therapy, maintain appropriate blood sugar, cholesterol, and blood pressure control. Recommend the patient continue his currently prescribed Dexilant. (2) Diabetes mellitus type 2 in obese Is this a current diagnosis for this admission?: Yes Summary: Resume outpatient therapy. (3) GERD (gastroesophageal reflux disease) Is this a current diagnosis for this admission?: Yes Summary: EGD revealed mild inflammation; recommend continued Dexilant therapy. Follow-up with GI in 2-4 weeks to review biopsy results. (4) Anxiety and depression Is this a current diagnosis for this admission?: Yes Summary: Stable; home medications were continued. (5) CAD (coronary artery disease) Is this a current diagnosis for this admission?: Yes Summary: Stable. (6) Hypertension Is this a current diagnosis for this admission?: Yes Summary: The patient's blood pressure was well controlled on his currently established regiment. Due to multiple days of n.p.o. status in preparation for procedures, the patient did miss multiple doses of his hypertensive medications resulting in elevated blood pressures. His home regiment has been resumed and they are beginning to trend down. (7) Chronic anemia Is this a current diagnosis for this admission?: Yes Summary: Chronic iron deficiency anemia. Hemoglobin stable at 11.6. Recommend iron supplementation. - Additional Information Resuscitation Status: Full Code Discharge Diet: Cardiac, Diabetic Discharge Activity: Activity As Tolerated, Balance Activity w/Rest Prescriptions: Ferrous Sulfate [Feosol 325 mg Tablet] 325 mg PO Q2DAYS #30 tablet Home Medications: Acetaminophen [Tylenol 325 mg Tablet] 650 mg PO Q6HP PRN 09/30/16 Bupropion HCl [Wellbutrin Xl 300mg 24hr Tablet] 300 mg PO DAILY 09/30/16 Clopidogrel Bisulfate [Plavix 75 mg Tablet] 75 mg PO DAILY 09/30/16 Dexlansoprazole [Dexilant 30 mg Capsule] 30 mg PO DAILY 09/30/16 Divalproex Sodium [Depakote Sprinkle 125 mg Capsule] 125 mg PO BID 09/30/16 Duloxetine HCl [Cymbalta 20 mg Capsule.dr] 40 mg PO DAILY 09/30/16 Gabapentin [Neurontin 400 mg Capsule] 400 mg PO BID 09/30/16 Insulin Aspart [Novolog Insulin (Aspart) 100 unit/mL] 0 units SQ .PERSLIDINGSCALE 09/30/16 Insulin Glargine,Hum.rec.anlog [Lantus Insulin 100 Unit/1 ml 10 ml] 55 units SQ QHS 09/30/16 Losartan Potassium [Cozaar 50 mg Tablet] 50 mg PO DAILY 09/30/16 Melatonin/Pyridoxine [Melatonin 3 mg Tablet] 3 mg PO QHS 09/30/16 Metformin HCl [Glucophage XR 500 mg Tablet] 1,000 mg PO BID 09/30/16 Metoprolol Succinate [Toprol Xl 50 mg Tab.sr] 50 mg PO DAILY 09/30/16 Nitroglycerin [Nitrostat 0.4 mg (1/150 Gr) Tabs 25/Bottle] 0.4 mg SL Q5MP PRN Tolterodine Tartrate [Detrol LA] 2 mg PO QAM 09/30/16 Hydralazine HCl [Apresoline 50 mg Tablet] 100 mg PO Q8 tablet 10/04/16 Alprazolam 1 mg PO BID PRN 12/11/17 Alprazolam [Xanax] 0.5 mg PO BID 12/11/17 Atorvastatin Calcium 20 mg PO QHS 12/11/17 Bifidobacterium Infantis [Align 4 mg Capsule] 4 mg PO BID 12/11/17 Calcium Carbonate [Tums Chewable 500 mg Tab.chew] 500 mg PO BID 12/11/17 Guaifenesin [Robitussin Syrup 200 mg/10 ml Ud Cup] 10 ml PO Q6HP PRN 12/11/17 Hydrocodone/Acetaminophen [Rush 5-325 mg Tablet] 1 tab PO Q6 12/11/17 Hydrocortisone [Hydrocortisone 0.5% Cream 28.35 gm] 1 applic TD PRN PRN Loratadine [Claritin] 10 mg PO DAILY 12/11/17 Magnesium Hydroxide [Milk of Magnesia 30 ml Udcup] 30 ml PO Q6HP PRN 12/11/17 Acetaminophen [Tylenol 325 mg Tablet] 650 mg PO Q6HP PRN tablet 12/15/17 Ferrous Sulfate [Feosol 325 mg Tablet] 325 mg PO Q2DAYS #30 tablet 12/15/17 Magnesium Hydroxide [Milk of Magnesia 30 ml Udcup] 30 ml PO Q6HP PRN udc History of Present Illness Admission Date/PCP: 12/12/17 16:16 SHAHEED ROBERTSON History of Present Illness: Per H&P by Dr. Smith: RADHA BORGES is a 67 year old [facility] with a past medical history of traumatic brain injury, dementia, coronary artery disease, diabetes, chronic pain, depression, anxiety and chronic constipation. Patient presents with 6 hours of intermittent left-sided chest pain described as sharp, nonradiating, 3 out of 5 intensity, unable to identify alleviating or exacerbating factors. In fact the patient is an extremely poor and inconsistent historian. In the emergency room he has an unremarkable workup but given his risk factors is referred to the hospitalist for evaluation. Patient is unaware of his current medication regiment. Physical Exam Vital Signs: Temp Pulse Resp BP Pulse Ox 98.5 F 86 14 186/85 H 96 12/15/17 10:50 12/15/17 14:05 12/15/17 14:05 12/15/17 14:05 12/15/17 14:05 Intake & Output 12/14/17 12/15/17 12/16/17 06:59 06:59 06:59 Intake Total 1508 1212 100 Output Total 150 1100 Balance 1358 112 100 Weight 104.6 kg 103.9 kg General appearance: PRESENT: no acute distress, cooperative, well-developed, well-nourished, other - Overweight Head exam: PRESENT: atraumatic, normocephalic Eye exam: PRESENT: conjunctiva pink, EOMI, PERRLA. ABSENT: scleral icterus Ear exam: PRESENT: normal external ear exam Mouth exam: PRESENT: moist, tongue midline Neck exam: ABSENT: carotid bruit, JVD, lymphadenopathy, thyromegaly Respiratory exam: PRESENT: clear to auscultation hattie, symmetrical, unlabored. ABSENT: rales, rhonchi, wheezes Cardiovascular exam: PRESENT: RRR, +S1, +S2. ABSENT: diastolic murmur, rubs, systolic murmur Pulses: PRESENT: normal dorsalis pedis pul Vascular exam: PRESENT: normal capillary refill GI/Abdominal exam: PRESENT: normal bowel sounds, soft. ABSENT: distended, guarding, mass, organolmegaly, rebound, tenderness Rectal exam: PRESENT: deferred Extremities exam: PRESENT: full ROM. ABSENT: calf tenderness, clubbing, pedal edema Neurological exam: PRESENT: alert, awake, oriented to person, oriented to place , oriented to time, oriented to situation, CN II-XII grossly intact. ABSENT: motor sensory deficit Psychiatric exam: PRESENT: appropriate affect, normal mood. ABSENT: homicidal ideation, suicidal ideation Skin exam: PRESENT: dry, intact, warm. ABSENT: cyanosis, rash Results Laboratory Results: 12/15/17 10:49 12/15/17 10:49 12/14/17 12/15/17 12/15/17 16:45 04:38 04:38 WBC 4.9 RBC 4.52 Hgb 11.6 L Hct 35.5 L MCV 79 L MCH 25.7 L MCHC 32.7 RDW 16.3 H Plt Count 277 Retic Count (auto) 1.74 Absolute Retic 0.079 Sodium 143.6 Potassium 3.9 Chloride 105 Carbon Dioxide 26 Anion Gap 13 BUN 21 H Creatinine 1.00 Est GFR ( Amer) > 60 Est GFR (Non-Af Amer) > 60 Glucose 70 L Calcium 9.5 Iron 13.0 L TIBC 376 % Saturation 3 Ferritin 9.19 L Vitamin B12 344.0 Folate 9.13 Urine Color YELLOW Urine Appearance CLEAR Urine pH 6.0 Ur Specific Center 1.019 Urine Protein NEGATIVE Urine Glucose (UA) 150 H Urine Ketones NEGATIVE Urine Blood NEGATIVE Urine Nitrite NEGATIVE Ur Leukocyte Esterase NEGATIVE Urine WBC (Auto) 1 Urine RBC (Auto) 1 12/15/17 12/15/17 10:49 10:49 WBC 4.6 RBC 4.47 Hgb 11.6 L Hct 35.1 L MCV 79 L MCH 25.9 L MCHC 32.9 RDW 16.5 H Plt Count 305 Retic Count (auto) Absolute Retic Sodium Potassium Chloride Carbon Dioxide Anion Gap BUN Creatinine 0.92 Est GFR ( Amer) > 60 Est GFR (Non-Af Amer) > 60 Glucose Calcium Iron TIBC % Saturation Ferritin Vitamin B12 Folate Urine Color Urine Appearance Urine pH Ur Specific Center Urine Protein Urine Glucose (UA) Urine Ketones Urine Blood Urine Nitrite Ur Leukocyte Esterase Urine WBC (Auto) Urine RBC (Auto) 12/12/17 12/13/17 21:10 04:16 Troponin I < 0.012 < 0.012 Impressions: Chest/Abdomen CTA 12/12/17 00:00 IMPRESSION: NORMAL CTA OF THE CHEST. NO PULMONARY EMBOLI. NO THORACIC AORTIC DISSECTION SMALL HIATAL HERNIA WITH MILD DISTAL ESOPHAGEAL WALL THICKENING, COULD CORRELATE WITH REFLUX AND PIZANO'S ESOPHAGUS. Transfer Plan - Disposition Transfer Plan: Discharge to [facility] for the patient is already an established long-term resident. - Time Spent with Patient Time spent with patient: Less than 30 Minutes Qualifiers - * PATIENT BEING DISCHARGED WITH ANY OF THE FOLLOWING DIAGNOSIS: No Plan Discharge Plan: Discharge to [facility] where the patient is already an established resident. Follow-up with primary care provider within 1 week. Follow-up with Dr. Wills within 2-4 weeks. Follow-up with delinquency counselor as needed. Return to the emergency department for any concerning symptoms. Time Spent: Less than 30 Minutes
[2017-12-15 16:37] VITALS: BP 160/88
[2017-12-15] MEDS: ALPRAZOLAM 0.5 MG TABLET PO PRN (17:30)
== END 2017-12-15 18:58 | DRG 392 ==
LOC: ER 22:33 → EH 12-11 02:09 → 4N 12-11 03:58 → 3N 12-12 13:10 → OBSVTOIN 12-12 16:16
PROVIDERS: ADMIT Internal Medicine; ATTEND Internal Medicine
PROC: 0DB68ZX Excision of Stomach, Via Natural or Artificial Opening Endoscopic, Diagnostic (ICD-10-PCS; principal; 2017-12-15 13:00)
DX: K21.0 Gastro-esophageal reflux disease with esophagitis (principal); K29.70 Gastritis, unspecified, without bleeding; E66.9 Obesity, unspecified; Z68.35 Body mass index [BMI] 35.0-35.9, adult; I25.10 Atherosclerotic heart disease of native coronary artery without angina pectoris; K44.9 Diaphragmatic hernia without obstruction or gangrene; F41.9 Anxiety disorder, unspecified; D50.9 Iron deficiency anemia, unspecified; F03.90 Unspecified dementia, unspecified severity, without behavioral disturbance, psychotic disturbance, mood disturbance, and anxiety; G89.29 Other chronic pain; K59.09 Other constipation; I50.9 Heart failure, unspecified; I11.0 Hypertensive heart disease with heart failure; E78.00 Pure hypercholesterolemia, unspecified; E11.9 Type 2 diabetes mellitus without complications; M19.90 Unspecified osteoarthritis, unspecified site; F31.9 Bipolar disorder, unspecified; G47.33 Obstructive sleep apnea (adult) (pediatric); N40.0 Benign prostatic hyperplasia without lower urinary tract symptoms; I25.2 Old myocardial infarction; Z95.5 Presence of coronary angioplasty implant and graft; Z79.899 Other long term (current) drug therapy; Z87.820 Personal history of traumatic brain injury; Z79.4 Long term (current) use of insulin; Z88.6 Allergy status to analgesic agent; Z79.01 Long term (current) use of anticoagulants; Z82.49 Family history of ischemic heart disease and other diseases of the circulatory system
CPT/HCPCS: 36415; 43239; 71045; 71275; 78452; 80048; 80053; 80061; 80307; 81001; 82550; 82553; 82565; 82607; 82728; 82746; 82962; 83540; 83550; 84484; 85025; 85027; 85045; 85610; 85730; 88305; 93005; 93010; 93017; 93306; 99285; A9500; G0378; J0171; J0360; J1200; J1610; J1630; J1644; J1650; J1815; J2250; J2270; J2310; J2405; J2785; J3010; J3490; Q9969

== ENCOUNTER 2018-01-15 03:32 | Emergency (ER) | payer MEDICARE, MEDICAID ==
--- NOTE | 2018-01-15 04:14 | ER Document Report ---
ED General - General Chief Complaint: Fall Injury Stated Complaint: FALL Time Seen by Provider: 01/15/18 04:06 Notes: Patient is 67-year-old male well known to ED for due to history of frequent falls. Presents after having a fall. He says he does get up to the bathroom in a door swing back and hip in the forehead and knocked him to the ground. He denies loss conscious. Her medics arrived he did have a blood sugar around 50 and therefore they gave him 15 g oral glucose. Repeat Accu-Chek here is 101. He is awake alert answers questions appropriately. He complains of pain in his forehead and also his right hip. Initially he complained of neck pain to the medics. Currently he tells me that he is unsure if he has neck pain. He denies any weakness or numbness into extremities. He is on Plavix. TRAVEL OUTSIDE OF THE [place] IN LAST 30 DAYS: No - Related Data Allergies/Adverse Reactions: aspirin Allergy (Verified 12/10/17 23:52) Past Medical History - Social History Smoking Status: Unknown if Ever Smoked Frequency of alcohol use: None Drug Abuse: None Family History: Reviewed & Not Pertinent, CAD, Hypertension - Past Medical History Cardiac Medical History: Reports: Hx Congestive Heart Failure, Hx Coronary Artery Disease, Hx Heart Attack, Hx Hypercholesterolemia, Hx Hypertension Pulmonary Medical History: Reports: Hx Bronchitis, Hx Pneumonia, Hx Sleep Apnea - History of; patient not on CPAP. Neurological Medical History: Denies: Hx Seizures Endocrine Medical History: Reports: Hx Diabetes Mellitus Type 2 Renal/ Medical History: Reports: Hx Benign Prostatic Hyperplasia, Hx Kidney Stones. Denies: Hx Peritoneal Dialysis GI Medical History: Reports: Hx Gastritis, Hx Gastroesophageal Reflux Disease, Hx Ulcer Musculoskeletal Medical History: Reports Hx Arthritis, Reports Hx Musculoskeletal Deformity, Reports Hx Musculoskeletal Trauma Psychiatric Medical History: Reports: Hx Anxiety, Hx Bipolar Disorder, Hx Dementia, Hx Depression Traumatic Medical History: Reports: Hx Fractures, Hx Traumatic Brain Injury Past Surgical History: Reports: Hx Abdominal Surgery - History: Had 18 inches of his colon removed, Hx Appendectomy, Hx Bowel Surgery - 17 inches removed due to necrosis, Hx Cardiac Catheterization, Hx Cardiac Surgery - cath, stent placement, Hx Coronary Stent, Hx Orthopedic Surgery - right wrist, right hip - Immunizations Immunizations up to date: Yes Hx Diphtheria, Pertussis, Tetanus Vaccination: Yes Hx Pneumococcal Vaccination: 11/28/11 Review of Systems - Review of Systems Notes: My Normal Review Basic REVIEW OF SYSTEMS: CONSTITUTIONAL : Denies fever, chills, or sweats. Denies recent illness. EENT: Denies eye, ear, throat, or mouth pain or symptoms. Denies nasal or sinus congestion. CARDIOVASCULAR: Denies chest pain. RESPIRATORY: Denies cough, cold, or chest congestion. Denies shortness of breath, difficulty breathing, or wheezing. GASTROINTESTINAL: Denies abdominal pain. Denies nausea, vomiting, or diarrhea. MUSCULOSKELETAL: Pain. Right hip pain. SKIN: Denies rash or skin lesions. HEMATOLOGIC : Takes Plavix. NEUROLOGICAL: Denies altered mental status or loss of consciousness. As a headache. Denies weakness or paralysis or loss of use of either side. Denies problems with gait or speech. Denies sensory or motor loss. ALL OTHER SYSTEMS REVIEWED AND NEGATIVE. Physical Exam - Vital signs Vitals: Temp Pulse Resp BP Pulse Ox 98.7 F 91 18 113/69 97 01/15/18 03:44 01/15/18 03:44 01/15/18 03:44 01/15/18 03:44 01/15/18 03:44 - Notes Notes: General Appearance: Well nourished, alert, cooperative, no acute distress, mild obvious discomfort. Vitals: reviewed, See vital signs table. Head: no swelling or tenderness to the head Eyes: PERRL, EOMI, Conjuctiva clear Mouth: No decreasd moisture Neck: Supple, mild midline cervical spine tenderness palpation. Lungs: No wheezing, No rales, No rhonci, No accessory muscle use, good air exchange bilaterally. Heart: Normal rate, Regular rythm, No murmur, no rub Abdomen: Normal BS, soft, No rigidity, No abdominal tenderness, No guarding, no rebound, no abdominal masses, no organomegaly Extremities: strength 5/5 in all extremities, good pulses in all extremities, swelling or tenderness to palpation of any of his extremities except for some mild pain to palpation of the right hip. He does have worsening pain when I put his hip through flexion extension however I am able to do this without feeling any crepitance or noticing any deformity. Skin: warm, dry, appropriate color, no rash Neuro: speech clear, oriented x 3, normal affect, responds appropriately to questions. Renal nerves II through XII are intact. Distal sensation intact. Patient able to move all extremities without difficulty. Course - Vital Signs Vital signs: Temp Pulse Resp BP Pulse Ox 98.7 F 91 18 113/69 97 01/15/18 03:44 01/15/18 03:44 01/15/18 03:44 01/15/18 03:44 01/15/18 03:44 Discharge - Discharge Clinical Impression: Fall Qualifiers: Encounter type: initial encounter Qualified Code(s): W19.XXXA - Unspecified fall, initial encounter Minor head injury without loss of consciousness Qualifiers: Encounter type: initial encounter Qualified Code(s): S09.90XA - Unspecified injury of head, initial encounter Condition: Good Disposition: HOME, SELF-CARE Additional Instructions: Please return to the ER if you have severe headaches, vomiting, fevers, or recurrent low blood sugar not improving with eating. Follow up wtih your doctor in 2-3 days for reevaluation. Referrals: SHAHEED ROBERTSON MD [Primary Care Provider] - 01/17/18
--- NOTE | 2018-01-15 04:44 | RADIOLOGY REPORT (SQ) ---
CT head without contrast on 01/15/2018 at 4:26 AM CLINICAL INDICATION: Pain after fall TECHNIQUE: Multiple axial images are obtained throughout the head without the administration of contrast. This exam was performed according to our departmental dose-optimization program, which includes automated exposure control, adjustment of the mA and/or kV according to patient size and/or use of iterative reconstruction technique. Total DLP is 1017.17 mGy*cm. COMPARISON: None currently available FINDINGS: There is mild generalized cerebral atrophy. There is no hydrocephalus. There is no CT evidence of acute infarct. There is no hemorrhage. There are no abnormal extra-axial fluid collections. There is no mass, mass effect or midline shift. No bony abnormality is noted. IMPRESSION: Mild atrophy with no acute intracranial abnormality.
--- NOTE | 2018-01-15 04:49 | RADIOLOGY REPORT (SQ) ---
CT cervical spine without contrast on 01/15/2018 at 4:28 AM CLINICAL INDICATION: Pain after fall TECHNIQUE: Multiple axial images are obtained throughout the cervical spine without the administration of contrast. Sagittal and coronal reformatted images are also performed and reviewed. This exam was performed according to our departmental dose-optimization program, which includes automated exposure control, adjustment of the mA and/or kV according to patient size and/or use of iterative reconstruction technique. Total DLP is 528.37 mGy*cm. COMPARISON: None FINDINGS: Reformatted images reveal normal alignment of the cervical spine. There are no acute fractures. No definite disc herniation is noted. There is no prevertebral soft tissue swelling. IMPRESSION: No acute fracture or malalignment of the cervical spine.
--- NOTE | 2018-01-15 05:00 | RADIOLOGY REPORT (SQ) ---
EXAM DESCRIPTION: XR HIP 2 OR MORE VIEWS COMPLETED DATE/TME: 01/15/2018 04:11 CLINICAL HISTORY: 67 years Male, trauma COMPARISON: 2.14.18 Findings: Three screw fixation of the right femoral neck.. Bones, joints, and soft tissues of the RIGHT XR HIP 3 VIEWS appear otherwise intact. IMPRESSION: No acute findings.
[2018-01-15 06:11] VITALS: BP 191/94
== END 2018-01-15 06:11 | disposition home or self-care (01) ==
LOC: ER 03:32
DX: S09.90XA Unspecified injury of head, initial encounter (principal); W18.30XA Fall on same level, unspecified, initial encounter; I50.9 Heart failure, unspecified; I25.10 Atherosclerotic heart disease of native coronary artery without angina pectoris; E78.00 Pure hypercholesterolemia, unspecified; I11.0 Hypertensive heart disease with heart failure; E11.9 Type 2 diabetes mellitus without complications; I25.2 Old myocardial infarction; Z91.81 History of falling; Z88.6 Allergy status to analgesic agent
CPT/HCPCS: 70450; 72125; 82962; 99284

== ENCOUNTER 2018-05-22 20:44 | Emergency (ER) | payer MEDICARE, MEDICAID ==
--- NOTE | 2018-05-22 22:14 | RADIOLOGY REPORT (SQ) ---
EXAM DESCRIPTION: XR ANKLE 3 OR MORE VIEWS COMPLETED DATE/TME: 05/22/2018 00:00 CLINICAL HISTORY: 67 years, Male, fall, left ankle pain. COMPARISON: None. NUMBER OF VIEWS: 3 TECHNIQUE: 3 view left ankle LIMITATIONS: None. FINDINGS: Osteopenia. Diffuse soft tissue swelling. Equivocal cortical irregularity of the lateral malleolus may reflect nondisplaced fracture. Correlate with site of pain. No other evidence for acute fracture or dislocation.. Small calcaneal spurs. Ankle mortise is intact IMPRESSION: Osteopenia with diffuse soft tissue swelling. Questionable nondisplaced fracture of the lateral malleolus. Small calcaneal spurs copyright 2010 [employer]- All Rights Reserved
--- NOTE | 2018-05-22 23:14 | ER Document Report ---
ED General - General Chief Complaint: Fall Stated Complaint: ANKLE PAIN Time Seen by Provider: 05/22/18 21:14 TRAVEL OUTSIDE OF THE [place] IN LAST 30 DAYS: No - HPI Patient complains to provider of: Fall Notes: Patient coming in for evaluation of a fall. Patient states that he fell forward and complained to the nursing staff of left ankle pain a x-ray was ordered upon my evaluation patient is resting complete that he is ready to go back to his nursing care facility. Patient denies any loss consciousness denies any chest pain abdominal pain denies any pain resting comfortably. Patient states standing and fell forward denies trip and fall denies syncopal episode - Related Data Allergies/Adverse Reactions: aspirin Allergy (Verified 12/10/17 23:52) Past Medical History - Social History Smoking Status: Never Smoker Chew tobacco use (# tins/day): No Frequency of alcohol use: None Drug Abuse: None Family History: Reviewed & Not Pertinent, CAD, Hypertension Patient has suicidal ideation: No Patient has homicidal ideation: No - Past Medical History Cardiac Medical History: Reports: Hx Congestive Heart Failure, Hx Coronary Artery Disease, Hx Heart Attack, Hx Hypercholesterolemia, Hx Hypertension Pulmonary Medical History: Reports: Hx Bronchitis, Hx Pneumonia, Hx Sleep Apnea - History of; patient not on CPAP. Neurological Medical History: Denies: Hx Seizures Endocrine Medical History: Reports: Hx Diabetes Mellitus Type 2 Renal/ Medical History: Reports: Hx Benign Prostatic Hyperplasia, Hx Kidney Stones. Denies: Hx Peritoneal Dialysis GI Medical History: Reports: Hx Gastritis, Hx Gastroesophageal Reflux Disease, Hx Ulcer Musculoskeletal Medical History: Reports Hx Arthritis, Reports Hx Musculoskeletal Deformity, Reports Hx Musculoskeletal Trauma Psychiatric Medical History: Reports: Hx Anxiety, Hx Bipolar Disorder, Hx Dementia, Hx Depression Traumatic Medical History: Reports: Hx Fractures, Hx Traumatic Brain Injury Past Surgical History: Reports: Hx Abdominal Surgery - History: Had 18 inches of his colon removed, Hx Appendectomy, Hx Bowel Surgery - 17 inches removed due to necrosis, Hx Cardiac Catheterization, Hx Cardiac Surgery - cath, stent placement, Hx Coronary Stent, Hx Orthopedic Surgery - right wrist, right hip - Immunizations Immunizations up to date: Yes Hx Diphtheria, Pertussis, Tetanus Vaccination: Yes Hx Pneumococcal Vaccination: 11/28/11 Review of Systems - Review of Systems Constitutional: Other - Fall EENT: No symptoms reported Cardiovascular: No symptoms reported Respiratory: No symptoms reported Gastrointestinal: No symptoms reported Genitourinary: No symptoms reported Male Genitourinary: No symptoms reported Musculoskeletal: No symptoms reported Skin: No symptoms reported Hematologic/Lymphatic: No symptoms reported Neurological/Psychological: No symptoms reported Physical Exam - Vital signs Vitals: Temp Pulse Resp BP Pulse Ox 98.4 F 66 16 166/63 H 99 05/22/18 20:44 05/22/18 20:44 05/22/18 20:44 05/22/18 20:44 05/22/18 20:44 Interpretation: Normal - General General appearance: Appears well, Alert - HEENT Head: Normocephalic, Atraumatic Eyes: Normal Pupils: PERRL - Respiratory Respiratory status: No respiratory distress Chest status: Nontender Breath sounds: Normal Chest palpation: Normal - Cardiovascular Rhythm: Regular Heart sounds: Normal auscultation Murmur: No - Abdominal Inspection: Normal Distension: No distension Bowel sounds: Normal Tenderness: Nontender Organomegaly: No organomegaly - Back Back: Normal, Nontender - Extremities General upper extremity: Normal inspection, Nontender, Normal color, Normal ROM, Normal temperature General lower extremity: Normal inspection, Nontender, Edema - 1-2+ edema bilateral, Normal color, Normal temperature, Other - Patient had x-ray performed prior to my evaluation showing possible fracture of the lateral malleolus distal fibula. Patient has no pain to palpation of the lateral malleolus or distal fibula patient has no pain when I applied axial force on the foot patient is able to move the foot dorsiflexion plantarflexion without difficulty - Neurological Neuro grossly intact: Yes Cognition: Normal Orientation: AAOx4 [place] Coma Scale Eye Opening: Spontaneous [place] Coma Scale Verbal: Oriented Jakub Coma Scale Motor: Obeys Commands Jakub Coma Scale Total: 15 Speech: Normal Motor strength normal: LUE, RUE, LLE, RLE Sensory: Normal - Psychological Associated symptoms: Normal affect, Normal mood - Skin Skin Temperature: Warm Skin Moisture: Dry Skin Color: Normal Course - Re-evaluation Re-evalutation: 05/23/18 02:46 X-ray read as a possible lateral malleolus fracture however physical examination does not elicit any pain my personal review of the x-ray does not show any overt fracture there may be a slight avulsion at the distal tip of the fibula otherwise patient is evaluation not concerning for significant pathology Virgilio wrap was placed on the ankle to get better support patient agrees with this plan and was discharged back to nursing care facility - Vital Signs Vital signs: Temp Pulse Resp BP Pulse Ox 98.3 F 73 20 182/82 H 98 05/23/18 00:53 05/23/18 00:53 05/23/18 00:53 05/23/18 00:53 05/23/18 00:53 Discharge - Discharge Clinical Impression: [facility] Qualifiers: Encounter type: initial encounter Qualified Code(s): W19.XXXA - Unspecified fall, initial encounter Left ankle pain Qualifiers: Chronicity: acute Qualified Code(s): M25.572 - Pain in left ankle and joints of left foot Condition: Good Disposition: HOME, SELF-CARE Additional Instructions: Patient coming in complaining of ankle pain and x-ray was performed showing a possible small fracture of the lateral malleolus at the distal tip however examination the patient is not consistent with this finding as that on palpation of the ankle patient is pain-free I would recommend an Virgilio wrap at this time continue to give the patient a support device is a need for ambulation if the patient continues to complain of pain I would recommend re-x-ray in the next 5-7 days Referrals: SHAHEED ROBERTSON MD [Primary Care Provider] - Follow up as needed
[2018-05-23 00:54] VITALS: BP 182/82
== END 2018-05-23 00:45 | disposition home or self-care (01) ==
LOC: ER 20:44
DX: M25.572 Pain in left ankle and joints of left foot (principal); W19.XXXA Unspecified fall, initial encounter; M77.32 Calcaneal spur, left foot; I11.0 Hypertensive heart disease with heart failure; I50.9 Heart failure, unspecified; I25.10 Atherosclerotic heart disease of native coronary artery without angina pectoris; E78.00 Pure hypercholesterolemia, unspecified; E11.9 Type 2 diabetes mellitus without complications; I25.2 Old myocardial infarction; K21.9 Gastro-esophageal reflux disease without esophagitis; F31.9 Bipolar disorder, unspecified; Z87.820 Personal history of traumatic brain injury; Z88.6 Allergy status to analgesic agent
CPT/HCPCS: 99284

== ENCOUNTER 2018-11-09 15:28 | Emergency (ER) | payer MEDICARE, MEDICAID ==
--- NOTE | 2018-11-09 15:48 | ER Document Report ---
ED Medical Screen (RME) - General Chief Complaint: Abdominal Pain Stated Complaint: ABDOMINAL PAIN Time Seen by Provider: 11/09/18 15:46 Primary Care Provider: SHAHEED ROBERTSON MD [Primary Care Provider] - Follow up as needed Mode of Arrival: Carried Information source: Patient Notes: 68-year-old male presents to ED for complaint of right painful swollen testicle for 3 weeks. He states that is been getting progressively more painful and swollen and he thinks there is something in the right scrotum. Patient is a [facility] patient and was sent over by [facility] to have his right scrotum evaluated. I have greeted and performed a rapid initial assessment of this patient. A comprehensive ED assessment and evaluation of the patient, analysis of test results and completion of medical decision making process will be conducted by an additional ED providers. Dictation of this chart was performed using voice recognition software; therefore, there may be some unintended grammatical errors. TRAVEL OUTSIDE OF THE [place] IN LAST 30 DAYS: No - Related Data Allergies/Adverse Reactions: aspirin Allergy (Verified 11/09/18 15:30) Past Medical History - Past Medical History Cardiac Medical History: Reports: Hx Congestive Heart Failure, Hx Coronary Artery Disease, Hx Heart Attack, Hx Hypercholesterolemia, Hx Hypertension Pulmonary Medical History: Reports: Hx Bronchitis, Hx Pneumonia, Hx Sleep Apnea - History of; patient not on CPAP. Neurological Medical History: Denies: Hx Seizures Endocrine Medical History: Reports: Hx Diabetes Mellitus Type 2 Renal/ Medical History: Reports: Hx Benign Prostatic Hyperplasia, Hx Kidney Stones. Denies: Hx Peritoneal Dialysis GI Medical History: Reports: Hx Gastritis, Hx Gastroesophageal Reflux Disease, Hx Ulcer Musculoskeltal Medical History: Reports Hx Arthritis, Reports Hx Musculoskeletal Deformity, Reports Hx Musculoskeletal Trauma Psychiatric Medical History: Reports: Hx Anxiety, Hx Bipolar Disorder, Hx Dementia, Hx Depression Traumatic Medical History: Reports: Hx Fractures, Hx Traumatic Brain Injury Past Surgical History: Reports: Hx Abdominal Surgery - History: Had 18 inches of his colon removed, Hx Appendectomy, Hx Bowel Surgery - 17 inches removed due to necrosis, Hx Cardiac Catheterization, Hx Cardiac Surgery - cath, stent placement, Hx Coronary Stent, Hx Orthopedic Surgery - right wrist, right hip - Immunizations Immunizations up to date: Yes Hx Diphtheria, Pertussis, Tetanus Vaccination: Yes Physical Exam - Vital signs Vitals: Temp Pulse Resp BP Pulse Ox 97.5 F 72 18 158/71 H 97 06/13/19 15:33 11/09/18 15:33 11/09/18 15:33 11/09/18 15:33 11/09/18 15:33 Course - Vital Signs Vital signs: Temp Pulse Resp BP Pulse Ox 97.5 F 72 18 158/71 H 97 11/09/18 15:33 11/09/18 15:33 11/09/18 15:33 11/09/18 15:33 11/09/18 15:33 Doctor's Discharge - Discharge Referrals: SHAHEED ROBERTSON MD [Primary Care Provider] - Follow up as needed
--- NOTE | 2018-11-09 18:08 | RADIOLOGY REPORT (SQ) ---
EXAM DESCRIPTION: U/S SCROTUM W/DOPPLER COMPLETED DATE/TIME: 11/09/2018 5:54 pm REASON FOR STUDY: right painful swollen testicle COMPARISON: None. TECHNIQUE: Static and realtime brewer scale imaging of the scrotum and testes. Selected color Doppler and spectral images recorded to document blood flow. LIMITATIONS: None. FINDINGS: RIGHT: TESTICLE: Normal size, 2 x 2 x 1.6 cm. Normal echotexture. Normal blood flow. No mass. EPIDIDYMIS: Normal size, epididymal head measuring 12 mm. 8 mm epididymal cyst. There is a large co mplex hypervascular area possibly associated with the tail of the epididymis that measures 2.8 x 2.3 x 2.3 cm. There are some cystic areas that contain debris. HYDROCELE OR VARICOCELE: Small hydrocele. HERNIA OR EXTRA-TESTICULAR MASS: See epididymis above. OTHER: No other significant finding. LEFT: TESTICLE: Normal size, 3 x 2.1 x 1.4 cm. . Normal echotexture. Normal blood flow. No mass. EPIDIDYMIS: Normal size, 11 mm. HYDROCELE OR VARICOCELE: Small hydrocele. Small varicocele. HERNIA OR EXTRA-TESTICULAR MASS: No. OTHER: No other significant finding. IMPRESSION: 1. There is a prominent complex hypervascular area possibly associated with the tail of the epididymis. Possible epididymitis. 2. Small bilateral hydroceles. 3. Left varicocele. TECHNICAL DOCUMENTATION: JOB ID: [id number] [employer]- All Rights Reserved Reading location - IP/workstation name: [email or web address]
[2018-11-09 18:57] VITALS: BP 158/84
[2018-11-09] MEDS ORDERED: ACETAMINOPHEN 325 MG TABLET PO ONE (19:03)
[2018-11-09] MEDS ORDERED: DOXYCYCLINE HYCLATE 100 MG TABLET PO ONE (19:04)
--- NOTE | 2018-11-09 19:09 | ER Document Report ---
ED GI/ - General Chief Complaint: Abdominal Pain Stated Complaint: ABDOMINAL PAIN Time Seen by Provider: 11/09/18 15:46 Primary Care Provider: SHAHEED ROBERTSON MD [Primary Care Provider] - Follow up as needed Mode of Arrival: Carried TRAVEL OUTSIDE OF THE [place] IN LAST 30 DAYS: No - HPI Notes: 11/09/18 19:05 Patient is a 68-year-old male that presents to the emergency department for chief complaint of right testicular pain. Patient presents by EMS from [place] for right testicle pain for the last 3 weeks. He states initially was intermittent but has become more constant over the last week. He denies any difficulty urinating, urinary retention or dysuria. He states he now feels like his scrotum is becoming swollen and is concerned he may have a hernia. He states the pain is worse when he leans forward. The pain is better when he is not leaning forward and is sitting at rest. He denies trauma to the area. Past Medical History: CAD, anemia, depression, diabetes, chronic pain, cognitive deficit Past Surgical History: Reviewed in chart Social History: Lives in nursing home facility. Denies tobacco alcohol use Family History: Reviewed and noncontributory for presenting illness Allergies: Reviewed, see documented allergy list. REVIEW OF SYSTEMS: CONSTITUTIONAL : No fever No chills No diaphoresis No recent illness EENT: No vision changes No congestion No sore throat CARDIOVASCULAR: No chest pain No palpitations RESPIRATORY: No shortness of breath No cough No difficulty breathing GASTROINTESTINAL: No abdominal pain No nausea No vomiting No diarrhea GENITOURINARY: Right testicular pain No dysuria No hematuria No difficulty urinating MUSCULOSKELETAL: No back pain No leg pain No arm pain SKIN: No rashes No lesions LYMPHATIC: No swollen, enlarged glands. NEUROLOGICAL: No lightheadedness No headache No weakness No paresthesias PSYCHIATRIC: No anxiety No depression PHYSICAL EXAMINATION: Vital signs reviewed, nursing noted reviewed. GENERAL: Well-appearing, well-nourished and in no acute distress. HEAD: Atraumatic, normocephalic. EYES: Eyes appear normal, extraocular movements intact, sclera anicteric, conjunctiva are normal. ENT: nares patent, oropharynx clear without exudates. Moist mucous membranes. NECK: Normal range of motion, supple without lymphadenopathy LUNGS: Breath sounds clear to auscultation bilaterally and equal. No wheezes rales or rhonchi. HEART: Regular rate and rhythm without murmurs ABDOMEN: Soft, nontender, normoactive bowel sounds. No rebound, guarding, or rigidity. No masses appreciated. : Right testicular edema and tenderness to palpation posteriorly. No scrotal masses.. No inguinal hernia, no scrotal edema. No erythema to groin or perineum EXTREMITIES: Nontender, good range of motion, no pitting or edema. NEUROLOGICAL: No focal neurological deficits. Moves all extremities spontaneously Motor and sensory grossly intact on exam. PSYCH: Normal mood, normal affect. SKIN: Warm, Dry, normal turgor, no rashes or lesions noted on exposed skin - Related Data Allergies/Adverse Reactions: aspirin Allergy (Verified 11/09/18 15:30) Past Medical History - General Information source: Patient - Social History Smoking Status: Former Smoker Frequency of alcohol use: None Drug Abuse: None Family History: Reviewed & Not Pertinent, CAD, Hypertension Patient has suicidal ideation: No Patient has homicidal ideation: No - Past Medical History Cardiac Medical History: Reports: Hx Congestive Heart Failure, Hx Coronary Artery Disease, Hx Heart Attack, Hx Hypercholesterolemia, Hx Hypertension Pulmonary Medical History: Reports: Hx Bronchitis, Hx Pneumonia, Hx Sleep Apnea - History of; patient not on CPAP. Neurological Medical History: Denies: Hx Seizures Endocrine Medical History: Reports: Hx Diabetes Mellitus Type 2 Renal/ Medical History: Reports: Hx Benign Prostatic Hyperplasia, Hx Kidney Stones. Denies: Hx Peritoneal Dialysis GI Medical History: Reports: Hx Gastritis, Hx Gastroesophageal Reflux Disease, Hx Ulcer Musculoskeletal Medical History: Reports Hx Arthritis, Reports Hx Musculoskeletal Deformity, Reports Hx Musculoskeletal Trauma Psychiatric Medical History: Reports: Hx Anxiety, Hx Bipolar Disorder, Hx Dementia, Hx Depression Traumatic Medical History: Reports: Hx Fractures, Hx Traumatic Brain Injury Past Surgical History: Reports: Hx Abdominal Surgery - History: Had 18 inches of his colon removed, Hx Appendectomy, Hx Bowel Surgery - 17 inches removed due to necrosis, Hx Cardiac Catheterization, Hx Cardiac Surgery - cath, stent placement, Hx Coronary Stent, Hx Orthopedic Surgery - right wrist, right hip - Immunizations Immunizations up to date: Yes Hx Diphtheria, Pertussis, Tetanus Vaccination: Yes Hx Pneumococcal Vaccination: 11/28/11 Physical Exam - Vital signs Vitals: Temp Pulse Resp BP Pulse Ox 97.5 F 72 18 158/71 H 97 11/09/18 15:33 11/09/18 15:33 11/09/18 15:33 11/09/18 15:33 11/09/18 15:33 Course - Re-evaluation Re-evalutation: 11/09/18 19:08 Vitals reviewed. Nursing notes reviewed. Patient has right testicular enlargement and tenderness. Ultrasound shows likely right epididymitis. Patient will be started on doxycycline. He has no testicular torsion or signs of Ruth's gangrene. Patient otherwise well-appearing alert and in no acute distress. He was given Tylenol and Doxy in the emergency room. He is stable at discharge and referred to urology for follow-up Scrotum Ultrasound 11/09/18 15:46 IMPRESSION: 1. There is a prominent complex hypervascular area possibly associated with the tail of the epididymis. Possible epididymitis. 2. Small bilateral hydroceles. 3. Left varicocele. - Vital Signs Vital signs: Temp Pulse Resp BP Pulse Ox 97.4 F 66 18 158/84 H 97 11/09/18 18:55 11/09/18 18:55 11/09/18 18:55 11/09/18 18:55 11/09/18 18:55 Discharge - Discharge Clinical Impression: Right epididymitis Condition: Stable Disposition: HOME, SELF-CARE Instructions: Epididymitis ([facility]) Additional Instructions: Please return to the emergency department if you have any worsening, or concern of your symptoms. Please return to the emergency department if you develop chest pain, difficulty breathing, severe abdominal pain, or ongoing vomiting. Please follow-up with your primary care physician in 2-3 days and any other recommended physicians. If prescribed, take all medications as directed. If you have any questions or concerns do not hesitate to return the emergency department for evaluation. Prescriptions: Doxycycline Hyclate 100 mg PO BID #20 capsule Forms: Elevated Blood Pressure Referrals: JATIN BARLOW MD [NO LOCAL MD] - Follow up in 3-5 days SHAHEED ROBERTSON MD [Primary Care Provider] - Follow up in 3-5 days
== END 2018-11-09 22:03 | disposition home or self-care (01) ==
LOC: ER 15:28
DX: N45.1 Epididymitis (principal); R10.9 Unspecified abdominal pain; N50.811 Right testicular pain; Z87.891 Personal history of nicotine dependence; I50.9 Heart failure, unspecified; E11.9 Type 2 diabetes mellitus without complications; I25.10 Atherosclerotic heart disease of native coronary artery without angina pectoris; I11.0 Hypertensive heart disease with heart failure
CPT/HCPCS: 99284; 76870; 93976; A9270 ×2

== ENCOUNTER 2019-03-16 17:35 | Emergency (ER) | payer MEDICARE, MEDICAID ==
--- NOTE | 2019-03-16 19:00 | RADIOLOGY REPORT (SQ) ---
EXAM DESCRIPTION: CT CERVICAL SPINE WITHOUT COMPLETED DATE/TIME: 03/16/2019 6:48 pm REASON FOR STUDY: fall hit head on plavix COMPARISON: 01/15/2018 TECHNIQUE: Axial images acquired through the cervical spine without intravenous contrast. Images re viewed with lung, soft tissue and bone windows. Reconstructed coronal and sagittal MPR images review ed. Images stored on PACS. All CT scanners at this facility use dose modulation, iterative reconstruction, and/or weight based d osing when appropriate to reduce radiation dose to as low as reasonably achievable (ALARA). [facility]: Dose Right [facility]: CareDose [facility]: Dose Right [facility]: Teradose 4D [facility]: Smart [employer] RADIATION DOSE: CT Rad equipment meets quality standard of care and radiation dose reduction techniq ues were employed. CTDIvol: 24.7 mGy. DLP: 439 mGy-cm. mGy. LIMITATIONS: None. FINDINGS: ALIGNMENT: Anatomic. MINERALIZATION: Normal. VERTEBRAL BODIES: No fractures or dislocation. DISCS: Mild multilevel loss of intervertebral disc height. FACETS, LATERAL MASSES, POSTERIOR ELEMENTS: Mild facet arthropathy. No fractures. No dislocation. No acute findings. HARDWARE: None in the spine. VISUALIZED RIBS: No fractures. LUNG APICES AND SOFT TISSUES: No significant or acute findings. OTHER: No other significant finding. IMPRESSION: No evidence of acute osseous injury. Background of very mild spondylotic changes. TECHNICAL DOCUMENTATION: JOB ID: [id number] Quality ID # [id number]: Final reports with documentation of one or more dose reduction techniques (e.g., Au tomated exposure control, adjustment of the mA and/or kV according to patient size, use of iterative reconstruction technique) 2010 [employer]- All Rights Reserved Reading location - IP/workstation name: [email or web address]
--- NOTE | 2019-03-16 19:01 | RADIOLOGY REPORT (SQ) ---
EXAM DESCRIPTION: CT HEAD WITHOUT COMPLETED DATE/TIME: 03/16/2019 6:48 pm REASON FOR STUDY: head injury on plavix COMPARISON: 01/15/2018 TECHNIQUE: Axial images acquired through the brain without intravenous contrast. Images reviewed wit h bone, brain and subdural windows. Images stored on PACS. All CT scanners at this facility use dose modulation, iterative reconstruction, and/or weight based d osing when appropriate to reduce radiation dose to as low as reasonably achievable (ALARA). [facility]: Dose Right [facility]: CareDose [facility]: Dose Right [facility]: Teradose 4D [facility]: Smart [employer] RADIATION DOSE: CT Rad equipment meets quality standard of care and radiation dose reduction techniq ues were employed. CTDIvol: 53.2 mGy. DLP: 991 mGy-cm.. LIMITATIONS: None. FINDINGS: VENTRICLES: Normal size and contour. CEREBRUM: No masses. No hemorrhage. No midline shift. Age appropriate white matter. No evidence for a cute infarction. CEREBELLUM: No masses. No hemorrhage. No alteration of density. No evidence for acute infarction. EXTRA-AXIAL SPACES: No fluid collections. ORBITS AND GLOBE: No intra- or extraconal masses. Normal contour of globe without masses. CALVARIUM: No fracture. PARANASAL SINUSES: No fluid or mucosal thickening. SOFT TISSUES: No mass or hematoma. OTHER: No other significant finding. IMPRESSION: NO ACUTE INTRACRANIAL FINDINGS. EVIDENCE OF ACUTE STROKE: NO. TECHNICAL DOCUMENTATION: JOB ID: [id number] Quality ID # [id number]: Final reports with documentation of one or more dose reduction techniques (e.g., Au tomated exposure control, adjustment of the mA and/or kV according to patient size, use of iterative reconstruction technique) 2010 [employer]- All Rights Reserved Reading location - IP/workstation name: [employer]
--- NOTE | 2019-03-16 19:10 | ER Document Report ---
HPI - HPI Patient complains to provider of: Head injury Time Seen by Provider: 03/16/19 18:21 Onset: Just prior to arrival Onset/Duration: Sudden Quality of pain: No pain Pain Level: 0 Context: This 68-year-old male presents to the emergency department after hitting his head falling backwards of his wheelchair wearing shorts and lei with history of cardiac stents diabetes high blood pressure. He is taking Plavix. Reports he was out at [facility] trying on shirts when he sat down in his wheelchair and flipped backwards hitting his head on the floor. Laceration noted to the back of his head no active bleeding. Denies change in LOC. Denies vomiting. Patient is answering all questions appropriately. Reports his tetanus is up-to-date. Reports he lives at [facility] because he is very unsteady on his feet. Patient reports he wear shorts all year round because he is always hot. Family is with patient and they confirm everything he says. Associated Symptoms: None Exacerbated by: Denies Relieved by: Denies Similar symptoms previously: No Recently seen / treated by doctor: No - REPRODUCTIVE Reproductive: DENIES: : Past Medical History - General Information source: Patient - Social History Smoking Status: Unknown if Ever Smoked Cigarette use (# per day): No Frequency of alcohol use: None Drug Abuse: None Family History: Reviewed & Not Pertinent, CAD, Hypertension Patient has suicidal ideation: No Patient has homicidal ideation: No - Past Medical History Cardiac Medical History: Reports: Hx Congestive Heart Failure, Hx Coronary Artery Disease, Hx Heart Attack, Hx Hypercholesterolemia, Hx Hypertension Pulmonary Medical History: Reports: Hx Bronchitis, Hx Pneumonia, Hx Sleep Apnea - History of; patient not on CPAP. Neurological Medical History: Denies: Hx Seizures Endocrine Medical History: Reports: Hx Diabetes Mellitus Type 2 Renal/ Medical History: Reports: Hx Benign Prostatic Hyperplasia, Hx Kidney Stones. Denies: Hx Peritoneal Dialysis GI Medical History: Reports: Hx Gastritis, Hx Gastroesophageal Reflux Disease, Hx Ulcer Musculoskeletal Medical History: Reports Hx Arthritis, Reports Hx Musculoskeletal Deformity, Reports Hx Musculoskeletal Trauma Psychiatric Medical History: Reports: Hx Anxiety, Hx Bipolar Disorder, Hx Dementia, Hx Depression Traumatic Medical History: Reports: Hx Fractures, Hx Traumatic Brain Injury Past Surgical History: Reports: Hx Abdominal Surgery - History: Had 18 inches of his colon removed, Hx Appendectomy, Hx Bowel Surgery - 17 inches removed due to necrosis, Hx Cardiac Catheterization, Hx Cardiac Surgery - cath, stent placement, Hx Coronary Stent, Hx Orthopedic Surgery - right wrist, right hip - Immunizations Immunizations up to date: Yes Hx Diphtheria, Pertussis, Tetanus Vaccination: Yes Hx Pneumococcal Vaccination: 11/28/11 Vertical Provider Document - CONSTITUTIONAL Agree With Documented VS: Yes Exam Limitations: No Limitations General Appearance: WD/WN, No Apparent Distress - INFECTION CONTROL TRAVEL OUTSIDE OF THE [place] IN LAST 30 DAYS: No - HEENT HEENT: Normocephalic, PERRLA. negative: Conjuctival Injection - NECK Neck: Normal Inspection, Supple - RESPIRATORY Respiratory: Breath Sounds Normal, No Respiratory Distress - CARDIOVASCULAR Cardiovascular: Regular Rate - GI/ABDOMEN Gastrointestinal: Abdomen Soft, Abdomen Non-Tender - MUSCULOSKELETAL/EXTREMETIES Musculoskeletal/Extremeties: MAEW, FROM, Non-Tender - NEURO Level of Consciousness: Awake, Alert, Appropriate Motor/Sensory: No Motor Deficit - DERM Integumentary: Warm, Dry, Laceration - Laceration noted to the back of his head Course - Re-evaluation Re-evalutation: 03/16/19 19:[address] 03/16/19 18:25 IMPRESSION: NO ACUTE INTRACRANIAL FINDINGS. EVIDENCE OF ACUTE STROKE: NO. Cervical Spine CT 03/16/19 18:26 IMPRESSION: No evidence of acute osseous injury. Background of very mild spondylotic changes. 03/16/19 19:12 This 68-year-old male presents emergency department after he fell backwards out of his wheelchair and hit his head. No change in LOC. Patient is on Plavix. A CT was done of his head and neck which were both negative. Family is with patient and they were instructed on signs and symptoms of head injury. They were instructed to monitor him closely for signs and symptoms of a bleed. Scalp laceration is less than 1 cm approximated no saadia or sutures needed at this time. Wound was cleaned well by [facility]. Family was instructed on signs and symptoms of infection. They were also instructed to follow-up with his primary care within a week for recheck. They verbalized understanding to all instructions. Dictation of this chart was performed using voice recognition software; therefore, there may be some unintended grammatical errors. - Vital Signs Vital signs: Temp Pulse Resp BP Pulse Ox 97.6 F 76 20 191/88 H 96 03/16/19 18:07 03/16/19 18:07 03/16/19 18:07 03/16/19 18:07 03/16/19 18:07 Discharge - Discharge Clinical Impression: Head injury Qualifiers: Encounter type: initial encounter Qualified Code(s): S09.90XA - Unspecified injury of head, initial encounter Scalp laceration Qualifiers: Encounter type: initial encounter Qualified Code(s): S01.01XA - Laceration without foreign body of scalp, initial encounter Condition: Stable Disposition: HOME, SELF-CARE Instructions: Antibiotic Ointment Protection ([facility]), Head Injury Precautions ([facility]), Scalp Laceration ([facility]) Additional Instructions: *You have been treated for a head injury with scalp laceration *Monitor the site for signs of infection such as increasing pain, redness, swelling, warmth *Wash your hair with gentle shampoo *Follow up with a primary care provider within one week for recheck *Return to ED for signs of infection, worsening condition, changes, needs, confusion, vomiting, concerns Monitor your blood pressure. Your blood pressure was elevated today. This may be because you were anxious, in pain or because you need medication. It is important to follow up with your primary care provider for full evaluation. Forms: Elevated Blood Pressure Referrals: SHAHEED ROBERTSON MD [Primary Care Provider] - Follow up in 3-5 days
[2019-03-16 19:21] VITALS: BP 195/94
== END 2019-03-16 19:27 | disposition home or self-care (01) ==
LOC: ER 17:35
DX: S01.02XA Laceration with foreign body of scalp, initial encounter (principal); W05.0XXA Fall from non-moving wheelchair, initial encounter; Y93.89 Activity, other specified; Y92.512 Supermarket, store or market as the place of occurrence of the external cause; R26.81 Unsteadiness on feet; E11.9 Type 2 diabetes mellitus without complications; I10 Essential (primary) hypertension; I25.10 Atherosclerotic heart disease of native coronary artery without angina pectoris; I25.2 Old myocardial infarction; Z79.02 Long term (current) use of antithrombotics/antiplatelets; Z95.5 Presence of coronary angioplasty implant and graft
CPT/HCPCS: 70450; 72125; 99283

== ENCOUNTER 2019-12-20 00:44 | Emergency (ER) | payer MEDICARE, MEDICAID ==
[2019-12-20] MEDS ORDERED: NORMAL SALINE 1000 ML 1,000 ML IV ONE (01:01)
--- NOTE | 2019-12-20 01:25 | ER Document Report ---
ED General - General Chief Complaint: Unresponsive Stated Complaint: UNRESPONSIVE Time Seen by Provider: 12/20/19 00:59 Primary Care Provider: SINDHU RILEY MD [Primary Care Provider] - Follow up as needed Notes: 69 year old male arrives via EMS from [facility] with complaints of ALOC. He was reported to have a low blood sugar and was administered glucagon by the staff at [facility] without a change in poor responsiveness. EMS found FSBS about 80 and transported him here without incident. FSBS for us is about 115. He will not provide any history or speak upon arrival. Pupils are 3-4 mm and sluggish. His history from the records includes htn, dm, tbi history, dementia, hld, depression. TRAVEL OUTSIDE OF THE [place] IN LAST 30 DAYS: No - HPI Quality of pain: No pain Severity: Moderate - Related Data Allergies/Adverse Reactions: aspirin Allergy (Verified 11/07/19 12:19) Past Medical History - Social History Smoking Status: Unknown if Ever Smoked Family History: CAD, Hypertension, Reviewed & Not Pertinent - Past Medical History Cardiac Medical History: Reports: Hx Congestive Heart Failure, Hx Coronary Artery Disease, Hx Heart Attack, Hx Hypercholesterolemia, Hx Hypertension Pulmonary Medical History: Reports: Hx Bronchitis, Hx Pneumonia, Hx Sleep Apnea - History of; patient not on CPAP. Neurological Medical History: Denies: Hx Seizures Endocrine Medical History: Reports: Hx Diabetes Mellitus Type 2 Renal/ Medical History: Reports: Hx Benign Prostatic Hyperplasia, Hx Kidney Stones. Denies: Hx Peritoneal Dialysis GI Medical History: Reports: Hx Gastritis, Hx Gastroesophageal Reflux Disease, Hx Ulcer Musculoskeletal Medical History: Reports Hx Arthritis, Reports Hx Musculosk eletal Deformity, Reports Hx Musculoskeletal Trauma Psychiatric Medical History: Reports: Hx Anxiety, Hx Bipolar Disorder, Hx Dementia, Hx Depression Traumatic Medical History: Reports: Hx Fractures, Hx Traumatic Brain Injury Past Surgical History: Reports: Hx Abdominal Surgery - History: Had 18 inches of his colon removed, Hx Appendectomy, Hx Bowel Surgery - 17 inches removed due to necrosis, Hx Cardiac Catheterization, Hx Cardiac Surgery - cath, stent placement, Hx Coronary Stent, Hx Orthopedic Surgery - right wrist, right hip - Immunizations Immunizations up to date: Yes Hx Diphtheria, Pertussis, Tetanus Vaccination: Yes Hx Pneumococcal Vaccination: 11/28/11 Review of Systems - Review of Systems -: Yes ROS unobtainable due to patient's medical condition Physical Exam - Vital signs Vitals: Temp Pulse Resp BP Pulse Ox 97.7 F 96 32 H 105/66 94 12/20/19 00:48 12/20/19 00:48 12/20/19 00:48 12/20/19 00:48 12/20/19 00:48 Interpretation: Normal - General General appearance: Appears well, Alert - HEENT Head: Normocephalic, Atraumatic Eyes: Normal Pupils: PERRL - Respiratory Respiratory status: No respiratory distress Chest status: Nontender Breath sounds: Normal Chest palpation: Normal - Cardiovascular Rhythm: Regular Heart sounds: Normal auscultation Murmur: No - Abdominal Inspection: Normal Distension: No distension Bowel sounds: Normal Tenderness: Nontender Organomegaly: No organomegaly - Back Back: Normal, Nontender - Extremities General upper extremity: Normal inspection, Nontender, Normal color, Normal ROM, Normal temperature General lower extremity: Normal inspection, Nontender, Normal color, Normal ROM, Normal temperature, Normal weight bearing. No: Sam's sign - Neurological Neuro grossly intact: Yes Cognition: Normal Orientation: AAOx4 [place] Coma Scale Eye Opening: Spontaneous [place] Coma Scale Verbal: Oriented [place] Coma Scale Motor: Obeys Commands [place] Coma Scale Total: 15 Speech: Normal Sensory: Normal - Psychological Associated symptoms: Normal affect, Normal mood - Skin Skin Temperature: Warm Skin Moisture: Dry Skin Color: Normal Course - Re-evaluation Re-evalutation: 12/20/19 02:31 MDM 69 year old male with complaints of ALOC. Upon recheck just a short time ago he is more alert. Tell me he feels "terrible" and that his stomach has been bothering him for about 2 days. No chest pain and no sob. No fever or chills. Recheck of abd exam he has mild to moderate epigastric and ruq pain and rlq pain. - Vital Signs Vital signs: Temp Pulse Resp BP Pulse Ox 97.7 F 96 11 L 114/64 94 12/20/19 00:48 12/20/19 00:48 12/20/19 02:01 12/20/19 02:01 12/20/19 02:01 - Laboratory Result Diagrams: 12/20/19 01:10 12/20/19 01:10 Laboratory results interpreted by me: 12/20/19 12/20/19 12/20/19 01:10 01:10 01:10 RBC 4.24 L Hgb 11.7 L Hct 35.1 L RDW 15.3 H Lymph % (Auto) 9.2 L Seg Neutrophils % 84.3 H Sodium 136.7 L BUN 25 H Lactic Acid 2.5 H Ur Leukocyte Esterase 12/20/19 01:10 RBC Hgb Hct RDW Lymph % (Auto) Seg Neutrophils % Sodium BUN Lactic Acid Ur Leukocyte Esterase TRACE H - Diagnostic Test Radiology reviewed: Image reviewed, Reports reviewed Discharge - Discharge Clinical Impression: Acute encephalopathy, Hypoglycemia Diabetes Qualifiers: Diabetes mellitus type: type 2 Diabetes mellitus intermediate project manager insulin use: unspecified intermediate project manager insulin use status Diabetes mellitus complication status: with other specified complication Qualified Code(s): E11.69 - Type 2 diabetes mellitus with other specified complication UTI (urinary tract infection) Qualifiers: Urinary tract infection type: site unspecified Hematuria presence: with hematu francesca Qualified Code(s): N39.0 - Urinary tract infection, site not specified Condition: Stable Disposition: HOME, SELF-CARE Instructions: Hypoglycemia Diet ([facility]), Hypoglycemia ([facility]), Weakness ([facility]) Additional Instructions: Clear liquids, rest, take your medicines as directed. Return here for fever, chills, chest pain, shortness of breath or other problems or concerns. Prescriptions: Cephalexin Monohydrate [Keflex 500 mg Capsule] 500 mg PO TID #30 capsule Referrals: SINDHU RILEY MD [Primary Care Provider] - Follow up as needed
[2019-12-20 01:26] LABS: ABSOLUTE LYMPHOCYTES (AUTO) 0.7 10^3/uL (0.5-4.7); ABSOLUTE MONOCYTES (AUTO) 0.4 10^3/uL (0.1-1.4); ABSOLUTE NEUT (AUTO) 6.1 10^3/uL (1.7-8.2); BASOPHILS % (AUTO) 0.2 % (0-2); EOSINOPHILS % (AUTO) 0.6 % (0-6); HEMATOCRIT 35.1 % (37.9-51.0); HEMOGLOBIN 11.7 g/dL (13.5-17.0); LYMPHOCYTES % (AUTO) 9.2 % (13-45); MEAN CORPUSCULAR HEMOGLOBIN 27.6 pg (27.0-33.4); MEAN CORPUSCULAR HGB CONC 33.3 g/dL (32.0-36.0); MEAN CORPUSCULAR VOLUME 83 fl (80-97); MONOCYTES % (AUTO) 5.7 % (3-13); PLATELET COUNT 249 10^3/uL (150-450); RED BLOOD COUNT 4.24 10^6/uL (4.35-5.55); RED CELL DISTRIBUTION WIDTH 15.3 % (11.5-14.0); SEGMENTED NEUTROPHILS % (AUTO) 84.3 % (42-78); TOTAL CELLS COUNTED % (AUTO) 100 %; WHITE BLOOD COUNT 7.3 10^3/uL (4.0-10.5)
[2019-12-20 01:28] LABS: VENOUS BLOOD BASE EXCESS 0.9 mmol/L; VENOUS BLOOD HCO3 28.4 mmol/L (20-32); VENOUS BLOOD PCO2 58.5 mmHg (35-63); VENOUS BLOOD PH 7.3 (7.30-7.42)
[2019-12-20 01:45] LABS: ALBUMIN 3.5 g/dL (3.5-5.0); ALKALINE PHOSPHATASE 87 U/L (38-126); ANION GAP 7 (5-19); ASPARTATE AMINO TRANSFERASE 20 U/L (17-59); BILIRUBIN,TOTAL 0.3 mg/dL (0.2-1.3); BLOOD UREA NITROGEN 25 mg/dL (7-20); CALCIUM 9.3 mg/dL (8.4-10.2); CARBON DIOXIDE 30 mmol/L (22-30); CHLORIDE 100 mmol/L (98-107); GLUCOSE 109 mg/dL (75-110); POTASSIUM 3.7 mmol/L (3.6-5.0); TOTAL PROTEIN 6.3 g/dL (6.3-8.2)
[2019-12-20 01:52] LABS: APPEARANCE,URINE CLEAR; BILIRUBIN,URINE NEGATIVE (NEGATIVE); COLOR,URINE YELLOW; GLUCOSE, URINE NEGATIVE (NEGATIVE); KETONES,URINE NEGATIVE (NEGATIVE); LEUKOCYTE ESTERASE,URINE TRACE (NEGATIVE); NITRITE,URINE NEGATIVE (NEGATIVE); PROTEIN,URINE NEGATIVE (NEGATIVE); URINE SPECIFIC GRAVITY 1.008; UROBILINOGEN,URINE NEGATIVE mg/dL (<2.0)
[2019-12-20] MEDS ORDERED: CEFTRIAXONE 1 GM/D5W RTU 1 GM/50 ML RTUPB IV ONE (02:05)
--- NOTE | 2019-12-20 03:04 | RADIOLOGY REPORT (SQ) ---
CLINICAL HISTORY: aloc COMPARISON: 03/16/2019. TECHNIQUE: CT HEAD WITHOUT IV CONTRAST on 12/20/2019 1:07 AM CDT This exam was performed according to our departmental dose-optimization program, which includes automated exposure control, adjustment of the mA and/or kV according to patient size and/or use of iterative reconstruction technique. FINDINGS: There is no acute hemorrhage, mass effect or midline shift. Weldon-white differentiation is preserved. There is no hydrocephalus. There is no significant volume loss for age. The calvarium is intact. Orbits and globes are unremarkable. The paranasal sinuses are clear. Mastoid air cells are clear. IMPRESSION: No acute intracranial findings.
--- NOTE | 2019-12-20 03:06 | RADIOLOGY REPORT (SQ) ---
CLINICAL HISTORY: abd pain. CREAT 1.12 COMPARISON: None. TECHNIQUE: CT ABDOMEN PELVIS WITH IV CONTRAST on 12/20/2019 2:29 AM CDT This exam was performed according to our departmental dose-optimization program, which includes automated exposure control, adjustment of the mA and/or kV according to patient size and/or use of iterative reconstruction technique. FINDINGS: Lower lungs are clear. Abdomen: The liver is normal in appearance. There is no biliary dilatation. Gallbladder is normal in appearance. The pancreas and spleen are normal in appearance. Adrenal glands are normal. Kidneys are mildly atrophic. Abdominal aorta is normal in course and caliber without aneurysm. There is no free air. There is no retroperitoneal adenopathy. Pelvis: There is no bowel obstruction. Urinary bladder is diffusely thickened. There is no free fluid. Appendix is not clearly seen. There are postoperative changes of the right femur. Skeleton: There are no acute osseous findings. No suspicious bony lesions. IMPRESSION: Mild diffuse urinary bladder wall thickening.
--- NOTE | 2019-12-20 03:13 | RADIOLOGY REPORT (SQ) ---
CLINICAL HISTORY: htn COMPARISON: None. TECHNIQUE: XR CHEST 1 VIEW 12/20/2019 1:01 AM CDT FINDINGS: The heart is enlarged. Lungs are clear without consolidation, atelectasis, mass or edema. There is no pleural effusion. There is no pneumothorax. There are no acute osseous findings. IMPRESSION: Clear lungs.
--- NOTE | 2019-12-20 06:59 | ER Document Report ---
Doctor's Note Notes: 12/20/19 06:58 Called [facility]term and discussed case with nurse Landry. Printed out all results for patient to take back to [facility] and follow-up with PCP regarding.
[2019-12-20 08:27] VITALS: BP 185/87
--- NOTE | 2019-12-20 09:27 | EKG REPORT ---
SEVERITY:- ABNORMAL ECG - SINUS RHYTHM BORDERLINE LEFT AXIS DEVIATION ABNRM R PROG, CONSIDER ASMI OR LEAD PLACEMENT : Confirmed by: Basil Sanders 20-Dec-2019 09:26:41
== END 2019-12-20 09:15 | disposition home or self-care (01) ==
LOC: ER 00:44
DX: G93.40 Encephalopathy, unspecified (principal); E11.649 Type 2 diabetes mellitus with hypoglycemia without coma; E11.69 Type 2 diabetes mellitus with other specified complication; N39.0 Urinary tract infection, site not specified; R10.84 Generalized abdominal pain; I50.9 Heart failure, unspecified; I11.0 Hypertensive heart disease with heart failure; E78.00 Pure hypercholesterolemia, unspecified; F03.90 Unspecified dementia, unspecified severity, without behavioral disturbance, psychotic disturbance, mood disturbance, and anxiety; I25.2 Old myocardial infarction; Z88.6 Allergy status to analgesic agent; Z90.49 Acquired absence of other specified parts of digestive tract
CPT/HCPCS: 93005; 99285; 96361; 51701; 96365; 96366; 36415; 87040; 82962; 83605; 83690; 83735; 84443; 85025; 80053; 81001; 84484; 82803; 71045; 70450; 74177; 93010; J7030; J0696